=== PATIENT | female | born 1945 | race Caucasian/White ===

== ENCOUNTER → 2017-01-17 | Outpatient (CLI) | payer OTHER, MEDICARE ==
[~2017-01-17] MED LIST: ADVIN25050 INH; ALBU1AER9 INH; ASPI-435 PO; ATOR-54 PO; BUPR300T43 PO; FLUT0.15 NAE; GLIM2TAB2 PO; GLUCTAB7 PO; HYDR25TA5 PO; LEVO88TA PO; METFTAB PO; MONT1TAB3 PO; OMEG5CAP PO; RAMI5CAP PO
[2017-01-17 12:30] LABS: ALT/SGPT 21 U/L (12-78); BLOOD UREA NITROGEN 18 mg/dl (7-18); BUN/CREATININE RATIO 19.1 (10-20); CARBON DIOXIDE 31 mmol/L (21-32); CHLORIDE 105 mmol/L (98-107); CHOLESTEROL 185 mg/dl (0-200); CREATININE 0.96 mg/dl (0.60-1.20); GLUCOSE 121 mg/dl (70-99); SODIUM 144 mmol/L (136-145)
[2017-01-17 12:33] LABS: ALB/GLOB RATIO 0.9 (0.9-2); ALKALINE PHOSPHATASE 94 U/L (45-117); AST/SGOT 14 U/L (15-37); CHOLESTEROL/HDL RATIO 3.2; HDL CHOLESTEROL 58 mg/dl; LDL CHOLESTEROL CALCULATED 94 mg/dl; TRIGLYCERIDES 165 mg/dl (0-150); VERY LOW DENSITY LIPOPROT CALC 33 mg/dl
[2017-01-17 12:47] LABS: CALCIUM 9.2 mg/dl (8.5-10.1)
[2017-01-17 13:11] LABS: ESTIMATED AVERAGE GLUCOSE 192 mg/dl; HA1C FLAG Normal (Normal)
== END | disposition home or self-care (01) ==
LOC: C.LABBFT 09:46
PROVIDERS: ATTEND Internal Medicine
DX: E11.65 Type 2 diabetes mellitus with hyperglycemia (principal); E78.5 Hyperlipidemia, unspecified

== ENCOUNTER → 2017-06-23 | Outpatient (CLI) | payer OTHER, MEDICARE | END | disposition home or self-care (01) | LOC: C.PAPS 16:17 | PROVIDERS: ATTEND Obstetrics & Gynecology | DX: Z12.4 Encounter for screening for malignant neoplasm of cervix (principal) ==

== ENCOUNTER → 2017-07-11 | Outpatient (CLI) | payer OTHER, MEDICARE ==
--- NOTE | 2017-07-11 08:31 | DIAGNOSTIC IMAGING REPORT ---
ULTRASOUND ABDOMINAL WALL CLINICAL HISTORY: Right upper quadrant abdominal pain. COMPARISON STUDY: Abdominal ultrasound dated 10/20/2015. FINDINGS real-time grayscale sonography of the right upper quadrant abdominal wall is performed at the indicated site of interest. There is no sonographic evidence of hernia at this site. No mass lesion or fluid collection is suggested. IMPRESSION: Unremarkable sonographic assessment of the right abdominal wall at the indicated site of interest. Electronically signed by: Roberto García M.D. 07/11/2017 8:30 AM Dictated Date/Time: 07/11/2017 8:28 AM
== END | disposition home or self-care (01) ==
LOC: C.ULTR 07:38
PROVIDERS: ATTEND Physician Assistant Medical
DX: R10.11 Right upper quadrant pain (principal)

== ENCOUNTER → 2017-11-01 | Outpatient (CLI) | payer OTHER, MEDICARE ==
[2017-11-01 13:04] LABS: HEMOGLOBIN A1C 8.8 % (4.5-5.6)
== END | disposition home or self-care (01) ==
LOC: C.LABBFT 08:46
PROVIDERS: ATTEND Physician Assistant Medical
DX: E11.65 Type 2 diabetes mellitus with hyperglycemia (principal)

== ENCOUNTER → 2018-03-06 | Outpatient (CLI) | payer OTHER, MEDICARE ==
[2018-03-06 17:53] LABS: ALBUMIN 3.3 gm/dl (3.4-5.0); ALKALINE PHOSPHATASE 105 U/L (45-117); ALT/SGPT 24 U/L (12-78); AST/SGOT 10 U/L (15-37); BLOOD UREA NITROGEN 32 mg/dl (7-18); CALCIUM 9.1 mg/dl (8.5-10.1); CARBON DIOXIDE 25 mmol/L (21-32); CHOLESTEROL 200 mg/dl (0-200); CREATININE 0.99 mg/dl (0.60-1.20); GLUCOSE 128 mg/dl (70-99); LDL CHOLESTEROL CALCULATED 95 mg/dl; POTASSIUM 4.1 mmol/L (3.5-5.1); SODIUM 139 mmol/L (136-145); TOTAL PROTEIN 7.2 gm/dl (6.4-8.2)
[2018-03-07 07:01] LABS: HEMOGLOBIN A1C 9.5 % (4.5-5.6)
== END | disposition home or self-care (01) ==
LOC: C.LABBFT 11:31
PROVIDERS: ATTEND Physician Assistant Medical
DX: E11.65 Type 2 diabetes mellitus with hyperglycemia (principal); E03.9 Hypothyroidism, unspecified

== ENCOUNTER 2023-12-07 20:43 | Inpatient (IN) ==
[2023-12-07] MEDS: SODIUM CHLORIDE 0.9% 1,000 ML IV SCH ×2 (21:04→21:47)
--- NOTE | 2023-12-07 21:04 | Emergency Department Note ---
Impression & Plan Small bowel obstruction, S/P laparoscopic cholecystectomy, Abdominal pain, Nausea & vomiting ED Provider Note NAME: PETE PERRIN AGE: 78 SEX: F : 1945 ARRIVES VIA: Walk-In INFORMANT: Patient, ED PROVIDER(S): Edison Carrizales MD CHIEF COMPLAINT: Abdominal pain, nausea vomiting MEDICAL DECISION MAKING: Patient presents due to concern for abdominal pain nausea vomiting was noted to be hypotensive and vomiting in triage I was asked to see the patient emergently. Patient was evaluated at the bedside all IV fluids initiated along with Zofran and morphine CT abdomen pelvis [id number] BMP blood work blood cultures lactate and empiric antibiotics given the patient's recent surgery and hypotension. Patient was noted to have a possible small bowel obstruction. Patient did have an NG that was placed. KUB showed slight curling of the NG tube which was pulled back by nursing who did have appropriate suction of gastric contents. I did inform on-call surgery Dr. Leo who was comfortable with plan of care. I did speak the on-call hospitalist Dr. Mahmood and the patient was admitted to medicine service. Discussion w/ other healthcare providers: Dr. Leo general surgery Dr. Mahmood inpatient medicine service Prior /Outside records reviewed: None Differential diagnosis: Appendicitis, ovarian cyst, ovarian torsion, ectopic , TOA, PID, diverticulitis, UTI, obstruction, inflammatory bowel disease, renal colic, PUD, pancreatitis, biliary pathology, hernia, volvulus, constipation, as well as other pathologies were considered. Diagnostics, as interpreted by me: ECG: Sinus bradycardia, rate of 56, normal intervals, normal axis no ST elevations. No significant change for comparison December 08, 2022 Cardiac monitoring: An order was placed for continuous cardiac monitoring. The monitor shows a rate of 68 with sinus rhythm. Patient was placed on pulse oximetry Medical decision rules: None Imaging studies: I informally interpreted the patient's CT abdomen pelvis which does show concern for bowel obstruction with formal report to follow. I informally interpreted the patient's KUB which does show NG tube overlying the stomach with formal report to follow. I informally interpreted the patient's chest x-ray which does not show obvious evidence of pneumonia or pneumothorax with formal report to follow. HPI: Patient presents due to concern for abdominal pain nausea and vomiting. The patient did have a recent cholecystectomy that was completed yesterday and was also discharged yesterday. Patient did have the procedure performed by Dr. Baugh. The patient states that today she developed abdominal pain associated nausea vomiting several hours after eating around 430. Patient states that she had had macaroni and cheese at that time. Patient states that she vomited 3 times reportedly bilious when she vomited here in the emergency department. The patient denies any chest pains or shortness of breath. The patient does feel better after the vomiting. The patient has had several small bowel movements since her procedure yesterday. No reported blood. Patient states that her pain is diffuse and worse with palpation. PAST MEDICAL HISTORY: See Below PAST SURGICAL HISTORY: See Below SOCIAL HISTORY: See Below HOME MEDICATIONS: See Below ALLERGIES: See Below VITALS: See Below PHYSICAL EXAMINATION: GENERAL: Uncomfortable in appearance. EYE EXAM: Normal conjunctiva. PERRL, no anisocoria and EOM's grossly intact w/o pain. OROPHARYNX: Moist mucus membranes, grossly normal dentition. NECK: Trachea midline, no stridor. LUNGS: Clear to auscultation. Normal chest wall mechanics. HEART: NSR, no MRG. ABDOMEN: Abdomen soft, diffuse abdominal pain most prominent the right upper quadrant and left lower abdomen, incisional sites well-appearing with no fluctuance or drainage no masses, no rebound or guarding. BACK: No CVA TTP. SKIN: No rashes and no bruising. UPPER EXTREMITIES: Upper extremities are grossly normal. LOWER EXTREMITIES: Grossly normal, no edema. NEURO EXAM: A&O x3, cranial nerves II-XII grossly intact, normal speech, moves all 4 extremities. Past Med/Surg History Medical History Diabetes mellitus, controlled NIDDM Peripheral vascular disease of extremity with claudication right lower extremity Depression Anxiety Dyspnea on effort chronic per pt History of COVID-19 06/2021- mild symptoms and had antibody infusion GERD (gastroesophageal reflux disease) no current meds Generalized osteoarthritis Stress incontinence in female Tubular adenoma of colon hx Hyperlipidemia Mixed conductive and sensorineural hearing loss of left ear with restricted hearing of right ear Hypothyroidism HTN (hypertension) Asthma daily inh and prn inh-rare use Surgical History H/O exploratory laparotomy (12/08/23) Exploratory Laparotomy, Release of Small Bowel Obstruction(Not Applicable) - Cruz Baugh MD, FACS Hx laparoscopic cholecystectomy (12/06/23) Laparoscopic Cholecystectomy With Cholangiogram(Not Applicable) - Cruz Baugh MD, FACS History of tonsillectomy History of left knee surgery Status post cataract extraction Right eye 12/29/2021-Dr. York Left eye 12/15/2021-Dr. York Hx of colonoscopy History of lumpectomy of left breast benign H/O vaginal hysterectomy Family History Father Myocardial infarction Mother Myocardial infarction Hypertension Uncle Stroke Other Heart disease No family history of adverse response to anesthesia No family history of bleeding disorder Denies family history of Ovarian cancer Prostate cancer Coronary heart disease Breast cancer Colorectal cancer Social History Smoking Status: Never smoker Tobacco Type: Cigarettes Second Hand Exposure: Yes (hx growing up); Do You Dip or Chew Tobacco: No; Hx Alcohol Use: No Hx Substance Use: No Preferred Language: [place]araguan Communication Ability: Effective Visual Impairment: No Limitations Hearing Ability: Use of Hearing Aid Top Collar Maker Required: No Beliefs That Will Affect Care: None marital status: Current Living Situation: Spouse current occupational status: retired How many Children do You have: 2 Feels Safe at Home: Yes Safety Concerns: Feels Safe At This Time Childhood Exposure to Second-Hand Smoke: No Diet: regular caffeine: Yes during the past year weight has: decreased > 10 lbs Dental Care, Regularly: Yes Physical Activity Frequency: 1-2 Times per Week Seatbelt Use: always Sunscreen Use: No Assistive Devices: None Allergies Allergies Allergy/AdvReac Type Severity Reaction Status Date / Time Sulfa (Sulfonamide AdvReac Intermediate NAUSEA/VOMI Verified 12/07/23 22:58 Antibiotics) TING Home Meds Home Medications Medication Instructions Recorded Confirmed diclofenac sodium 1 % topical gel 4 g topical QID PRN Pain 07/01/21 12/07/23 dulaglutide 3 mg/0.5 mL 3 mg subcut Q7D 11/24/23 12/07/23 subcutaneous pen injector aspirin 81 mg tablet,delayed 81 mg PO QAM 04/26/24 05/02/24 release (Adult Low Dose Aspirin) fluoxetine 10 mg capsule 10 mg PO QPM 12/01/23 12/07/23 Previous Rx's Medication Instructions Recorded ramipril 10 mg capsule 10 mg PO QAM #90 caps 01/24/23 blood sugar diagnostic (Accu-Chek #100 ea 03/15/23 SmartView Test Strips) lancets (Accu-Chek Softclix #100 ea 03/17/23 Lancets) albuterol sulfate 90 mcg/actuation 2 puff inhalation Q4H PRN 07/27/23 aerosol inhaler (ProAir HFA) shortness of breath or wheezing #25.5 grams atorvastatin 40 mg tablet 40 mg PO HS #90 tabs 07/27/23 bupropion HCl 300 mg 24 hr tablet, 300 mg PO QAM #90 tabs 07/27/23 extended release fluticasone furoate 100 1 inh inhalation QAM #3 Inhalers 07/27/23 mcg-vilanterol 25 mcg/dose inhalation powder (Breo Ellipta) fluticasone propionate 50 2 spray intranasal QAM #16 grams 07/27/23 mcg/actuation nasal spray,suspension hydrochlorothiazide 12.5 mg tablet 12.5 mg PO QAM #90 tabs 07/27/23 levothyroxine 88 mcg tablet 88 mcg PO QAM #90 tabs 07/27/23 metformin 500 mg tablet,extended 500 mg PO BID #90 tabs 07/27/23 release 24 hr montelukast 10 mg tablet 10 mg PO HS #90 tabs 07/27/23 (Singulair) ondansetron 4 mg disintegrating 4 mg PO Q4H PRN nausea and 11/24/23 tablet vomiting 0 days #10 tabs oxycodone 5 mg tablet 5 - 10 mg (1 - 2 x 5 mg) PO 12/06/23 [id number] PRN pain #15 tabs Results & Data (ED) Vital Signs Vital Signs - 24 hr 12/07/23 20:45 12/07/23 21:01 12/07/23 21:01 Temperature 36.7 C Temperature Source Temporal Artery Scan Pulse Rate 50 L Respiratory Rate 18 Respiratory Effort / Characteristics Non-Labored Respiratory Depth Normal Blood Pressure 71/49 L Blood Pressure Mean 56 Pulse Oximetry 96 Oxygen Delivery Method Room Air Room Air Room Air Sepsis Recent Fever Within 48 Hours No Sepsis New/Unexplained Change in Mental Status No Sepsis Action Taken by Nursing No Action Required 12/07/23 21:01 Temperature Temperature Source Pulse Rate Respiratory Rate Respiratory Effort / Characteristics Non-Labored Respiratory Depth Normal Blood Pressure Blood Pressure Mean Pulse Oximetry Oxygen Delivery Method Sepsis Recent Fever Within 48 Hours Sepsis New/Unexplained Change in Mental Status Sepsis Action Taken by [facility] Medications Current Medication List: was personally reviewed by me Laboratory Data Attestation: I reviewed the patient's lab results. 12/12/23 07:23 12/13/23 05:36 Lab Results 12/07/23 12/07/23 12/07/23 Range/Units 21:05 21:08 21:14 WBC 11.56 H (4.8-10.8) K/ul RBC 4.82 (4.20-5.40) M/uL Hgb 14.8 (12.0-16.0) g/dl POC Hgb 15.3 (12.0-16.0) g/dl Hct 43.8 (37.0-47.0) % POC Hct 45 (37-47) % MCV 90.9 (80.0-100.0) fL MCH 30.7 (25.0-34.0) pg MCHC 33.8 (32.0-36.0) g/dL RDW Std Deviation 40.2 (36.4-46.3) fL RDW Coeff of Diana 12.0 (11.5-14.5) % Plt Count 326 (130-400) K/uL MPV 11.6 (9.4-12.4) fL Immature Gran % (Auto) 0.4 % Neut % (Auto) 85.5 % Lymph % (Auto) 9.4 % Webster % (Auto) 4.2 % Eos % (Auto) 0.2 % Baso % (Auto) 0.3 % Neut # (Auto) 9.88 H (1.40-6.50) K/uL Lymph # (Auto) 1.09 L (1.20-3.40) K/uL Webster # (Auto) 0.49 (0.11-0.59) K/uL Eos # (Auto) 0.02 (0.00-0.50) K/uL Baso # (Auto) 0.03 (0.00-0.20) K/uL Immature Gran # (Auto) 0.05 (0.01-0.20) K/uL PT 10.5 (9.0-12.0) Seconds INR 1.0 (0.9-1.1) POC Sodium 139 (135-144) mmol/L Sodium 139 (136-145) mmol/L POC Potassium 4.8 (3.3-5.0) mmol/L Potassium 4.5 (3.5-5.1) mmol/L POC Chloride 102 (101-112) mmol/L Chloride 102 (98-107) mmol/L Carbon Dioxide 27 (21-32) mmol/L POC Total CO2 26 (24-31) mmol/L Anion Gap 10 (3-11) POC Anion Gap 17.0 (16-25) mmol/L POC BUN 25 H (7-18) mg/dl BUN 21 (6-23) mg/dl Creatinine 1.10 (0.6-1.2) mg/dl POC Creatinine 1.0 (0.6-1.3) mg/dl Est Cr Clr Drug Dosing 37.0 ml/min Est GFR ( Amer) 56.1 ml/min Est GFR (Non-Af Amer) 48.4 ml/min BUN/Creatinine Ratio 19.1 (10-20) Glucose 348 H* (70-99(Fasting)) mg/dl POC Glucose (other) 328 H (70-99) mg/dl Estimat Average Glucose 157 mg/dl Hemoglobin A1c 7.1 H (4.5-5.6) % Lactate 3.3 H* (0.4-2.0) mmol/L Calcium 9.5 (8.6-10.3) mg/dl POC Ioniz Calcium Amanda 1.14 (1.12-1.32) mmol/l Magnesium 1.9 (1.7-2.4) mg/dl Total Bilirubin 0.6 (0.2-1.0) mg/dl AST 26 (13-39) U/L ALT 37 (7-52) U/L Alkaline Phosphatase 110 H (34-104) U/L Troponin I High Sens 74.6 H* (0-14) pg/ml Total Protein 6.8 (6.0-8.3) gm/dl Albumin 3.9 (3.4-5.0) gm/dl Globulin 2.9 (2.5-4.0) gm/dl Albumin/Globulin Ratio 1.3 (0.9-2) Lipase 22 (11-82) U/L Procalcitonin 0.09 (0-0.5) ng/ml TSH 0.514 (0.300-4.500) uIu/ml SARS-CoV-2, RNA, NAAT NEGATIVE (NEGATIVE) Blood Type A Positive Blood Type Recheck Antibody Screen NEGATIVE 12/07/23 12/07/23 Range/Units 21:19 23:29 WBC (4.8-10.8) K/ul RBC (4.20-5.40) M/uL Hgb (12.0-16.0) g/dl POC Hgb (12.0-16.0) g/dl Hct (37.0-47.0) % POC Hct (37-47) % MCV (80.0-100.0) fL MCH (25.0-34.0) pg MCHC (32.0-36.0) g/dL RDW Std Deviation (36.4-46.3) fL RDW Coeff of Diana (11.5-14.5) % Plt Count (130-400) K/uL MPV (9.4-12.4) fL Immature Gran % (Auto) % Neut % (Auto) % Lymph % (Auto) % Webster % (Auto) % Eos % (Auto) % Baso % (Auto) % Neut # (Auto) (1.40-6.50) K/uL Lymph # (Auto) (1.20-3.40) K/uL Webster # (Auto) (0.11-0.59) K/uL Eos # (Auto) (0.00-0.50) K/uL Baso # (Auto) (0.00-0.20) K/uL Immature Gran # (Auto) (0.01-0.20) K/uL PT (9.0-12.0) Seconds INR (0.9-1.1) POC Sodium (135-144) mmol/L Sodium (136-145) mmol/L POC Potassium (3.3-5.0) mmol/L Potassium (3.5-5.1) mmol/L POC Chloride (101-112) mmol/L Chloride (98-107) mmol/L Carbon Dioxide (21-32) mmol/L POC Total CO2 (24-31) mmol/L Anion Gap (3-11) POC Anion Gap (16-25) mmol/L POC BUN (7-18) mg/dl BUN (6-23) mg/dl Creatinine (0.6-1.2) mg/dl POC Creatinine (0.6-1.3) mg/dl Est Cr Clr Drug Dosing ml/min Est GFR ( Amer) ml/min Est GFR (Non-Af Amer) ml/min BUN/Creatinine Ratio (10-20) Glucose (70-99(Fasting)) mg/dl POC Glucose (other) (70-99) mg/dl Estimat Average Glucose mg/dl Hemoglobin A1c (4.5-5.6) % Lactate 1.5 (0.4-2.0) mmol/L Calcium (8.6-10.3) mg/dl POC Ioniz Calcium Amanda (1.12-1.32) mmol/l Magnesium (1.7-2.4) mg/dl Total Bilirubin (0.2-1.0) mg/dl AST (13-39) U/L ALT (7-52) U/L Alkaline Phosphatase (34-104) U/L Troponin I High Sens 67.8 H* (0-14) pg/ml Total Protein (6.0-8.3) gm/dl Albumin (3.4-5.0) gm/dl Globulin (2.5-4.0) gm/dl Albumin/Globulin Ratio (0.9-2) Lipase (11-82) U/L Procalcitonin (0-0.5) ng/ml TSH (0.300-4.500) uIu/ml SARS-CoV-2, RNA, NAAT (NEGATIVE) Blood Type Blood Type Recheck A Positive Antibody Screen Administered Medications Albuterol (Albut/Ipratrop 3mg/0.5mg Neb 3 Ml Vial) 3 ml NEB Q6R PRN; Protocol PRN Reason: Wheezing Stop: 01/09/24 19:50 Last Admin: 12/11/23 19:52 Dose: 3 ml Documented By: Admin: 12/11/23 10:56 Dose: 3 ml Documented By: Admin: 12/10/23 20:19 Dose: 3 ml Documented By: WM Amlodipine Besylate (Amlodipine Besylate 5 Mg Tab) 5 mg PO HS [facility] Stop: 01/11/24 20:59 Last Admin: 12/12/23 20:50 Dose: 5 mg Documented By: KRISHAN Bupropion HCl (Bupropion Xl 300 Mg Tabcr) 300 mg PO QAM [facility] Stop: 01/11/24 08:59 Last Admin: 12/13/23 08:50 Dose: 300 mg Documented By: Admin: 12/12/23 10:03 Dose: 300 mg Documented By: CATY Dextrose (Dextrose 50% 50 Ml Syringe) 25 - 50 ml IV UD PRN; Protocol PRN Reason: Hypoglycemia Protocol Stop: 01/07/24 01:04 Last Admin: 12/10/23 18:42 Dose: 25 ml Documented By: Admin: 12/09/23 23:41 Dose: 25 ml Documented By: KATIE Enalapril Maleate (Enalapril Maleate 10 Mg Tab) [facility] Protocol Stop: 01/11/24 08:59 Last Admin: 12/13/23 08:51 Dose: 40 mg Documented By: Admin: 12/12/23 10:04 Dose: 40 mg Documented By: CATY Fluoxetine HCl (Fluoxetine Hcl 10 Mg Cap) 10 mg PO QPM [facility] Stop: 01/11/24 20:59 Last Admin: 12/12/23 20:51 Dose: 10 mg Documented By: KRISHAN Fluticasone/Vilanterol (Fluticasone/Vilanterol 100/25mcg 14 Puffs/Inhaler) 1 puffs INH QAM [facility] Stop: 01/11/24 08:59 Last Admin: 12/13/23 08:51 Dose: 1 puffs Documented By: Admin: 12/12/23 10:03 Dose: Not Given Documented By: CATY Heparin Sodium (Porcine) (Heparin Sod 5,000 Unit/0.5 Ml Vial) 5,000 units SQ Q12 [facility] Stop: 01/10/24 20:59 Last Admin: 12/13/23 08:53 Dose: 5,000 units Documented By: Admin: 12/12/23 20:52 Dose: 5,000 units Documented By: Admin: 12/12/23 08:14 Dose: 5,000 units Documented By: Admin: 12/11/23 20:21 Dose: 5,000 units Documented By: KATIE Hydrochlorothiazide (Hydrochlorothiazide 25 Mg Tab) 12.5 mg PO QAM [facility] Stop: 01/11/24 08:59 Last Admin: 12/13/23 08:52 Dose: 12.5 mg Documented By: Admin: 12/12/23 10:03 Dose: 12.5 mg Documented By: CATY Pantoprazole Sodium 40 mg/ (Syringe) 10 mls @ 5 mls/min IV DAILY@1100 [facility] Stop: 01/10/24 10:59 Last Admin: 12/13/23 11:55 Dose: 5 mls/min Documented By: Admin: 12/12/23 10:04 Dose: 5 mls/min Documented By: Admin: 12/11/23 11:14 Dose: 5 mls/min Documented By: CHITRA Insulin Aspart (Insulin Aspart Per Unit Charge) 0 units SC ACHS [facility] Stop: 01/07/24 05:59 Last Admin: 12/13/23 12:59 Dose: Not Given Documented By: Admin: 12/13/23 08:49 Dose: Not Given Documented By: Admin: 12/12/23 20:52 Dose: Not Given Documented By: Admin: 12/12/23 17:17 Dose: Not Given Documented By: Admin: 12/12/23 12:41 Dose: Not Given Documented By: Admin: 12/12/23 08:08 Dose: Not Given Documented By: CATY Levothyroxine Sodium (Levothyroxine Sodium 88 Mcg Tablet) 88 mcg PO DAILYBB [facility] Stop: 01/11/24 10:59 Last Admin: 12/13/23 05:30 Dose: 88 mcg Documented By: Admin: 12/12/23 10:03 Dose: 88 mcg Documented By: CATY Metoclopramide HCl (Metoclopramide Hcl Inj 5 Mg/Ml 2 Ml Vial) 5 mg IV Q6H PRN PRN Reason: nausea vomiting Stop: 01/10/24 16:44 Last Admin: 12/12/23 08:14 Dose: 5 mg Documented By: Admin: 12/12/23 00:59 Dose: 5 mg Documented By: Admin: 12/11/23 16:51 Dose: 5 mg Documented By: CHITRA Montelukast Sodium (Montelukast Sodium 10 Mg Tablet) 10 mg PO HS [facility] Stop: 01/11/24 20:59 Last Admin: 12/12/23 20:50 Dose: 10 mg Documented By: KRISHAN Nitroglycerin (Nitroglycerin 2% Ointment 30gm Tube) 0.5 inch EXT Q6H PRN PRN Reason: SBP>170 or DBP>85 Stop: 01/09/24 16:29 Last Admin: 12/12/23 05:26 Dose: 0.5 inch Documented By: Admin: 12/11/23 22:40 Dose: 0.5 inch Documented By: Admin: 12/11/23 08:11 Dose: 0.5 inch Documented By: CHITRA Ondansetron HCl (Ondansetron Inj 2 Mg/Ml 2 Ml Vial) 4 mg IV Q6H PRN PRN Reason: Nausea And Vomiting Stop: 01/06/24 23:26 Last Admin: 12/12/23 20:48 Dose: 4 mg Documented By: Admin: 12/11/23 21:33 Dose: 4 mg Documented By: Admin: 12/11/23 13:26 Dose: 4 mg Documented By: Admin: 12/11/23 08:04 Dose: 4 mg Documented By: Admin: 12/10/23 23:27 Dose: 4 mg Documented By: Admin: 12/10/23 08:22 Dose: 4 mg Documented By: Admin: 12/09/23 19:32 Dose: 4 mg Documented By: Admin: 12/09/23 07:55 Dose: 4 mg Documented By: Admin: 12/08/23 19:44 Dose: 4 mg Documented By: Admin: 12/08/23 08:30 Dose: 4 mg Documented By: Admin: 12/08/23 02:34 Dose: 4 mg Documented By: MARYURIR Oxycodone/Acetaminophen (Oxycodone/Acetaminophen 5mg/325mg Tab) 1 tab PO Q4H PRN PRN Reason: Pain Stop: 12/27/23 08:11 Last Admin: 12/13/23 11:08 Dose: 1 tab Documented By: NAT Discontinued Medications Albuterol (Albut/Ipratrop 3mg/0.5mg Neb 3 Ml Vial) 3 ml NEB NOW STA; Protocol Stop: 12/08/23 20:07 Last Admin: 12/08/23 20:53 Dose: 3 ml Documented By: KRISTINE Bisacodyl (Bisacodyl 10 Mg Supp) 10 mg [place] NOW STA Stop: 12/13/23 08:04 Last Admin: 12/13/23 11:55 Dose: Not Given Documented By: NAT Bupivacaine HCl (Bupivacaine 0.5 % 5 Mg/1 Ml Mpf 30ml Vial) Confirm Administered Dose 30 ml .ROUTE .STK-MED ONE Stop: 12/08/23 12:28 Last Admin: 12/08/23 13:21 Dose: Not Given Documented By: MARICARMEN Fentanyl Citrate (Fentanyl Citrate Pf 100 Mcg/2 Ml Vial) 50 mcg IV NOW STA Stop: 12/07/23 22:22 Last Admin: 12/07/23 22:25 Dose: 50 mcg Documented By: SABINE Fentanyl Citrate (Fentanyl Citrate Pf 100 Mcg/2 Ml Vial) 50 mcg IV Q5M PRN PRN Reason: PACU Use Only-Pain Stop: 12/08/23 20:27 Last Admin: 12/08/23 13:50 Dose: 50 mcg Documented By: Admin: 12/08/23 13:40 Dose: 50 mcg Documented By: HEIDI Furosemide (Furosemide 40 Mg/4 Ml Vial) 40 mg IV ONE ONE Stop: 12/11/23 09:19 Last Admin: 12/11/23 09:28 Dose: 40 mg Documented By: CHITRA Furosemide (Furosemide Inj 20 Mg/2 Ml Vial) 20 mg IV ONE ONE Stop: 12/11/23 09:32 Last Admin: 12/11/23 09:40 Dose: Not Given Documented By: CHITRA Furosemide (Furosemide Inj 20 Mg/2 Ml Vial) 10 mg IV ONE ONE Stop: 12/12/23 05:35 Last Admin: 12/12/23 05:51 Dose: 10 mg Documented By: GIULIANO Heparin Sodium (Porcine) (Heparin Sod 5,000 Unit/0.5 Ml Vial) 5,000 units SQ Q8 [facility] Stop: 01/07/24 20:59 Last Admin: 12/11/23 13:30 Dose: 5,000 units Documented By: Admin: 12/10/23 06:16 Dose: 5,000 units Documented By: Admin: 12/09/23 21:58 Dose: 5,000 units Documented By: Admin: 12/09/23 14:22 Dose: 5,000 units Documented By: Admin: 12/09/23 05:53 Dose: 5,000 units Documented By: [id number] Admin: 12/08/23 22:01 Dose: Not Given Documented By: [id number] Admin: 12/08/23 21:42 Dose: 5,000 units Documented By: KATIE Hydralazine HCl (Hydralazine Hcl 20 Mg/Ml Vial) 10 mg IV NOW STA Stop: 12/11/23 09:19 Last Admin: 12/11/23 09:28 Dose: 10 mg Documented By: CHITRA Sodium Chloride (Nss) 1,000 mls @ 999 mls/hr IV .Q1H1M [facility] Stop: 12/07/23 22:15 Last Infusion: 12/07/23 22:00 Dose: Infused Documented By: Admin: 12/07/23 21:04 Dose: 999 mls/hr Documented By: GRZEGORZ Sodium Chloride (Nss) 1,000 mls @ 999 mls/hr IV .Q1H1M [facility] Stop: 12/07/23 23:15 Last Infusion: 12/07/23 22:39 Dose: Infused Documented By: Admin: 12/07/23 22:26 Dose: 999 mls/hr Documented By: Infusion: 12/07/23 22:26 Dose: Infused Documented By: Admin: 12/07/23 21:47 Dose: 999 mls/hr Documented By: GRZEGORZ Piperacillin Sod/Tazobactam Sod (Zosyn) 4.5 gm in 100 mls @ 200 mls/hr IV NOW ONE Stop: 12/07/23 21:31 Last Infusion: 12/07/23 22:17 Dose: Infused Documented By: Admin: 12/07/23 21:47 Dose: 200 mls/hr Documented By: GRZEGORZ Potassium Chloride/Sodium Chloride (Normal Saline W/20 Meq Kcl) 20 meq in 1,000 mls @ 100 mls/hr IV .Q10H [facility]; Protocol Stop: 12/08/23 19:29 Last Infusion: 12/08/23 21:48 Dose: Infused Documented By: Admin: 12/08/23 11:01 Dose: 100 mls/hr Documented By: Infusion: 12/08/23 09:05 Dose: Infused Documented By: Admin: 12/07/23 23:54 Dose: 100 mls/hr Documented By: GRZEGORZ Pantoprazole Sodium 40 mg/ (Syringe) 10 mls @ 5 mls/min IV NOW ONE Stop: 12/07/23 23:46 Last Admin: 12/08/23 00:18 Dose: 5 mls/min Documented By: GRZEGORZ Acetaminophen ([facility]) 1,000 mg in 100 mls @ 400 mls/hr IV Q8H PRN PRN Reason: Pain or Fever Stop: 12/10/23 23:26 Last Infusion: 12/10/23 08:50 Dose: Infused Documented By: Admin: 12/10/23 08:23 Dose: 400 mls/hr Documented By: Infusion: 12/10/23 00:27 Dose: Infused Documented By: Admin: 12/09/23 23:51 Dose: 400 mls/hr Documented By: Infusion: 12/09/23 14:58 Dose: Infused Documented By: Admin: 12/09/23 14:21 Dose: 400 mls/hr Documented By: Infusion: 12/09/23 05:32 Dose: Infused Documented By: Abel Admin: 12/09/23 04:39 Dose: 400 mls/hr Documented By: Abel Infusion: 12/08/23 04:27 Dose: Infused Documented By: Admin: 12/08/23 03:47 Dose: 400 mls/hr Documented By: GEOFFREY Piperacillin Sod/Tazobactam (Sod 4.5 gm/ Dextrose) 100 mls @ 25 mls/hr IV Q8H [facility]; Protocol Stop: 12/18/23 03:59 Last Admin: 12/09/23 13:29 Dose: Not Given Documented By: Infusion: 12/09/23 09:11 Dose: Infused Documented By: Admin: 12/09/23 04:42 Dose: 25 mls/hr Documented By: Abel Infusion: 12/09/23 00:02 Dose: Infused Documented By: Abel Admin: 12/08/23 19:50 Dose: 25 mls/hr Documented By: Admin: 12/08/23 15:21 Dose: Not Given Documented By: Infusion: 12/08/23 09:05 Dose: Infused Documented By: Admin: 12/08/23 04:27 Dose: 25 mls/hr Documented By: NRR Pantoprazole Sodium 40 mg/ (Syringe) 10 mls @ 5 mls/min IV DAILY@1100 [facility] Stop: 01/07/24 10:59 Last Admin: 12/09/23 10:50 Dose: 5 mls/min Documented By: Admin: 12/08/23 11:09 Dose: 5 mls/min Documented By: CHRISTIANO Sodium Chloride (Nss) 1,000 mls @ 100 mls/hr IV .Q10H [facility] Stop: 01/07/24 20:14 Last Infusion: 12/09/23 14:30 Dose: Infused Documented By: Admin: 12/09/23 07:03 Dose: 100 mls/hr Documented By: [id number] Infusion: 12/09/23 07:03 Dose: Infused Documented By: [id number] Admin: 12/08/23 21:48 Dose: 100 mls/hr Documented By: KATIE Potassium Chloride/Sodium Chloride (1/2 Nss + 20meq Kcl 1000ml) 20 meq in 1,000 mls @ 100 mls/hr IV .Q10H [facility] Stop: 01/08/24 13:14 Last Infusion: 12/11/23 09:48 Dose: Infused Documented By: Admin: 12/11/23 05:26 Dose: 100 mls/hr Documented By: Infusion: 12/11/23 05:26 Dose: Infused Documented By: Admin: 12/10/23 20:32 Dose: 100 mls/hr Documented By: Infusion: 12/10/23 20:32 Dose: Infused Documented By: Admin: 12/10/23 11:37 Dose: 100 mls/hr Documented By: Infusion: 12/10/23 11:36 Dose: Infused Documented By: Admin: 12/10/23 01:36 Dose: 100 mls/hr Documented By: Infusion: 12/10/23 00:28 Dose: Infused Documented By: Admin: 12/09/23 14:21 Dose: 100 mls/hr Documented By: CHRISTIANO Sodium Chloride (Nss) 500 mls @ 999 mls/hr IV .Q31M ONE Stop: 12/10/23 00:52 Last Infusion: 12/10/23 01:34 Dose: Infused Documented By: Admin: 12/10/23 00:36 Dose: 999 mls/hr Documented By: KATIE Ceftriaxone Sodium (Rocephin) 1,000 mg in 50 mls @ 100 mls/hr IV Q24H [facility] Stop: 12/15/23 05:59 Last Infusion: 12/11/23 05:44 Dose: Infused Documented By: Admin: 12/11/23 05:13 Dose: 100 mls/hr Documented By: Infusion: 12/10/23 06:44 Dose: Infused Documented By: Admin: 12/10/23 06:12 Dose: 100 mls/hr Documented By: KATIE Pantoprazole Sodium 40 mg/ (Dextrose) 100 mls @ 20 mls/hr IV Q5H BARBARA Stop: 01/09/24 06:59 Last Infusion: 12/11/23 07:43 Dose: Infused Documented By: Admin: 12/11/23 05:23 Dose: 8 mg/hr, 20 mls/hr Documented By: Infusion: 12/11/23 05:23 Dose: Infused Documented By: Admin: 12/11/23 01:32 Dose: 8 mg/hr, 20 mls/hr Documented By: Infusion: 12/11/23 01:32 Dose: Infused Documented By: Admin: 12/10/23 21:15 Dose: 8 mg/hr, 20 mls/hr Documented By: Infusion: 12/10/23 21:15 Dose: Infused Documented By: Admin: 12/10/23 16:18 Dose: 8 mg/hr, 20 mls/hr Documented By: Infusion: 12/10/23 16:18 Dose: Infused Documented By: Admin: 12/10/23 11:38 Dose: 8 mg/hr, 20 mls/hr Documented By: Infusion: 12/10/23 11:38 Dose: Infused Documented By: Admin: 12/10/23 07:10 Dose: 8 mg/hr, 20 mls/hr Documented By: HATTIE Pantoprazole Sodium 80 mg/ (Dextrose) 120 mls @ 480 mls/hr IV NOW ONE Stop: 12/10/23 06:51 Last Infusion: 12/10/23 07:09 Dose: Infused Documented By: Admin: 12/10/23 06:51 Dose: 480 mls/hr Documented By: HATTIE Magnesium Sulfate/Dextrose (Magnesium Sulfate / D5w) 1 gm in 100 mls @ 50 mls/hr IV ONE ONE Stop: 12/10/23 10:44 Last Infusion: 12/10/23 13:49 Dose: Infused Documented By: Admin: 12/10/23 11:37 Dose: 50 mls/hr Documented By: CHRISTIANO Magnesium Sulfate/Dextrose (Magnesium Sulfate / D5w) 1 gm in 100 mls @ 50 mls/hr IV ONE ONE Stop: 12/11/23 09:29 Last Infusion: 12/11/23 09:48 Dose: Infused Documented By: Admin: 12/11/23 08:01 Dose: 50 mls/hr Documented By: CHITRA Magnesium Sulfate/Dextrose (Magnesium Sulfate / D5w) 1 gm in 100 mls @ 50 mls/hr IV ONE ONE Stop: 12/11/23 09:35 Last Infusion: 12/11/23 12:06 Dose: Infused Documented By: Admin: 12/11/23 09:45 Dose: 50 mls/hr Documented By: CHITRA Lactated Ringer's (Lr) 1,000 mls @ 50 mls/hr IV .Q20H BARBARA Stop: 01/10/24 09:29 Last Infusion: 12/13/23 10:50 Dose: Infused Documented By: Admin: 12/13/23 05:26 Dose: 50 mls/hr Documented By: Infusion: 12/13/23 05:26 Dose: Infused Documented By: Admin: 12/12/23 15:21 Dose: 50 mls/hr Documented By: Infusion: 12/12/23 15:21 Dose: Infused Documented By: Admin: 12/12/23 11:52 Dose: 75 mls/hr Documented By: Infusion: 12/12/23 11:52 Dose: Infused Documented By: Admin: 12/11/23 23:55 Dose: 75 mls/hr Documented By: Infusion: 12/11/23 23:05 Dose: Infused Documented By: Admin: 12/11/23 09:45 Dose: 75 mls/hr Documented By: CHITRA Insulin Aspart (Insulin Aspart Per Unit Charge) 0 units SC Q6 BARBARA Stop: 01/07/24 05:59 Last Admin: 12/12/23 06:01 Dose: Not Given Documented By: GIULIANO Co-signed By: MIRIAM Admin: 12/11/23 23:59 Dose: Not Given Documented By: GIULIANO Co-signed By: MIRIAM Admin: 12/11/23 17:46 Dose: Not Given Documented By: CHITRA Co-signed By: JANETTE Admin: 12/11/23 12:19 Dose: Not Given Documented By: CHITRA Co-signed By: JANETTE Admin: 12/11/23 05:13 Dose: Not Given Documented By: KATIE Co-signed By: LD Admin: 12/11/23 00:20 Dose: Not Given Documented By: KATIE Co-signed By: SHYAM Admin: 12/10/23 18:44 Dose: Not Given Documented By: Admin: 12/10/23 11:37 Dose: Not Given Documented By: Admin: 12/10/23 06:14 Dose: Not Given Documented By: KATIE Co-signed By: HATTIE Admin: 12/10/23 00:12 Dose: Not Given Documented By: KATIE Co-signed By: HATTIE Admin: 12/09/23 18:32 Dose: Not Given Documented By: CHRISTIANO Co-signed By: LUIS ALBERTO Admin: 12/09/23 12:52 Dose: Not Given Documented By: CHRISTIANO Co-signed By: LUIS ALBERTO Admin: 12/09/23 06:04 Dose: 1 units Documented By: [id number] Co-signed By: KATIE Admin: 12/09/23 00:28 Dose: 3 units Documented By: Abel Co-signed By: JELLY Admin: 12/08/23 17:40 Dose: 3 units Documented By: CHRISTIANO Co-signed By: LUIS ALBERTO Admin: 12/08/23 15:21 Dose: Not Given Documented By: MM Co-signed By: LUIS ALBERTO Admin: 12/08/23 06:32 Dose: 6 units Documented By: NRR Co-signed By: JOSEPH Ioversol (Optiray 320 100ml) 90 ml IV ONCE ONE Stop: 12/07/23 21:23 Last Admin: 12/07/23 21:22 Dose: 90 ml Documented By: GEP Ketorolac Tromethamine (Ketorolac Tromethamine 15 Mg/Ml Vial) 10 mg IV Q6H PRN PRN Reason: Moderate Pain (Scale 4, 5, 6) Stop: 12/12/23 23:26 Last Admin: 12/09/23 05:58 Dose: 10 mg Documented By: [id number] Admin: 12/08/23 23:20 Dose: 10 mg Documented By: [id number] Admin: 12/08/23 02:34 Dose: 10 mg Documented By: GEOFFREY Lidocaine HCl (Lidocaine Viscous 2% 15 Ml Udc) 3 ml TOP NOW ONE Stop: 12/07/23 23:09 Last Admin: 12/07/23 23:27 Dose: 3 ml Documented By: GRZEGORZ Morphine Sulfate (Morphine Sulfate 4 Mg/Ml 1 Ml Carp\Vial) 4 mg IV NOW STA Stop: 12/07/23 21:02 Last Admin: 12/07/23 21:07 Dose: 4 mg Documented By: GRZEGORZ Morphine Sulfate (Morphine Sulfate 2 Mg/Ml Carp) 2 mg IV Q3H PRN PRN Reason: Severe Pain (Scale 7, 8, 9,10) Stop: 12/21/23 23:33 Last Admin: 12/13/23 05:28 Dose: 2 mg Documented By: Admin: 12/12/23 20:49 Dose: 2 mg Documented By: Admin: 12/12/23 16:42 Dose: 2 mg Documented By: Admin: 12/12/23 08:19 Dose: 2 mg Documented By: Admin: 12/12/23 00:59 Dose: 2 mg Documented By: Admin: 12/11/23 21:32 Dose: 2 mg Documented By: Admin: 12/11/23 16:51 Dose: 2 mg Documented By: Admin: 12/11/23 13:26 Dose: 2 mg Documented By: Admin: 12/11/23 08:04 Dose: 2 mg Documented By: Admin: 12/10/23 23:25 Dose: 2 mg Documented By: Admin: 12/10/23 18:43 Dose: 2 mg Documented By: Admin: 12/10/23 13:07 Dose: 2 mg Documented By: Admin: 12/10/23 08:23 Dose: 2 mg Documented By: Admin: 12/09/23 23:39 Dose: 2 mg Documented By: Admin: 12/09/23 19:31 Dose: 2 mg Documented By: Admin: 12/09/23 14:21 Dose: 2 mg Documented By: Admin: 12/09/23 10:49 Dose: 2 mg Documented By: Admin: 12/09/23 07:55 Dose: 2 mg Documented By: Admin: 12/09/23 04:30 Dose: 2 mg Documented By: [id number] Admin: 12/08/23 19:43 Dose: 2 mg Documented By: Admin: 12/08/23 08:30 Dose: 2 mg Documented By: Admin: 12/07/23 23:57 Dose: 2 mg Documented By: GRZEGORZ Ondansetron HCl (Ondansetron Inj 2 Mg/Ml 2 Ml Vial) 4 mg IV NOW STA Stop: 12/07/23 21:02 Last Admin: 12/07/23 21:07 Dose: 4 mg Documented By: GRZEGORZ Imaging Data Radiologist's Impression: Abdomen/Pelvis CT 12/07/23 21:01 Exam(s): CT ABDOMEN + PELVIS With Contrast IV Amt: 90 cc opt i320 EXAM: CT Abdomen and Pelvis With Intravenous Contrast CLINICAL HISTORY: Reason for exam: abdominal pain. TECHNIQUE: Axial computed tomography images of the abdomen and pelvis with intravenous contrast. CTDI is 26.4 mGy and DLP is 2502.22 mGy-cm. Automated exposure control was utilized for the study. A dose lowering technique was utilized adhering to the principles of ALARA. CONTRAST: Patient received 90 cc opt i320 of IV contrast COMPARISON: CT abdomen pelvis 11/24/2023 FINDINGS: ABDOMEN: Liver: Unremarkable. Gallbladder and bile ducts: Status post cholecystectomy. No abscess or radiopaque stones. No biliary dilatation. Pancreas: Unremarkable. Spleen: Unremarkable. Adrenals: Unremarkable. Kidneys and ureters: Unremarkable. No obstructing stones. No hydronephrosis. Stomach and bowel: Fluid-filled dilated jejunal loops within the left midabdomen. Potentially representing obstruction. The stomach is mildly distended. Colonic diverticulosis without diverticulitis. PELVIS: Appendix: No findings to suggest acute appendicitis. Bladder: Unremarkable. Reproductive: Unremarkable as visualized. ABDOMEN and PELVIS: Intraperitoneal space: Small volume ascites and a few scattered foci of free air within which appear postsurgical. Bones/joints: Degenerative changes within the lower thoracic and lumbar spine. Soft tissues: Unremarkable. Vasculature: Unremarkable. Lymph nodes: Unremarkable. IMPRESSION: 1. Status post cholecystectomy. No abscess or radiopaque stones. No biliary dilatation. 2. Small volume ascites and a few scattered foci of free air within which appear postsurgical. 3. Fluid-filled dilated jejunal loops within the left midabdomen. Potentially representing obstruction. The stomach is mildly distended. 4. Colonic diverticulosis without diverticulitis. Electronically signed by: Blas Bang MD 12/07/23 22:42 PM Chest X-Ray 12/07/23 21:01 XR chest 1V portable HISTORY: weakness COMPARISON: Chest 12/08/2022. FINDINGS: The lungs are clear. Cardiac silhouette is normal in size. No pleural effusions. No pneumothorax. IMPRESSION: No acute process. ACT 112: Negative or not required by law. Electronically signed by: Rao Bower M.D. 12/08/2023 7:40 AM KUB X-Ray 12/07/23 23:26 KUB HISTORY: Status post placement of an enteric tube NG tube confirmation COMPARISON: CT of same day FINDINGS: Enteric tube is coiled within the stomach with distal tip projected inferomedially in the expected location of the gastric body/fundus. Contrast in the renal collecting systems. Lower abdomen is excluded from the [id number]. Borderline dilated air-filled loops of small bowel. No urolith identified by radiography. Cholecystectomy. No pneumoperitoneum or pneumatosis. No fracture. IMPRESSION: 1. Distal tip of enteric tube projects over the stomach. 2. Small bowel dilation is better evaluated on the CT abdomen and pelvis study of same day. ACT 112: Negative or not required by law. The above report was generated using voice recognition software. It may contain grammatical, syntax or spelling errors. Electronically signed by: London Vaughan M.D. 12/08/2023 7:00 AM Discharge Plan Visit Data Chief Complaint: Vomiting Stated Complaint: VOMITING ED Provider: Edison Carrizales Discharge Problem: Small bowel obstruction, S/P laparoscopic cholecystectomy, Abdominal pain, Nausea & vomiting Patient Disposition: Admitted As Inpatient Discharge Instructions Interventions: ED Discharge Assessment Last Done: 12/08/23 01:26 Discharge Problem: Abdominal pain Qualifiers: Abdominal location: generalized Qualified Code(s): R10.84 - Generalized abdominal pain Nausea & vomiting Qualifiers: Vomiting type: bilious vomiting Qualified Code(s): R11.14 - Bilious vomiting
[2023-12-07] MEDS: MoRPHine SULFATE 4 MG/ML 1 ML CARP\\VIAL IV STA (21:07)
[2023-12-07] MEDS: ONDANSETRON INJ 2 MG/ML 2 ML VIAL IV STA (21:07)
[2023-12-07 21:18] LABS: iSTAT Hemoglobin 15.3 g/dl (12.0-16.0); iSTAT Ionized Calcium 1.14 mmol/l (1.12-1.32); iSTAT Potassium 4.8 mmol/L (3.3-5.0)
[2023-12-07] MEDS: OPTIRAY 320 100ml IV ONE (21:22)
[2023-12-07 21:30] LABS: Prothrombin Time 10.5 Seconds (9.0-12.0)
[2023-12-07 21:38] LABS: Basophils # (auto) 0.03 K/uL (0.00-0.20); Basophils % (auto) 0.3 %; Eosinophils # (auto) 0.02 K/uL (0.00-0.50); Eosinophils % (auto) 0.2 %; Hematocrit (blood only) 43.8 % (37.0-47.0); Hemoglobin 14.8 g/dl (12.0-16.0); Immature Granulocytes # (auto) 0.05 K/uL (0.01-0.20); Immature Granulocytes % (auto) 0.4 %; Lymphocytes # (auto) 1.09 K/uL (1.20-3.40); Lymphocytes % (auto) 9.4 %; Mean Corpuscular Hemoglobin 30.7 pg (25.0-34.0); Mean Corpuscular Hgb Conc 33.8 g/dL (32.0-36.0); Mean Corpuscular Volume 90.9 fL (80.0-100.0); Mean Platelet Volume 11.6 fL (9.4-12.4); Monocytes # (auto) 0.49 K/uL (0.11-0.59); Monocytes % (auto) 4.2 %; Neutrophils # (auto) 9.88 K/uL (1.40-6.50); Neutrophils % (auto) 85.5 %; Platelet Count 326 K/uL (130-400); RDW Standard Deviation 40.2 fL (36.4-46.3); Red Blood Count 4.82 M/uL (4.20-5.40); White Blood Count 11.56 K/ul (4.8-10.8)
[2023-12-07] MEDS: PIPERACILLIN/TAZOBACTAM 4.5 GM/100 ML BAG IV ONE (21:47)
[2023-12-07 22:03] LABS: Albumin Globulin Ratio 1.3 (0.9-2); Albumin Level 3.9 gm/dl (3.4-5.0); BUN Creatinine Ratio 19.1 (10-20); Bilirubin,Total 0.6 mg/dl (0.2-1.0); Calcium 9.5 mg/dl (8.6-10.3); Est GFR (African American) 56.1 ml/min; Est GFR (Non-African American) 48.4 ml/min; Globulin 2.9 gm/dl (2.5-4.0); Magnesium 1.9 mg/dl (1.7-2.4); Potassium 4.5 mmol/L (3.5-5.1); Total Protein 6.8 gm/dl (6.0-8.3); Troponin I High Sensitivity 74.6 pg/ml (0-14)
[2023-12-07 22:07] LABS: Thyroid Stimulating Hormone 0.514 uIu/ml (0.300-4.500)
[2023-12-07] MEDS: fentaNYL citrate PF 100 MCG/2 ML VIAL IV STA (22:25)
--- NOTE | 2023-12-07 22:43 | CT Scan Report ---
Exam(s): CT ABDOMEN + PELVIS With Contrast IV Amt: 90 cc opt i320 EXAM: CT Abdomen and Pelvis With Intravenous Contrast CLINICAL HISTORY: Reason for exam: abdominal pain. TECHNIQUE: Axial computed tomography images of the abdomen and pelvis with intravenous contrast. CTDI is 26.4 mGy and DLP is 2502.22 mGy-cm. Automated exposure control was utilized for the study. A dose lowering technique was utilized adhering to the principles of ALARA. CONTRAST: Patient received 90 cc opt i320 of IV contrast COMPARISON: CT abdomen pelvis 11/24/2023 FINDINGS: ABDOMEN: Liver: Unremarkable. Gallbladder and bile ducts: Status post cholecystectomy. No abscess or radiopaque stones. No biliary dilatation. Pancreas: Unremarkable. Spleen: Unremarkable. Adrenals: Unremarkable. Kidneys and ureters: Unremarkable. No obstructing stones. No hydronephrosis. Stomach and bowel: Fluid-filled dilated jejunal loops within the left midabdomen. Potentially representing obstruction. The stomach is mildly distended. Colonic diverticulosis without diverticulitis. PELVIS: Appendix: No findings to suggest acute appendicitis. Bladder: Unremarkable. Reproductive: Unremarkable as visualized. ABDOMEN and PELVIS: Intraperitoneal space: Small volume ascites and a few scattered foci of free air within which appear postsurgical. Bones/joints: Degenerative changes within the lower thoracic and lumbar spine. Soft tissues: Unremarkable. Vasculature: Unremarkable. Lymph nodes: Unremarkable. IMPRESSION: 1. Status post cholecystectomy. No abscess or radiopaque stones. No biliary dilatation. 2. Small volume ascites and a few scattered foci of free air within which appear postsurgical. 3. Fluid-filled dilated jejunal loops within the left midabdomen. Potentially representing obstruction. The stomach is mildly distended. 4. Colonic diverticulosis without diverticulitis. Electronically signed by: Blas Bang MD 12/07/23 22:42 PM
[2023-12-07] MEDS: LIDOCAINE VISCOUS 2% 15 ML UDC TOP ONE (23:27)
--- NOTE | 2023-12-07 23:33 | History & Physical Report ---
Date of Service December 07, 2023 Assessment & Plan (1) Small bowel obstruction: (2) S/P laparoscopic cholecystectomy: (3) Diabetes mellitus, controlled: (4) HTN (hypertension): (5) Hypotension due to hypovolemia: (6) Asthma: Plan Small bowel obstruction with hypotension- Status post laparoscopic cholecystectomy on 12/05 N.p.o. Status post 3 L normal saline fluid resuscitation in the ED Continue IV fluids with NSS + KCl 20 mill equivalents at 100 mL/h x 2 additional liters Zosyn 4.5 g IV every 8 hours Zofran 4 mg IV every 6 hours NG tube to low intermittent suction Pantoprazole 40 mg IV daily Acetaminophen 1 g IV every 8 hours as needed for mild pain or fever Toradol 10 mg IV every 6 hours as needed for moderate pain Morphine sulfate 2 mg IV every 3 hours as needed for severe pain Consult general surgery Elevated troponin/hypertension- Troponin 74.6 on admission, with follow-up pending Admit to [facility] with telemetry, likely supply/demand mismatch Holding ramipril, HCTZ and aspirin due to hypotension and n.p.o. status Serial CBC with differential, chemistry profile, magnesium and troponin levels Diabetes mellitus- Glucose 348 on admission Hold dulaglutide and metformin Patient is n.p.o. Place on Accu-Cheks with NovoLog SSI History of Present Illness Chief Complaint: The patient presents to the emergency department with complaint of intractable nausea, vomiting and abdominal pain that began earlier in the day today Primary Care Provider: Derek Samaniego MD The patient is a 78-year-old female with a past medical history including diabetes mellitus, peripheral vascular disease, hyperlipidemia, hearing loss bilaterally, hypothyroidism, hypertension, depression and asthma. She underwent a laparoscopic cholecystectomy on 12/05, and tolerated the procedure well, and was discharged to home. Today the patient developed symptoms of abdominal pain, nausea and vomiting, and upon presentation to the emergency department was found to be hypotensive. Hypotension responded to aggressive IV fluid rehydration, having received a total 3 L of normal saline in the ED CT scan abdomen and pelvis revealed small bowel obstruction, and patient was referred to hospital medicine for admission Allergies Allergy/AdvReac Type Severity Reaction Status Date / Time Sulfa (Sulfonamide AdvReac Intermediate NAUSEA/VOMI Verified 12/07/23 22:58 Antibiotics) TING Home Medications Medication Instructions Recorded Confirmed Type diclofenac sodium 1 % topical gel 4 g topical QID PRN Pain 07/01/21 12/07/23 History ramipril 10 mg capsule 10 mg PO QAM #90 caps 01/24/23 12/07/23 Rx blood sugar diagnostic (Accu-Chek #100 ea 03/15/23 11/29/23 Rx SmartView Test Strips) lancets (Accu-Chek Softclix #100 ea 03/17/23 11/29/23 Rx Lancets) albuterol sulfate 90 mcg/actuation 2 puff inhalation Q4H PRN 07/27/23 12/07/23 Rx aerosol inhaler (ProAir HFA) shortness of breath or wheezing #25.5 grams atorvastatin 40 mg tablet 40 mg PO HS #90 tabs 07/27/23 12/07/23 Rx bupropion HCl 300 mg 24 hr tablet, 300 mg PO QAM #90 tabs 07/27/23 12/07/23 Rx extended release fluticasone furoate 100 1 inh inhalation QAM #3 Inhalers 07/27/23 12/07/23 Rx mcg-vilanterol 25 mcg/dose inhalation powder (Breo Ellipta) fluticasone propionate 50 2 spray intranasal QAM #16 grams 07/27/23 12/07/23 Rx mcg/actuation nasal spray,suspension hydrochlorothiazide 12.5 mg tablet 12.5 mg PO QAM #90 tabs 07/27/23 12/07/23 Rx levothyroxine 88 mcg tablet 88 mcg PO QAM #90 tabs 07/27/23 12/07/23 Rx metformin 500 mg tablet,extended 500 mg PO BID #90 tabs 07/27/23 12/07/23 Rx release 24 hr montelukast 10 mg tablet 10 mg PO HS #90 tabs 07/27/23 12/07/23 Rx (Singulair) dulaglutide 3 mg/0.5 mL 3 mg subcut Q7D 11/24/23 12/07/23 History subcutaneous pen injector ondansetron 4 mg disintegrating 4 mg PO Q4H PRN nausea and 11/24/23 12/07/23 Rx tablet vomiting 0 days #10 tabs aspirin 81 mg tablet,delayed 81 mg PO QAM 12/01/23 12/07/23 History release (Adult Low Dose Aspirin) fluoxetine 10 mg capsule 10 mg PO QPM 12/01/23 12/07/23 History oxycodone 5 mg tablet 5 - 10 mg (1 - 2 x 5 mg) PO 12/06/23 12/07/23 Rx .[id number] PRN pain #15 tabs Past Med/Surg History Medical History Diabetes mellitus, controlled NIDDM Peripheral vascular disease of extremity with claudication right lower extremity Depression Anxiety Dyspnea on effort chronic per pt History of COVID-19 06/2021- mild symptoms and had antibody infusion GERD (gastroesophageal reflux disease) no current meds Generalized osteoarthritis Stress incontinence in female Tubular adenoma of colon hx Hyperlipidemia Mixed conductive and sensorineural hearing loss of left ear with restricted hearing of right ear Hypothyroidism HTN (hypertension) Asthma daily inh and prn inh-rare use Surgical History Hx laparoscopic cholecystectomy (12/06/23) Laparoscopic Cholecystectomy With Cholangiogram(Not Applicable) - Cruz Baugh MD, FACS History of tonsillectomy History of left knee surgery Status post cataract extraction Right eye 12/29/2021-Dr. York Left eye 12/15/2021-Dr. York Hx of colonoscopy History of lumpectomy of left breast benign H/O vaginal hysterectomy Family History Father Myocardial infarction Mother Myocardial infarction Hypertension Uncle Stroke Other Heart disease No family history of adverse response to anesthesia No family history of bleeding disorder Denies family history of Ovarian cancer Prostate cancer Coronary heart disease Breast cancer Colorectal cancer Social History Smoking Status: Never smoker Tobacco Type: Cigarettes Second Hand Exposure: Yes (hx growing up); Do You Dip or Chew Tobacco: No; Hx Alcohol Use: Yes Alcohol type: wine Hx Substance Use: No Preferred Language: Ghanaian Communication Ability: Effective Visual Impairment: No Limitations Hearing Ability: Use of Hearing Aid Roll Finisher Required: No Beliefs That Will Affect Care: None marital status: Current Living Situation: Spouse current occupational status: retired How many Children do You have: 2 Feels Safe at Home: Yes Childhood Exposure to Second-Hand Smoke: No Diet: regular caffeine: Yes during the past year weight has: decreased > 10 lbs Dental Care, Regularly: Yes Physical Activity Frequency: 1-2 Times per Week Seatbelt Use: always Sunscreen Use: No Assistive Devices: Glasses Review of Systems Review of Systems: The patient denies chest pain, palpitations, shortness of breath, dyspnea on exertion, cough, lower extremity swelling, sore throat, fevers, chills, sweats, blood in urine or stool, dysuria, urinary frequency or urgency, lightheadedness, dizziness, headache, memory loss, loss of consciousness, rash, abnormal bruising or bleeding, imbalance, focal weakness, numbness or tingling in arms or legs, generalized arthralgias or myalgias, back or neck pain, or night sweats. The review of systems is otherwise negative other than for that already noted above, and at least 10 systems have been reviewed. Physical Exam Physical Exam: The patient is awake, alert and oriented 3, well developed and well nourished, normocephalic and atraumatic, lying in bed and in no acute distress. HEENT--PERRL, EOMI, mucous membranes and oropharynx dry. Neck--supple. No JVD. No bruits. Thyroid normal, trachea midline, no adenopathy. Heart--normal S1 and S2. No murmurs, rubs or gallops. Lungs--clear bilaterally, no respiratory distress, no accessory muscle use. Abdomen--decreased bowel sounds and soft. Nontender. Nondistended Extremities--no cyanosis or clubbing. No edema. Dermatologic--normal skin turgor, normal color, no abnormal lymph nodes, no rash. Neurologic--cranial nerves II through XII grossly intact. Rheumatologic--normal range of motion. Psychiatric--normal affect. Results & Data Results & Data Vital Signs (Past 12 Hours) Vital Signs Temp Pulse Resp BP Pulse Ox O2 Del Method 12/07/23 22:09 71 12/07/23 21:01 Room Air 12/07/23 21:01 Room Air 12/07/23 20:45 36.7 C 50 L 18 71/49 L 96 Room Air Laboratory Results Laboratory Results WBC 11.56 K/ul (4.8-10.8) H 12/07/23 21:08 RBC 4.82 M/uL (4.20-5.40) 12/07/23 21:08 Hgb 14.8 g/dl (12.0-16.0) 12/07/23 21:08 POC Hgb 15.3 g/dl (12.0-16.0) 12/07/23 21:05 Hct 43.8 % (37.0-47.0) 12/07/23 21:08 POC Hct 45 % (37-47) 12/07/23 21:05 MCV 90.9 fL (80.0-100.0) 12/07/23 21:08 MCH 30.7 pg (25.0-34.0) 12/07/23 21:08 MCHC 33.8 g/dL (32.0-36.0) 12/07/23 21:08 RDW Std Deviation 40.2 fL (36.4-46.3) 12/07/23 21:08 RDW Coeff of Diana 12.0 % (11.5-14.5) 12/07/23 21:08 Plt Count 326 K/uL (130-400) 12/07/23 21:08 MPV 11.6 fL (9.4-12.4) 12/07/23 21:08 Immature Gran % (Auto) 0.4 % 12/07/23 21:08 Neut % (Auto) 85.5 % 12/07/23 21:08 Lymph % (Auto) 9.4 % 12/07/23 21:08 Willacy % (Auto) 4.2 % 12/07/23 21:08 Eos % (Auto) 0.2 % 12/07/23 21:08 Baso % (Auto) 0.3 % 12/07/23 21:08 Neut # (Auto) 9.88 K/uL (1.40-6.50) H 12/07/23 21:08 Lymph # (Auto) 1.09 K/uL (1.20-3.40) L 12/07/23 21:08 Willacy # (Auto) 0.49 K/uL (0.11-0.59) 12/07/23 21:08 Eos # (Auto) 0.02 K/uL (0.00-0.50) 12/07/23 21:08 Baso # (Auto) 0.03 K/uL (0.00-0.20) 12/07/23 21:08 Immature Gran # (Auto) 0.05 K/uL (0.01-0.20) 12/07/23 21:08 PT 10.5 Seconds (9.0-12.0) 12/07/23 21:08 INR 1.0 (0.9-1.1) 12/07/23 21:08 POC Sodium 139 mmol/L (135-144) 12/07/23 21:05 Sodium 139 mmol/L (136-145) 12/07/23 21:08 POC Potassium 4.8 mmol/L (3.3-5.0) 12/07/23 21:05 Potassium 4.5 mmol/L (3.5-5.1) 12/07/23 21:08 POC Chloride 102 mmol/L (101-112) 12/07/23 21:05 Chloride 102 mmol/L (98-107) 12/07/23 21:08 Carbon Dioxide 27 mmol/L (21-32) 12/07/23 21:08 POC Total CO2 26 mmol/L (24-31) 12/07/23 21:05 Anion Gap 10 (3-11) 12/07/23 21:08 POC Anion Gap 17.0 mmol/L (16-25) 12/07/23 21:05 POC BUN 25 mg/dl (7-18) H 12/07/23 21:05 BUN 21 mg/dl (6-23) 12/07/23 21:08 Creatinine 1.10 mg/dl (0.6-1.2) 12/07/23 21:08 POC Creatinine 1.0 mg/dl (0.6-1.3) 12/07/23 21:05 Est Cr Clr Drug Dosing 37.0 ml/min 12/07/23 21:08 Est GFR ( Amer) 56.1 ml/min 12/07/23 21:08 Est GFR (Non-Af Amer) 48.4 ml/min 12/07/23 21:08 BUN/Creatinine Ratio 19.1 (10-20) 12/07/23 21:08 Glucose 348 mg/dl (70-99(Fasting)) H* 12/07/23 21:08 POC Glucose (other) 328 mg/dl (70-99) H 12/07/23 21:05 Lactate 1.5 mmol/L (0.4-2.0) 12/07/23 23:29 Calcium 9.5 mg/dl (8.6-10.3) 12/07/23 21:08 POC Ioniz Calcium Amanda 1.14 mmol/l (1.12-1.32) 12/07/23 21:05 Magnesium 1.9 mg/dl (1.7-2.4) 12/07/23 21:08 Total Bilirubin 0.6 mg/dl (0.2-1.0) 12/07/23 21:08 AST 26 U/L (13-39) 12/07/23 21:08 ALT 37 U/L (7-52) 12/07/23 21:08 Alkaline Phosphatase 110 U/L (34-104) H 12/07/23 21:08 Troponin I High Sens 74.6 pg/ml (0-14) H* 12/07/23 21:08 Total Protein 6.8 gm/dl (6.0-8.3) 12/07/23 21:08 Albumin 3.9 gm/dl (3.4-5.0) 12/07/23 21:08 Globulin 2.9 gm/dl (2.5-4.0) 12/07/23 21:08 Albumin/Globulin Ratio 1.3 (0.9-2) 12/07/23 21:08 Lipase 22 U/L (11-82) 12/07/23 21:08 Procalcitonin 0.09 ng/ml (0-0.5) 12/07/23 21:08 TSH 0.514 uIu/ml (0.300-4.500) 12/07/23 21:08 SARS-CoV-2, RNA, NAAT NEGATIVE (NEGATIVE) 12/07/23 21:14 Blood Type A Positive 12/07/23 21:08 Blood Type Recheck A Positive 12/07/23 21:19 Antibody Screen NEGATIVE 12/07/23 21:08 Impressions Abdomen/Pelvis CT 12/07/23 21:01 Exam(s): CT ABDOMEN + PELVIS With Contrast IV Amt: 90 cc opt i320 EXAM: CT Abdomen and Pelvis With Intravenous Contrast CLINICAL HISTORY: Reason for exam: abdominal pain. TECHNIQUE: Axial computed tomography images of the abdomen and pelvis with intravenous contrast. CTDI is 26.4 mGy and DLP is 2502.22 mGy-cm. Automated exposure control was utilized for the study. A dose lowering technique was utilized adhering to the principles of ALARA. CONTRAST: Patient received 90 cc opt i320 of IV contrast COMPARISON: CT abdomen pelvis 11/24/2023 FINDINGS: ABDOMEN: Liver: Unremarkable. Gallbladder and bile ducts: Status post cholecystectomy. No abscess or radiopaque stones. No biliary dilatation. Pancreas: Unremarkable. Spleen: Unremarkable. Adrenals: Unremarkable. Kidneys and ureters: Unremarkable. No obstructing stones. No hydronephrosis. Stomach and bowel: Fluid-filled dilated jejunal loops within the left midabdomen. Potentially representing obstruction. The stomach is mildly distended. Colonic diverticulosis without diverticulitis. PELVIS: Appendix: No findings to suggest acute appendicitis. Bladder: Unremarkable. Reproductive: Unremarkable as visualized. ABDOMEN and PELVIS: Intraperitoneal space: Small volume ascites and a few scattered foci of free air within which appear postsurgical. Bones/joints: Degenerative changes within the lower thoracic and lumbar spine. Soft tissues: Unremarkable. Vasculature: Unremarkable. Lymph nodes: Unremarkable. IMPRESSION: 1. Status post cholecystectomy. No abscess or radiopaque stones. No biliary dilatation. 2. Small volume ascites and a few scattered foci of free air within which appear postsurgical. 3. Fluid-filled dilated jejunal loops within the left midabdomen. Potentially representing obstruction. The stomach is mildly distended. 4. Colonic diverticulosis without diverticulitis. Electronically signed by: Blas Bang MD 12/07/23 22:42 PM Code Status & VTE Plan Code Status Full code VTE Prophylaxis Plan VTE Prophylaxis will be ordered: Yes PG Care Time/CCT Total # of Minutes Spent Total Time Spent with Patient: Total time spent is greater than 50% in coordination of care (as documented) at patient's floor/unit and/or counseling patient: Coding Level of Care Code 37486 INT INP/OBS CARE 3/75MIN Diagnoses Small bowel obstruction K56.609 S/P laparoscopic cholecystectomy Z90.49 Diabetes mellitus, controlled E11.9 HTN (hypertension) I10 Hypertension type: unspecified Hypotension due to hypovolemia E86.1 Asthma J45.909 (4) HTN (hypertension) Hypertension type: unspecified Qualified Code(s): I10 - Essential (primary) hypertension
[2023-12-07] MEDS ORDERED: METHYLNALTREXONE BROMIDE 12 MG/0.6 ML VIAL SQ SCH (23:45)
[2023-12-07] MEDS: NSS + 20MEQ KCL 20 MEQ/1,000 ML BAG IV SCH (23:54)
[2023-12-07] MEDS: MoRPHine SULFATE 2 MG/ML CARP IV PRN (23:57)
[2023-12-08] MEDS: PANTOprazole 40 MG in SYRINGE 0 ML IV ONE (00:18)
[2023-12-08] MEDS ORDERED: GLUCOSE 40% GEL 15 GM TUBE PO PRN (01:05)
[2023-12-08] MEDS ORDERED: GLUCAGON FOR INJ 1 MG VIAL SQ PRN (01:05)
[2023-12-08] MEDS ORDERED: CARBOHYDRATES FOR HYPOGLYCEMIA PO PRN (01:05)
[2023-12-08] MEDS ORDERED: GLUCOSE 10 TAB/TUBE PO PRN (01:05)
[2023-12-08] MEDS: ONDANSETRON INJ 2 MG/ML 2 ML VIAL IV PRN (02:34)
[2023-12-08] MEDS: KETOROLAC TROMETHAMINE 15 MG/ML VIAL IV PRN (02:34)
[2023-12-08] MEDS: ACETAMINOPHEN 1,000 MG/100 ML VIAL IV PRN (03:47)
[2023-12-08] MEDS: PIPERACILLIN/TAZOBACTAM 4.5 GM in DEXTROSE 5% MINI-B 100 ML IV SCH (04:27)
[2023-12-08] MEDS: INSULIN ASPART PER UNIT CHARGE SC SCH (06:32)
--- NOTE | 2023-12-08 07:00 | Hospitalist Progress Note ---
Date of Service December 08, 2023 Assessment & Plan (1) Small bowel obstruction: Plan: 78 y/o with diabetes underwent lap luis enrique 12/[address] Baugh. Presented to ED 12/06 with nausea/vomiting hypotension that resolved promptly with IVF. Found to have SBO based on CT abdomen -continue NG tube -reviewed KUB and CXR films from last night - CXR is clear, NG tube is in the stomach - await radiologist reports -ordered repeat KUB this am - persistent SBO, trace pneumoperitoneum may be postsurgical -ordered CBC CMP - WBC, Cr increased, mild metabolic acidosis -continue IV fluids with potassium -continue IV APAP, morphine, IV antiemetics for sx control -consulted general surgery -later notified plan for ex-lap this afternoon (2) S/P laparoscopic cholecystectomy: Plan: 12/05 (3) Diabetes mellitus, controlled: Plan: Continue PRN aspart while NPO -hyperglycemic in 300s then 200s this am - adjust short acting insulin CF/CR (4) HTN (hypertension): Plan: ramipril, HCTZ held (5) Hypotension due to hypovolemia: Plan: treated in ED, resolved (6) Asthma: Plan: not in exacerbation Plan Elevated HS troponin peak 75-->68. Related to demand ischemia. EKG tracing reviewed - sinus jean claude, old inferior Qs. No evidence of acute coronary syndrome Admission and Anticipated Discharge Date Admission Date: December 07, 2023 Subjective Has significant abdominal pain, worst in R abdomen / RUQ Flatus yesterday but none today No dyspnea, CP Physical Exam 2 Physical Exam: PHYSICAL EXAMINATION Last 24h vital signs reviewed, see documentation in flowsheet General: mildly painful appearing HEENT: Normocephalic, atraumatic, pupils round and equal, sclerae anicteric, no conjunctival injection, moist mucus membranes Lungs: Normal respiratory effort. Clear to auscultation bilaterally. No RRW Heart: Regular rate and rhythm, no murmurs. No JVD Abdomen: Soft, distended, tender to palpation right side of abdomen and right upper quadrant, 2 laparoscopic incision sites healing well no erythema no drainage. Bowel tones diminished. Extremities: Warm, dry, well-perfused. No extremity edema. Neuro: Alert and oriented x 4, face symmetric, moves 4 extremities well Psych: Normal affect and behavior Results & Data Results & Data Vital Signs (Past 12 Hours) Vital Signs Temp Pulse Pulse Resp BP BP Pulse Ox 12/08/23 05:15 36.4 C L 57 L 20 114/71 95 12/08/23 02:20 36.9 C 55 L 16 128/79 95 12/08/23 01:26 12/08/23 01:13 12/08/23 01:05 12/07/23 23:30 56 L 12 95 12/07/23 23:20 60 18 100 12/07/23 23:10 59 L 13 98 12/07/23 23:00 176/94 H 12/07/23 23:00 59 L 13 97 12/07/23 22:50 62 10 L 98 12/07/23 22:40 59 L 7 L 99 12/07/23 22:30 63 10 L 88 L 12/07/23 22:20 62 16 99 12/07/23 22:10 71 15 100 12/07/23 22:09 71 12/07/23 22:00 220/97 H 12/07/23 22:00 69 19 97 12/07/23 21:50 64 16 94 12/07/23 21:40 74 18 98 12/07/23 21:32 16 98 12/07/23 21:10 52 L 20 98 12/07/23 21:01 59 L 15 97 12/07/23 21:01 12/07/23 21:01 12/07/23 20:57 56 L 15 97 12/07/23 20:45 36.7 C 50 L 18 71/49 L 96 O2 Del Method O2 Flow Rate 12/08/23 05:15 Room Air 12/08/23 02:20 Room Air 12/08/23 01:26 Nasal Cannula 12/08/23 01:13 Room Air 12/08/23 01:05 Nasal Cannula 4 12/07/23 23:30 12/07/23 23:20 12/07/23 23:10 Nasal Cannula 4 12/07/23 23:00 12/07/23 23:00 12/07/23 22:50 12/07/23 22:40 12/07/23 22:30 12/07/23 22:20 12/07/23 22:10 12/07/23 22:09 12/07/23 22:00 12/07/23 22:00 12/07/23 21:50 12/07/23 21:40 12/07/23 21:32 12/07/23 21:10 12/07/23 21:01 12/07/23 21:01 Room Air 12/07/23 21:01 Room Air 12/07/23 20:57 Nasal Cannula 4 12/07/23 20:45 Room Air Laboratory Results 12/08/23 10:00 12/08/23 10:00 PG Care Time/CCT Total # of Minutes Spent Total Time Spent with Patient: Total time spent is greater than 50% in coordination of care (as documented) at patient's floor/unit and/or counseling patient: Coding Level of Care Code 12940 SUB INP/OBS CARE 3/50MIN Diagnoses Small bowel obstruction K56.609 S/P laparoscopic cholecystectomy Z90.49 Diabetes mellitus, controlled E11.9 HTN (hypertension) I10 Hypertension type: unspecified Hypotension due to hypovolemia E86.1 Asthma J45.909 (4) HTN (hypertension) Hypertension type: unspecified Qualified Code(s): I10 - Essential (primary) hypertension
--- NOTE | 2023-12-08 07:03 | XRay Report ---
KUB HISTORY: Status post placement of an enteric tube NG tube confirmation COMPARISON: CT of same day FINDINGS: Enteric tube is coiled within the stomach with distal tip projected inferomedially in the e xpected location of the gastric body/fundus. Contrast in the renal collecting systems. Lower abdomen is excluded from the [id number]. Borderline dilated air-filled loops of small bowel. No urolith i dentified by radiography. Cholecystectomy. No pneumoperitoneum or pneumatosis. No fracture. IMPRESSION: 1. Distal tip of enteric tube projects over the stomach. 2. Small bowel dilation is better evaluated on the CT abdomen and pelvis study of same day. ACT 112: Negative or not required by law. The above report was generated using voice recognition software. It may contain grammatical, syntax o r spelling errors. Electronically signed by: London Vaughan M.D. 12/08/2023 7:00 AM
--- NOTE | 2023-12-08 07:15 | Surgery Consultation ---
Date of Consultation December 08, 2023 Assessment & Plan (1) Small bowel obstruction: This is a 78yF with a PMH of hypothyroid, DM2, HTN, depression, SNHL, who presents to the [facility] ED on 12/07/23 with complaints of abdominal pain, nausea/vomiting. Of significance the patient is s/p outpatient laparoscopic cholecystectomy with Dr. Baugh on 12/05. She states since surgery she was feeling well up until yesterday afternoon when she developed pain in her abdomen. The pain was located in the mid belly and associated with nausea and vomiting upwards of 3 times. She said the pain was severe and she came into the ER for evaluation. In the ER a a CT a/p was performed in the ER that revealed fluid-filled dilated jejunal loops within the left midabdomen, potentially representing obstruction. Decision was made to place NGT thereafter. Labs reveal WBC 11. LFTs okay. Vitals show sinus bradycardia, borderline hypotension and afebrile. On exam abdomen is soft and nondistended. Wounds are c/d/i with steri strips in place. She has generalized discomfort to palpation, worse across mid abdomen and left side. NGT putting out dark drainage. After examination and discussion with Dr. Baugh and our radiology dept there is concern for closed loop SBO. Therefore we will proceed with taking the patient to the OR for diagnostic laparoscopy, possible open procedure, to release SBO. Supervising Physician Co-Signing Physician Notes 78-year-old female 48 hours postop laparoscopic cholecystectomy intraoperative cholangiogram 24 hours after surgery started experiencing nausea came into the emergency room last night with significant abdominal pain hypotension was evaluated for possible small bowel obstruction Seen the patient this morning she is quite uncomfortable even though she had received 2 mg of morphine just 1/2-hour ago her abdomen is tense generalized more significant in the left upper quadrant with rebound tenderness NG output bilious dark I reviewed the CAT scan appears she may have a closed-loop obstruction left upper quadrant She has never had previous surgery At this point we will proceed with laparoscopic possible open possible bowel resection Risk and complication explained to the patient and patient is agreeable to proceed to surgery All question answered explained to her the procedure including possibility bleeding infection failure to heal Permit is signed posterior surgery approximately 950 discussing with the OR finishing room supervisor is to go as soon as possible History of Present Illness Attending Physician: Jonathan Dee MD History of Present Illness This is a 78yF with a PMH of hypothyroid, DM2, HTN, depression, SNHL, who presents to the [facility] ED on 12/07/23 with complaints of abdominal pain, nausea/vomiting. Of significance the patient is s/p outpatient laparoscopic cholecystectomy with Dr. Baugh on 12/05. She states since surgery she was feeling well up until yesterday afternoon when she developed pain in her abdomen. The pain was located in the mid belly and associated with nausea and vomiting upwards of 3 times. She said the pain was severe and she came into the ER for evaluation. In the ER a a CT a/p was performed in the ER that revealed fluid-filled dilated jejunal loops within the left midabdomen, potentially representing obstruction. Decision was made to place NGT thereafter. She reports + chills and dizziness on admission. Denies CP/SOB or fevers. Said she passed some flatus and a small BM yesterday. She states she never had an SBO before. PSH includes a vaginal hysterectomy. She still reports + abdominal pain and nausea with movement, that are possibly slightly improved since NGT placement. Allergies Allergy/AdvReac Type Severity Reaction Status Date / Time Sulfa (Sulfonamide AdvReac Intermediate NAUSEA/VOMI Verified 12/07/23 22:58 Antibiotics) TING Home Medications Medication Instructions Recorded Confirmed Type diclofenac sodium 1 % topical gel 4 g topical QID PRN Pain 07/01/21 12/07/23 History ramipril 10 mg capsule 10 mg PO QAM #90 caps 01/24/23 12/07/23 Rx blood sugar diagnostic (Accu-Chek #100 ea 03/15/23 11/29/23 Rx SmartView Test Strips) lancets (Accu-Chek Softclix #100 ea 03/17/23 11/29/23 Rx Lancets) albuterol sulfate 90 mcg/actuation 2 puff inhalation Q4H PRN 07/27/23 12/07/23 Rx aerosol inhaler (ProAir HFA) shortness of breath or wheezing #25.5 grams atorvastatin 40 mg tablet 40 mg PO HS #90 tabs 07/27/23 12/07/23 Rx bupropion HCl 300 mg 24 hr tablet, 300 mg PO QAM #90 tabs 07/27/23 12/07/23 Rx extended release fluticasone furoate 100 1 inh inhalation QAM #3 Inhalers 07/27/23 12/07/23 Rx mcg-vilanterol 25 mcg/dose inhalation powder (Breo Ellipta) fluticasone propionate 50 2 spray intranasal QAM #16 grams 07/27/23 12/07/23 Rx mcg/actuation nasal spray,suspension hydrochlorothiazide 12.5 mg tablet 12.5 mg PO QAM #90 tabs 07/27/23 12/07/23 Rx levothyroxine 88 mcg tablet 88 mcg PO QAM #90 tabs 07/27/23 12/07/23 Rx metformin 500 mg tablet,extended 500 mg PO BID #90 tabs 07/27/23 12/07/23 Rx release 24 hr montelukast 10 mg tablet 10 mg PO HS #90 tabs 07/27/23 12/07/23 Rx (Singulair) dulaglutide 3 mg/0.5 mL 3 mg subcut Q7D 11/24/23 12/07/23 History subcutaneous pen injector ondansetron 4 mg disintegrating 4 mg PO Q4H PRN nausea and 11/24/23 12/07/23 Rx tablet vomiting 0 days #10 tabs aspirin 81 mg tablet,delayed 81 mg PO QAM 12/01/23 12/07/23 History release (Adult Low Dose Aspirin) fluoxetine 10 mg capsule 10 mg PO QPM 12/01/23 12/07/23 History oxycodone 5 mg tablet 5 - 10 mg (1 - 2 x 5 mg) PO 12/06/23 12/07/23 Rx .[id number] PRN pain #15 tabs Patient History Medical History Diabetes mellitus, controlled NIDDM Peripheral vascular disease of extremity with claudication right lower extremity Depression Anxiety Dyspnea on effort chronic per pt History of COVID-19 06/2021- mild symptoms and had antibody infusion GERD (gastroesophageal reflux disease) no current meds Generalized osteoarthritis Stress incontinence in female Tubular adenoma of colon hx Hyperlipidemia Mixed conductive and sensorineural hearing loss of left ear with restricted hearing of right ear Hypothyroidism HTN (hypertension) Asthma daily inh and prn inh-rare use Surgical History Hx laparoscopic cholecystectomy (12/06/23) Laparoscopic Cholecystectomy With Cholangiogram(Not Applicable) - Cruz Baugh MD, FACS History of tonsillectomy History of left knee surgery Status post cataract extraction Right eye 12/29/2021-Dr. York Left eye 12/15/2021-Dr. York Hx of colonoscopy History of lumpectomy of left breast benign H/O vaginal hysterectomy Family History Father Myocardial infarction Mother Myocardial infarction Hypertension Uncle Stroke Other Heart disease No family history of adverse response to anesthesia No family history of bleeding disorder Denies family history of Ovarian cancer Prostate cancer Coronary heart disease Breast cancer Colorectal cancer Social History Smoking Status: Never smoker Tobacco Type: Cigarettes Second Hand Exposure: Yes (hx growing up); Do You Dip or Chew Tobacco: No; Hx Alcohol Use: No Hx Substance Use: No Preferred Language: Upper Sorbian Communication Ability: Effective Visual Impairment: No Limitations Hearing Ability: Use of Hearing Aid 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 Required: No Beliefs That Will Affect Care: None marital status: Current Living Situation: Spouse current occupational status: retired How many Children do You have: 2 Feels Safe at Home: Yes Safety Concerns: Feels Safe At This Time Childhood Exposure to Second-Hand Smoke: No Diet: regular caffeine: Yes during the past year weight has: decreased > 10 lbs Dental Care, Regularly: Yes Physical Activity Frequency: 1-2 Times per Week Seatbelt Use: always Sunscreen Use: No Assistive Devices: None Review of Systems Constitutional: + chills; no fever Respiratory: no dyspnea Cardiovascular: no chest pain Gastrointestinal: + abdominal pain, + bloating, + nausea a nd + vomiting Physical Exam Physical Exam: awake, appears to be in some discomfort related to abdominal pain Respiratory: normal respiratory effort; no respiratory distress Gastrointestinal (Abdomen): Inspection/Auscultation: + abdominal surgical incision (c/d/i); abdomen not distended Percussion/Palpation: + abdomen t jennifer (generalized ttp; mostly across the mid abdomen) and abdomen soft Results & Data Vital Signs (Past 12 Hours) Vital Signs Temp Pulse Pulse Resp BP BP Pulse Ox 12/08/23 05:15 97.5 F L 57 L 20 114/71 95 12/08/23 02:20 98.4 F 55 L 16 128/79 95 12/08/23 01:26 12/08/23 01:13 12/08/23 01:05 12/07/23 23:30 56 L 12 95 12/07/23 23:20 60 18 100 12/07/23 23:10 59 L 13 98 12/07/23 23:00 176/94 H 12/07/23 23:00 59 L 13 97 12/07/23 22:50 62 10 L 98 12/07/23 22:40 59 L 7 L 99 12/07/23 22:30 63 10 L 88 L 12/07/23 22:20 62 16 99 12/07/23 22:10 71 15 100 12/07/23 22:09 71 12/07/23 22:00 220/97 H 12/07/23 22:00 69 19 97 12/07/23 21:50 64 16 94 12/07/23 21:40 74 18 98 12/07/23 21:32 16 98 12/07/23 21:10 52 L 20 98 12/07/23 21:01 59 L 15 97 12/07/23 21:01 12/07/23 21:01 12/07/23 20:57 56 L 15 97 12/07/23 20:45 98.1 F 50 L 18 71/49 L 96 O2 Del Method O2 Flow Rate 12/08/23 05:15 Room Air 12/08/23 02:20 Room Air 12/08/23 01:26 Nasal Cannula 12/08/23 01:13 Room Air 12/08/23 01:05 Nasal Cannula 4 12/07/23 23:30 12/07/23 23:20 12/07/23 23:10 Nasal Cannula 4 12/07/23 23:00 12/07/23 23:00 12/07/23 22:50 12/07/23 22:40 12/07/23 22:30 12/07/23 22:20 12/07/23 22:10 12/07/23 22:09 12/07/23 22:00 12/07/23 22:00 12/07/23 21:50 12/07/23 21:40 12/07/23 21:32 12/07/23 21:10 12/07/23 21:01 12/07/23 21:01 Room Air 12/07/23 21:01 Room Air 12/07/23 20:57 Nasal Cannula 4 12/07/23 20:45 Room Air Diagnostic Findings Exam(s): CT ABDOMEN + PELVIS With Contrast IV Amt: 90 cc opt i320 EXAM: CT Abdomen and Pelvis With Intravenous Contrast CLINICAL HISTORY: Reason for exam: abdominal pain. TECHNIQUE: Axial computed tomography images of the abdomen and pelvis with intravenous contrast. CTDI is 26.4 mGy and DLP is 2502.22 mGy-cm. Automated exposure control was utilized for the study. A dose lowering technique was utilized adhering to the principles of ALARA. CONTRAST: Patient received 90 cc opt i320 of IV contrast COMPARISON: CT abdomen pelvis 11/24/2023 FINDINGS: ABDOMEN: Liver: Unremarkable. Gallbladder and bile ducts: Status post cholecystectomy. No abscess or radiopaque stones. No biliary dilatation. Pancreas: Unremarkable. Spleen: Unremarkable. Adrenals: Unremarkable. Kidneys and ureters: Unremarkable. No obstructing stones. No hydronephrosis. Stomach and bowel: Fluid-filled dilated jejunal loops within the left midabdomen. Potentially representing obstruction. The stomach is mildly distended. Colonic diverticulosis without diverticulitis. PELVIS: Appendix: No findings to suggest acute appendicitis. Bladder: Unremarkable. Reproductive: Unremarkable as visualized. ABDOMEN and PELVIS: Intraperitoneal space: Small volume ascites and a few scattered foci of free air within which appear postsurgical. Bones/joints: Degenerative changes within the lower thoracic and lumbar spine. Soft tissues: Unremarkable. Vasculature: Unremarkable. Lymph nodes: Unremarkable. IMPRESSION: 1. Status post cholecystectomy. No abscess or radiopaque stones. No biliary dilatation. 2. Small volume ascites and a few scattered foci of free air within which appear postsurgical. 3. Fluid-filled dilated jejunal loops within the left midabdomen. Potentially representing obstruction. The stomach is mildly distended. 4. Colonic diverticulosis without diverticulitis. Electronically signed by: Blas Bang MD 12/07/23 22:42 PM PG Care Time/CCT Total # of Minutes Spent Total Time Spent with Patient: Total time spent is greater than 50% in coordination of care (as documented) at patient's floor/unit and/or counseling patient: Coding Level of Care Code 47127 INT INP/OBS CARE MIN Diagnoses Small bowel obstruction K56.609
[2023-12-08 07:21] LABS: Estimated Average Glucose 157 mg/dl; Hemoglobin A1C 7.1 % (4.5-5.6)
--- NOTE | 2023-12-08 07:41 | XRay Report ---
XR chest 1V portable HISTORY: weakness COMPARISON: Chest 12/08/2022. FINDINGS: The lungs are clear. Cardiac silhouette is normal in size. No pleural effusions. No pneumot horax. IMPRESSION: No acute process. ACT 112: Negative or not required by law. Electronically signed by: Rao Bower M.D. 12/08/2023 7:40 AM
--- NOTE | 2023-12-08 08:15 | XRay Report ---
KUB HISTORY: Small bowel obstruction. Follow-up. COMPARISON: KUB 12/07/2023. FINDINGS: Mildly dilated gas-filled loops of small bowel again noted within the abdomen consistent th e patient's small bowel obstruction. This is similar to the prior study. There is residual contrast w ithin the proximal colon. There is also contrast within the urinary system. Nasogastric tube terminat es in the stomach. Prior cholecystectomy. Trace pneumoperitoneum is suggested within the left upper q uadrant. This remains unchanged. No renal calculi. No ureteral calculi. IMPRESSION: 1. Persistent small bowel obstruction pattern. 2. Nasogastric tube terminates in the stomach, unchanged. 3. Trace pneumoperitoneum again noted. This may be postsurgical. ACT 112: Negative or not required by law. Electronically signed by: Rao Bower M.D. 12/08/2023 8:14 AM
[2023-12-08 10:33] LABS: Hematocrit (blood only) 44.7 % (37.0-47.0); Hemoglobin 14.5 g/dl (12.0-16.0); Mean Corpuscular Hgb Conc 32.4 g/dL (32.0-36.0); Mean Corpuscular Volume 92.5 fL (80.0-100.0); Mean Platelet Volume 11.1 fL (9.4-12.4); Platelet Count 360 K/uL (130-400); RDW Coefficient of Variation 12.4 % (11.5-14.5); RDW Standard Deviation 42.4 fL (36.4-46.3); Red Blood Count 4.83 M/uL (4.20-5.40); White Blood Count 13.23 K/ul (4.8-10.8)
[2023-12-08 10:41] LABS: Albumin Globulin Ratio 1.3 (0.9-2); Albumin Level 3.2 gm/dl (3.4-5.0); BUN Creatinine Ratio 17.8 (10-20); Bilirubin,Total 0.5 mg/dl (0.2-1.0); Calcium 8.2 mg/dl (8.6-10.3); Creatinine Clr Calc Pharmacy 30.1 ml/min; Est GFR (African American) 43.8 ml/min; Est GFR (Non-African American) 37.8 ml/min; Globulin 2.4 gm/dl (2.5-4.0); Potassium 4.3 mmol/L (3.5-5.1); Total Protein 5.6 gm/dl (6.0-8.3)
[2023-12-08] MEDS: PANTOprazole 40 MG in SYRINGE 0 ML IV SCH (11:09)
[2023-12-08] MEDS ORDERED: MIDAZOLAM HCL 1 MG/ML 2ML VIAL ONE (11:49)
[2023-12-08] MEDS ORDERED: fentaNYL citrate PF 100 MCG/2 ML VIAL ONE (11:49)
[2023-12-08] MEDS ORDERED: ROCURONIUM BROMIDE 10 MG/ML 5 ML VIAL IV ONE (11:49)
[2023-12-08] MEDS ORDERED: LIDOCAINE 2% 2 ML VIAL/AMP(20MG/ML) INFIL ONE (11:49)
[2023-12-08] MEDS ORDERED: SUCCINYLCHOLINE CHLORIDE 20 MG/ML 10 ML VIAL IV ONE (11:49)
[2023-12-08] MEDS ORDERED: PROPOFOL IV EMULSION 10 MG/ML 20 ML VIAL IV ONE (11:49)
[2023-12-08] MEDS ORDERED: ONDANSETRON INJ 2 MG/ML 2 ML VIAL IV PRN (12:27)
[2023-12-08] MEDS ORDERED: ePHEDrine sulfate 50 MG/ML AMP IV PRN (12:27)
[2023-12-08] MEDS ORDERED: ATROPINE SULFATE 0.1 MG/ML 10ML SYR IV PRN (12:27)
[2023-12-08] MEDS ORDERED: HYDROmorphone INJ 2 MG/ML SYR/VIAL IV PRN (12:27)
[2023-12-08] MEDS ORDERED: PROMETHAZINE HCL 6.25 MG in SODIUM CHLORIDE 0.9% 50 ML IV PRN (12:27)
--- NOTE | 2023-12-08 12:27 | Anesthesiology Consultation ---
Date of Service December 08, 2023 Assessment & Plan Chart Review Chart Review: Acceptable Risk for Surgery and Patient NOT seen in Pre Admission Testing Consults Requested none ASA [id number] Proposed Anesthesia Anesthesia Type: General Risk / Benefits Reviewed With: PT / POA / Parent / Guardian, Accepts Plan and Informed Consent Obtained History Surgery Operation Date: 12/08/23 14:45 Proposed Procedures p Diagnostic Laparoscopy, Possible Open - Cruz Baugh MD, FACS Height/Weight Height: 5 ft 4 in Weight: 63.9 kg Allergies Allergy/AdvReac Type Severity Reaction Status Date / Time Sulfa (Sulfonamide AdvReac Intermediate NAUSEA/VOMI Verified 12/07/23 22:58 Antibiotics) TING Medications Home Medications Medication Instructions Recorded Confirmed Last Taken diclofenac sodium 1 % topical gel 4 g topical QID PRN Pain 07/01/21 12/07/23 12/28/21 ramipril 10 mg capsule 10 mg PO QAM #90 caps 01/24/23 12/07/23 12/06/23 blood sugar diagnostic (Accu-Chek #100 ea 03/15/23 11/29/23 Unknown SmartView Test Strips) lancets (Accu-Chek Softclix #100 ea 03/17/23 11/29/23 Unknown Lancets) albuterol sulfate 90 mcg/actuation 2 puff inhalation Q4H PRN 07/27/23 12/07/23 Unknown aerosol inhaler (ProAir HFA) shortness of breath or wheezing #25.5 grams atorvastatin 40 mg tablet 40 mg PO HS #90 tabs 07/27/23 12/07/23 12/06/23 bupropion HCl 300 mg 24 hr tablet, 300 mg PO QAM #90 tabs 07/27/23 12/07/23 12/06/23 extended release fluticasone furoate 100 1 inh inhalation QAM #3 Inhalers 07/27/23 12/07/23 12/06/23 04:00 mcg-vilanterol 25 mcg/dose inhalation powder (Breo Ellipta) fluticasone propionate 50 2 spray intranasal QAM #16 grams 07/27/23 12/07/23 12/06/23 mcg/actuation nasal spray,suspension hydrochlorothiazide 12.5 mg tablet 12.5 mg PO QAM #90 tabs 07/27/23 12/07/23 12/06/23 levothyroxine 88 mcg tablet 88 mcg PO QAM #90 tabs 07/27/23 12/07/23 12/06/23 metformin 500 mg tablet,extended 500 mg PO BID #90 tabs 07/27/23 12/07/23 12/06/23 release 24 hr montelukast 10 mg tablet 10 mg PO HS #90 tabs 07/27/23 12/07/23 12/06/23 (Singulair) dulaglutide 3 mg/0.5 mL 3 mg subcut Q7D 11/24/23 12/07/23 11/20/23 subcutaneous pen injector ondansetron 4 mg disintegrating 4 mg PO Q4H PRN nausea and 11/24/23 12/07/23 12/04/23 tablet vomiting 0 days #10 tabs aspirin 81 mg tablet,delayed 81 mg PO QAM 12/01/23 12/07/23 12/06/23 release (Adult Low Dose Aspirin) fluoxetine 10 mg capsule 10 mg PO QPM 12/01/23 12/07/23 12/06/23 oxycodone 5 mg tablet 5 - 10 mg (1 - 2 x 5 mg) PO 12/06/23 12/07/23 12/07/23 .[id number] PRN pain #15 tabs Active Medications Generic Name Dose Route Start Last Admin Trade Name Freq PRN Reason Stop Dose Admin Potassium Chloride/Sodium Chloride 20 meq in 1,000 mls @ 100 mls/hr 12/07/23 23:30 12/08/23 11:01 Normal Saline W/20 Meq Kcl IV 12/08/23 19:29 100 mls/hr .Q10H BARBARA Administration Protocol Acetaminophen 1,000 mg in 100 mls @ 400 mls/hr 12/07/23 23:27 12/08/23 04:27 Ofirmev IV 12/10/23 23:26 Infused Q8H PRN Infusion Pain or Fever Piperacillin Sod/Tazobactam 100 mls @ 25 mls/hr 12/08/23 04:00 12/08/23 09:05 Sod 4.5 gm/ Dextrose IV 12/18/23 03:59 Infused Q8H BARBARA Infusion Protocol Pantoprazole Sodium 40 mg/ 10 mls @ 5 mls/min 12/08/23 11:00 12/08/23 11:09 Syringe IV 01/07/24 10:59 5 mls/min DAILY@1100 BARBARA Administration Insulin Aspart 0 units 12/08/23 06:00 12/08/23 06:32 Insulin Aspart Per Unit Charge SC 01/07/24 05:59 6 units Q6 BARBARA Administration Ketorolac Tromethamine 10 mg 12/07/23 23:27 12/08/23 02:34 Ketorolac Tromethamine 15 Mg/Ml Vial IV 12/12/23 23:26 10 mg Q6H PRN Administration Moderate Pain (Scale 4, 5, 6) Morphine Sulfate 2 mg 12/07/23 23:34 12/08/23 08:30 Morphine Sulfate 2 Mg/Ml Carp IV 12/21/23 23:33 2 mg Q3H PRN Administration Severe Pain (Scale 7, 8, 9,10) Ondansetron HCl 4 mg 12/07/23 23:27 12/08/23 08:30 Ondansetron Inj 2 Mg/Ml 2 Ml Vial IV 01/06/24 23:26 4 mg Q6H PRN Administration Nausea And Vomiting NPO Date Last Intake of Fluids: 12/07/23 Time Last Intake of Fluids: 23:59 Last Intake of Fluids Comment: patient unsure of time, per nurse prior to midnight Date Last Intake of Solids: 12/07/23 Time Last Intake of Solids: 23:59 Last Intake of Solids Comment: patient unsure of time, per nurse prior to midnight Past Medical History Medical History Diabetes mellitus, controlled NIDDM Peripheral vascular disease of extremity with claudication right lower extremity Depression Anxiety Dyspnea on effort chronic per pt History of COVID-19 06/2021- mild symptoms and had antibody infusion GERD (gastroesophageal reflux disease) no current meds Generalized osteoarthritis Stress incontinence in female Tubular adenoma of colon hx Hyperlipidemia Mixed conductive and sensorineural hearing loss of left ear with restricted hearing of right ear Hypothyroidism HTN (hypertension) Asthma daily inh and prn inh-rare use Exercise / Class Metabolic Activity II 4-5 Yardwork/Stairs/Walk up hill Past Family History Family History Father Myocardial infarction Mother Myocardial infarction Hypertension Uncle Stroke Other Heart disease No family history of adverse response to anesthesia No family history of bleeding disorder Denies family history of Ovarian cancer Prostate cancer Coronary heart disease Breast cancer Colorectal cancer Past Surgical History Surgical History Hx laparoscopic cholecystectomy (12/06/23) Laparoscopic Cholecystectomy With Cholangiogram(Not Applicable) - Cruz Baugh MD, FACS History of tonsillectomy History of left knee surgery Status post cataract extraction Right eye 12/29/2021-Dr. York Left eye 12/15/2021-Dr. York Hx of colonoscopy History of lumpectomy of left breast benign H/O vaginal hysterectomy Past Anesthesia History No Hx of Anesthesia Complications and No Family Hx of Anesthesia Complications History of PONV No Hx of PONV and No Hx of Motion Sickness Social History Smoking Status: Never smoker Do You Dip or Chew Tobacco: No Hx Alcohol Use: No Alcohol type: wine alcohol intake frequency: holidays/special occasions only Hx Substance Use: No substance use type: does not use Physical Exam Vital Signs Last Vital Signs Temp 36.7 C 12/08/23 12:09 Pulse 79 12/08/23 12:09 Resp 20 12/08/23 12:09 BP 155/85 H 12/08/23 12:09 Pulse Ox 98 12/08/23 12:09 O2 Del Method Room Air 12/08/23 12:09 O2 Flow Rate 4 12/08/23 01:05 Constitutional no acute distress painful ENMT Mouth: no dentition abnormality Thyromental Distance: > or= 3.5 Finger Breadths Mallampati Class: II NGT in place Neck normal visual inspection Respiratory normal respiratory effort Auscultation: lungs clear to auscultation bilaterally Cardiovascular Rate/Rhythm: regular rate and regular rhythm Psychiatric Orientation: alert Testing Laboratory Results 12/08/23 10:00 12/08/23 10:00 PT 10.5 Seconds (9.0-12.0) 12/07/23 21:08 INR 1.0 (0.9-1.1) 12/07/23 21:08 Hemoglobin A1c 7.1 % (4.5-5.6) H 12/07/23 21:08 Blood Type A Positive 12/07/23 21:08 Antibody Screen NEGATIVE 12/07/23 21:08 12/08/23 12/08/23 12:17 06:23 POC Glucose 246 H 316 H*
[2023-12-08] MEDS ORDERED: ONDANSETRON INJ 2 MG/ML 2 ML VIAL ONE (12:57)
[2023-12-08] MEDS ORDERED: DEXAMETHASONE SOD INJ 4 MG/ML VIAL ONE (12:57)
[2023-12-08] MEDS ORDERED: SUGAMMADEX SODIUM 200 MG/2 ML VIAL IV ONE (12:58)
[2023-12-08] MEDS ORDERED: PHENYLEPHRINE 100MCG/ML 10ML SYR IV ONE (13:00)
[2023-12-08] MEDS: BUPIVACAINE 0.5 % 5 MG/1 ML MPF 30ML VIAL ONE (13:21)
--- NOTE | 2023-12-08 13:21 | Post Operative Brief Note ---
Immediate Post Op Note v1 Date of Surgery December 08, 2023 Pre & Post Diagnosis Operation Date: 12/08/23 14:45 Pre-Op Diagnosis: (1) Small bowel obstruction: Post-Op Diagnosis: (1) Small bowel obstruction: I identified the patient and participated in the time-out.: Yes Procedure Operation Date: 12/08/23 14:45 Actual Procedures p Exploratory Laparotomy, Release of Small Bowel Obstruction(Not Applicable) - Cruz Baugh MD, FACS Surgeon Cruz Baugh MD, FACS Solution Sales Senior Executive Ish OLIVEIRA Estimated Blood Loss 5 Findings Consistent with Post-Op Diagnosis
[2023-12-08] MEDS: fentaNYL citrate PF 100 MCG/2 ML VIAL IV PRN (13:40)
--- NOTE | 2023-12-08 13:41 | Operative Report ---
PG Post Operative Report Pre & Post Diagnosis Operation Date: 12/08/23 14:45 Pre-Op Diagnosis: (1) Small bowel obstruction: Post-Op Diagnosis: (1) Small bowel obstruction: I identified the patient and participated in the time-out.: Yes Procedure Operation Date: 12/08/23 14:45 Actual Procedures p Exploratory Laparotomy, Release of Small Bowel Obstruction(Not Applicable) - Cruz Baugh MD, FACS The patient was brought into the operating theater supine position general trach anesthesia Hopkins catheter inserted systemic antibiotics on board a timeout was had patient identified Indication for surgery bowel obstruction possible internal hernia Summary this 78-year-old female underwent a laparoscopic cholecystectomy intraoperative cholangiogram approximately 48 hours ago she came into the emergency room last evening with vomiting abdominal pain question raised about a small bowel obstruction she was admitted and rehydrated I saw the patient in approximately 915 this morning who obviously had an acute abdomen in reviewing the CAT scan that she had had last night there was a question of possible internal hernia or patient was taken the surgery for exploratory lap was done and found approximately 3 feet of compromised small bowel in the area of cyanosis but no alli gangrene the peritoneal fluid slightly blood-tinged and identified that the patient had an adhesive band causing this obstruction the bowel pinked up and no resection was done except lysis of adhesive band which was omental in nature we identify specifically the area the transition from ischemic area to normal bowel band marking but on completion we were able to milk through it without any obvious obstruction and there was no filling defect sleep by palpation A midline incision was made above the umbilicus approximately 15 cm deepened through subcutaneous tissue where the patient had approximately 7 cm of subcutaneous fatty tissue we entered the midline once entered the midline initial inspection there were no significant significant amount of bloody fluid some serosanguineous appreciated manner attention was turned in her left upper quadrant where we could see some compromise small bowel distally that was decompressed and maneuver in the area we were able then to deliver the small bowel out of the wound and identified that there was adhesive band cutting through portion of the bowel omental in nature we divided this between hemostats and ligated there was another finer bands that we similarly ligated although it did not not seem to be compromised significantly at this point we eviscerated the bowel from the ligament of Treitz all the way down to the area compromised was approximately 3 feet of jejunum and once once we had freed the band and elevated the bowel out of the abdomen it pinked up considerably we then further milked the bowel all the way to the ligament of Treitz which was all normal and no other bands were identified we did palpate the omentum which was going down towards the pelvis even though the patient not had any previous abdominal surgery except a vaginal hysterectomy I freed this omentum from the abdominal wall ligated with 2-0 silk and divided After waiting approximately 15 minutes doing her other exploration we went back and looked at all the compromised bowel and it was completely pink had good peristalsis therefore everything was returned into the abdomen we freed the abdomen but this peritoneal fluid we palpated the stomach and placed the NG tube at 55 from the naris the wound then closed with an 0 PDS starting 1 cephalad and 1 caudad tied in the middle subcutaneous tissue was not closed the quarter-inch Dillon was placed in the subcu secured in place distal portion of the incision and proximal portion with a suture Steri-Strips applied procedure was tolerated well by the patient estimated blood loss 5 cc Gina Alford physician hair assistant was present throughout the case and helped the retraction exposure wound closure Spoke with her friend Kasandra at [phone] Surgeon Cruz Baugh MD, FACS Drawbench Operator Helper Ish OLIVEIRA Estimated Blood Loss 5 Findings Consistent with Post-Op Diagnosis Small bowel obstruction from adhesive band from the omentum Specimens None Drains Quarter-inch Juan Francisco in subcu Complications From the time the surgery proposed that 950 surgery started at 1250 Indications Acute abdomen Description of Procedure merda I attest to the content of the Intraoperative Record and any orders documented therein. Any exceptions are noted below.
--- NOTE | 2023-12-08 15:04 | Anesthesiology Progress Note ---
Date of Service December 08, 2023 Anesthesia Post Procedure Vital Signs Vital Signs: Temp Pulse Pulse Pulse Resp BP BP 12/08/23 15:00 85 14 134/76 12/08/23 14:45 88 14 125/79 12/08/23 14:30 36.5 C 90 13 129/66 12/08/23 14:20 89 14 129/64 12/08/23 14:10 96 H 13 111/78 12/08/23 14:00 83 16 127/93 12/08/23 13:50 89 20 147/94 H 12/08/23 13:40 86 15 148/96 H 12/08/23 13:30 36.5 C 86 13 198/90 H 12/08/23 12:09 36.7 C 79 20 155/85 H 12/08/23 11:22 37.0 C 65 16 138/79 12/08/23 08:00 60 12/08/23 07:42 36.6 C 55 L 16 99/66 L 12/08/23 05:15 36.4 C L 57 L 20 114/71 12/08/23 02:20 36.9 C 55 L 16 128/79 12/08/23 01:26 12/08/23 01:13 12/08/23 01:05 12/07/23 23:30 56 L 12 12/07/23 23:20 60 18 12/07/23 23:10 59 L 13 12/07/23 23:00 176/94 H 12/07/23 23:00 59 L 13 12/07/23 22:50 62 10 L 12/07/23 22:40 59 L 7 L 12/07/23 22:30 63 10 L 12/07/23 22:20 62 16 12/07/23 22:10 71 15 12/07/23 22:09 71 12/07/23 22:00 220/97 H 12/07/23 22:00 69 19 12/07/23 21:50 64 16 12/07/23 21:40 74 18 12/07/23 21:32 16 12/07/23 21:10 52 L 20 12/07/23 21:01 59 L 15 12/07/23 21:01 12/07/23 21:01 12/07/23 20:57 56 L 15 12/07/23 20:45 36.7 C 50 L 18 71/49 L Pulse Ox O2 Del Method O2 Flow Rate 12/08/23 15:00 96 Nasal Cannula 2 12/08/23 14:45 95 Nasal Cannula 2 12/08/23 14:30 95 Nasal Cannula 2 12/08/23 14:20 95 Nasal Cannula 2 12/08/23 14:10 94 Nasal Cannula 2 12/08/23 14:00 97 Nasal Cannula 2 12/08/23 13:50 94 Oxymask 3 12/08/23 13:40 99 Oxymask 6 12/08/23 13:30 97 Oxymask 6 12/08/23 12:09 98 Room Air 12/08/23 11:22 92 Room Air 12/08/23 08:00 12/08/23 07:42 96 Room Air 12/08/23 05:15 95 Room Air 12/08/23 02:20 95 Room Air 12/08/23 01:26 Nasal Cannula 12/08/23 01:13 Room Air 12/08/23 01:05 Nasal Cannula 4 12/07/23 23:30 95 12/07/23 23:20 100 12/07/23 23:10 98 Nasal Cannula 4 12/07/23 23:00 12/07/23 23:00 97 12/07/23 22:50 98 12/07/23 22:40 99 12/07/23 22:30 88 L 12/07/23 22:20 99 12/07/23 22:10 100 12/07/23 22:09 12/07/23 22:00 12/07/23 22:00 97 12/07/23 21:50 94 12/07/23 21:40 98 12/07/23 21:32 98 12/07/23 21:10 98 12/07/23 21:01 97 12/07/23 21:01 Room Air 12/07/23 21:01 Room Air 12/07/23 20:57 97 Nasal Cannula 4 12/07/23 20:45 96 Room Air Pain Intensity Medial Abdomen: Pain Intensity: 4 Transfer of Care Handoff Completed per policy Notes Mental Status: alert / awake / arousable and participated in evaluation Patient Amnestic to Procedure: Yes Nausea / Vomiting: adequately controlled Pain: adequately controlled Airway Patency, RR, SpO2: stable & adequate BP & HR: stable & adequate Hydration State: stable & adequate Anesthetic Complications: no major complications apparent and Pt Satisfied with anesthetic care
[2023-12-08] MEDS ORDERED: MoRPHine SULFATE 4 MG/ML 1 ML CARP\\VIAL IV PRN (15:17)
--- NOTE | 2023-12-08 15:29 | Anesthesiology Progress Note ---
Date of Service December 08, 2023 Anesthesia Post Procedure Vital Signs Vital Signs: Temp Pulse Pulse Pulse Resp BP BP 12/08/23 15:20 36.5 C 89 15 116/72 12/08/23 15:00 85 14 134/76 12/08/23 14:45 88 14 125/79 12/08/23 14:30 36.5 C 90 13 129/66 12/08/23 14:20 89 14 129/64 12/08/23 14:10 96 H 13 111/78 12/08/23 14:00 83 16 127/93 12/08/23 13:50 89 20 147/94 H 12/08/23 13:40 86 15 148/96 H 12/08/23 13:30 36.5 C 86 13 198/90 H 12/08/23 12:09 36.7 C 79 20 155/85 H 12/08/23 11:22 37.0 C 65 16 138/79 12/08/23 08:00 60 12/08/23 07:42 36.6 C 55 L 16 99/66 L 12/08/23 05:15 36.4 C L 57 L 20 114/71 12/08/23 02:20 36.9 C 55 L 16 128/79 12/08/23 01:26 12/08/23 01:13 12/08/23 01:05 12/07/23 23:30 56 L 12 12/07/23 23:20 60 18 12/07/23 23:10 59 L 13 12/07/23 23:00 176/94 H 12/07/23 23:00 59 L 13 12/07/23 22:50 62 10 L 12/07/23 22:40 59 L 7 L 12/07/23 22:30 63 10 L 12/07/23 22:20 62 16 12/07/23 22:10 71 15 12/07/23 22:09 71 12/07/23 22:00 220/97 H 12/07/23 22:00 69 19 12/07/23 21:50 64 16 12/07/23 21:40 74 18 12/07/23 21:32 16 12/07/23 21:10 52 L 20 12/07/23 21:01 59 L 15 12/07/23 21:01 12/07/23 21:01 12/07/23 20:57 56 L 15 12/07/23 20:45 36.7 C 50 L 18 71/49 L Pulse Ox O2 Del Method O2 Flow Rate 12/08/23 15:20 93 Nasal Cannula 2 12/08/23 15:00 96 Nasal Cannula 2 12/08/23 14:45 95 Nasal Cannula 2 12/08/23 14:30 95 Nasal Cannula 2 12/08/23 14:20 95 Nasal Cannula 2 12/08/23 14:10 94 Nasal Cannula 2 12/08/23 14:00 97 Nasal Cannula 2 12/08/23 13:50 94 Oxymask 3 12/08/23 13:40 99 Oxymask 6 12/08/23 13:30 97 Oxymask 6 12/08/23 12:09 98 Room Air 12/08/23 11:22 92 Room Air 12/08/23 08:00 12/08/23 07:42 96 Room Air 12/08/23 05:15 95 Room Air 12/08/23 02:20 95 Room Air 12/08/23 01:26 Nasal Cannula 12/08/23 01:13 Room Air 12/08/23 01:05 Nasal Cannula 4 12/07/23 23:30 95 12/07/23 23:20 100 12/07/23 23:10 98 Nasal Cannula 4 12/07/23 23:00 12/07/23 23:00 97 12/07/23 22:50 98 12/07/23 22:40 99 12/07/23 22:30 88 L 12/07/23 22:20 99 12/07/23 22:10 100 12/07/23 22:09 12/07/23 22:00 12/07/23 22:00 97 12/07/23 21:50 94 12/07/23 21:40 98 12/07/23 21:32 98 12/07/23 21:10 98 12/07/23 21:01 97 12/07/23 21:01 Room Air 12/07/23 21:01 Room Air 12/07/23 20:57 97 Nasal Cannula 4 12/07/23 20:45 96 Room Air Pain Intensity Medial Abdomen: Pain Intensity: 4 Transfer of Care Handoff Completed per policy Notes Mental Status: alert / awake / arousable Patient Amnestic to Procedure: Yes Nausea / Vomiting: adequately controlled Pain: adequately controlled Airway Patency, RR, SpO2: stable & adequate BP & HR: stable & adequate Hydration State: stable & adequate Anesthetic Complications: no major complications apparent and Pt Satisfied with anesthetic care
[2023-12-08] MEDS: ALBUT/IPRATROP 3MG/0.5MG NEB 3 ML VIAL NEB STA (20:53)
[2023-12-08] MEDS: HEPARIN SOD 5,000 UNIT/0.5 ML VIAL SQ SCH (21:42)
[2023-12-08] MEDS: SODIUM CHLORIDE 0.9% 1,000 ML IV SCH (21:48)
[2023-12-08 23:33] LABS: Appearance Urine Clear (Clear); Bacteria Urine Automated None Seen (None Seen); Bilirubin Urine Negative (Negative); Blood Urine 3+ (Negative); Color Urine Yellow; Glucose Urine UA 1+ (Negative); Ketones Urine Negative (Negative); Leukocyte Esterase Urine Negative (Negative); Nitrite Urine Negative (Negative); Protein Urine 1+ (Negative); RBC Urine Automated >20 /hpf (0-2); Specific Gravity Urine > 1.045 (1.000-1.030); Urobilinogen Urine Negative (Negative); pH Urine 5.5 (4.5-7.5)
[2023-12-08 23:46] LABS: Cast Urine Automated 0-2 /lpf (0-2)
--- NOTE | 2023-12-09 06:20 | Surgery Progress Note ---
Date of Service December 09, 2023 Assessment & Plan (1) Small bowel obstruction: Plan: Status post exploratory laparotomy with release of small bowel obstruction on 12/08/2023 (postop day #1) Continue analgesics as needed Continue n.p.o. status Maintain NG tube and monitor output. Consideration be given to removing this once patient begins to pass flatus/has return of bowel function Maintain patient on intravenous fluids until oral intake can be advanced I encouraged the patient to utilize her incentive spirometer Mobilize as able Check a.m. labs when available Consideration to adding subcutaneous heparin or Lovenox for DVT prevention if stability noted on this morning's labs as above. doing as expected. pain control reasonable. keep NGT. will slowly increase activity. Admission and Anticipated Discharge Date Admission Date: December 07, 2023 Subjective Patient is currently resting in bed. She notes pain at her surgical incision. She denies any fevers, shakes, or chills. No nausea or vomiting reported with NG tube in place. She has not passed any flatus or had bowel movement since her surgery. She has not been out of bed since surgery. Discussed with maintenance mechanic 2nd shift nurse attending the patient in no acute issues identified at this time Physical Exam Respiratory: Patient is not using accessory muscles to aid in respiration. Breath sounds are decreased at bases. Gastrointestinal (Abdomen): Abdomen is soft with minimal distention. Surgical incision is intact with qian with a Juan Francisco drain noted in the subcutaneous tissue. There is a small amount of serosanguineous drainage. Patient has appropriate tenderness near her surgical incision. NG tube is in place draining bilious material. Results & Data Vital Signs (Past 12 Hours) Vital Signs Temp Pulse Pulse Pulse Resp BP Pulse Ox 12/09/23 04:00 36.7 C 64 18 126/74 94 12/08/23 23:21 37.1 C 82 20 122/73 99 12/08/23 22:27 84 12/08/23 20:53 86 18 98 12/08/23 19:37 36.7 C 86 20 138/89 97 O2 Del Method O2 Flow Rate 12/09/23 04:00 Room Air 12/08/23 23:21 Nasal Cannula 2 12/08/23 22:27 12/08/23 20:53 Nasal Cannula 2 12/08/23 19:37 Nasal Cannula 2 PG Care Time/CCT Total # of Minutes Spent Total Time Spent with Patient: Total time spent is greater than 50% in coordination of care (as documented) at patient's floor/unit and/or counseling patient: Coding Level of Care Code 15368 Post Operative Follow-Up Diagnoses Small bowel obstruction K56.609
[2023-12-09 07:50] LABS: Basophils # (auto) 0.03 K/uL (0.00-0.20); Basophils % (auto) 0.3 %; Eosinophils # (auto) 0.05 K/uL (0.00-0.50); Eosinophils % (auto) 0.5 %; Hematocrit (blood only) 34.2 % (37.0-47.0); Hemoglobin 11.3 g/dl (12.0-16.0); Immature Granulocytes # (auto) 0.03 K/uL (0.01-0.20); Immature Granulocytes % (auto) 0.3 %; Lymphocytes % (auto) 15.4 %; Mean Corpuscular Hemoglobin 30.7 pg (25.0-34.0); Mean Corpuscular Volume 92.9 fL (80.0-100.0); Mean Platelet Volume 10.8 fL (9.4-12.4); Monocytes # (auto) 0.91 K/uL (0.11-0.59); Monocytes % (auto) 8.3 %; Neutrophils # (auto) 8.29 K/uL (1.40-6.50); Neutrophils % (auto) 75.2 %; Platelet Count 253 K/uL (130-400); RDW Coefficient of Variation 12.7 % (11.5-14.5); RDW Standard Deviation 43.5 fL (36.4-46.3); Red Blood Count 3.68 M/uL (4.20-5.40); White Blood Count 11.01 K/ul (4.8-10.8)
[2023-12-09 08:01] LABS: BUN Creatinine Ratio 23.8 (10-20); Calcium 7.7 mg/dl (8.6-10.3); Creatinine Clr Calc Pharmacy 32.3 ml/min; Est GFR (African American) 47.6 ml/min; Est GFR (Non-African American) 41.1 ml/min; Magnesium 1.7 mg/dl (1.7-2.4)
[2023-12-09] MEDS: SODIUM CHLOR 0.45% + 20MEQ KCL 20 MEQ/1,000 ML BAG IV SCH (14:21)
--- NOTE | 2023-12-09 15:26 | Hospitalist Progress Note ---
Date of Service December 09, 2023 Assessment & Plan (1) Small bowel obstruction: Plan: 78 y/o with diabetes underwent lap luis enrique 12/[address] Baugh. Presented to ED 12/06 with nausea/vomiting hypotension that resolved promptly with IVF. Found to have SBO based on CT abdomen - taken to the OR by Dr. Adarsh Costello 12/07 for exploratory laparotomy found to have internal hernia with ischemic loops of jejunum reduced, no necrosis -continue NG tube -continue IV fluids with potassium -continue IV APAP, morphine, IV antiemetics for sx control low urine output throughout the morning today. bladder scan with bladder unable to be identified. Hopkins catheter placed 100 mL urine output has been on IV fluids throughout and accumulating some edema. She has some acute blood loss anemia postoperatively based on this morning's labs. she also has had OWEN though creatinine improved slightly overnight. Will repeat CBC and BMP Now this afternoon. avoid nephrotoxins (2) S/P laparoscopic cholecystectomy: Plan: 12/05 (3) Diabetes mellitus, controlled: Plan: Continue PRN aspart while NPO - aspart ratios adjusted yesterday and mainly at goal blood sugars today (4) HTN (hypertension): Plan: ramipril, HCTZ held (5) Hypotension due to hypovolemia: Plan: treated in ED, resolved (6) Asthma: Plan: not in exacerbation Plan Elevated HS troponin peak 75-->68. Related to demand ischemia. EKG tracing reviewed - sinus jean claude, old inferior Qs. No evidence of acute coronary syndrome I stopped pip-tazo this had been ordered on admission for unclear indication, no evidence of infection at this time DVT prophylaxisheparin SQ every 8 hours started by surgical team Admission and Anticipated Discharge Date Admission Date: December 07, 2023 Subjective Not feeling too well today, nausea and abdominal pain Was short of breath yesterday/overnight but not now. No cough/cP Physical Exam 2 Physical Exam: PHYSICAL EXAMINATION Last 24h vital signs reviewed, see documentation in flowsheet General: reclining in bed appears more comfortable than yesterday morning HEENT: NG tube with bilious drainage, sclerae anicteric, no conjunctival injection, moist mucus membranes Lungs: Normal respiratory effort. Clear to auscultation bilaterally. No RRW Heart: Regular rate and rhythm, no murmurs. No JVD Abdomen: Soft, mildly distended, diffusely tender to palpation but less so than yesterday, 1 quiet bowel sound/ diminished Extremities: Warm, dry, well-perfused. trace/mild extremity edema. Neuro: Alert and oriented x 4, face symmetric, moves 4 extremities well Psych: Normal affect and behavior Results & Data Results & Data Vital Signs (Past 12 Hours) Vital Signs Temp Pulse Pulse Resp BP Pulse Ox O2 Del Method 12/09/23 11:59 36.5 C 56 L 18 128/70 96 Room Air 12/09/23 08:16 59 L 12/09/23 08:11 36.2 C L 58 L 18 119/73 96 Room Air 12/09/23 04:00 36.7 C 64 18 126/74 94 Room Air Laboratory Results 12/09/23 07:21 12/09/23 07:21 PG Care Time/CCT Total # of Minutes Spent Total Time Spent with Patient: Total time spent is greater than 50% in coordination of care (as documented) at patient's floor/unit and/or counseling patient: Coding Level of Care Code 84550 SUB INP/OBS CARE 2/35MIN Diagnoses Small bowel obstruction K56.609 S/P laparoscopic cholecystectomy Z90.49 Diabetes mellitus, controlled E11.9 HTN (hypertension) I10 Hypertension type: unspecified Hypotension due to hypovolemia E86.1 Asthma J45.909 (4) HTN (hypertension) Hypertension type: unspecified Qualified Code(s): I10 - Essential (primary) hypertension
[2023-12-09 16:14] LABS: Hematocrit (blood only) 33.5 % (37.0-47.0); Hemoglobin 10.8 g/dl (12.0-16.0); Mean Corpuscular Hemoglobin 30.3 pg (25.0-34.0); Mean Corpuscular Hgb Conc 32.2 g/dL (32.0-36.0); Mean Corpuscular Volume 94.1 fL (80.0-100.0); Platelet Count 228 K/uL (130-400); RDW Coefficient of Variation 12.8 % (11.5-14.5); Red Blood Count 3.56 M/uL (4.20-5.40); White Blood Count 9.53 K/ul (4.8-10.8)
[2023-12-09 16:29] LABS: BUN Creatinine Ratio 24.8 (10-20); Calcium 7.9 mg/dl (8.6-10.3); Creatinine Clr Calc Pharmacy 33.6 ml/min; Est GFR (Non-African American) 43.1 ml/min; Potassium 3.9 mmol/L (3.5-5.1)
--- NOTE | 2023-12-09 18:23 | Communication Note ---
Date of Service: December 09, 2023 Low UOP today. Pryor placed for accurate i/o and to r/o urinary retention as bladder not visible on bladder scan 100 mL immediate output with pryor I/O very positive and is on IV fluids obtained afternoon CBC BMP - Cr has improved, reassuringly. Hct stable today 34.2-->33.5 continue current treatment
[2023-12-09] MEDS: DEXTROSE 50% 50 ML SYRINGE IV PRN (23:41)
--- NOTE | 2023-12-09 23:52 | Communication Note ---
Date of Service: December 09, 2023 called bedside, ab pain and low UO. Given morphine which helped some. hypoactive bowel sounds. RUQ tenderness. KUB ordered, nurse reach out to surgery who saw the patient. stated that KUB was is not concerning. low UO- IVFB of NSS. Pain better controlled.
[2023-12-10 00:33] LABS: Appearance Urine Cloudy (Clear); Bacteria Urine Automated None Seen (None Seen); Bilirubin Urine Negative (Negative); Blood Urine 3+ (Negative); Cast Urine Automated 0-2 /lpf (0-2); Color Urine Dark Yellow; Epithelial Cell Urine Auto 0-2 /hpf (0-2); Glucose Urine UA Negative (Negative); Ketones Urine Negative (Negative); Leukocyte Esterase Urine Trace (Negative); Nitrite Urine Negative (Negative); Protein Urine 1+ (Negative); RBC Urine Automated >20 /hpf (0-2); Specific Gravity Urine 1.039 (1.000-1.030); Urobilinogen Urine Negative (Negative)
--- NOTE | 2023-12-10 00:35 | Surgery Progress Note ---
Date of Service December 10, 2023 Assessment & Plan (1) Small bowel obstruction: Plan: Status post exploratory laparotomy with release of small bowel obstruction on 12/08/2023 (postop day #2) Continue to provide analgesics as needed Maintain n.p.o. status Maintain NG tube and monitor outputthere is no recorded NG tube output since surgery. I have contacted the nursing staff and asked them to address this and make sure accurate NG tube output is recorded in chart.. NG tube will need to stay in place until patient has return of bowel function. As patient did complain of worsening abdominal pain earlier this evening, the medical service ordered a KUB. I reviewed the study and showed gaseous distention of the colon. I feel that this likely represents postoperative ileus. Maintain patient on intravenous fluids until oral intake can be advanced. I have ordered 500 cc bolus of normal saline solution as patient's urine output has been low. We will continue to monitor urine output with Pryor in place. We await the results of patient's urinalysis/culture and treat for urinary tract infection if indicated. Will also monitor patient's electrolytes and renal function on her daily labs. Patient has been encouraged to use her incentive spirometer I discussed with patient the importance of mobilization efforts which should be increased during dayshift on 12/10/2023 AM labs are ordered for the morning of 12/10/2023 and we will check these when they become available. Addendum (4:45 AM) I discussed additional care with nursing staff attending to the patient. They notes that since my previous visit at approximately 12:00 AM the patient has not complained of any worsening abdominal pain and has not required any additional analgesics. They administered fluid bolus as ordered and her urine output over the past 4-1/2 hours has been approximately 50 to 75 cc. They note that the patient has remained afebrile and has been hemodynamically stable. Urinalysis that was ordered has been reviewed. This did show the patient has no nitrites but has trace leukocyte Estrace and 11-20 white blood cells per high- power field and no bacteria. A urine culture has been sent and is pending Patient revisited at the bedside at this time. She was sleeping but easily aroused. She does not note any worsening abdominal pain. On physical exam there is been no change on her physical exam as her abdomen remains soft and nonrigid with appropriate tenderness near her surgical incision. Due to the patient's abnormal urinalysis we will initiate antibiotics in the form of Rocephin. Antibiotics may be tailored based on pending culture results. Remainder of plan as noted above. Addendum 6:30 AM I was called by nursing staff noting that patient started to have some bright bloody drainage from her NG tube. I reported the bedside evaluated the patient. She is normotensive without tachycardia or fever she does not report any worsening pain. Upon inspection of the NG tube there is a small amount of bright blood in the tubing. I suspect the patient's bloody NG tube drainage is likely gastric irritation from the NG tube. We will proceed as follows: Patient is receiving subcutaneous heparin for DVT prophylaxis; I have placed this medication on hold The patient is receiving 40 mg of intravenous Protonix daily; I have increased this so the patient is to receive a Protonix bolus followed by Protonix drip AM labs have been ordered for this morning which are pendingwe will assess the patient's hemoglobin and hematocrit to see if there is any drop in these values on this morning labs along with her platelet count. I have also ordered coagulation studies Additional recommendations will be forthcoming based on the amount of drainage from patient's NG tube and the nature of the drainage along with the values of her labs this morning as above. pt feeling better this AM. pain improving. h/h slight drop...will hold heparin for now. keep ngt. need to get OOB to chair some today. keep pryor for now as well. continue to monitor urine OP Admission and Anticipated Discharge Date Admission Date: December 07, 2023 Subjective I was called by RN over concern that patient had decreased urine output at approximately 12:00 AM on 12/10/2023. I reported the bedside to evaluate the patient. On 12/09/2023 patient had a Pryor catheter removed to the nurse driven protocol the patient was having difficulty urinating requiring Pryor catheter to be replaced. The nurse reports that approximately over 8 hours the patient had approximately 125 cc of urine output. She also noted that the patient was complaining of some worsening abdominal pain. She notes that the patient received 2 mg of morphine approximately 45 minutes ago. RN notes that patient has remained afebrile. She has remained normotensive. She has not been tachycardic. A urinalysis has been ordered and is pending. I visited with the patient at the bedside and she notes that since morphine was administered approximately 45 minutes ago her abdominal pain is markedly improved. She again has an NG tube in place and does note some minor discomfort from this and has not had any nausea or vomiting. Since her surgery she has not passed any flatus or had a bowel movement yet. She denies any fevers, shakes, or chills. The patient also notes that since her surgery she has not been out of bed. Most recent labs were reviewed and were from 12/09/2023 at approximately 3:30 PM. CBC reveals white blood cell count was normal. Her hemoglobin and hematocrit were 10.8 and 33.5 and platelet count was normal. Chemistry profile showed sodium and potassium were both normal. The patient's BUN and creatinine were 30 and 1.2. Physical Exam Constitutional: WD/WN, vitals as above Respiratory: Breath sounds are present bilaterally. Breath sounds are slightly decreased at the bases but patient is not using accessory muscles to aid in respiration. No wheezing noted Cardiovascular: Rate/Rhythm: regular rate and regular rhythm Gastrointestinal (Abdomen): Patient's abdomen is overall soft with minimal distention. Her surgical incision is intact with qian. There is a Hadley drain in the subcutaneous tissue. Bowel sounds are absent. Her abdomen is nonrigid. There is expected pain with palpation near patient's surgical incision. Genitourinary: Pryor catheter is in place draining yellow urine. The catheter does appear patent and draining appropriately Results & Data Vital Signs (Past 12 Hours) Vital Signs Temp Pulse Pulse Resp BP BP Pulse Ox 12/09/23 22:40 36.7 C 60 16 149/73 H 95 12/09/23 19:00 36.6 C 61 18 167/78 H 97 12/09/23 17:41 58 L 12/09/23 16:07 36.3 C L 54 L 18 130/72 99 O2 Del Method 12/09/23 22:40 Room Air 12/09/23 19:00 Room Air 12/09/23 17:41 12/09/23 16:07 Room Air PG Care Time/CCT Total # of Minutes Spent Total Time Spent with Patient: Total time spent is greater than 50% in coordination of care (as documented) at patient's floor/unit and/or counseling patient: Coding Level of Care Code 74136 Post Operative Follow-Up Diagnoses Small bowel obstruction K56.609
[2023-12-10] MEDS: SODIUM CHLORIDE 0.9% 500 ML IV ONE (00:36)
[2023-12-10] MEDS: cefTRIAXone SODIUM 1,000 MG/50 ML BAG IV SCH (06:12)
[2023-12-10] MEDS ORDERED: PANTOPRAZOLE BOLUS/DRIP IV STA (06:37)
[2023-12-10] MEDS: PANTOprazole 80 MG in DEXTROSE 5% 100 ML IV ONE (06:51)
[2023-12-10] MEDS: PANTOprazole 40 MG in DEXTROSE 5% MINI-B 100 ML IV SCH (07:10)
[2023-12-10 07:11] LABS: Hematocrit (blood only) 30.5 % (37.0-47.0); Mean Corpuscular Hemoglobin 30.5 pg (25.0-34.0); Mean Corpuscular Hgb Conc 32.8 g/dL (32.0-36.0); Platelet Count 219 K/uL (130-400); RDW Coefficient of Variation 12.3 % (11.5-14.5); RDW Standard Deviation 42.2 fL (36.4-46.3); Red Blood Count 3.28 M/uL (4.20-5.40); White Blood Count 7.52 K/ul (4.8-10.8)
[2023-12-10 07:15] LABS: Partial Thromboplastin Ratio 1.4; Partial Thromboplastin Time 37 Seconds (21-31); Prothrombin Time 10.9 Seconds (9.0-12.0)
[2023-12-10 07:31] LABS: BUN Creatinine Ratio 26.9 (10-20); Calcium 7.7 mg/dl (8.6-10.3); Creatinine Clr Calc Pharmacy 54.1 ml/min; Est GFR (African American) 68.7 ml/min; Est GFR (Non-African American) 59.3 ml/min; Magnesium 1.7 mg/dl (1.7-2.4)
--- NOTE | 2023-12-10 07:52 | XRay Report ---
KUB HISTORY: Severe abdominal pain. COMPARISON: KUB 12/08/2023. FINDINGS: Midline skin qian are noted. Nasogastric tube terminates in the distal stomach. Prior ch olecystectomy. No dilated loops of bowel to suggest an obstruction. The lung bases are clear. No yanet al calculi. No ureteral calculi. No pneumoperitoneum or pneumatosis. IMPRESSION: 1. Nonobstructive bowel gas pattern. 2. Nasogastric tube terminates in the distal stomach. ACT 112: Negative or not required by law. Electronically signed by: Rao Bower M.D. 12/10/2023 7:50 AM
[2023-12-10] MEDS: MAGNESIUM SULFATE / D5W 1 GM/100 ML BAG IV ONE (11:37)
--- NOTE | 2023-12-10 12:43 | Hospitalist Progress Note ---
Date of Service December 10, 2023 Assessment & Plan (1) Small bowel obstruction: Plan: 78 y/o with diabetes underwent lap luis enrique 12/[address] Baugh. Presented to ED 12/06 with nausea/vomiting hypotension that resolved promptly with IVF. Found to have SBO based on CT abdomen -taken to the OR by Dr. Baugh 12/07 for exploratory laparotomy found to have internal hernia with ischemic loops of jejunum reduced, no necrosis -continue NG tube until return of bowel function -continue IV fluids with potassium -continue IV APAP, morphine, IV antiemetics for sx control -replaced borderline hypomagnesemia IV small amount of bright red from NG tube overnight 12/08-12/09. Likely some NG trauma. Reviewed KUB last night, nonobstructive pattern -AM labs - mild decrease in Hg to 10.0 -continue PPI drip for now OWEN on CKD-3 - prerenal, resolved. LEONILA held. Cr at baseline 0.9 today (2) S/P laparoscopic cholecystectomy: Plan: 12/05 (3) Diabetes mellitus, controlled: Plan: Continue PRN aspart while NPO -hypoglycemic once and overcontrolled - loosen aspart CF:CR (4) HTN (hypertension): Plan: ramipril, HCTZ held (5) Hypotension due to hypovolemia: Plan: treated in ED, resolved (6) Asthma: Plan: not in exacerbation Plan Elevated HS troponin peak 75-->68. Related to demand ischemia. No evidence of acute coronary syndrome -ok to not be on tele at this point Ceftriaxone ordered overnight by surgery team for abnormal UA. Was on pip-tazo through AM of 12/08 so culture will probably be negative. Can do three days of ceftriaxone. Not clear that this is UTI. DVT prophylaxisheparin SQ held for blood from NG. cont SCDs Admission and Anticipated Discharge Date Admission Date: December 07, 2023 Subjective low UOP last night, 500 mL fluid bolus small amount of blood in NG tube overnight, IV ppi started and SQ heparin held feels a little bit better. no dyspnea or CP. abdominal pain controlled with morphine. passed gas this am. No BMs. No emesis, nausea controlled with IV antiemetics Physical Exam 2 Physical Exam: PHYSICAL EXAMINATION Last 24h vital signs reviewed, see documentation in flowsheet General: lying in bed appears comfortable HEENT: NG tube with bilious drainage, no blood currently, sclerae anicteric, no conjunctival injection, moist mucus membranes Lungs: Normal respiratory effort. Clear to auscultation bilaterally. No RRW Heart: Regular rate and rhythm, no murmurs. No JVD Abdomen: Soft, mildly distended, diffusely tender to palpation, one possible bowel sound vs NG suction Hopkins - clear yellow urine Extremities: Warm, dry, well-perfused. trace/mild extremity edema. Neuro: Alert and oriented x 4, face symmetric, moves 4 extremities well Psych: Normal affect and behavior Results & Data Results & Data Vital Signs (Past 12 Hours) Vital Signs Temp Pulse Pulse Resp BP BP Pulse Ox 12/10/23 11:31 36.3 C L 54 L 18 158/72 H 94 12/10/23 09:00 52 L 12/10/23 08:34 36.5 C 53 L 17 175/74 H 97 12/10/23 06:33 36.6 C 53 L 18 167/71 H 97 12/10/23 04:00 36.9 C 58 L 18 147/70 H 96 O2 Del Method 12/10/23 11:31 Room Air 12/10/23 09:00 12/10/23 08:34 Room Air 12/10/23 06:33 Room Air 12/10/23 04:00 Room Air Laboratory Results 12/10/23 06:49 12/10/23 06:49 PG Care Time/CCT Total # of Minutes Spent Total Time Spent with Patient: Total time spent is greater than 50% in coordination of care (as documented) at patient's floor/unit and/or counseling patient: Coding Level of Care Code 60129 SUB INP/OBS CARE 2/35MIN Diagnoses Small bowel obstruction K56.609 S/P laparoscopic cholecystectomy Z90.49 Diabetes mellitus, controlled E11.9 HTN (hypertension) I10 Hypertension type: unspecified Hypotension due to hypovolemia E86.1 Asthma J45.909 (4) HTN (hypertension) Hypertension type: unspecified Qualified Code(s): I10 - Essential (primary) hypertension
[2023-12-10] MEDS: ALBUT/IPRATROP 3MG/0.5MG NEB 3 ML VIAL NEB PRN (20:19)
--- NOTE | 2023-12-10 21:34 | Electrocardiogram Report ---
Test Reason : Blood Pressure : / mmHG Vent. Rate : 056 BPM Atrial Rate : 056 BPM P-R Int : 164 ms QRS Dur : 086 ms QT Int : 442 ms P-R-T Axes : 062 008 034 degrees QTc Int : 426 ms Sinus bradycardia Inferior infarct , age undetermined Abnormal ECG When compared with ECG of 08-DEC-2022 13:55, No significant change was found Confirmed by Cisco De La Rosa ([id number]) on 12/10/2023 9:34:22 PM Referred By: REFERRED SELF Confirmed By:Cisco De La Rosa
[2023-12-11 06:51] LABS: Hematocrit (blood only) 30.5 % (37.0-47.0); Hemoglobin 10.1 g/dl (12.0-16.0); Mean Corpuscular Hemoglobin 30.3 pg (25.0-34.0); Mean Corpuscular Hgb Conc 33.1 g/dL (32.0-36.0); Mean Corpuscular Volume 91.6 fL (80.0-100.0); Mean Platelet Volume 10.8 fL (9.4-12.4); Platelet Count 222 K/uL (130-400); RDW Standard Deviation 40.5 fL (36.4-46.3); Red Blood Count 3.33 M/uL (4.20-5.40); White Blood Count 5.73 K/ul (4.8-10.8)
[2023-12-11 07:16] LABS: BUN Creatinine Ratio 17.6 (10-20); Calcium 7.7 mg/dl (8.6-10.3); Est GFR (African American) 76.6 ml/min; Est GFR (Non-African American) 66.1 ml/min; Magnesium 1.8 mg/dl (1.7-2.4)
[2023-12-11] MEDS: MAGNESIUM SULFATE / D5W 1 GM/100 ML BAG IV ONE ×2 (08:01→09:45)
[2023-12-11] MEDS: NITROGLYCERIN 2% OINTMENT 30GM TUBE EXT PRN (08:11)
[2023-12-11] MEDS: hydrALAZINE HCL 20 MG/ML VIAL IV STA (09:28)
[2023-12-11] MEDS: FUROSEMIDE 40 MG/4 ML VIAL IV ONE (09:28)
[2023-12-11] MEDS: FUROSEMIDE INJ 20 MG/2 ML VIAL IV ONE (09:40)
[2023-12-11] MEDS: LACTATED RINGER'S 1,000 ML IV SCH (09:45)
--- NOTE | 2023-12-11 10:02 | Surgery Progress Note ---
Date of Service December 11, 2023 Assessment & Plan (1) Small bowel obstruction: Plan: Patient is 3 days postop exploratory lap small bowel obstruction released 3 feet of ischemic none gangrenous small bowel that pinked up once the adhesive band was released The patient has been receiving normal saline fluid her blood pressure today is 218/71 The laboratory hemoglobin 10.1 BUN and creatinine normalizing Plan Patient is third day postop today he will be mobilizing fluids therefore we will proceed with Change her IV fluids to lactated Ringer's and minimizing sodium intake Give 20 mg of Lasix Cutter IV use the lactated Ringer's at 75 cc an hour Leave the NG tube in for today leave Hopkins in today (apparently has been removed and replaced a few times since surgery) Resume heparin 5000 units subcu every 12 hours Increase activity I suspect by tomorrow the NG tube will be removed and a diet could be started Admission and Anticipated Discharge Date Admission Date: December 07, 2023 Subjective Laying comfortably with minimal abdominal discomfort stating passing flatus no bowel movement yet no nausea Physical Exam Physical Exam: Alert coherent in no distress NG drainage dark green (cannot accurately state how much drainage canister is approximately 450 cc but I cannot state the last time it was emptied I and O poorly recorded) Oropharyngeal area moist The abdomen is soft incisional tenderness incision is free of any drainage no erythema qian intact Juan Francisco in place +1 pedal edema Results & Data Vital Signs (Past 12 Hours) Vital Signs Temp Pulse Pulse Resp BP Pulse Ox O2 Del Method 12/11/23 09:15 218/71 H 12/11/23 07:47 36.7 C 56 L 18 192/72 H 96 Room Air 12/11/23 07:15 Room Air 12/11/23 07:00 55 L 12/11/23 04:00 36.6 C 58 L 18 169/73 H 94 Room Air 12/10/23 23:00 36.6 C 55 L 18 163/75 H 93 Room Air Laboratory Results Noted
[2023-12-11] MEDS: PANTOprazole 40 MG in SYRINGE 0 ML IV SCH (11:14)
--- NOTE | 2023-12-11 16:40 | Hospitalist Progress Note ---
Date of Service December 11, 2023 Assessment & Plan (1) Small bowel obstruction: Plan: 78 y/o with diabetes underwent lap luis enrique 12/[address] Baugh. Presented to ED 12/06 with nausea/vomiting hypotension that resolved promptly with IVF. Found to have SBO based on CT abdomen -taken to the OR by Dr. Baugh 12/07 for exploratory laparotomy found to have internal hernia with ischemic loops of jejunum reduced, no necrosis -continue NG tube - likely removal tomorrow per surgery recs -continue IV fluids -changed to LR, rate reduced, lasix 20 mg IV this am for hypertension/volume overload with improvement -continue IV APAP, morphine, IV antiemetics for sx control -replaced borderline hypomagnesemia IV again small amount of bright red from NG tube overnight 12/08-12/09. Likely some NG trauma. Resolved -PPI drip changed to 40 IV daily -resumed SQ heparin for dvt ppx OWEN on CKD-3 - prerenal, resolved. LEONILA held. Cr at baseline 0.85 today (2) S/P laparoscopic cholecystectomy: Plan: 12/05 (3) Diabetes mellitus, controlled: Plan: Continue PRN aspart while NPO -hypoglycemic once and overcontrolled - loosened aspart CF:CR 12/09 - at goal today (4) HTN (hypertension): Plan: ramipril, HCTZ held BP improved after IV lasix today, continue nitro paste PRN (5) Hypotension due to hypovolemia: Plan: treated in ED, resolved (6) Asthma: Plan: not in exacerbation Plan Elevated HS troponin peak 75-->68. Related to demand ischemia. No evidence of acute coronary syndrome -ok to not be on tele at this point Ceftriaxone ordered overnight by surgery team for abnormal UA. Was on pip-tazo through AM of 12/08 so culture will probably be negative. -culture negative and had 3 days IV abx, stopped ceftriaxone DVT prophylaxisheparin SQ Still has pryor, remove soon. Replaced postop because she had persistently low UOP and could not visualize bladder on scan. Admission and Anticipated Discharge Date Admission Date: December 07, 2023 Subjective passing more gas, no Bms yet, had increaed nausea this afternoon postop abdominal pain present, requested dose of morphine this am Physical Exam 2 Physical Exam: PHYSICAL EXAMINATION Last 24h vital signs reviewed, see documentation in flowsheet General: lying in bed appears comfortable HEENT: NG tube with bilious drainage, no blood currently, sclerae anicteric, no conjunctival injection, moist mucus membranes Lungs: Normal respiratory effort. Clear to auscultation bilaterally. No RRW Heart: Regular rate and rhythm, no murmurs. No JVD Abdomen: Soft, non distended, diffusely tender to palpation, active BT present Pryor - clear yellow urine Extremities: Warm, dry, well-perfused. trace/mild extremity edema. Neuro: Alert and oriented x 4, face symmetric, moves 4 extremities well Psych: Normal affect and behavior Results & Data Results & Data Vital Signs (Past 12 Hours) Vital Signs Temp Pulse Pulse Pulse Resp BP BP 12/11/23 16:03 36.5 C 81 18 137/77 12/11/23 13:59 67 12/11/23 11:42 36.8 C 68 18 185/72 H 12/11/23 10:56 61 15 12/11/23 09:15 218/71 H 12/11/23 07:47 36.7 C 56 L 18 192/72 H 12/11/23 07:15 12/11/23 07:00 55 L Pulse Ox O2 Del Method 12/11/23 16:03 95 Room Air 12/11/23 13:59 12/11/23 11:42 96 Room Air 12/11/23 10:56 97 Room Air 12/11/23 09:15 12/11/23 07:47 96 Room Air 12/11/23 07:15 Room Air 12/11/23 07:00 Laboratory Results 12/11/23 06:07 12/11/23 06:07 PG Care Time/CCT Total # of Minutes Spent Total Time Spent with Patient: Total time spent is greater than 50% in coordination of care (as documented) at patient's floor/unit and/or counseling patient: Coding Level of Care Code 65252 SUB INP/OBS CARE 2/35MIN Diagnoses Small bowel obstruction K56.609 S/P laparoscopic cholecystectomy Z90.49 Diabetes mellitus, controlled E11.9 HTN (hypertension) I10 Hypertension type: unspecified Hypotension due to hypovolemia E86.1 Asthma J45.909 (4) HTN (hypertension) Hypertension type: unspecified Qualified Code(s): I10 - Essential (primary) hypertension
[2023-12-11] MEDS: METOCLOPRAMIDE HCL INJ 5 MG/ML 2 ML VIAL IV PRN (16:51)
[2023-12-11] MEDS: HEPARIN SOD 5,000 UNIT/0.5 ML VIAL SQ SCH (20:21)
[2023-12-12] MEDS: FUROSEMIDE INJ 20 MG/2 ML VIAL IV ONE (05:51)
--- NOTE | 2023-12-12 06:59 | Surgery Progress Note ---
Date of Service December 12, 2023 Assessment & Plan (1) Small bowel obstruction: Plan: POD #4 status post exploratory lap release of small bowel band causing ischemia At this point we will get the NG tube out started on clear liquids leave Hopkins in for today Medicine to address the hypertension Admission and Anticipated Discharge Date Admission Date: December 07, 2023 Subjective Denies any nausea positive flatus no bowel movement No abdominal discomfort Physical Exam Physical Exam: Alert coherent no distress sleep when I first walked in the room easily arousable Oropharyngeal area moist NG drainage 0 in canister light green in the tubing Abdomen soft some abdominal guarding Incision free of any drainage no cellulitis the [place] drain still intact Hopkins catheter in draining clear urine Results & Data Vital Signs (Past 12 Hours) Vital Signs Temp Pulse Pulse Resp BP BP Pulse Ox 12/12/23 06:21 61 201/79 H 200/83 H 12/12/23 05:29 64 224/80 H 218/84 H 12/12/23 05:02 66 204/76 H 207/73 H 12/11/23 23:58 65 187/80 H 12/11/23 22:26 36.7 C 64 18 192/77 H 97 12/11/23 20:05 36.9 C 63 20 166/83 H 96 12/11/23 19:53 60 18 94 12/11/23 19:50 O2 Del Method 12/12/23 06:21 12/12/23 05:29 12/12/23 05:02 12/11/23 23:58 12/11/23 22:26 Room Air 12/11/23 20:05 Room Air 12/11/23 19:53 Room Air 12/11/23 19:50 Room Air Laboratory Results Pending
[2023-12-12] MEDS ORDERED: Nursing to Pharmacy Communication SCH (07:00)
[2023-12-12] MEDS: INSULIN ASPART PER UNIT CHARGE SC SCH (08:08)
[2023-12-12 08:23] LABS: Basophils # (auto) 0.03 K/uL (0.00-0.20); Basophils % (auto) 0.4 %; Eosinophils # (auto) 0.29 K/uL (0.00-0.50); Eosinophils % (auto) 3.9 %; Hematocrit (blood only) 33.5 % (37.0-47.0); Hemoglobin 11.2 g/dl (12.0-16.0); Immature Granulocytes # (auto) 0.09 K/uL (0.01-0.20); Immature Granulocytes % (auto) 1.2 %; Lymphocytes # (auto) 1.25 K/uL (1.20-3.40); Mean Corpuscular Hemoglobin 29.9 pg (25.0-34.0); Mean Corpuscular Hgb Conc 33.4 g/dL (32.0-36.0); Mean Corpuscular Volume 89.3 fL (80.0-100.0); Mean Platelet Volume 10.8 fL (9.4-12.4); Monocytes # (auto) 0.63 K/uL (0.11-0.59); Monocytes % (auto) 8.5 %; Neutrophils # (auto) 5.08 K/uL (1.40-6.50); Platelet Count 260 K/uL (130-400); RDW Coefficient of Variation 12.3 % (11.5-14.5); RDW Standard Deviation 39.9 fL (36.4-46.3); Red Blood Count 3.75 M/uL (4.20-5.40); White Blood Count 7.37 K/ul (4.8-10.8)
[2023-12-12 08:34] LABS: BUN Creatinine Ratio 14.1 (10-20); Calcium 8.3 mg/dl (8.6-10.3); Creatinine Clr Calc Pharmacy 54.5 ml/min; Est GFR (African American) 69.6 ml/min; Est GFR (Non-African American) 60.1 ml/min; Magnesium 1.9 mg/dl (1.7-2.4); Potassium 4.1 mmol/L (3.5-5.1)
[2023-12-12] MEDS: LEVOTHYROXINE SODIUM 88 MCG TABLET PO SCH (10:03)
[2023-12-12] MEDS: hydroCHLOROthiazide 25 MG TAB PO SCH (10:03)
[2023-12-12] MEDS: FLUTICASONE/VILANTEROL 100/25MCG 14 PUFFS/INHALER INH SCH (10:03)
[2023-12-12] MEDS: buPROPion XL 300 MG TABCR PO SCH (10:03)
[2023-12-12] MEDS: ENALAPRIL MALEATE 10 MG TAB PO SCH (10:04)
--- NOTE | 2023-12-12 14:45 | Hospitalist Progress Note ---
Date of Service December 12, 2023 Assessment & Plan (1) Small bowel obstruction: Plan: 78 y/o with diabetes underwent lap luis enrique 12/[address] Baugh. Presented to ED 12/06 with nausea/vomiting & transient hypotension that resolved promptly with IVF. Found to have SBO based on CT abdomen/pelvis. POD # 4 s/p exploratory laparotomy found to have internal hernia with ischemic loops of jejunum reduced, no necrosis - surgery by Dr Baugh had NG tube post-op - now removed clear liquid diet started still on IV fluids - is quite positive since admission - will reduce the rate to 50cc/hr overall making good progress appreciate Gen Surg assistance defer diet advancement to them (2) S/P laparoscopic cholecystectomy: Plan: 12/06/23 - Dr Baugh see #1 above (3) Diabetes mellitus, controlled: Plan: controlled cont novolog SSI a1c 7.1% -- 12/06/23 (4) HTN (hypertension): Plan: severely uncontrolled pain, poor sleep, etc all likely to blame resumed ramipril, HCTZ this am despite resumption remained high all day today add amlodipine 5mg HS re-eval tomorrow looks compensated from volume standpoint on exam today (5) Hypotension due to hypovolemia: Plan: present on admission treated in ED, resolved (6) Asthma: Plan: not in exacerbation at this time cont pulm toilet/incentive radha (7) OWEN (acute kidney injury): Plan: Peak Cr 1.3 now <1 2nd to low BP, SBO, etc (8) Hypothyroidism: Plan: TSH wnl cont synthroid Plan Elevated HS troponin peak 75-->68. Related to myocardial demand ischemia in setting of SBO. No evidence of acute coronary syndrome DVT prophylaxisheparin SQ q12h Still has pryor, remove tomorrow. PT, OT evals. progressing. briefly updated pt's today when I saw him in passing. Admission and Anticipated Discharge Date Admission Date: December 07, 2023 Subjective having abdominal pain & soreness is passing flatus no stool yet denies nausea but she is using reglan IV somewhat frequently yesterday/today no vomiting no dyspnea we talked about getting PT/OT involved; she is nervous to start due to worry about having abd pain Review of Systems Review of Systems: gen - no fevers cv - no cp pulm - no significant cough Physical Exam Physical Exam: gen - NAD, pleasant neck - no JVD mouth - MMM heart - RRR, s1 s2 lungs - mildly decreased BS bases but no rales or wheezes abd - mildly distended, BS+, tender (generalized), dressings intact ext - pulses 2+ b/l, no edema psych - a/o x 3 Results & Data Results & Data Vital Signs (Past 12 Hours) Vital Signs Temp Pulse Resp BP BP Pulse Ox O2 Del Method 12/12/23 11:30 36.6 C 73 16 163/68 H 93 Room Air 12/12/23 08:00 Room Air 12/12/23 07:42 36.4 C L 65 16 208/73 H 95 Room Air 12/12/23 06:21 61 201/79 H 200/83 H 12/12/23 05:29 64 224/80 H 218/84 H 12/12/23 05:02 66 204/76 H 207/73 H Laboratory Results Laboratory Results - last 48 hr 12/11/23 12/11/23 12/11/23 12:19 17:32 23:52 WBC RBC Hgb Hct MCV MCH MCHC RDW Std Deviation RDW Coeff of Diana Plt Count MPV Immature Gran % (Auto) Neut % (Auto) Lymph % (Auto) Cocke % (Auto) Eos % (Auto) Baso % (Auto) Neut # (Auto) Lymph # (Auto) Cocke # (Auto) Eos # (Auto) Baso # (Auto) Immature Gran # (Auto) Sodium Potassium Chloride Carbon Dioxide Anion Gap BUN Creatinine Est Cr Clr Drug Dosing Est GFR ( Amer) Est GFR (Non-Af Amer) BUN/Creatinine Ratio Glucose POC Glucose 123 H 113 H 108 H Calcium Magnesium 12/12/23 12/12/23 12/12/23 05:55 07:23 07:52 WBC 7.37 RBC 3.75 L Hgb 11.2 L Hct 33.5 L MCV 89.3 MCH 29.9 MCHC 33.4 RDW Std Deviation 39.9 RDW Coeff of Diana 12.3 Plt Count 260 MPV 10.8 Immature Gran % (Auto) 1.2 Neut % (Auto) 69.0 Lymph % (Auto) 17.0 Cocke % (Auto) 8.5 Eos % (Auto) 3.9 Baso % (Auto) 0.4 Neut # (Auto) 5.08 Lymph # (Auto) 1.25 Cocke # (Auto) 0.63 H Eos # (Auto) 0.29 Baso # (Auto) 0.03 Immature Gran # (Auto) 0.09 Sodium 141 Potassium 4.1 Chloride 104 Carbon Dioxide 30 Anion Gap 7 BUN 13 Creatinine 0.92 Est Cr Clr Drug Dosing 54.5 Est GFR ( Amer) 69.6 Est GFR (Non-Af Amer) 60.1 BUN/Creatinine Ratio 14.1 Glucose 101 H POC Glucose 109 H 96 Calcium 8.3 L Magnesium 1.9 12/12/23 12/12/23 12/12/23 11:59 17:01 20:25 WBC RBC Hgb Hct MCV MCH MCHC RDW Std Deviation RDW Coeff of Diana Plt Count MPV Immature Gran % (Auto) Neut % (Auto) Lymph % (Auto) Cocke % (Auto) Eos % (Auto) Baso % (Auto) Neut # (Auto) Lymph # (Auto) Cocke # (Auto) Eos # (Auto) Baso # (Auto) Immature Gran # (Auto) Sodium Potassium Chloride Carbon Dioxide Anion Gap BUN Creatinine Est Cr Clr Drug Dosing Est GFR ( Amer) Est GFR (Non-Af Amer) BUN/Creatinine Ratio Glucose POC Glucose 93 136 H 173 H Calcium Magnesium PG Care Time/CCT Total # of Minutes Spent Total Time Spent with Patient: Total time spent is greater than 50% in coordination of care (as documented) at patient's floor/unit and/or counseling patient: Coding Level of Care Code 69102 SUB INP/OBS CARE 2/35MIN Diagnoses Small bowel obstruction K56.609 S/P laparoscopic cholecystectomy Z90.49 Diabetes mellitus, controlled E11.9 HTN (hypertension) I10 Hypertension type: unspecified Hypotension due to hypovolemia E86.1 Asthma J45.909 OWEN (acute kidney injury) N17.9 Other specified hypothyroidism E03.8 Hypothyroidism type: other (4) HTN (hypertension) Hypertension type: unspecified Qualified Code(s): I10 - Essential (primary) hypertension (8) Hypothyroidism Hypothyroidism type: other Qualified Code(s): E03.8 - Other specified hypothyroidism
[2023-12-12] MEDS: MONTELUKAST SODIUM 10 MG TABLET PO SCH (20:50)
[2023-12-12] MEDS: amLODIPine BESYLATE 5 MG TAB PO SCH (20:50)
[2023-12-12] MEDS: FLUoxetine HCL 10 MG CAP PO SCH (20:51)
[2023-12-13 06:30] LABS: BUN Creatinine Ratio 11.5 (10-20); Calcium 8.2 mg/dl (8.6-10.3); Creatinine Clr Calc Pharmacy 57.6 ml/min; Est GFR (African American) 74.5 ml/min; Est GFR (Non-African American) 64.3 ml/min; Magnesium 1.7 mg/dl (1.7-2.4); Potassium 3.9 mmol/L (3.5-5.1)
--- NOTE | 2023-12-13 08:11 | Surgery Progress Note ---
Date of Service December 13, 2023 Assessment & Plan (1) Small bowel obstruction: Plan: December 13, 2023 POD#5 patient remains slightly hypertensive medical service is addressing the issue The Juan Francisco drain from subcu was removed Will increase diet to full liquid diet today Will add a Dulcolax suppository apparently patient had problem at home prior to admission with some bowel function and started to take some laxatives Will stop IV fluids DC IV analgesics start something p.o. Definitely increase activity Admission and Anticipated Discharge Date Admission Date: December 07, 2023 Subjective Overall she is doing well she denies any nausea tolerated liquids yesterday positive flatus but no bowel movement states has not been out of bed at all Physical Exam Physical Exam: Alert coherent in no distress and resting comfortably Oral mucosa moist The abdomen is soft no tenderness incision is healing well no drainage or cellulitis the subcu Juan Francisco and still intact with minimal blood bloody drainage at the end Results & Data Vital Signs (Past 12 Hours) Vital Signs Temp Pulse Resp BP Pulse Ox O2 Del Method 12/13/23 07:26 36.6 C 60 16 177/76 H 93 Room Air Laboratory Results Noted
[2023-12-13] MEDS: oxyCODONE/ACETAMINOPHEN 5mg/325mg TAB PO PRN (11:08)
[2023-12-13] MEDS: bisacodyL 10 MG SUPP PR STA (11:55)
--- NOTE | 2023-12-13 17:32 | Hospitalist Progress Note ---
Date of Service December 13, 2023 Assessment & Plan (1) Small bowel obstruction: Plan: 78 y/o with diabetes underwent lap luis enrique 12/[address] Baugh. Presented to ED 12/06 with nausea/vomiting & transient hypotension that resolved promptly with IVF. Found to have SBO based on CT abdomen/pelvis. POD # 5 s/p exploratory laparotomy found to have internal hernia with ischemic loops of jejunum reduced, no necrosis - surgery by Dr Baugh had NG tube post-op - now removed diet advanced to full liquids by gen surg IV fluids stopped had PT/OT today - both advised rehab she is markedly positive from volume standpoint since admission - will start gentle diuresis with 20mg po lasix daily labs in am overall making good progress appreciate Gen Surg assistance (2) S/P laparoscopic cholecystectomy: Plan: 12/06/23 - Dr Baugh see #1 above (3) Diabetes mellitus, controlled: Plan: controlled cont novolog SSI a1c 7.1% -- 12/06/23 (4) HTN (hypertension): Plan: severely uncontrolled last few days but slowly improving pain, poor sleep, etc all likely to blame cont LEONILA cont amlodipine cont HCTZ getting some fluid off will help with BPs as well (5) Hypotension due to hypovolemia: Plan: present on admission treated in ED, resolved (6) Asthma: Plan: not in exacerbation at this time cont pulm toilet/incentive radha (7) OWEN (acute kidney injury): Plan: resolved Peak Cr 1.3 now <1 2nd to low BP, SBO, etc (8) Hypothyroidism: Plan: TSH wnl cont synthroid Plan Elevated HS troponin peak 75-->68. Related to myocardial demand ischemia in setting of SBO. No evidence of acute coronary syndrome DVT prophylaxisheparin SQ q12h Still has pryor, remove tomorrow. PT, OT evals appreciated. they have advised short-term rehab. will need to d/w family (I saw the PT/OT notes after I saw patient/family today). , sister updated at bedside Admission and Anticipated Discharge Date Admission Date: December 07, 2023 Subjective feeling much better today no vomiting mild nausea and stomach upset but keeping liquids down no reflux symptoms but does report burping abd pain unchanged did work with PT and sat in chair briefly , sister at bedside today Review of Systems Review of Systems: gen - no fevers cv - no cp, no orthopnea pulm - no dyspnea or ROBLED[place] or cough - pryor still in place Physical Exam Physical Exam: gen - NAD, pleasant, best she has looked all week neck - no JVD mouth - MMM heart - RRR, s1 s2, no murmur lungs - improved airation b/l bases; no rales or wheezes abd - distension improved, BS+, minimal incisional tenderness, dressings intact ext - pulses 2+ b/l, no edema psych - a/o x 3 Results & Data Results & Data Vital Signs (Past 12 Hours) Vital Signs Temp Pulse Pulse Resp BP BP Pulse Ox 12/13/23 15:14 36.5 C 68 16 160/73 H 93 12/13/23 07:26 36.6 C 60 16 177/76 H 93 O2 Del Method 12/13/23 15:14 Room Air 12/13/23 07:26 Room Air Laboratory Results Laboratory Results - last 48 hr 12/12/23 12/12/23 12/12/23 11:59 17:01 20:25 Sodium Potassium Chloride Carbon Dioxide Anion Gap BUN Creatinine Est Cr Clr Drug Dosing Est GFR ( Amer) Est GFR (Non-Af Amer) BUN/Creatinine Ratio Glucose POC Glucose 93 136 H 173 H Calcium Magnesium 12/13/23 12/13/23 12/13/23 05:36 07:27 11:43 Sodium 140 Potassium 3.9 Chloride 103 Carbon Dioxide 32 Anion Gap 5 BUN 10 Creatinine 0.87 Est Cr Clr Drug Dosing 57.6 Est GFR ( Amer) 74.5 Est GFR (Non-Af Amer) 64.3 BUN/Creatinine Ratio 11.5 Glucose 126 H POC Glucose 124 H 167 H Calcium 8.2 L Magnesium 1.7 12/13/23 16:20 Sodium Potassium Chloride Carbon Dioxide Anion Gap BUN Creatinine Est Cr Clr Drug Dosing Est GFR ( Amer) Est GFR (Non-Af Amer) BUN/Creatinine Ratio Glucose POC Glucose 199 H Calcium Magnesium PG Care Time/CCT Total # of Minutes Spent Total Time Spent with Patient: Total time spent is greater than 50% in coordination of care (as documented) at patient's floor/unit and/or counseling patient: Coding Level of Care Code 05547 SUB INP/OBS CARE 2/35MIN Diagnoses Small bowel obstruction K56.609 S/P laparoscopic cholecystectomy Z90.49 Diabetes mellitus, controlled E11.9 HTN (hypertension) I10 Hypertension type: unspecified Hypotension due to hypovolemia E86.1 Asthma J45.909 OWEN (acute kidney injury) N17.9 Other specified hypothyroidism E03.8 Hypothyroidism type: other (4) HTN (hypertension) Hypertension type: unspecified Qualified Code(s): I10 - Essential (primary) hypertension (8) Hypothyroidism Hypothyroidism type: other Qualified Code(s): E03.8 - Other specified hypothyroidism
[2023-12-13] MEDS: FUROSEMIDE 20 MG TAB PO ONE (17:57)
[2023-12-13] MEDS: MAGNESIUM OXIDE 400 MG TAB PO ONE (17:57)
[2023-12-13] MEDS: POTASSIUM CHLORIDE 10 MEQ TABCR PO STA (17:57)
[2023-12-13] MEDS: SUCRALFATE 1 GM/10 ML UDC PO SCH (20:40)
--- NOTE | 2023-12-14 06:26 | Surgery Progress Note ---
Date of Service December 14, 2023 Assessment & Plan (1) Small bowel obstruction: Plan: 12/14/2023 POD #6 status post exploratory lap release small bowel obstruction POD #7 status post laparoscopic cholecystectomy cholangiogram Her blood pressure is better controlled this morning 136/75 pulse 62 Patient is tolerating a diet no bowel movement yet but significant flatus Will increase her diet low fiber heart healthy Increase ambulation with physical therapy Suspect will be able to go home in 24 to 48 hours if okay with the medical service Plan Increase diet low fiber heart healthy DC Hopkins catheter Increase activity Admission and Anticipated Discharge Date Admission Date: December 07, 2023 Subjective Had a good day yesterday and then up in a chair with physical therapy tolerated liquid diet well flatus but no bowel movement yet We had ordered a suppository yesterday but the patient stated that she and her nurse had talked about her but never went on and got 1 Physical Exam Physical Exam: Alert coherent resting comfortably bed without any concerns or pain Oral pharyngeal area moist No audible wheezing or rales Abdomen completely benign dressing and incision intact No pedal edema Hopkins draining clear urine Results & Data Vital Signs (Past 12 Hours) Vital Signs Temp Pulse Pulse Resp BP BP Pulse Ox 12/14/23 00:03 62 136/75 12/13/23 21:35 60 184/75 H 12/13/23 20:36 36.5 C 67 18 184/78 H 96 O2 Del Method 12/14/23 00:03 12/13/23 21:35 12/13/23 20:36 Room Air
[2023-12-14] MEDS: bisacodyL 10 MG SUPP PR STA (06:37)
[2023-12-14 08:15] LABS: BUN Creatinine Ratio 9.2 (10-20); Calcium 8.6 mg/dl (8.6-10.3); Creatinine Clr Calc Pharmacy 57.6 ml/min; Est GFR (African American) 74.5 ml/min; Est GFR (Non-African American) 64.3 ml/min; Magnesium 1.8 mg/dl (1.7-2.4); Potassium 3.3 mmol/L (3.5-5.1)
[2023-12-14] MEDS: LANTUS PER UNIT CHARGE SQ SCH (09:53)
[2023-12-14] MEDS: PANTOprazole 40 MG TAB PO SCH (10:01)
[2023-12-14] MEDS: POTASSIUM CHLORIDE CRTAB 20 MEQ TABCR PO SCH (13:08)
[2023-12-14] MEDS: FUROSEMIDE 20 MG TAB PO SCH (13:08)
--- NOTE | 2023-12-14 20:40 | Hospitalist Progress Note ---
Date of Service December 14, 2023 Assessment & Plan (1) Small bowel obstruction: Plan: 78 y/o with diabetes underwent lap luis enrique 12/[address] Baugh. Presented to ED 12/06 with nausea/vomiting & transient hypotension that resolved promptly with IVF. Found to have SBO based on CT abdomen/pelvis. POD #6 s/p exploratory laparotomy found to have internal hernia with ischemic loops of jejunum reduced, no necrosis - surgery by Dr Baugh had NG tube post-op - removed 12/12/23 diet advanced to low fiber by gen surg and tolerating such IV fluids stopped pryor has been removed making strides with ambulation/walking she is markedly positive from volume standpoint since admission - will give 20mg po lasix daily labs in am appreciate Gen Surg assistance home next 1-2 days?? (2) S/P laparoscopic cholecystectomy: Plan: 12/06/23 - Dr Baugh see #1 above (3) Diabetes mellitus, controlled: Plan: largely controlled cont novolog SSI a1c 7.1% -- 12/06/23 can likely resume metformin tomorrow if creatinine is stable (4) HTN (hypertension): Plan: severely uncontrolled last few days but improving pain, poor sleep, etc all likely to blame cont LEONILA cont amlodipine cont HCTZ diuresis will help BPs as well monitor (5) Hypotension due to hypovolemia: Plan: present on admission treated in ED, resolved (6) Asthma: Plan: not in exacerbation at this time cont pulm toilet/incentive radha (7) OWEN (acute kidney injury): Plan: resolved Peak Cr 1.3 Cr now <1 2nd to low BP, SBO, etc (8) Hypothyroidism: Plan: TSH wnl cont synthroid Plan Elevated HS troponin peak 75-->68. Related to myocardial demand ischemia in setting of SBO. No evidence of acute coronary syndrome Hypokalemia - replace, repeat BMP DVT prophylaxisheparin SQ q12h did better with PT today -- should be able to return home at d/c updated pt's at bedside today Admission and Anticipated Discharge Date Admission Date: December 07, 2023 Subjective eating robustly today +multiple BMs mild abd incisional pain only worked with PT - did much better with ambulation today - PT note indicates they think she can likely d/c home with home PT she is pleased with her progress had mild dyspnea on exertion today but no dyspnea at rest Review of Systems Review of Systems: cv - no orthopnea; no edema pulm - no cough GI - no nausea/emesis Physical Exam Physical Exam: gen - NAD, pleasant, looks well neck - no JVD mouth - MMM heart - RRR, s1 s2, no murmur lungs - decreased BS bases; no rales or wheezes abd - distension resolved, BS+, minimal incisional tenderness today, dressings intact ext - pulses 2+ b/l, no edema psych - a/o x 3 Results & Data Results & Data Vital Signs (Past 12 Hours) Vital Signs Temp Pulse Pulse Resp BP Pulse Ox O2 Del Method 12/14/23 20:28 37.0 C 71 15 163/74 H 92 Room Air 12/14/23 15:35 36.4 C L 68 16 170/69 H 93 Room Air Laboratory Results Laboratory Results - last 24 hr 12/14/23 12/14/23 12/14/23 07:25 07:27 11:31 Sodium 141 Potassium 3.3 L Chloride 100 Carbon Dioxide 34 H Anion Gap 7 BUN 8 Creatinine 0.87 Est Cr Clr Drug Dosing 57.6 Est GFR ( Amer) 74.5 Est GFR (Non-Af Amer) 64.3 BUN/Creatinine Ratio 9.2 L Glucose 135 H POC Glucose 124 H 225 H Calcium 8.6 Magnesium 1.8 12/14/23 16:15 Sodium Potassium Chloride Carbon Dioxide Anion Gap BUN Creatinine Est Cr Clr Drug Dosing Est GFR ( Amer) Est GFR (Non-Af Amer) BUN/Creatinine Ratio Glucose POC Glucose 138 H Calcium Magnesium PG Care Time/CCT Total # of Minutes Spent Total Time Spent with Patient: Total time spent is greater than 50% in coordination of care (as documented) at patient's floor/unit and/or counseling patient: Coding Level of Care Code 38192 SUB INP/OBS CARE 2/35MIN Diagnoses Small bowel obstruction K56.609 S/P laparoscopic cholecystectomy Z90.49 Diabetes mellitus, controlled E11.9 HTN (hypertension) I10 Hypertension type: unspecified Hypotension due to hypovolemia E86.1 Asthma J45.909 OWEN (acute kidney injury) N17.9 Other specified hypothyroidism E03.8 Hypothyroidism type: other (4) HTN (hypertension) Hypertension type: unspecified Qualified Code(s): I10 - Essential (primary) hypertension (8) Hypothyroidism Hypothyroidism type: other Qualified Code(s): E03.8 - Other specified hypothyroidism
[2023-12-15 06:54] LABS: Calcium 8.7 mg/dl (8.6-10.3); Creatinine Clr Calc Pharmacy 45.6 ml/min; Est GFR (African American) 56.1 ml/min; Est GFR (Non-African American) 48.4 ml/min; Potassium 3.7 mmol/L (3.5-5.1)
--- NOTE | 2023-12-15 08:10 | Surgery Progress Note ---
Date of Service December 15, 2023 Assessment & Plan (1) Small bowel obstruction: Plan: POD 7 Doing well tolerating low fiber diet +bms incisions qian no s/s infection , sm amt drainage posterior aspect from brigido , may keep dry gauze over until healed VSS stable for D/c from gen surg perspective F/u office next week Dr. Baugh call with concerns. Admission and Anticipated Discharge Date Admission Date: December 07, 2023 Supervising Physician Co-Signing Physician Notes I personally saw and evaluated the patient with Yashira FLORES and agree with the assessment and plan. 78 yo female s/p ex lap for SBO She is tolerating a diet and has return of bowel function She is doing well from a pain control standpoint and vitals are stable She can be discharged home from a surgical standpoint Surgery will sign off at this time, please call with any questions or concerns Subjective patient reports feeling well pain controlled having BMs working with PT/ OT , and ambulation well Review of Systems Constitutional: no fever and no chills Respiratory: no dyspnea Cardiovascular: no chest pain Gastrointestinal: + abdominal pain and + nausea (after med s ); no vomiting Psychiatric: no confusion Physical Exam Physical Exam: alert oreinted Constitutional: cooperative and comfortable; no acute distress Respiratory: normal respiratory effort and able to speak in complete sentences; no respiratory distress Gastrointestinal (Abdomen): Inspection/Auscultation: + abdominal surgical incision (CDI qian midline, small amount bloody drainage posterior aspect from pen); abdomen not distended Percussion/Palpation: abdomen soft Psychiatric: A+Ox3, euthymic affect Results & Data Vital Signs (Past 12 Hours) Vital Signs Temp Pulse Resp BP Pulse Ox O2 Del Method 12/15/23 07:43 98.2 F 62 17 156/66 H 94 Room Air 12/14/23 20:28 98.6 F 71 15 163/74 H 92 Room Air PG Care Time/CCT Total # of Minutes Spent Total Time Spent with Patient: Total time spent is greater than 50% in coordination of care (as documented) at patient's floor/unit and/or counseling patient: Coding Level of Care Code 39045 Post Operative Follow-Up Diagnoses Small bowel obstruction K56.609
[2023-12-15] MEDS: FAMOTIDINE 20MG IV PUSH 20 MG/5 ML SYR IV STA (15:00)
[2023-12-15 15:01] LABS: Albumin Level 3.1 gm/dl (3.4-5.0); Bilirubin Direct 0.1 mg/dl (0-0.2); Bilirubin,Total 0.4 mg/dl (0.2-1.0)
[2023-12-15 15:07] LABS: Total Protein 5.9 gm/dl (6.0-8.3)
[2023-12-15 15:13] LABS: Appearance Urine Clear (Clear); Bilirubin Urine Negative (Negative); Blood Urine Negative (Negative); Color Urine Yellow; Glucose Urine UA Negative (Negative); Ketones Urine Negative (Negative); Leukocyte Esterase Urine Negative (Negative); Nitrite Urine Negative (Negative); Protein Urine Negative (Negative); Specific Gravity Urine 1.006 (1.000-1.030); Urobilinogen Urine Negative (Negative)
--- NOTE | 2023-12-15 20:25 | Hospitalist Progress Note ---
Date of Service December 15, 2023 Assessment & Plan (1) Small bowel obstruction: Plan: 78 y/o with diabetes underwent lap luis enrique 12/[address] Baugh. Presented to ED 12/06 with nausea/vomiting & transient hypotension that resolved promptly with IVF. Found to have SBO based on CT abdomen/pelvis. POD #7 s/p exploratory laparotomy found to have internal hernia with ischemic loops of jejunum reduced, no necrosis - surgery by Dr Baugh had NG tube post-op - removed 12/12/23 diet advanced to low fiber by gen surg and tolerating such IV fluids stopped pryor removed and voiding w/o difficulty did well with PT again - cleared for home with home PT/OT she is markedly positive from volume standpoint since admission - will give 20mg po lasix daily although cleared by Gen Surg to return home today she required IV anti-emetics twice since this am when I got word of needing the anti-emetics I rechecked LFTs - normal (Alk phos just mildly elevated, otherwise no signs of obstruction etc) checked u/a - normal not receiving narcotics thus nausea not from such cause of nausea?? uncertain advised her to stay overnight check an EKG to ensure nausea and "heartburn" is not cardiac (2) S/P laparoscopic cholecystectomy: Plan: 12/06/23 - Dr Baugh see #1 above (3) Diabetes mellitus, controlled: Plan: largely controlled cont novolog SSI a1c 7.1% -- 12/06/23 can resume metformin at d/c (4) HTN (hypertension): Plan: severely uncontrolled last few days but much improved pain, poor sleep, etc were all likely to blame cont LEONILA cont amlodipine cont HCTZ (5) Hypotension due to hypovolemia: Plan: present on admission treated in ED, resolved (6) Asthma: Plan: not in exacerbation at this time cont pulm toilet/incentive radha (7) OWEN (acute kidney injury): Plan: resolved Peak Cr 1.3 Cr now <1 2nd to low BP, SBO, etc (8) Hypothyroidism: Plan: TSH wnl cont synthroid Plan Elevated HS troponin peak 75-->68. Related to myocardial demand ischemia in setting of SBO. No evidence of acute coronary syndrome Hypokalemia - replaced, resolved DVT prophylaxisheparin SQ q12h updated pt's at bedside today observe overnight again Admission and Anticipated Discharge Date Admission Date: December 07, 2023 Subjective was given green light for d/c home by gen surg however, had nausea this am (blames such on taking K supplement) then had nausea again this afternoon both times medicated with IV anti-emetics had nausea when working with PT I saw her twice today -- AM, then again late afternoon after she worked with PT she said she did have heartburn - true "burning" sensation in lower chest - earlier today; now resolved s/p pepcid IV and the anti-emetics "I never get heartburn" denies vomiting passing flatus; last stool yesterday no dyspnea with working with PT no chest pain with working with PT feels good otherwise Review of Systems Review of Systems: - no LUTS or dysuria GI - no blood per rectum CV - see HPI pulm - see HPI; no cough Physical Exam Physical Exam: gen - NAD, pleasant, looks well on both bedside visits neck - no JVD mouth - MMM heart - RRR, s1 s2, no murmur lungs - decreased BS bases; no rales or wheezes; CTA b/l abd - distension resolved, BS+, no incisional tenderness today, dressings intact ext - pulses 2+ b/l, no edema psych - a/o x 3 Results & Data Results & Data Vital Signs (Past 12 Hours) Vital Signs Temp Pulse Resp BP Pulse Ox O2 Del Method 12/15/23 19:58 36.7 C 64 16 154/71 H 96 Room Air 12/15/23 14:56 36.8 C 64 17 156/78 H 95 Room Air Laboratory Results Laboratory Results - last 24 hr 12/14/23 12/15/23 12/15/23 21:06 06:15 07:45 Sodium 142 Potassium 3.7 Chloride 103 Carbon Dioxide 33 H Anion Gap 6 BUN 11 Creatinine 1.10 Est Cr Clr Drug Dosing 45.6 Est GFR ( Amer) 56.1 Est GFR (Non-Af Amer) 48.4 BUN/Creatinine Ratio 10.0 Glucose 125 H POC Glucose 207 H 115 H Calcium 8.7 Total Bilirubin Direct Bilirubin AST ALT Alkaline Phosphatase Total Protein Albumin Urine Color Urine Appearance Urine pH Ur Specific [place] Urine Protein Urine Glucose (UA) Urine Ketones Urine Blood Urine Nitrite Urine Bilirubin Urine Urobilinogen Ur Leukocyte Esterase 12/15/23 12/15/23 12/15/23 11:20 14:27 15:00 Sodium Potassium Chloride Carbon Dioxide Anion Gap BUN Creatinine Est Cr Clr Drug Dosing Est GFR ( Amer) Est GFR (Non-Af Amer) BUN/Creatinine Ratio Glucose POC Glucose 164 H Calcium Total Bilirubin 0.4 Direct Bilirubin 0.1 AST 23 ALT 23 Alkaline Phosphatase 133 H Total Protein 5.9 L Albumin 3.1 L Urine Color Yellow Urine Appearance Clear Urine pH 8.0 H Ur Specific [place] 1.006 Urine Protein Negative Urine Glucose (UA) Negative Urine Ketones Negative Urine Blood Negative Urine Nitrite Negative Urine Bilirubin Negative Urine Urobilinogen Negative Ur Leukocyte Esterase Negative PG Care Time/CCT Total # of Minutes Spent Total Time Spent with Patient: Total time spent is greater than 50% in coordination of care (as documented) at patient's floor/unit and/or counseling patient: Coding Level of Care Code 07708 SUB INP/OBS CARE 3/50MIN Diagnoses Small bowel obstruction K56.609 S/P laparoscopic cholecystectomy Z90.49 Diabetes mellitus, controlled E11.9 HTN (hypertension) I10 Hypertension type: unspecified Hypotension due to hypovolemia E86.1 Asthma J45.909 OWEN (acute kidney injury) N17.9 Other specified hypothyroidism E03.8 Hypothyroidism type: other (4) HTN (hypertension) Hypertension type: unspecified Qualified Code(s): I10 - Essential (primary) hypertension (8) Hypothyroidism Hypothyroidism type: other Qualified Code(s): E03.8 - Other specified hypothyroidism
--- NOTE | 2023-12-16 15:10 | Discharge Summary ---
Date of Service December 16, 2023 Admission HPI Per Admitting Provider The patient is a 78-year-old female with a past medical history including diabetes mellitus, peripheral vascular disease, hyperlipidemia, hearing loss bilaterally, hypothyroidism, hypertension, depression and asthma. She underwent a laparoscopic cholecystectomy on 12/05, and tolerated the procedure well, and was discharged to home. Today the patient developed symptoms of abdominal pain, nausea and vomiting, and upon presentation to the emergency department was found to be hypotensive. Hypotension responded to aggressive IV fluid rehydration, having received a total 3 L of normal saline in the ED CT scan abdomen and pelvis revealed small bowel obstruction, and patient was referred to hospital medicine for admission Discharge Exam gen - NAD, pleasant, looks well on both bedside visits neck - no JVD mouth - MMM heart - RRR, s1 s2, no murmur lungs - decreased BS bases; no rales or wheezes; CTA b/l abd - distension resolved, BS+, no incisional tenderness today, dressings intact ext - pulses 2+ b/l, no edema psych - a/o x 3 Discharge Data Allergies Allergy/AdvReac Type Severity Reaction Status Date / Time Sulfa (Sulfonamide AdvReac Intermediate NAUSEA/VOMI Verified 12/07/23 22:58 Antibiotics) TING Consultations 12/07/23 23:01 ED Decision to Admit Stat 12/08/23 06:50 Consult General Surgery Routine Procedures Performed Operation Date: 12/08/23 14:45 Actual Procedures p Exploratory Laparotomy, Release of Small Bowel Obstruction(Not Applicable) - Cruz Baugh MD, FACS Ordered Studies 12/07/23 21:01 CT abd pelvis IV con only Stat Hospital Course (1) Small bowel obstruction: 78 y/o with diabetes underwent lap luis enrique 12/[address] Baugh. Presented to ED 12/06 with nausea/vomiting & transient hypotension that resolved promptly with IVF. Found to have SBO based on CT abdomen/pelvis. POD #7 s/p exploratory laparotomy found to have internal hernia with ischemic loops of jejunum reduced, no necrosis - surgery by Dr Baugh had NG tube post-op - removed 12/12/23 diet advanced to low fiber by gen surg and tolerating such IV fluids stopped pryor removed and voiding w/o difficulty did well with PT again - cleared for home with home PT/OT she is markedly positive from volume standpoint since admission - will give 20mg po lasix daily although cleared by Gen Surg to return home today she required IV anti-emetics twice since this am when I got word of needing the anti-emetics I rechecked LFTs - normal (Alk phos just mildly elevated, otherwise no signs of obstruction etc) checked u/a - normal not receiving narcotics thus nausea not from such cause of nausea?? uncertain advised her to stay overnight check an EKG to ensure nausea and "heartburn" is not cardiac (2) S/P laparoscopic cholecystectomy: 12/06/23 - Dr Baugh see #1 above (3) Diabetes mellitus, controlled: largely controlled cont novolog SSI a1c 7.1% -- 12/06/23 can resume metformin at d/c (4) HTN (hypertension): severely uncontrolled last few days but much improved pain, poor sleep, etc were all likely to blame cont LEONILA cont amlodipine cont HCTZ (5) Hypotension due to hypovolemia: present on admission treated in ED, resolved (6) Asthma: not in exacerbation at this time cont pulm toilet/incentive radha (7) OWEN (acute kidney injury): resolved Peak Cr 1.3 Cr now <1 2nd to low BP, SBO, etc (8) Hypothyroidism: TSH wnl cont synthroid Plan Elevated HS troponin peak 75-->68. Related to myocardial demand ischemia in setting of SBO. No evidence of acute coronary syndrome Hypokalemia - replaced, resolved DVT prophylaxisheparin SQ q12h updated pt's at bedside today observe overnight again Home Health Attestation I certify that this patient is under my care and that I, or a physicians electrician assistant working with me, had a face to-face encounter that meets the home health [id number] encounter requirements with this patient. The encounter with the patient was in whole, or in part, for the following medical condition, which is the primary reason for home health care (list medical condition): I certify that, based on my findings, the following services are medically necessary home health services: My clinical findings support the need for the above services because: Further, I certify that my clinical findings support that this patient is homebound (i.e. absences from home require considerable and taxing effort and are for medical reasons or mormonism services or infrequently or of short duration when for other reasons) because: Certification for Home Health Services: Based on the above findings, I certify that this patient is confined to the home and needs intermittent halfway care, physical therapy and/or speech therapy or continues to need occupational therapy. The patient is under my care, and I have initiated the establishment of the plan of care. This patient will be followed by a physician who will periodically review the plan of care. Discharge Plan Discharge Items Reason For Visit: SBO Discharge Diagnosis: 1. Small bowel obstruction with need for exploratory laparotomy and release of the small bowel obstruction - Dr Esa Baugh 2. Recent laparoscopic cholecystectomy 3. Uncontrolled high blood pressure - improved 4. Fluid overload - resolved with diuretics 5. Diabetes 6. Hypothyroidism 7. Gastroesophageal reflux 8. Nausea - improved/resolved Activity: Per Instructions section Lifting: No more than 10 pounds Bathing Comment: may shower; no soaking in tubs/pools x 2 weeks Sexual Activity: Wait until after follow-up appointment Exercise/Sports: Wait until after follow-up appointment Driving/Machine Use: no driving while taking narcotics for pain Non-emergency contact: Primary Care Provider and Surgeon Call non-emergency contact if: you have any medication questions, your pain is not controlled, you have a fever, your temperature is above 101.5, your wound has increased redness, your wound has increased drainage and your wound pain has increased Follow-up/Referrals: Derek Samaniego MD [Primary Care Provider] - (please see Dr Samaniego or Veena Leblanc within 1 week of discharge ) Cruz Baugh MD, FACS [Surgeon] - (Please call to schedule follow up in the office next week ) Diet: Carb Consistent or DM2 and Low Fiber Addtl Attending Provider Instructions: Ms Mckinney, You were hospitalized due to small bowel obstruction. This required treatment with an NG tube, IV fluids, pain medicine, and u ltimately surgery to correct the blockage. You underwent small bowel surgery with exploratory laparotomy on 12/08/[address] Esa Baugh. You overall did well post-operatively and gradually improved. Your NG tube has been removed, you have been advanced to a low fiber diet, and you are passing gas & moving your bowels. The surgical incision is stable with just a small amount of drainage at the bottom of the incision. During your stay your blood pressures were quite elevated. This required starting new medicine for your high blood pressure. In addition, you had intermittent nausea for much of the stay. We performed an echocardiogram while you were here. This is an ultrasound of your heart. The echocardiogram showed normal heart function. Recommendations - 1. for reflux/heartburn take - * pantoprazole 40mg once daily each morning for 2 weeks, first dose tomorrow morning * sucralfate (carafate) 1000mg twice daily x 5 days, first dose tonight at bedtime 2. for nausea or vomiting - * ondansetron 4mg every 6 hours as needed * note -- if you have severe vomiting that does not stop please seek medical attention 3. for pain - * [id number] tylenol 1000mg every 6 hours as needed, maximum of 3000mg in 24 hours * oxycodone 5mg every 6 hours as needed * the oxycodone will cause constipation * the oxycodone may make you sleepy; it can even impair your senses; thus, no drinking alcohol while taking this medicine; further, we do not recommend driving a car if you are taking this medicine 4. hold your Trulicity - please speak to Dr Baugh and your family doctor about whether to resume it in the future 5. for high blood pressure take - * amlodipine 5mg once daily at bedtime * side effects - occasionally constipation, occasionally swelling of the legs 6. please check your blood pressure daily. Write these numbers down in a notebook and show your family doctor these values. Your home readings will determine if you need the amlodipine moving forward or if it is something that can ultimately be stopped. 7. follow a low fiber diet until Dr Baugh states it is ok to resume normal diet. Follow-up - see separate section Return to [facility] if - * you have fevers over 100 degrees * you have worsening abdominal pains * you have any concerns about your incision * you have persistent nausea and/or vomiting * you have worsening shortness of breath * you have chest pains * any other concerns It was our pleasure to care for you! -Dr Bishop Addtl Nuclear Powerplant Mechanic Provider Instructions: Additional Surgical Instructions: You have surgical qian in place. These will be removed at your follow up appointment. You may keep a dry dressing over your incision to help collect any drainage and for comfort. Change dry dressing daily and as needed with 4x4 gauze and medipore tape. Pending Studies at Discharge: No Stand-Alone Forms: My [facility] [address], Smoking Cessation Medications and DC Order Prescriptions: New amlodipine [Norvasc] 5 mg Tablet 5 mg PO HS Qty: 30 1RF pantoprazole 40 mg Tablet,Delayed Release (Dr/Ec) 40 mg PO QAM 14 Days Qty: 14 0RF sucralfate [Carafate] 1 gram tablet 1 g PO BID Qty: 10 0RF ondansetron 4 mg tablet,disintegrating 4 mg PO Q6H PRN (Reason: nausea and vomiting) Qty: 10 0RF Continued ramipril 10 mg capsule 10 mg PO QAM Qty: 90 3RF (DME) Accu-Chek SmartView Test Strip Strip See Rx Instructions .Route Qty: 100 5RF Rx Instructions: Once daily (DME) lancets [Accu-Chek Softclix Lancets] Misc See Rx Instructions .Route Qty: 100 5RF Rx Instructions: test BID atorvastatin 40 mg tablet 40 mg PO HS Qty: 90 3RF bupropion HCl 300 mg tablet extended release 24 hr 300 mg PO QAM Qty: 90 3RF hydrochlorothiazide 12.5 mg tablet 12.5 mg PO QAM Qty: 90 3RF levothyroxine 88 mcg tablet 88 mcg PO QAM Qty: 90 3RF metformin 500 mg tablet extended release 24 hr 500 mg PO BID Qty: 90 3RF montelukast [Singulair] 10 mg tablet 10 mg PO HS Qty: 90 3RF fluticasone furoate-vilanterol [Breo Ellipta] 100-25 mcg/dose blister with device 1 inh INH QAM Qty: 3 3RF Rx Instructions: 1 inh inhalation daily. After inhalation rinse mouth with water and spit. Use same time each day, no more than 1 time in 24 hours; fluticasone propionate 50 mcg/actuation spray,suspension 2 spray INTNAS QAM Qty: 16 3RF Rx Instructions: administer into each nostril albuterol sulfate [ProAir HFA] 90 mcg/actuation HFA aerosol inhaler 2 puff INH Q4H PRN (Reason: shortness of breath or wheezing) Qty: 25.5 3RF diclofenac sodium 1 % Gel 4 g TOPICAL QID PRN (Reason: Pain) aspirin [Adult Low Dose Aspirin] 81 mg tablet,delayed release (DR/EC) 81 mg PO QAM fluoxetine 10 mg capsule 10 mg PO QPM Changed oxycodone 5 mg tablet 5 mg PO Q6H MDD no more than 6 tabs in 24hours PRN (Reason: pain) Qty: 15 0RF Held dulaglutide 3 mg/0.5 mL pen injector 3 mg subcut Q7D Hold Instructions: please hold unless Dr Baugh feels it is safe to resume in light of recent bowel obstruction Patient Comments: mondays Rx Instructions: 3 mg subcutaneously once weekly; Discontinued ondansetron 4 mg tablet,disintegrating 4 mg PO Q4H PRN (Reason: nausea and vomiting) Qty: 10 0RF Krames/Other Patient Handouts: Small Bowel Obstruction, High Blood Sugar (Hyperglycemia), Managing Type 2 Diabetes Admission Data Admit Date/Time: 12/07/23 23:32 Attending Provider: Giovanni Bishop Admit Provider: Jonathan Dee Primary Care Provider: Derek Samaniego Other Providers: Jonathan Dee; Yashira Persaud; Tj Bass; Cruz Baugh; Lincoln Lentz; Tiburcio Dubon; Gina Mathew; Livan Camar[place]; Donovan Vega; Milo Eason; Lee Camara Coding Diagnoses Small bowel obstruction K56.609 S/P laparoscopic cholecystectomy Z90.49 Diabetes mellitus, controlled E11.9 HTN (hypertension) I10 Hypertension type: unspecified Hypotension due to hypovolemia E86.1 Asthma J45.909 OWEN (acute kidney injury) N17.9 Other specified hypothyroidism E03.8 Hypothyroidism type: other
--- NOTE | 2023-12-16 15:13 | XCELERA ---
[id number]
--- NOTE | 2023-12-16 16:58 | Electrocardiogram Report ---
Test Reason : Blood Pressure : / mmHG Vent. Rate : 063 BPM Atrial Rate : 063 BPM P-R Int : 168 ms QRS Dur : 088 ms QT Int : 428 ms P-R-T Axes : 067 -06 024 degrees QTc Int : 437 ms Normal sinus rhythm Normal ECG When compared with ECG of 07-DEC-2023 20:54, Criteria for Inferior infarct are no longer Present Confirmed by Derek Waite ([id number]) on 12/16/2023 4:58:03 PM Referred By: REFERRED SELF Confirmed By:Rico Waite
== END 2023-12-16 16:11 | disposition home health service (06) | DRG 336 ==
LOC: ED 20:43 → SUATTDRO 23:32 → EDINP 23:32 → 2N 12-08 02:12 → 3N 12-11 22:18

== ENCOUNTER 2025-02-05 14:56 | Inpatient (IN) ==
[2025-02-05] MEDS: SODIUM CHLORIDE 0.9% 1,000 ML IV STA (15:20)
[2025-02-05] MEDS: ONDANSETRON INJ 2 MG/ML 2 ML VIAL IV STA ×2 (15:20→16:32)
[2025-02-05 15:31] LABS: Hematocrit (blood only) 39.3 % (37.0-47.0); Hemoglobin 13.3 g/dl (12.0-16.0); Immature Granulocytes # (auto) 0.04 K/uL (0.01-0.20); Immature Granulocytes % (auto) 0.4 %; Mean Corpuscular Hemoglobin 30.6 pg (25.0-34.0); Mean Corpuscular Volume 90.3 fL (80.0-100.0); Platelet Count 283 K/uL (130-400); RDW Standard Deviation 40.8 fL (36.4-46.3); Red Blood Count 4.35 M/uL (4.20-5.40); White Blood Count 9.64 K/ul (4.8-10.8)
[2025-02-05] MEDS: OPTIRAY 320 100ml IV ONE (15:32)
--- NOTE | 2025-02-05 15:34 | Emergency Department Note ---
Impression & Plan SBO (small bowel obstruction), Hypertension, Aspiration into airway, Acute hypoxemic respiratory failure, Acidosis, lactic ED Provider Note NAME: PETE PERRIN AGE: 79 SEX: F : 1945 ARRIVES VIA: EMS INFORMANT: Patient ED PROVIDER(S): Erick Romano DO CHIEF COMPLAINT: abdominal pain HPI: This is a 79-year-old female with the PMHx of hypertension, hyperlipidemia, DM2, asthma, peripheral vascular disease, and CKD presenting to [facility] for further evaluation of abdominal pain, nausea and vomiting. Patient states she woke up this morning feeling in her normal state of health. She states around 930 this a.m., she developed severe right-sided abdominal pain. Patient reports this originally started in her right lower quadrant radiated to the upper quadrants. States this was companied by nausea and vomiting. She reports bilious emesis multiple times prior to arrival. Patient reports severe pain along with her symptoms and unable to tolerate p.o. intake. Patient states that abdominal surgical history includes a laparoscopic cholecystectomy approximately 1 year ago. She states that at that time, she developed a postoperative small bowel obstruction. Patient states that this feels very similar, unfortunately. Patient was not able to take her home medications. No medications prior to arrival. They deny fever or chills. No cough or congestion. Denies chest pain or palpitations. No shortness of breath. No urinary complaints. She does report that her last bowel movement was a few days ago. She states this is not atypical for her. Patient denies recent changes in medications or OTC supplements. Patient offers no other complaints, today. ADDITIONAL HISTORY OBTAINED: Per HPI Chronic Medical/Social Conditions Affecting Care: Per HPI PAST MEDICAL HISTORY: See Below PAST SURGICAL HISTORY: See Below FAMILY HISTORY: See Below SOCIAL HISTORY: See Below HOME MEDICATIONS: See Below ALLERGIES: See Below VITALS: See Below PHYSICAL EXAMINATION: GENERAL: Sitting up in bed, alert, well appearing, well nourished, no distress, non-toxic EYE EXAM: normal conjunctiva. PERRL and EOM's grossly intact. OROPHARYNX: no exudate, no erythema, lips, buccal mucosa, and tongue normal and mucous membranes are dry NECK: supple, no nuchal rigidity, no adenopathy, non-tender LUNGS: Clear to auscultation. Normal chest wall mechanics HEART: no murmurs, bradycardic rate, regular rhythm ABDOMEN: abdomen soft, significant tenderness to palpation mostly in the epigastrium and right sided quadrants, no rebound or rigidity. BACK: Back is symmetrical on inspection and there is no deformity, no midline tenderness, no CVA tenderness. SKIN: no rashes and no bruising UPPER EXTREMITIES: upper extremities are grossly normal. LOWER EXTREMITIES: Trace lower extremity edema. some lower extremity soft tissue changes suggest peripheral vascular disease. NEURO EXAM: Normal sensorium, GCS 15, normal speech, no gross weakness of arms, no gross weakness of legs. MEDICAL DECISION MAKING: Differential diagnosis includes but not limited to small bowel obstruction, bowel perforation, gastroenteritis, hepatobiliary dysfunction, pancreatitis, ACS, dysrhythmia, pneumonia, dehydration, electrolyte derangements In summary, this is a 79-year-old female presenting for abdominal pain, nausea and vomiting. Triage and nursing notes reviewed. Patient is hypertensive and bradycardic but otherwise afebrile and hemodynamically stable. I do suspect hypertension is related to failure of PO intake including home medications as well as a pain response. Diagnostics interpreted by me include EKG and cardiac monitoring as listed below: -Cardiac Monitoring: An order was placed for continuous cardiac monitoring. The monitor shows a rate of 50s to 60s with normal rhythm. -ECG: EKG independently interpreted by me reveals normal sinus rhythm at a ventricular rate of [address] segment changes/STEMI. Intervals within normal limits. History provided by the patient includes sudden onset abdominal pain associated with nausea and vomiting. Symptoms are similar to prior small bowel obstruction. Abdominal surgical history is only significant for a laparoscopic cholecystectomy. Physical examination reveals significant abdominal tenderness to palpation but no evidence of peritonitis. Patient does appear dry on exam. And given significant nausea and vomiting, we will provide IV fluid resuscitation. Given history and presentation, we will obtain labs and imaging. Patient had a recent cholecystectomy 1 year ago with postoperative bowel obstruction. She feels similar to previous. Concern is for SBO at this time. She was provided with IV Zofran as well as IV opiates for pain control. Patient was reevaluated multiple times in the emergency department, and required repeat dosing of IV opiates as well as antiemetics Labs and imaging reviewed. Pertinent findings include minimal elevation in lactate. No significant leukocytosis. I-STAT chemistries are within normal limits. Patient does have a mild increase in her BUN/creatinine ratio. Some hyperglycemia noted without evidence of DKA/HHS. Suspect laboratory derangements are secondary to dehydration and vomiting. IV fluid resuscitation is ongoing. Patient did have an aspiration event with acute hypoxia secondary to emesis. Low-flow nasal cannula was applied with improvement. Given the patient is requiring repeat doses of antiemetics, additional EKG obtained to monitor QTc. Patient's repeat EKG independently interpreted by me reveals sinus bradycardia at a rate of [address] segment changes to suggest STEMI. QTc is within normal limits. Patient CT abdomen/pelvis was independently interpreted by me as evidence of a small bowel obstruction. Radiology did read this as concerning for possible closed-loop bowel obstruction. Patient was discussed with on-call general surgery team, Dr. Dubon, who recommended admission to the hospital service with consultation in the morning. Patient had an NG tube placed with approximately 200 mL of gastric contents and output after placement. I independently interpreted the patient's plain film after NG tube placement. The tip of the gastric tube does appear to be within the stomach. Lungs appear clear without evidence of focal consolidation suggest pneumonia. Patient was given further antiemetics with IV droperidol. Ultimately, the patient will require admission for gastric decompression as well as symptomatic control with antiemetics and pain control in the setting of a small bowel obstruction. Patient was discussed with the hospitalist team for admission, which they were agreeable. Patient and friend at the bedside were updated on results and treatment plan. They verbalized understanding and agreement to the treatment plan. Consults/Care Managements Discussions: Per [facility] treatment provided: See above Procedures:none Critical Care: None Past Med/Surg History Problem List (Updated 02/05/25 @ 20:08 by Erick Romano DO) Acidosis, lactic (Acute) Acute hypoxemic respiratory failure (Acute) Aspiration into airway (Acute) Hypertension (Acute) SBO (small bowel obstruction) (Acute) Vitamin B12 deficiency Chronic kidney disease (CKD) stage G3a/A2, moderately decreased glomerular filtration rate (GFR) between 45-59 mL/min/1.73 square meter and albuminuria creatinine ratio between 30-299 mg/g CKD stage 3 due to type 2 diabetes mellitus Demand ischemia of myocardium OWEN (acute kidney injury) Hypotension due to hypovolemia S/P laparoscopic cholecystectomy (Acute) History of colon polyps Depression (Acute) Sensorineural hearing loss of both ears Seasonal allergies Diabetes mellitus, controlled NIDDM Peripheral vascular disease of extremity with claudication right lower extremity Hyperlipidemia Mixed conductive and sensorineural hearing loss of left ear with restricted hearing of right ear Non-insulin dependent type 2 diabetes mellitus (Chronic) Hypothyroidism (Chronic) HTN (hypertension) (Chronic) Asthma (Chronic) daily inh and prn inh-rare use Medical History Small bowel obstruction Depression Anxiety Dyspnea on effort chronic per pt History of COVID-19 06/2021- mild symptoms and had antibody infusion GERD (gastroesophageal reflux disease) no current meds Generalized osteoarthritis Stress incontinence in female Tubular adenoma of colon hx Surgical History H/O exploratory laparotomy (12/08/23) Exploratory Laparotomy, Release of Small Bowel Obstruction(Not Applicable) - Cruz Baugh MD, FACS Hx laparoscopic cholecystectomy (12/06/23) Laparoscopic Cholecystectomy With Cholangiogram(Not Applicable) - Cruz Baugh MD, FACS History of tonsillectomy History of left knee surgery Status post cataract extraction Right eye 12/29/2021-Dr. York Left eye 12/15/2021-Dr. York Hx of colonoscopy History of lumpectomy of left breast benign H/O vaginal hysterectomy Family History Father Myocardial infarction Mother Myocardial infarction Hypertension Uncle Stroke Other Heart disease No family history of adverse response to anesthesia No family history of bleeding disorder Denies family history of Ovarian cancer Prostate cancer Coronary heart disease Breast cancer Colorectal cancer Social History Smoking Status: Former smoker Tobacco Type: Cigarettes Age Started Using Tobacco: 16; Age Quit Using Tobacco: 37; packs per day: 3; Cigarettes Per Day: 60; Second Hand Exposure: Yes (hx growing up); Do You Dip or Chew Tobacco: No; Hx Alcohol Use: No Hx Substance Use: No Preferred Language: Malagasy Communication Ability: Effective Visual Impairment: No Limitations Hearing Ability: Use of Hearing Aid 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 Current Living Situation: Spouse Current Living Situation Comment: Ambulates without cane, walker, or wheelchair. 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 How many Children do You have: 2 Feels Safe at Home: Yes Childhood Exposure to Second-Hand Smoke: No Diet: regular caffeine: Yes during the past year weight has: decreased > 10 lbs Dental Care, Regularly: Yes Physical Activity Frequency: 1-2 Times per Week Seatbelt Use: always Sunscreen Use: No Assistive Devices: Cane, Glasses and Hearing Aid - Bilateral Allergies Allergies Allergy/AdvReac Type Severity Reaction Status Date / Time Sulfa (Sulfonamide AdvReac Intermediate NAUSEA/VOMI Verified 07/02/24 15:34 Antibiotics) TING Home Meds Home Medications Medication Instructions Recorded Confirmed dulaglutide 3 mg/0.5 mL 3 mg subcut Q7D 11/24/23 02/05/25 subcutaneous pen injector aspirin 81 mg tablet,delayed 81 mg PO QAM 12/01/23 02/05/25 release (Adult Low Dose Aspirin) mecobalamin (vitamin B12) 1,000 1,000 mcg PO DAILY 03/25/24 02/05/25 mcg chewable tablet sucralfate 1 gram tablet (Carafate) 1 g PO UD 02/05/25 02/05/25 Previous Rx's Medication Instructions Recorded blood sugar diagnostic (Accu-Chek #100 ea 03/15/23 SmartView Test Strips) lancets (Accu-Chek Softclix #100 ea 03/17/23 Lancets) ondansetron 4 mg disintegrating 4 mg PO Q6H PRN nausea and 01/18/24 tablet vomiting #20 tabs ramipril 10 mg capsule 10 mg PO QAM #90 caps 02/06/24 atorvastatin 40 mg tablet 40 mg PO HS #100 tabs 07/01/24 bupropion HCl 300 mg 24 hr tablet, 300 mg PO QAM #100 tabs 07/01/24 extended release fluoxetine 10 mg capsule 10 mg PO QPM #100 caps 07/01/24 hydrochlorothiazide 12.5 mg tablet 12.5 mg PO QAM #100 tabs 07/01/24 levothyroxine 88 mcg tablet 88 mcg PO QAM #100 tabs 07/01/24 montelukast 10 mg tablet 10 mg PO HS #100 tabs 07/01/24 (Singulair) albuterol sulfate 90 mcg/actuation 2 puff inhalation Q4H PRN 10/14/24 aerosol inhaler shortness of breath or wheezing #25.5 grams fluticasone propionate 50 2 spray intranasal QAM #16 grams 10/14/24 mcg/actuation nasal spray,suspension Breo Ellipta 100 mcg-25 mcg/dose 1 inh inhalation QAM #180 ea 10/18/24 powder for inhalation (fluticasone furoate-vilanterol) metformin 500 mg tablet,extended 500 mg PO BID #180 tabs 12/16/24 release 24 hr Results & Data (ED) Vital Signs Vital Signs - 24 hr 02/05/25 15:05 02/05/25 15:19 02/05/25 15:19 Temperature 35.9 C L 35.9 C L Temperature Source Oral Oral Pulse Rate 59 L 58 L Pulse Rate [Right Finger] 51 L Pulse Rhythm Regular Respiratory Rate 20 20 Respiratory Effort / Characteristics Non-Labored Spontaneous Respiratory Depth Normal Blood Pressure 230/93 H Blood Pressure [Right Arm] 230/93 H Blood Pressure Mean 138 Blood Pressure Mean [Right Arm] 138 Pulse Oximetry 100 100 100 Oxygen Delivery Method Room Air Room Air Room Air Oxygen Flow Rate Sepsis Recent Fever Within 48 Hours No Sepsis New/Unexplained Change in Mental Status N/A Sepsis Action Taken by Nursing No Action Required 02/05/25 15:59 02/05/25 16:32 02/05/25 17:15 Temperature Temperature Source Pulse Rate 56 L Pulse Rate [Right Finger] 52 L 51 L Pulse Rhythm Respiratory Rate 19 19 Respiratory Effort / Characteristics Non-Labored Spontaneous Non-Labored Spontaneous Respiratory Depth Normal Normal Blood Pressure Blood Pressure [Right Arm] 216/126 H 222/94 H Blood Pressure Mean Blood Pressure Mean [Right Arm] 156 136 Pulse Oximetry 99 97 Oxygen Delivery Method Nasal Cannula Room Air Oxygen Flow Rate 2 Sepsis Recent Fever Within 48 Hours Sepsis New/Unexplained Change in Mental Status Sepsis Action Taken by Nursing 02/05/25 18:14 02/05/25 18:35 02/05/25 18:35 Temperature Temperature Source Pulse Rate Pulse Rate [Right Finger] 61 47 L Pulse Rhythm Respiratory Rate 15 19 Respiratory Effort / Characteristics Respiratory Depth Blood Pressure Blood Pressure [Right Arm] 267/95 H Blood Pressure Mean Blood Pressure Mean [Right Arm] 152 Pulse Oximetry 99 88 L 95 Oxygen Delivery Method Room Air Room Air Nasal Cannula Oxygen Flow Rate 4 Sepsis Recent Fever Within 48 Hours Sepsis New/Unexplained Change in Mental Status Sepsis Action Taken by Nursing 02/05/25 18:39 02/05/25 19:00 02/05/25 19:14 Temperature Temperature Source Pulse Rate 64 58 L Pulse Rate [Right Finger] 48 L Pulse Rhythm Respiratory Rate 19 18 Respiratory Effort / Characteristics Respiratory Depth Blood Pressure 215/101 H Blood Pressure [Right Arm] 234/92 H Blood Pressure Mean 161 Blood Pressure Mean [Right Arm] 139 Pulse Oximetry 98 100 Oxygen Delivery Method Nasal Cannula Oxygen Flow Rate 4 Sepsis Recent Fever Within 48 Hours Sepsis New/Unexplained Change in Mental Status Sepsis Action Taken by Nursing 02/05/25 19:30 Temperature Temperature Source Pulse Rate 60 Pulse Rate [Right Finger] Pulse Rhythm Respiratory Rate 18 Respiratory Effort / Characteristics Respiratory Depth Blood Pressure 199/94 H Blood Pressure [Right Arm] Blood Pressure Mean 166 Blood Pressure Mean [Right Arm] Pulse Oximetry 99 Oxygen Delivery Method Nasal Cannula Oxygen Flow Rate 2 Sepsis Recent Fever Within 48 Hours Sepsis New/Unexplained Change in Mental Status Sepsis Action Taken by Nursing Laboratory Data 02/05/25 15:14 02/05/25 15:14 Lab Results 02/05/25 02/05/25 02/05/25 Range/Units 15:12 15:14 19:30 WBC 9.64 (4.8-10.8) K/ul RBC 4.35 (4.20-5.40) M/uL Hgb 13.3 (12.0-16.0) g/dl POC Hgb 13.6 (12.0-16.0) g/dl Hct 39.3 (37.0-47.0) % POC Hct 40 (37-47) % MCV 90.3 (80.0-100.0) fL MCH 30.6 (25.0-34.0) pg MCHC 33.8 (32.0-36.0) g/dL RDW Std Deviation 40.8 (36.4-46.3) fL RDW Coeff of Diana 12.3 (11.5-14.5) % Plt Count 283 (130-400) K/uL MPV 11.1 (9.4-12.4) fL Immature Gran % (Auto) 0.4 % Neut % (Auto) 77.2 % Lymph % (Auto) 15.5 % Collin % (Auto) 5.6 % Eos % (Auto) 1.0 % Baso % (Auto) 0.3 % Neut # (Auto) 7.44 H (1.40-6.50) K/uL Lymph # (Auto) 1.49 (1.20-3.40) K/uL Collin # (Auto) 0.54 (0.11-0.59) K/uL Eos # (Auto) 0.10 (0.00-0.50) K/uL Baso # (Auto) 0.03 (0.00-0.20) K/uL Immature Gran # (Auto) 0.04 (0.01-0.20) K/uL POC Sodium 138 (135-144) mmol/L Sodium 138 (136-145) mmol/L POC Potassium 4.1 (3.3-5.0) mmol/L Potassium 4.0 (3.5-5.1) mmol/L POC Chloride 104 (101-112) mmol/L Chloride 101 (98-107) mmol/L Carbon Dioxide 24 (21-32) mmol/L POC Total CO2 22 L (24-31) mmol/L Anion Gap 13 H (3-11) POC Anion Gap 16.0 (16-25) mmol/L POC BUN 33 H (7-18) mg/dl BUN 32 H (6-23) mg/dl Creatinine 1.31 H (0.6-1.2) mg/dl POC Creatinine 1.2 (0.6-1.3) mg/dl Est Cr Clr Drug Dosing 32.6 ml/min eGFR 41.70 BUN/Creatinine Ratio 24.4 H (10-20) Glucose 226 H (70-99(Fasting)) mg/dl POC Glucose (other) 221 H (70-99) mg/dl Lactate 2.1 H* (0.4-2.0) mmol/L Calcium 9.8 (8.6-10.3) mg/dl POC Ioniz Calcium Amanda 1.12 (1.12-1.32) mmol/l Total Bilirubin 0.7 (0.2-1.0) mg/dl AST 14 (13-39) U/L ALT 9 (7-52) U/L Alkaline Phosphatase 95 (34-104) U/L Total Protein 7.2 (6.0-8.3) gm/dl Albumin 4.0 (3.4-5.0) gm/dl Globulin 3.2 (2.5-4.0) gm/dl Albumin/Globulin Ratio 1.3 (0.9-2) Lipase 102 H (11-82) U/L TSH 1.855 (0.300-4.500) uIu/ml Urine Comment Administered Medications Sodium Chloride (Nss) 1,000 mls @ 74 mls/hr IV .[id number] ONE Stop: 02/06/25 07:31 Last Admin: 02/05/25 18:46 Dose: 74 mls/hr Documented By: ASW Discontinued Medications Droperidol (Droperidol 5 Mg/2 Ml Vial) 1.25 mg IV ONE STA Stop: 02/05/25 18:08 Last Admin: 02/05/25 18:13 Dose: 1.25 mg Documented By: ASW Fentanyl Citrate (Fentanyl Citrate Pf 100 Mcg/2 Ml Vial) 50 mcg IV NOW ONE Stop: 02/05/25 15:11 Last Admin: 02/05/25 15:20 Dose: 50 mcg Documented By: CC Fentanyl Citrate (Fentanyl Citrate Pf 100 Mcg/2 Ml Vial) 50 mcg IV NOW ONE Stop: 02/05/25 16:28 Last Admin: 02/05/25 16:31 Dose: 50 mcg Documented By: ASW Hydralazine HCl (Hydralazine Hcl 20 Mg/Ml Vial) 10 mg IV NOW STA Stop: 02/05/25 19:04 Last Admin: 02/05/25 19:25 Dose: 10 mg Documented By: KML Hydromorphone HCl (Hydromorphone Inj 1 Mg/Ml Syringe) 1 mg IV NOW STA Stop: 02/05/25 18:40 Last Admin: 02/05/25 18:49 Dose: 1 mg Documented By: ASW Sodium Chloride (Nss) 1,000 mls @ 999 mls/hr IV .Q1H1M STA Stop: 02/05/25 16:10 Last Infusion: 02/05/25 16:13 Dose: Infused Documented By: Admin: 02/05/25 15:20 Dose: 999 mls/hr Documented By: CC Ioversol (Optiray 320 100ml) 93 ml IV ONCE ONE Stop: 02/05/25 15:33 Last Admin: 02/05/25 15:32 Dose: 93 ml Documented By: TRICIA Ondansetron HCl (Ondansetron Inj 2 Mg/Ml 2 Ml Vial) 4 mg IV NOW STA Stop: 02/05/25 15:11 Last Admin: 02/05/25 15:20 Dose: 4 mg Documented By: CC Ondansetron HCl (Ondansetron Inj 2 Mg/Ml 2 Ml Vial) 4 mg IV NOW STA Stop: 02/05/25 16:28 Last Admin: 02/05/25 16:32 Dose: 4 mg Documented By: ASW Imaging Data Radiologist's Impression: Abdomen/Pelvis CT 02/05/25 15:11 CT SCAN OF THE ABDOMEN AND PELVIS WITH IV CONTRAST CLINICAL HISTORY: Generalized abdominal pain. Clinical concern for bowel obstruction. COMPARISON STUDY: Abdominal CT dated 06/18/2024 TECHNIQUE: Following the IV administration of 93 cc of Optiray 320, CT scan of the abdomen and pelvis is performed from the lung bases to the proximal femora. Images are reviewed in the axial, sagittal, and coronal planes. IV contrast was administered without complication. A dose lowering technique was utilized adhering to the principles of ALARA. CT DOSE: 1219.5 mGy.cm FINDINGS: Lung bases: The heart is mildly enlarged and without pericardial effusion. The coronary arteries and mitral annulus are densely calcified. There is a small hiatal hernia. The lung bases are clear. Liver: The contrast-enhanced liver is normal in size, contour, and attenuation. There is mild intrahepatic biliary ductal dilatation. The hepatic veins and portal veins are patent. Gallbladder: Surgically absent and clips in the gallbladder fossa. Spleen: Normal in size and attenuation. Pancreas: An 8 mm ovoid cystic lesion in the pancreatic neck seen on image #80 is unchanged and typical for a sidebranch IPMN. The pancreas is otherwise grossly unremarkable. Adrenal glands: Unremarkable. Kidneys: The contrast enhanced kidneys are normal in size and without hydronephrosis. The kidneys enhance symmetrically. Tiny nonobstructing renal calculi measuring up to 3 mm. No ureteral stone is seen. Abdominal vasculature: The abdominal aorta is normal in course and caliber noting moderate atherosclerotic calcification. Bowel: There are distended and fluid-filled loops of distal jejunum/proximal ileum in the central pelvis which measure up to 2.7 cm in diameter. There is mild wall thickening and strandy inflammation with interloop fluid. A transition point is seen in the central pelvis on image #232. There is dilatation of the adjacent mesenteric vessels. There is also likely a second transition point located more superiorly, and the appearance is consistent with a small bowel obstruction. A closed loop obstruction is not excluded. There is also dilatation of the upstream small bowel with air-fluid levels. This measures up to 2.4 cm in diameter. The distal small bowel is decompressed. No pneumatosis intestinalis or portal venous gas is seen. A duodenal diverticulum is incidentally noted. There is mild to moderate colonic diverticulosis without CT evidence of acute diverticulitis. The appendix is well-visualized and normal. Peritoneum: No intraperitoneal free air is identified. There is a small volume of pelvic ascites. A midline surgical scar is noted. There is a tiny fat- containing umbilical hernia. Lymphadenopathy: None. Pelvic viscera: The bladder is normal as visualized. The uterus is surgically absent. No adnexal lesion is seen. Skeletal structures: The skeletal structures are osteopenic. There is moderate lumbosacral spondylosis. No lytic or blastic lesions are seen. IMPRESSION: 1. There is a complex small bowel obstruction identified involving the distal jejunum/proximal ileum in the pelvis. There is at least 1 and possibly 2 transition points, with mild wall thickening, surrounding infiltration, and intraluminal fluid. The adjacent mesenteric vessels appear engorged and a closed loop type obstruction is not excluded. Surgical evaluation is advised. 2. There is no intraperitoneal free air. No pneumatosis intestinalis or portal venous gas is seen. 3. Small volume of pelvic ascites. 4. Bilateral nephrolithiasis. 5. Coronary artery atherosclerosis. 6. Colonic diverticulosis without CT evidence of acute diverticulitis. 7. Additional findings as above. ACT 112: Negative or not required by law. Electronically signed by: Roberto García M.D. 02/05/2025 4:07 PM Chest X-Ray 02/05/25 16:08 Clinical History: NG placement Technique: 2 frontal views of the chest were obtained Findings: There are no confluent pulmonary infiltrates. The heart size is within normal limits. No pleural effusion or pneumothorax is seen. There is no definite pulmonary nodule. No fracture is noted. There is a nasogastric tube with its tip within the stomach Impression: Nasogastric tube with its tip within the stomach Electronically signed by Erick Chan 02-05-2025 6:32 PM Discharge Plan Visit Data Chief Complaint: Abdominal Pain ED Provider: Erick Romano Discharge Problem: SBO (small bowel obstruction), Hypertension, Aspiration into airway, Acute hypoxemic respiratory failure, Acidosis, lactic Patient Disposition: Admitted As Inpatient Condition: Serious Forms Stand Alone Forms: My [facility] [employer] Prescriptions Prescriptions: No Action (DME) Accu-Chek SmartView Test Strip Strip See Rx Instructions .Route Qty: 100 5RF Rx Instructions: Once daily (DME) lancets [Accu-Chek Softclix Lancets] Misc See Rx Instructions .Route Qty: 100 5RF Rx Instructions: test BID ramipril 10 mg capsule 10 mg PO QAM Qty: 90 3RF mecobalamin (vitamin B12) 1,000 mcg tablet,chewable 1,000 mcg PO DAILY Rx Instructions: 02/05- otc unable to verify levothyroxine 88 mcg tablet 88 mcg PO QAM Qty: 100 3RF montelukast [Singulair] 10 mg tablet 10 mg PO HS Qty: 100 3RF bupropion HCl 300 mg tablet extended release 24 hr 300 mg PO QAM Qty: 100 3RF atorvastatin 40 mg tablet 40 mg PO HS Qty: 100 3RF hydrochlorothiazide 12.5 mg tablet 12.5 mg PO QAM Qty: 100 3RF fluoxetine 10 mg capsule 10 mg PO QPM Qty: 100 3RF albuterol sulfate 90 mcg/actuation HFA aerosol inhaler 2 puff INH Q4H PRN (Reason: shortness of breath or wheezing) Qty: 25.5 3RF fluticasone propionate 50 mcg/actuation spray,suspension 2 spray INTNAS QAM Qty: 16 3RF Rx Instructions: administer into each nostril 02/05-last filled 10/14/24 90 day supply fluticasone furoate-vilanterol [Breo Ellipta] 100-25 mcg/dose blister with device 1 inh INH QAM Qty: 180 3RF Rx Instructions: 1 inh inhalation daily. After inhalation rinse mouth with water and spit. Use same time each day, no more than 1 time in 24 hours; metformin 500 mg tablet extended release 24 hr 500 mg PO BID Qty: 180 3RF ondansetron 4 mg tablet,disintegrating 4 mg PO Q6H PRN (Reason: nausea and vomiting) Qty: 20 0RF Rx Instructions: 02/05- no fill history unable to verify dulaglutide 3 mg/0.5 mL pen injector 3 mg subcut Q7D Hold Instructions: please hold unless Dr Baugh feels it is safe to resume in light of recent bowel obstruction Patient Comments: mondays Rx Instructions: 3 mg subcutaneously once weekly; last filled 10/28/24 84 day supply sucralfate [Carafate] 1 gram tablet 1 g PO UD Rx Instructions: original:1 g po bid 02/05- no fill history unable to verify aspirin [Adult Low Dose Aspirin] 81 mg tablet,delayed release (DR/EC) 81 mg PO QAM Rx Instructions: 02/05- otc unable to verify Referrals Referrals: Derek Samaniego MD [Primary Care Provider] -
--- NOTE | 2025-02-05 15:43 | Electrocardiogram Report ---
Test Reason : Blood Pressure : */* mmHG Vent. Rate : 60 BPM Atrial Rate : 60 BPM P-R Int : 160 ms QRS Dur : 94 ms QT Int : 450 ms P-R-T Axes : * 44 67 degrees QTcB Int : 450 ms Normal sinus rhythm Normal ECG When compared with ECG of 18-Jun-2024 18:44, No significant change was found Confirmed by Alban Mo ([id number]) on 02/05/2025 3:42:35 PM Referred By: Confirmed By: Alban Mo
[2025-02-05 15:46] LABS: Alanine Aminotransferase 9.0 U/L (7-52); Albumin Globulin Ratio 1.3 (0.9-2); Alkaline Phosphatase 95.0 U/L (34-104); Anion Gap 13.0 (3-11); Bilirubin,Total 0.7 mg/dl (0.2-1.0); Blood Urea Nitrogen 32.0 mg/dl (6-23); Calcium 9.8 mg/dl (8.6-10.3); Carbon Dioxide 24.0 mmol/L (21-32); Chloride 101.0 mmol/L (98-107); Creatinine Clr Calc Pharmacy 32.6 ml/min; Globulin 3.2 gm/dl (2.5-4.0); Glucose 226.0 mg/dl (70-99(Fasting)); Lipase 102.0 U/L (11-82); Potassium 4.0 mmol/L (3.5-5.1); Sodium 138.0 mmol/L (136-145); Total Protein 7.2 gm/dl (6.0-8.3)
--- NOTE | 2025-02-05 16:09 | CT Scan Report ---
CT SCAN OF THE ABDOMEN AND PELVIS WITH IV CONTRAST CLINICAL HISTORY: Generalized abdominal pain. Clinical concern for bowel obstruction. COMPARISON STUDY: Abdominal CT dated 06/18/2024 TECHNIQUE: Following the IV administration of 93 cc of Optiray 320, CT scan of the abdomen and pelvi s is performed from the lung bases to the proximal femora. Images are reviewed in the axial, sagittal , and coronal planes. IV contrast was administered without complication. A dose lowering technique wa s utilized adhering to the principles of ALARA. CT DOSE: 1219.5 mGy.cm FINDINGS: Lung bases: The heart is mildly enlarged and without pericardial effusion. The coronary arteries and mitral annulus are densely calcified. There is a small hiatal hernia. The lung bases are clear. Liver: The contrast-enhanced liver is normal in size, contour, and attenuation. There is mild intrahe patic biliary ductal dilatation. The hepatic veins and portal veins are patent. Gallbladder: Surgically absent and clips in the gallbladder fossa. Spleen: Normal in size and attenuation. Pancreas: An 8 mm ovoid cystic lesion in the pancreatic neck seen on image #80 is unchanged and typic al for a sidebranch IPMN. The pancreas is otherwise grossly unremarkable. Adrenal glands: Unremarkable. Kidneys: The contrast enhanced kidneys are normal in size and without hydronephrosis. The kidneys enh ance symmetrically. Tiny nonobstructing renal calculi measuring up to 3 mm. No ureteral stone is seen . Abdominal vasculature: The abdominal aorta is normal in course and caliber noting moderate atheroscle rotic calcification. Bowel: There are distended and fluid-filled loops of distal jejunum/proximal ileum in the central pel vis which measure up to 2.7 cm in diameter. There is mild wall thickening and strandy inflammation wi th interloop fluid. A transition point is seen in the central pelvis on image #232. There is dilatati on of the adjacent mesenteric vessels. There is also likely a second transition point located more amrrufo periorly, and the appearance is consistent with a small bowel obstruction. A closed loop obstruction is not excluded. There is also dilatation of the upstream small bowel with air-fluid levels. This belkis sures up to 2.4 cm in diameter. The distal small bowel is decompressed. No pneumatosis intestinalis o r portal venous gas is seen. A duodenal diverticulum is incidentally noted. There is mild to moderate colonic diverticulosis without CT evidence of acute diverticulitis. The appendix is well-visualized and normal. Peritoneum: No intraperitoneal free air is identified. There is a small volume of pelvic ascites. A m idline surgical scar is noted. There is a tiny fat-containing umbilical hernia. Lymphadenopathy: None. Pelvic viscera: The bladder is normal as visualized. The uterus is surgically absent. No adnexal lesi on is seen. Skeletal structures: The skeletal structures are osteopenic. There is moderate lumbosacral spondylosi s. No lytic or blastic lesions are seen. IMPRESSION: 1. There is a complex small bowel obstruction identified involving the distal jejunum/proximal ileum in the pelvis. There is at least 1 and possibly 2 transition points, with mild wall thickening, surro unding infiltration, and intraluminal fluid. The adjacent mesenteric vessels appear engorged and a cl osed loop type obstruction is not excluded. Surgical evaluation is advised. 2. There is no intraperitoneal free air. No pneumatosis intestinalis or portal venous gas is seen. 3. Small volume of pelvic ascites. 4. Bilateral nephrolithiasis. 5. Coronary artery atherosclerosis. 6. Colonic diverticulosis without CT evidence of acute diverticulitis. 7. Additional findings as above. ACT 112: Negative or not required by law. Electronically signed by: Roberto García M.D. 02/05/2025 4:07 PM
[2025-02-05] MEDS ORDERED: ACETAMINOPHEN 325 MG TAB PO PRN (17:57)
[2025-02-05] MEDS: DROPERIDOL 5 MG/2 ML VIAL IV STA (18:13)
--- NOTE | 2025-02-05 18:36 | XRay Report ---
Clinical History: NG placement Technique: 2 frontal views of the chest were obtained Findings: There are no confluent pulmonary infiltrates. The heart size is within normal limits. No pleural effusion or pneumothorax is seen. There is no definite pulmonary nodule. No fracture is noted. There is a nasogastric tube with its tip within the stomach Impression: Nasogastric tube with its tip within the stomach Electronically signed by Erick Chan 02-05-2025 6:32 PM
[2025-02-05 18:41] LABS: Thyroid Stimulating Hormone 1.855 uIu/ml (0.300-4.500)
[2025-02-05] MEDS: SODIUM CHLORIDE 0.9% 1,000 ML IV ONE (18:46)
--- NOTE | 2025-02-05 18:47 | History & Physical Report ---
Date of Service February 05, 2025 History of Present Illness Chief Complaint: "My belly hurts all over; it started in the right lower part of my belly and then it moved up; now it's all over. The pain is constant; it's a 10 (out of 10 point intensity scale). The pain started last night (02/04/2025, 9:30pm) at home at rest. First, I felt nauseated, then I started vomiting up green stuff, no blood. No bowel movement in 2 days, but then again, I don't have a bowel movement every day. I am not farting for the past 2 days; normally, I don't fart everyday either. Just so you know, I had this exact same problem last year after my gallbladder was taken out here in [facility] with General Surgeon Dr. Cruz Baugh, and had to take me to the OR to get the problem fixed (cf., exploratory laparotomy with release of acute SBO on 12/08/2023, 1:28pm). Primary Care Provider: Derek Samaniego MD 79 years Old female with PMH of FULL CODE @ home, obesity with BMI 30.9 (height 154.9 cm; weight 74.1 kg), hyperlipidemia on atorvastatin 40mg PO qhs, HTN on ramipril 10mg PO qam, HCTZ 12.5mg PO qam, hypothyroidism with TSH 0.453 uIU/mL (06/17/2024, 12:11pm) on synthroid 88ug PO qam, non-insulin dependent DM2 with HbA1c 6.9% (06/17/2024, 12:11pm) on metformin 500mg PO bid and dulaglutide 3mg SQ q7 days, major depression on bupropion 300mg PO qam and fluoxetine 10mg PO qpm, former tobacco abuse with no subsequent diagnosis of COPD, not on home O2 or home steroids, but subsequent development of severe presbycusis mitigated by binaural hearing aids in situ, mild intermittent asthma on singulair 10mg PO qhs, allergic rhinitis on fluticasone 50ug/spray, 2 sprays to each nostril qam, and cholelithiasis s/p laparoscopic cholecystectomy ( 12/06/2023, 8:49am, [facility] General Surgeon Dr. Cruz Baugh), complicated by acute SBO requiring exploratory laparotomy with release of acute SBO (12/08/2023, 1:28pm, [facility] General Surgeon Dr. Cruz Baugh), who presents with: "My belly hurts all over; it started in the right lower part of my belly and then it moved up; now it's all over. The pain is constant; it's a 10 (out of 10 point intensity scale). The pain started last night (02/04/2025, 9:30pm) at home at rest. First, I felt nauseated, then I started vomiting up green stuff, no blood. No bowel movement in 2 days, but then again, I don't have a bowel movement every day. I am not farting for the past 2 days; normally, I don't fart everyday either. Just so you know, I had this exact same problem last year after my gallbladder was taken out here in [facility] with General Surgeon Dr. Cruz Baugh, and had to take me to the OR to get the problem fixed (cf., exploratory laparotomy with release of acute SBO on 12/08/2023, 1:28pm). Patient denies antecedent/coincident fevers, chills, diaphoresis, cough, wheeze, sore throat, hemoptysis, chest pains, palpitations, pleurisy, diarrhea, pelvic pain, hematemesis, hematochezia, melena, hematuria, dysuria, frequency, urgency, headaches, dizziness, lightheadedness, visual changes, hearing changes, weakness, falls, syncope, trauma, travel history, sick contacts, or food/drug ingestions novel or new. All other review of systems are reported as negative by the patient on admission date 02/05/2025. In [facility] ER bed #A12B, patient was afebrile @ 35.9 degrees Celsius, HR 51, RR 20, O2 sat 100% on room air, and BP 230/93 (02/05/2025, 3:05pm). Exam was noted for a soft, distended, and MILDLY tender (in all 4 quadrants) abdomen without rebound, guarding, Alberto's sign, or organomegaly. Bowel sounds were auscultated in all 4 quadrants. NGT had already been placed prior to my exam of patient to decompress the stomach with expression of 200 mL of light army green effluent collected. Labs in [facility] ER bed #A12B included: INR (02/05/2025, 3:14pm)(richard-operative evaluation). Lactic acid #1 2.1 mmol/L (02/05/2025, 3:14pm). Lactic acid #2 (02/05/2025, 7:14pm). WBC 9.64, N77 L16 M6 E1, Hb 13.3, MCV 90.3, MCHC 33.8, platelet (02/05/2025, 3:14pm). Na 138, K 4.1, BUN 32, creatinine 1.31, GFR 41.7, glucose 226, anion gap 13, CO2 24, Ca 9.8, AST 14, ALT 9, ALK PHOS 95, TBili 0.7 (02/05/2025, 3:14pm). Additional testing in [facility] ER bed #A12B included: CT abd/pelvis with IV contrast (02/05/2025, 3:11pm): 1. Complex small bowel obstruction identified involving the distal jejunum/proximal ileum in the pelvis. There is at least 1 and possibly 2 transition points, with mild wall thickening, surrounding infiltration, and intraluminal fluid. The adjacent mesenteric vessels appear engorged and a closed loop type obstruction is not excluded. Surgical evaluation is advised. 2. No intraperitoneal free air. No pneumatosis intestinalis or portal venous gas is seen. 3. Small volume of pelvic ascites. 4. Bilateral nephrolithiasis. 5. Coronary artery atherosclerosis. 6. Colonic diverticulosis without CT evidence of acute diverticulitis. Portable CXR (02/05/2025, 4:08pm): 1. No infiltrate, effusion, cardiomegaly, pulmonary vascular congestion, or pneumothorax. 2. NGT with tip in stomach (by my review). EKG (02/05/2025, 6:41pm): (richard-operative evaluation). Patient was subsequently admitted to the inpatient hospitalist service @ [facility] on 02/05/2025 with the following diagnoses: 1. Acute complex SBO with 1-2 transition points. 2. Acute lactic acid elevation with lactic acid #1 2.1 mmol/L (02/05/2025, 3:14pm). 3. Acute malignant HTN with admission BP 230/93 (02/05/2025, 3:05pm) with concomitant acute kidney injury with admission creatinine 1.31 mg/dL, GFR 41.7 mL/min (02/05/2025, 3:14pm). 4. Acute hyperglycemia with admission glucose 226, anion gap 13, CO2 24 (02/05/2025, 3:14pm), R/O incipient DKA. To address #1, patient was made NPO except for meds and ice chips, while continuing NGT to decompress the stomach. Patient awaits richard-operative INR (02/05/2025, 3:14pm) and richard-operative EKG (02/05/2025, 6:41pm), repeat KUB (1 view)(to evaluate for any interval change(s) in acute complex SBO with 1-2 transition points, and formal General Surgery Service evaluation with Dr. Tiburcio Dubon in the 02/06/2025 am. In the interim, patient was started on tylenol 650mg PO q6 prn pain 1-3, headache, temp > 100.4 degrees Fahrenheit, dilaudid 1mg IV q6 prn pain 4-10. Of note, etiology of acute complex SBO remains unclear, but is probably due to surgical adhesions that developed after patient underwent (a) laparoscopic cholecystectomy (12/06/2023, 8:49am, [facility] General [place] rgeon Dr. Cruz Baugh) to treat cholelithiasis, complicated by acute SBO requiring (b) exploratory laparotomy with release of acute SBO (12/08/2023, 1:28pm, [facility] General Surgeon Dr. Cruz Baugh), To address #2, patient received 1 liter of 0.9% NS @ 999 mL/hr (02/05/2025, 3:20pm), followed by 1 liter of 0.9% NS @ 74 mL/hr (02/05/2025, 6:46pm), based on a delivery rate of 1 mL of 0.9% NS per kg of body weight per hour, and a body weight of 74.1 kg. I will check repeat lactic acid #2 (02/05/2025, 7:14pm), lactic acid #3 (02/05/2025, 11:14pm), and lactic acid #4 (02/06/2025, 6:00am). Etiology of acute lactic acid elevation remains unclear, but is most probably due to acute dehydration, as reflected by BUN:creatinine ratio > 20:1 (cf., admission BUN 32, creatinine 1.31)(02/05/2025, 3:14pm). To address #3, patient was started on tylenol 650mg PO q6 prn pain 1-3 (02/05/2025, 6:57pm), dilaudid 1mg IV x 1 dose (02/05/2025, 6:49pm), followed by dilaudid 1mg IV q6 prn pain 4-10 (02/05/2025, 7:31pm), as I surmise that patient's acute malignant HTN is largely driven by her 05/16 generalized abdominal pains, which in turn, are due to acute complete SBO with 1-2 transition points. In addition, as patient remains NPO and may not be capable of taking her home-scheduled ramipril 10mg PO qam or HCTZ 12.5mg PO qam, due to ongoing N/V, I have opted to start patient on anti-HTN agent hydralazine 10mg IV x 1 dose (02/05/2025, 7:25pm), followed by hydralazine 10mg IV q6 prn systolic BP > 185 mm Hg or diastolic BP > 95 mm Hg. Given the combination of analgesia with hydralazine, I hope to decrease patient's admitting BP 230/93 (02/05/2025, 3:05pm) by ~25% in the next 24 hours. I will check repeat BP qshift and I will also check repeat creatinine level in the 02/06/2025 am. cf., baseline creatinine range, 0.87 - 1.05 (12/13/2023 - 06/18/2024). To address #4, patient was started on lispro insulin sliding scale q6 and POC glucose q6 as patient remains NPO. In the interim, I have opted to hold off patient's home-scheduled metformin 500mg PO bid, given the potential for this medication to exacerbate patient's admitting complaints of N/V. I have also opted to hold off patient's home-scheduled dulaglutide 3mg SQ q7 days, given the potential for this medication to delay gastric emptying, which can increase the risk of aspiration during general anesthesia. In this patient with a past medical history of acute SBO requiring exploratory laparotomy with release of acute SBO (12/08/2023, 1:28pm, [facility] General Surgeon Dr. Cruz Baugh), I surmise that patient is at fairly high risk for having to undergo surgical correction of her acute complex SBO during this hospitalization. Hence, patient should NOT receive her home-scheduled dulaglutide 3mg SQ q7 days while in [facility]. Of final note, serum glucose goal is 180 mg/dL or less, as set forth by the seminal work of the [employer] Study Investigators (cf., "Intensive versus Conventional Glucose Control in Critically Ill Patients." [place] Journal of Medicine. October 30, 2008; 360:9340-2196). Allergies Allergy/AdvReac Type Severity Reaction Status Date / Time Sulfa (Sulfonamide AdvReac Intermediate NAUSEA/VOMI Verified 07/02/24 15:34 Antibiotics) TING Home Medications Medication Instructions Recorded Confirmed Type blood sugar diagnostic (Accu-Chek #100 ea 03/15/23 07/02/24 Rx SmartView Test Strips) lancets (Accu-Chek Softclix #100 ea 03/17/23 07/02/24 Rx Lancets) dulaglutide 3 mg/0.5 mL 3 mg subcut Q7D 11/24/23 02/05/25 History subcutaneous pen injector aspirin 81 mg tablet,delayed 81 mg PO QAM 12/01/23 02/05/25 History release (Adult Low Dose Aspirin) ondansetron 4 mg disintegrating 4 mg PO Q6H PRN nausea and 01/18/24 02/05/25 Rx tablet vomiting #20 tabs ramipril 10 mg capsule 10 mg PO QAM #90 caps 02/06/24 02/05/25 Rx mecobalamin (vitamin B12) 1,000 1,000 mcg PO DAILY 03/25/24 02/05/25 History mcg chewable tablet atorvastatin 40 mg tablet 40 mg PO HS #100 tabs 07/01/24 02/05/25 Rx bupropion HCl 300 mg 24 hr tablet, 300 mg PO QAM #100 tabs 07/01/24 02/05/25 Rx extended release fluoxetine 10 mg capsule 10 mg PO QPM #100 caps 07/01/24 02/05/25 Rx hydrochlorothiazide 12.5 mg tablet 12.5 mg PO QAM #100 tabs 07/01/24 02/05/25 Rx levothyroxine 88 mcg tablet 88 mcg PO QAM #100 tabs 07/01/24 02/05/25 Rx montelukast 10 mg tablet 10 mg PO HS #100 tabs 07/01/24 02/05/25 Rx (Singulair) albuterol sulfate 90 mcg/actuation 2 puff inhalation Q4H PRN 10/14/24 02/05/25 Rx aerosol inhaler shortness of breath or wheezing #25.5 grams fluticasone propionate 50 2 spray intranasal QAM #16 grams 10/14/24 02/05/25 Rx mcg/actuation nasal spray,suspension Breo Ellipta 100 mcg-25 mcg/dose 1 inh inhalation QAM #180 ea 10/18/24 02/05/25 Rx powder for inhalation (fluticasone furoate-vilanterol) metformin 500 mg tablet,extended 500 mg PO BID #180 tabs 12/16/24 02/05/25 Rx release 24 hr sucralfate 1 gram tablet (Carafate) 1 g PO UD 02/05/25 02/05/25 History Past Med/Surg History Problem List (Updated 02/05/25 @ 20:08 by Erick Romano DO) Acidosis, lactic (Acute) Acute hypoxemic respiratory failure (Acute) Aspiration into airway (Acute) Hypertension (Acute) SBO (small bowel obstruction) (Acute) Vitamin B12 deficiency Chronic kidney disease (CKD) stage G3a/A2, moderately decreased glomerular filtration rate (GFR) between 45-59 mL/min/1.73 square meter and albuminuria creatinine ratio between 30-299 mg/g CKD stage 3 due to type 2 diabetes mellitus Demand ischemia of myocardium OWEN (acute kidney injury) Hypotension due to hypovolemia S/P laparoscopic cholecystectomy (Acute) History of colon polyps Depression (Acute) Sensorineural hearing loss of both ears Seasonal allergies Diabetes mellitus, controlled NIDDM Peripheral vascular disease of extremity with claudication right lower extremity Hyperlipidemia Mixed conductive and sensorineural hearing loss of left ear with restricted hearing of right ear Non-insulin dependent type 2 diabetes mellitus (Chronic) Hypothyroidism (Chronic) HTN (hypertension) (Chronic) Asthma (Chronic) daily inh and prn inh-rare use Medical History Small bowel obstruction Depression Anxiety Dyspnea on effort chronic per pt History of COVID-19 06/2021- mild symptoms and had antibody infusion GERD (gastroesophageal reflux disease) no current meds Generalized osteoarthritis Stress incontinence in female Tubular adenoma of colon hx Surgical History H/O exploratory laparotomy (12/08/23) Exploratory Laparotomy, Release of Small Bowel Obstruction(Not Applicable) - Cruz Baugh MD, FACS Hx laparoscopic cholecystectomy (12/06/23) Laparoscopic Cholecystectomy With Cholangiogram(Not Applicable) - Cruz Baugh MD, FACS History of tonsillectomy History of left knee surgery Status post cataract extraction Right eye 12/29/2021-Dr. York Left eye 12/15/2021-Dr. York Hx of colonoscopy History of lumpectomy of left breast benign H/O vaginal hysterectomy Family History Father Myocardial infarction Mother Myocardial infarction Hypertension Uncle Stroke Other Heart disease No family history of adverse response to anesthesia No family history of bleeding disorder Denies family history of Ovarian cancer Prostate cancer Coronary heart disease Breast cancer Colorectal cancer Social History (Updated 02/05/25 @ 19:59 by Sd Herring MD, PhD) Smoking Status: Former smoker Tobacco Type: Cigarettes Age Started Using Tobacco: 16; Age Quit Using Tobacco: 37; packs per day: 3; Cigarettes Per Day: 60; Second Hand Exposure: Yes (hx growing up); Do You Dip or Chew Tobacco: No; Hx Alcohol Use: No Hx Substance Use: No Preferred Language: Estonian Communication Ability: Effective Visual Impairment: No Limitations Hearing Ability: Use of Hearing Aid Mobility Engineer Required: No Beliefs That Will Affect Care: None marital status: marital status details: 1 son (60y), 1 daughter (56y), both alive and well. Current Living Situation: Spouse Current Living Situation Comment: Ambulates without cane, walker, or wheelchair. 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 How many Children do You have: 2 Feels Safe at Home: Yes Childhood Exposure to Second-Hand Smoke: No Diet: regular caffeine: Yes during the past year weight has: decreased > 10 lbs Dental Care, Regularly: Yes Physical Activity Frequency: 1-2 Times per Week Seatbelt Use: always Sunscreen Use: No Assistive Devices: Cane, Glasses and Hearing Aid - Bilateral Review of Systems Constitutional: As above in the History of Present Illness. Physical Exam Constitutional: General: Uncomfortable with patient barfing into barf bag, yet cooperative, coherent. Wide awake and alert. Not confused, lethargic, or obtunded. Patient speaks in complete, fluent, and articulate sentences without pause, interruption, cough, or wheeze. HEENT: Normocephalic, atraumatic. Pupils equally round and reactive to light. No nystagmus, gaze paresis, anisocoria, miosis, mydriasis, hyphema, scleral injection, conjunctivitis, or pterygium. No otorrhea. No pharyngeal erythema, edema, or discharge. NGT in situ (inserted on 02/05/[address] [facility] ER bed #A12B). Neck: Supple, no stridor, bruit, goiter, or hepato-jugular reflux. Jugular venous pressure is estimated to be 3 cm above the sternal angle of Percy, which in turn, is 5 cm above the level of the right atrium; with jugular venous pressure estimated to be 8 cm, then, there is no jugular venous distention on 02/05/2025. Lymphatics: No cervical (anterior/posterior), supraclavicular, infraclavicular, axillary, epitrochlear, or inguinal adenopathy. Chest: Symmetric rise and fall with respirations. Non-tender to palpation. Lungs: Clear to auscultation and percussion. No audible expiratory wheeze, egophony, pectoriloquy, increase in tactile fremitus, or flatness/dullness to percussion at the bases. Heart: RRR. S1 and S2 noted. No S3 or S4 summation gallop. No tripartite friction rub. Grade II/ early systolic murmur @ LLSB without radiation to the carotids, axilla, or back, and which remains invariant in regards to the respiratory cycle. Abdomen: Soft, distended with generalized, MILD tenderness. No rebound, guarding, Alberto's sign, or organomegaly. Bowel sounds auscultated in all 4 quadrants. Extremities: No clubbing, cyanosis, or edema in upper extremities or lower extremities bilaterally. 2+ pedal pulses bilaterally. Skin: No decubitus ulcer or enanthem. Genito-urinary: No urethral discharge. No pryor catheter. Neurology: Alert and oriented in regards to person, place, time, and situation. DTR+. 5/5 motor strength in all 4 extremities, both proximally and distally. No myoclonus, tremors, or tics. Psychiatry: No homicidal ideation. No suicidal ideation. No flat affect; smiles appropriately. Results & Data Results & Data Vital Signs (Past 12 Hours) Vital Signs Temp Pulse Pulse Resp BP BP Pulse Ox 02/05/25 18:39 48 L 19 234/92 H 98 02/05/25 18:35 95 02/05/25 18:35 47 L 19 88 L 02/05/25 18:14 61 15 267/95 H 99 02/05/25 17:15 51 L 19 222/94 H 97 02/05/25 16:32 52 L 19 216/126 H 99 02/05/25 15:59 56 L 02/05/25 15:19 58 L 100 02/05/25 15:19 35.9 C L 59 L 20 230/93 H 100 02/05/25 15:05 35.9 C L 51 L 20 230/93 H 100 O2 Del Method O2 Flow Rate 02/05/25 18:39 Nasal Cannula 4 02/05/25 18:35 Nasal Cannula 4 02/05/25 18:35 Room Air 02/05/25 18:14 Room Air 02/05/25 17:15 Room Air 02/05/25 16:32 Nasal Cannula 2 02/05/25 15:59 02/05/25 15:19 Room Air 02/05/25 15:19 Room Air 02/05/25 15:05 Room Air Code Status & VTE Plan VTE Prophylaxis Plan VTE Prophylaxis will be ordered: Yes PG Care Time/CCT Total # of Minutes Spent Total Time Spent with Patient: Total time spent is greater than 50% in coordination of care (as documented) at patient's floor/unit and/or counseling patient: Coding Level of Care Code 27177 INT INP/OBS CARE MIN
[2025-02-05] MEDS: HYDROmorphone INJ 1 MG/ML SYRINGE IV STA (18:49)
--- NOTE | 2025-02-05 19:33 | Surgery Consultation ---
Date of Consultation February 05, 2025 Supervising Physician Co-Signing Physician Notes pnt d/w PHAN, labs and imaging reviewed, agree with above. h/o lap luis enrique and exlap with [facility] 1 year ago, now with sbo. afvss, abd soft, mild distention, moderately ttp, no guarding. wbc and lactate normal. CT personally reviewed and interpreted and agree with sbo, possible second transition point but unclear. will proceed with nonoperative management for now, NG in place, kub in am. History of Present Illness Reason for Consultation: Small bowel obstruction History of Present Illness This is a 79-year-old female who presented to the emergency department secondary to some generalized abdominal pain as well as nausea and vomiting. Patient notes that she had 1 episode of nausea and vomiting approximately 3 days ago that self resolved. She appeared to be in her usual state of health however this morning after eating breakfast patient developed some right-sided abdominal pain that shifted somewhat to her upper abdomen. She has associated nausea and vomiting on multiple occasions with her most recent episode of emesis approximately 6 hours ago. As her abdominal pain persisted she presented to the emergency department. She denies any fevers, shakes, or chills. She notes her most recent bowel movement was 2 days ago and was normal she does report that usually her bowels move only every other day. Since her symptomatology began she has not passed any flatus. She reports that she did have previous abdominal surgeriesshe had a vaginal hysterectomy many years ago. In addition, the patient underwent laparoscopic cholecystectomy in December 2023. 2 days following the surgery the patient developed a small bowel obstruction requiring exploratory laparotomy with lysis of adhesions. Patient notes that since this most recent exploratory laparotomy she has not had any abdominal issues or small bowel obstructions prior to today. Since arrival to the hospital this patient has had labs and imaging which) reviewed. CBC revealed white blood cell count, hemoglobin, hematocrit, and platelet count are all normal. Chemistry profile showed sodium and potassium are both normal. Her BUN and creatinine were both slightly elevated at 32.23. Lactic acid level had a slight elevation of 2.1. There is no elevation of LFTs. She has slight elevation of her lipase at 102. A CT scan of the abdomen pelvis was performed. Interpreting radiologist felt there is complex small bowel obstruction primarily involving the distal jejunum and proximal ileum in the pelvis. 1 was possibly 2 transition points were identified with surrounding infiltration, wall thickening and intraluminal fluid. Adjacent mesenteric vessels appeared engorgedwith these findings interpreted radiologist could not exclude a closed-loop obstruction. There was no free intraperitoneal air. There is also no portal venous gas or pneumatosis intestinalis.. An EKG was performed that showed normal sinus rhythm without changes indicative of acute ischemia. Since arrival to the emergency department the patient has had an NG tube placed. A chest x-ray was followed up which showed that the nasogastric tube was within the tip of the stomach. There is no evidence of pneumonia. At the time of my interview the patient was resting comfortably in bed and she was no distress. Of note, the patient notes that her abdominal symptomatology did improve slightly since the NG tube was placed. Allergies Allergy/AdvReac Type Severity Reaction Status Date / Time Sulfa (Sulfonamide AdvReac Intermediate NAUSEA/VOMI Verified 07/02/24 15:34 Antibiotics) TING Home Medications Medication Instructions Recorded Confirmed Type blood sugar diagnostic (Accu-Chek #100 ea 03/15/23 07/02/24 Rx SmartView Test Strips) lancets (Accu-Chek Softclix #100 ea 03/17/23 07/02/24 Rx Lancets) dulaglutide 3 mg/0.5 mL 3 mg subcut Q7D 11/24/23 02/05/25 History subcutaneous pen injector aspirin 81 mg tablet,delayed 81 mg PO QAM 12/01/23 02/05/25 History release (Adult Low Dose Aspirin) ondansetron 4 mg disintegrating 4 mg PO Q6H PRN nausea and 01/18/24 02/05/25 Rx tablet vomiting #20 tabs ramipril 10 mg capsule 10 mg PO QAM #90 caps 02/06/24 02/05/25 Rx mecobalamin (vitamin B12) 1,000 1,000 mcg PO DAILY 03/25/24 02/05/25 History mcg chewable tablet atorvastatin 40 mg tablet 40 mg PO HS #100 tabs 07/01/24 02/05/25 Rx bupropion HCl 300 mg 24 hr tablet, 300 mg PO QAM #100 tabs 07/01/24 02/05/25 Rx extended release fluoxetine 10 mg capsule 10 mg PO QPM #100 caps 07/01/24 02/05/25 Rx hydrochlorothiazide 12.5 mg tablet 12.5 mg PO QAM #100 tabs 07/01/24 02/05/25 Rx levothyroxine 88 mcg tablet 88 mcg PO QAM #100 tabs 07/01/24 02/05/25 Rx montelukast 10 mg tablet 10 mg PO HS #100 tabs 07/01/24 02/05/25 Rx (Singulair) albuterol sulfate 90 mcg/actuation 2 puff inhalation Q4H PRN 10/14/24 02/05/25 Rx aerosol inhaler shortness of breath or wheezing #25.5 grams fluticasone propionate 50 2 spray intranasal QAM #16 grams 10/14/24 02/05/25 Rx mcg/actuation nasal spray,suspension Breo Ellipta 100 mcg-25 mcg/dose 1 inh inhalation QAM #180 ea 10/18/24 02/05/25 Rx powder for inhalation (fluticasone furoate-vilanterol) metformin 500 mg tablet,extended 500 mg PO BID #180 tabs 12/16/24 02/05/25 Rx release 24 hr sucralfate 1 gram tablet (Carafate) 1 g PO UD 02/05/25 02/05/25 History Patient History Medical History Small bowel obstruction Depression Anxiety Dyspnea on effort chronic per pt History of COVID-19 06/2021- mild symptoms and had antibody infusion GERD (gastroesophageal reflux disease) no current meds Generalized osteoarthritis Stress incontinence in female Tubular adenoma of colon hx Surgical History H/O exploratory laparotomy (12/08/23) Exploratory Laparotomy, Release of Small Bowel Obstruction(Not Applicable) - Cruz Baugh MD, FACS Hx laparoscopic cholecystectomy (12/06/23) Laparoscopic Cholecystectomy With Cholangiogram(Not Applicable) - Cruz Baugh MD, FACS History of tonsillectomy History of left knee surgery Status post cataract extraction Right eye 12/29/2021-Dr. York Left eye 12/15/2021-Dr. York Hx of colonoscopy History of lumpectomy of left breast benign H/O vaginal hysterectomy Family History Father Myocardial infarction Mother Myocardial infarction Hypertension Uncle Stroke Other Heart disease No family history of adverse response to anesthesia No family history of bleeding disorder Denies family history of Ovarian cancer Prostate cancer Coronary heart disease Breast cancer Colorectal cancer Social History (Updated 02/05/25 @ 19:59 by Sd Herring MD, PhD) Smoking Status: Former smoker Tobacco Type: Cigarettes Age Started Using Tobacco: 16; Age Quit Using Tobacco: 37; packs per day: 3; Cigarettes Per Day: 60; Second Hand Exposure: Yes (hx growing up); Do You Dip or Chew Tobacco: No; Hx Alcohol Use: No Hx Substance Use: No Preferred Language: Welsh Communication Ability: Effective Visual Impairment: No Limitations Hearing Ability: Use of Hearing Aid Revenue Collector Required: No Beliefs That Will Affect Care: None marital status: marital status details: 1 son (60y), 1 daughter (56y), both alive and well. Current Living Situation: Spouse Current Living Situation Comment: Ambulates without cane, walker, or wheelchair. 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 How many Children do You have: 2 Feels Safe at Home: Yes Childhood Exposure to Second-Hand Smoke: No Diet: regular caffeine: Yes during the past year weight has: decreased > 10 lbs Dental Care, Regularly: Yes Physical Activity Frequency: 1-2 Times per Week Seatbelt Use: always Sunscreen Use: No Assistive Devices: Cane, Glasses and Hearing Aid - Bilateral Review of Systems Review of Systems: All systems reviewed & are unremarkable except as noted in HPI & below Physical Exam Constitutional: WD/WN, vitals as above Eyes: no conjunctival abnormality ENMT: Ears: no hearing impairment and no external ear abnormality Voice is noted to be hoarse Neck: trachea midline Respiratory: normal respiratory effort; no respiratory distress and no labored breathing Cardiovascular: Rate/Rhythm: regular rate and regular rhythm Gastrointestinal (Abdomen): At the time of my exam the patient's abdomen was soft with minimal distention. Patient did have some generalized pain with palpation greatest at the right of the umbilicus. There is no signs of peritonitis such as rebound tenderness, guarding, or rigidity. She had a well-healed midline incision from previous exploratory laparotomy. She also had well-healed laparoscopic incisions from her previous cholecystectomy Musculoskeletal: No calf tenderness, feet are warm and well-perfused Skin: no rashes Neurologic: moves all extremities Psychiatric: A+Ox3, euthymic affect Results & Data Vital Signs (Past 12 Hours) Vital Signs Temp Pulse Pulse Resp BP BP Pulse Ox 02/05/25 19:14 58 L 02/05/25 19:00 64 18 215/101 H 100 02/05/25 18:39 48 L 19 234/92 H 98 02/05/25 18:35 95 02/05/25 18:35 47 L 19 88 L 02/05/25 18:14 61 15 267/95 H 99 02/05/25 17:15 51 L 19 222/94 H 97 02/05/25 16:32 52 L 19 216/126 H 99 02/05/25 15:59 56 L 02/05/25 15:19 58 L 100 02/05/25 15:19 35.9 C L 59 L 20 230/93 H 100 02/05/25 15:05 35.9 C L 51 L 20 230/93 H 100 O2 Del Method O2 Flow Rate 02/05/25 19:14 02/05/25 19:00 02/05/25 18:39 Nasal Cannula 4 02/05/25 18:35 Nasal Cannula 4 02/05/25 18:35 Room Air 02/05/25 18:14 Room Air 02/05/25 17:15 Room Air 02/05/25 16:32 Nasal Cannula 2 02/05/25 15:59 02/05/25 15:19 Room Air 02/05/25 15:19 Room Air 02/05/25 15:05 Room Air PG Care Time/CCT Total # of Minutes Spent Total Time Spent with Patient: Total time spent is greater than 50% in coordination of care (as documented) at patient's floor/unit and/or counseling patient: Coding Level of Care Code 55184 INT INP/OBS CARE 3/75MIN
[2025-02-05 19:49] LABS: INR 0.9 (0.9-1.1); Prothrombin Time 10.3 Seconds (9.0-12.0)
[2025-02-05 19:56] LABS: Appearance Urine Clear (Clear); Bacteria Urine Automated None Seen (None Seen); Cast Urine Automated 0-2 /lpf (0-2); Epithelial Cell Urine Auto 0-2 /hpf (0-2); Glucose Urine UA 3+ (Negative); RBC Urine Automated 0-2 /hpf (0-2); WBC Urine Automated 0-5 /hpf (0-5)
[2025-02-05 20:25] LABS: HCO3 ABG 23 mmol/L (19-24); Oxygen Saturation ABG 99.7 % (90-95); PCO2 ABG 40 mmHg (35-46); PO2 ABG 175 mmHg (80-95)
[2025-02-05 20:26] LABS: Allen Test Pos (Pos)
[2025-02-05] MEDS ORDERED: GLUCOSE 40% GEL 15 GM TUBE PO PRN ×2 (20:43→20:45)
[2025-02-05] MEDS ORDERED: GLUCOSE 10 TAB/TUBE PO PRN ×2 (20:43→20:45)
[2025-02-05] MEDS ORDERED: GLUCAGON FOR INJ 1 MG VIAL SQ PRN ×2 (20:43→20:45)
[2025-02-05] MEDS ORDERED: CARBOHYDRATES FOR HYPOGLYCEMIA PO PRN ×2 (20:43→20:45)
[2025-02-05] MEDS ORDERED: DEXTROSE 50% 50 ML SYRINGE IV PRN (20:43)
[2025-02-05] MEDS: LANTUS PER UNIT CHARGE SQ ONE (22:11)
[2025-02-05] MEDS: MONTELUKAST SODIUM 10 MG TABLET PO SCH (22:23)
[2025-02-05] MEDS ORDERED: Nursing to Pharmacy Communication SCH (22:30)
[2025-02-05] MEDS: HEPARIN SOD 5,000 UNIT/0.5 ML VIAL SQ SCH (22:45)
[2025-02-05] MEDS: HYDROmorphone INJ 1 MG/ML SYRINGE IV PRN (22:46)
[2025-02-05] MEDS: INSULIN ASPART PER UNIT CHARGE SC SCH (23:28)
[2025-02-06] MEDS: INSULIN ASPART PER UNIT CHARGE SC SCH (00:50)
[2025-02-06] MEDS: LABETALOL HCL IV 5 MG/ML 20ML IV STA (01:33)
[2025-02-06] MEDS ORDERED: NYSTATIN POWDER 15GM BTL EXT PRN (06:05)
[2025-02-06] MEDS: LEVOTHYROXINE SODIUM 88 MCG TABLET PO SCH (06:12)
[2025-02-06] MEDS: FLUTICASONE/VILANTEROL 100/25MCG 14 PUFFS/INHALER INH SCH (07:33)
[2025-02-06 08:12] LABS: Hematocrit (blood only) 38.6 % (37.0-47.0); Hemoglobin 13.0 g/dl (12.0-16.0); Immature Granulocytes # (auto) 0.12 K/uL (0.01-0.20); Immature Granulocytes % (auto) 0.7 %; Mean Corpuscular Hemoglobin 31.0 pg (25.0-34.0); Mean Corpuscular Volume 92.1 fL (80.0-100.0); Platelet Count 298 K/uL (130-400); RDW Standard Deviation 42.0 fL (36.4-46.3); Red Blood Count 4.19 M/uL (4.20-5.40); White Blood Count 16.47 K/ul (4.8-10.8)
[2025-02-06 08:31] LABS: Alanine Aminotransferase 8.0 U/L (7-52); Albumin Globulin Ratio 1.6 (0.9-2); Alkaline Phosphatase 77.0 U/L (34-104); Anion Gap 7.0 (3-11); Bilirubin,Total 0.6 mg/dl (0.2-1.0); Blood Urea Nitrogen 30.0 mg/dl (6-23); Calcium 8.8 mg/dl (8.6-10.3); Carbon Dioxide 26.0 mmol/L (21-32); Chloride 106.0 mmol/L (98-107); Creatinine Clr Calc Pharmacy 48.0 ml/min; Globulin 2.5 gm/dl (2.5-4.0); Glucose 188.0 mg/dl (70-99(Fasting)); Potassium 3.8 mmol/L (3.5-5.1); Sodium 139.0 mmol/L (136-145); Total Protein 6.5 gm/dl (6.0-8.3)
--- NOTE | 2025-02-06 08:45 | XRay Report ---
KUB HISTORY: Evaluate for interval change in acute, complex SBO COMPARISON STUDY: 02/05/2025 FINDINGS: Stable right upper quadrant surgical clips. There are a few dilated small bowel loops at th e central abdomen measuring up to 4 cm diameter, grossly stable. No colonic distention seen. No gross free air. There is moderate retained stool. There is residual contrast in the urinary bladder. IMPRESSION: Grossly stable small bowel distention. ACT 112: Negative or not required by law. The above report was generated using voice recognition software. It may contain grammatical, syntax o r spelling errors. Electronically signed by: Tiburcio Lee M.D. 02/06/2025 8:44 AM
[2025-02-06 08:48] LABS: Hemoglobin A1C 7.2 % (4.5-5.6)
--- NOTE | 2025-02-06 10:54 | Surgery Progress Note ---
Date of Service February 06, 2025 Assessment & Plan (1) SBO (small bowel obstruction): Plan: 79F with SBO came in overnight last night (02/05/25). I reviewed her admission CT imaging noting significant stool burden in her rectum and distal sigmoid colon. HD stable and afebrile. Developed leukocytosis this am labs. Maintain NGT and strict NPO at this time Recommend suppositories for excess rectal stool burden Pain control OOB to chair Ambulate with assist when able Follow up am labs Admission and Anticipated Discharge Date Admission Date: February 05, 2025 Subjective I have seen and examined this patient this am. She has abdominal pain this am. She denies nausea, no vomiting, NGT in place. Physical Exam Constitutional: + ill appearing; not in distress and not diaphoretic Respiratory: normal respiratory effort; no respiratory distress, no labored breathing and does not use accessory muscles Gastrointestinal (Abdomen): Inspection/Auscultation: abdomen not distended Percussion/Palpation: + abdomen tender (TTP primarily RLQ, minimal TTP generalized.) and abdomen soft Results & Data Vital Signs (Past 12 Hours) Vital Signs Temp Pulse Pulse Resp BP BP Pulse Ox 02/06/25 10:42 36.9 C 80 18 163/70 H 96 02/06/25 09:26 64 02/06/25 09:26 02/06/25 08:03 168/66 H 02/06/25 07:02 37.1 C 65 18 200/87 H 98 02/06/25 02:51 37.1 C 59 L 18 161/78 H 96 02/06/25 01:52 60 188/99 H 02/06/25 01:33 61 195/89 H O2 Del Method O2 Flow Rate 02/06/25 10:42 Nasal Cannula 1 02/06/25 09:26 02/06/25 09:26 Nasal Cannula 2 02/06/25 08:03 02/06/25 07:02 Nasal Cannula 1 02/06/25 02:51 Room Air 02/06/25 01:52 02/06/25 01:33 PG Care Time/CCT Total # of Minutes Spent Total Time Spent with Patient: Total time spent is greater than 50% in coordination of care (as documented) at patient's floor/unit and/or counseling patient: Coding Level of Care Code 56182 SUB INP/OBS CARE 08/31MIN Diagnoses SBO (small bowel obstruction) K56.607
--- NOTE | 2025-02-06 22:50 | Hospitalist Progress Note ---
Date of Service February 06, 2025 Assessment & Plan (1) SBO (small bowel obstruction): Plan: To address #1, patient was made NPO except for meds and ice chips, while continuing NGT to decompress the stomach. Patient awaits richard-operative INR (02/05/2025, 3:14pm) and richard-operative EKG (02/05/2025, 6:41pm), repeat KUB (1 view)(to evaluate for any interval change(s) in acute complex SBO with 1-2 transition points, and formal General Surgery Service evaluation with Dr. Tiburcio Dubon in the 02/06/2025 am. In the interim, patient was started on tylenol 650mg PO q6 prn pain 1-3, headache, temp > 100.4 degrees Fahrenheit, dilaudid 1mg IV q6 prn pain 4-10. Of note, etiology of acute complex SBO remains unclear, but is probably due to surgical adhesions that developed after patient underwent (a) laparoscopic cholecystectomy (12/06/2023, 8:49am, [facility] General Surgeon Dr. Cruz Baugh) to treat cholelithiasis, complicated by acute SBO requiring (b) exploratory laparotomy with release of acute SBO (12/08/2023, 1:28pm, [facility] General Surgeon Dr. Cruz Baugh), (2) Acidosis, lactic: Plan: To address #2, patient received 1 liter of 0.9% NS @ 999 mL/hr (02/05/2025, 3:20pm), followed by 1 liter of 0.9% NS @ 74 mL/hr (02/05/2025, 6:46pm), based on a delivery rate of 1 mL of 0.9% NS per kg of body weight per hour, and a body weight of 74.1 kg. I will check repeat lactic acid #2 (02/05/2025, 7:14pm), lactic acid #3 (02/05/2025, 11:14pm), and lactic acid #4 (02/06/2025, 6:00am). Etiology of acute lactic acid elevation remains unclear, but is most probably due to acute dehydration, as reflected by BUN:creatinine ratio > 20:1 (cf., admission BUN 32, creatinine 1.31)(02/05/2025, 3:14pm). (3) Hypertension: Plan: To address #3, patient was started on tylenol 650mg PO q6 prn pain 1-3 (02/05/2025, 6:57pm), dilaudid 1mg IV x 1 dose (02/05/2025, 6:49pm), followed by dilaudid 1mg IV q6 prn pain 4-10 (02/05/2025, 7:31pm), as I surmise that patient's acute malignant HTN is largely driven by her 05/16 generalized abdominal pains, which in turn, are due to acute complete SBO with 1-2 transition points. In addition, as patient remains NPO and may not be capable of taking her home-scheduled ramipril 10mg PO qam or HCTZ 12.5mg PO qam, due to ongoing N/V, I have opted to start patient on anti-HTN agent hydralazine 10mg IV x 1 dose (02/05/2025, 7:25pm), followed by hydralazine 10mg IV q6 prn systolic BP > 185 mm Hg or diastolic BP > 95 mm Hg. Given the combination of analgesia with hydralazine, I hope to decrease patient's admitting BP 230/93 (02/05/2025, 3:05pm) by ~25% in the next 24 hours. I will check repeat BP qshift and I will also check repeat creatinine level in the 02/06/2025 am. cf., baseline creatinine range, 0.87 - 1.05 (12/13/2023 - 06/18/2024). (4) Hyperglycemia: Plan: To address #4, patient was started on lispro insulin sliding scale q6 and POC glucose q6 as patient remains NPO. In the interim, I have opted to hold off patient's home-scheduled metformin 500mg PO bid, given the potential for this medication to exacerbate patient's admitting complaints of N/V. I have also opted to hold off patient's home-scheduled dulaglutide 3mg SQ q7 days, given the potential for this medication to delay gastric emptying, which can increase the risk of aspiration during general anesthesia. In this patient with a past medical history of acute SBO requiring exploratory laparotomy with release of acute SBO (12/08/2023, 1:28pm, [facility] General Surgeon Dr. Cruz Baugh), I surmise that patient is at fairly high risk for having to undergo surgical correction of her acute complex SBO during this hospitalization. Hence, patient should NOT receive her home-scheduled dulaglutide 3mg SQ q7 days while in [facility]. Of final note, serum glucose goal is 180 mg/dL or less, as set forth by the seminal work of the [employer] Study Investigators (cf., "Intensive versus Conventional Glucose Control in Critically Ill Patients." [place] Journal of Medicine. October 30, 2008; [id number]). Admission and Anticipated Discharge Date Admission Date: February 05, 2025 Subjective "My belly still hurts all over. It's a 10 (out of 10). I feel nauseated, but no vomit and no diarrhea. No bowel movement and no farting." Review of Systems Constitutional: Patient denies antecedent/coincident fevers, chills, diaphoresis, cough, wheeze, sore throat, hemoptysis, chest pains, palpitations, pleurisy, diarrhea, pelvic pain, hematemesis, hematochezia, melena, hematuria, dysuria, frequency, urgency, headaches, dizziness, lightheadedness, visual changes, hearing changes, weakness, falls, syncope, trauma, travel history, sick contacts, or food/drug ingestions novel or new. All other review of systems are reported as negative by the patient on 02/06/2025. Physical Exam Constitutional: General: Uncomfortable with patient barfing into barf bag, yet cooperative, coherent. Wide awake and alert. Not confused, lethargic, or obtunded. Patient speaks in complete, fluent, and articulate sentences without pause, interruption, cough, or wheeze. HEENT: Normocephalic, atraumatic. Pupils equally round and reactive to light. No nystagmus, gaze paresis, anisocoria, miosis, mydriasis, hyphema, scleral injection, conjunctivitis, or pterygium. No otorrhea. No pharyngeal erythema, edema, or discharge. NGT in situ (inserted on 02/05/2025 in [facility] ER bed #[id number]). Neck: Supple, no stridor, bruit, goiter, or hepato-jugular reflux. Jugular venous pressure is estimated to be 3 cm above the sternal angle of Percy, which in turn, is 5 cm above the level of the right atrium; with jugular venous pressure estimated to be 8 cm, then, there is no jugular venous distention on 02/06/2025. Lymphatics: No cervical (anterior/posterior), supraclavicular, infraclavicular, axillary, epitrochlear, or inguinal adenopathy. Chest: Symmetric rise and fall with respirations. Non-tender to palpation. Lungs: Clear to auscultation and percussion. No audible expiratory wheeze, egophony, pectoriloquy, increase in tactile fremitus, or flatness/dullness to percussion at the bases. Heart: RRR. S1 and S2 noted. No S3 or S4 summation gallop. No tripartite friction rub. Grade II/ early systolic murmur @ LLSB without radiation to the carotids, axilla, or back, and which remains invariant in regards to the respiratory cycle. Abdomen: Soft, distended with generalized, MILD tenderness. No rebound, guarding, Alberto's sign, or organomegaly. Bowel sounds auscultated in all 4 quadrants. Extremities: No clubbing, cyanosis, or edema in upper extremities or lower extremities bilaterally. 2+ pedal pulses bilaterally. Skin: No decubitus ulcer or enanthem. Genito-urinary: No urethral discharge. No pryor catheter. Neurology: Alert and oriented in regards to person, place, time, and situation. DTR+. 5/5 motor strength in all 4 extremities, both proximally and distally. No myoclonus, tremors, or tics. Psychiatry: No homicidal ideation. No suicidal ideation. No flat affect; smiles appropriately. Results & Data Results & Data Vital Signs (Past 12 Hours) Vital Signs Temp Pulse Pulse Resp BP BP Pulse Ox 02/06/25 22:21 91 H 02/06/25 19:56 02/06/25 19:19 36.6 C 83 18 192/75 H 96 02/06/25 15:20 36.7 C 76 16 141/76 H 96 02/06/25 10:42 36.9 C 80 18 163/70 H 96 O2 Del Method O2 Flow Rate 02/06/25 22:21 02/06/25 19:56 Nasal Cannula 1 02/06/25 19:19 Room Air 02/06/25 15:20 Nasal Cannula 1 02/06/25 10:42 Nasal Cannula 1 Laboratory Results INR 1.0 (02/05/2025, 3:14pm)(richard-operative evaluation). Lactic acid #1 2.1 mmol/L (02/05/2025, 3:14pm). Lactic acid #2 1.0 mmol/L (02/05/2025, 8:13pm). Lactic acid #3 1.1 mmol/L (02/05/2025, 11:10pm). Lactic acid #4 1.3 mmol/L (02/06/2025, 9:36am). Procalcitonin #1 0.05 ng/mL (02/05/2025, ? time). Procalcitonin #2 0.61 ng/mL (02/06/2025, 9:36am). WBC 9.64, N77 L16 M6 E1, Hb 13.3, MCV 90.3, MCHC 33.8, platelet 283 (02/05/2025, 3:14pm). WBC 16.47, N88 L 4 M7, Hb 13.0, MCV 92.1, MCHC 33.7, platelet 298 (2024, 7:38am). Na 138, K 4.1, BUN 32, creatinine 1.31, GFR 41.7, glucose 226, anion gap 13, CO2 24, Ca 9.8, AST 14, ALT 9, ALK PHOS 95, TBili 0.7 (02/05/2025, 3:14pm). Na 139, K 3.8, BUN 30, creatinine 0.94, GFR 62.1, glucose 188, anion gap 7, CO2 26, Ca 8.8, AST 15, ALT 8, ALK PHOS 77, TBili 0.6 (02/06/2025, 7:38am). Diagnostic Findings CT abd/pelvis with IV contrast (02/05/2025, 3:11pm): 1. Complex small bowel obstruction identified involving the distal jejunum/proximal ileum in the pelvis. There is at least 1 and possibly 2 transition points, with mild wall thickening, surrounding infiltration, and intraluminal fluid. The adjacent mesenteric vessels appear engorged and a closed loop type obstruction is not excluded. Surgical evaluation is advised. 2. No intraperitoneal free air. No pneumatosis intestinalis or portal venous gas is seen. 3. Small volume of pelvic ascites. 4. Bilateral nephrolithiasis. 5. Coronary artery atherosclerosis. 6. Colonic diverticulosis without CT evidence of acute diverticulitis. Portable CXR (02/05/2025, 4:08pm): 1. No infiltrate, effusion, cardiomegaly, pulmonary vascular congestion, or pneumothorax. 2. NGT with tip in stomach (by my review). EKG (02/05/2025, 6:02pm): sinus bradycardia @ 51, QTC 425, no acute ST depressions/elevations, TWI, or q waves (by my review). PG Care Time/CCT Total # of Minutes Spent Total Time Spent with Patient: Total time spent is greater than 50% in coordination of care (as documented) at patient's floor/unit and/or counseling patient: Coding Level of Care Code 50545 SUB INP/OBS CARE 2/35MIN Diagnoses SBO (small bowel obstruction) K56.609 Acidosis, lactic E87.20 Hypertension I10 Hyperglycemia R73.9
[2025-02-07 05:39] LABS: Hematocrit (blood only) 37.0 % (37.0-47.0); Hemoglobin 12.2 g/dl (12.0-16.0); Immature Granulocytes # (auto) 0.13 K/uL (0.01-0.20); Immature Granulocytes % (auto) 0.6 %; Mean Corpuscular Hemoglobin 31.0 pg (25.0-34.0); Mean Corpuscular Volume 93.9 fL (80.0-100.0); Platelet Count 285 K/uL (130-400); RDW Standard Deviation 44.4 fL (36.4-46.3); Red Blood Count 3.94 M/uL (4.20-5.40); White Blood Count 21.47 K/ul (4.8-10.8)
[2025-02-07 05:55] LABS: Anion Gap 7.0 (3-11); Blood Urea Nitrogen 43.0 mg/dl (6-23); Calcium 8.8 mg/dl (8.6-10.3); Carbon Dioxide 26.0 mmol/L (21-32); Chloride 106.0 mmol/L (98-107); Creatinine Clr Calc Pharmacy 32.2 ml/min; Glucose 181.0 mg/dl (70-99(Fasting)); Potassium 4.1 mmol/L (3.5-5.1); Sodium 139.0 mmol/L (136-145)
[2025-02-07] MEDS: LACTATED RINGER'S 1,000 ML IV SCH (06:38)
[2025-02-07] MEDS: 4.5GM X1 IV ONE (08:37)
--- NOTE | 2025-02-07 08:39 | XRay Report ---
HISTORY: Small bowel obstruction. TECHNIQUE: Supine AP abdominal radiograph. COMPARISON: Abdominal radiograph dated 12/09/2023. FINDINGS: Nonspecific bowel gas pattern with paucity of small bowel gas. Loop of small bowel in the left lower quadrant measuring 2.6 cm in diameter. small volume of formed stool in the colon. No obvious free air or pneumatosis. Right upper quadrant surgical clips. Calcified pelvic phleboliths. Atherosclerotic vascular disease is mild. Degenerative changes are advanced within the lumbar spine. IMPRESSION: * Nonspecific bowel gas pattern with paucity of small bowel gas. If there is concern for small bowel obstruction, CT of the abdomen pelvis should be considered for further evaluation. * Additional findings as above. Electronically signed by Juvencio Segal 02-07-2025 08:37 AM
[2025-02-07] MEDS: HYDROmorphone INJ 1 MG/ML SYRINGE IV PRN (09:05)
--- NOTE | 2025-02-07 09:19 | Surgery Progress Note ---
Date of Service February 07, 2025 Assessment & Plan (1) SBO (small bowel obstruction): Plan: 79F with SBO came in overnight the night of 02/05/25. I reviewed her admission CT imaging noting significant stool burden in her rectum and distal sigmoid colon in addition to SBO. She has remained afebrile but did have some mild tachycardia overnight. Leukocytosis worsened on this am labs. Clinically patient is not improving and her status appears to be slightly worse with altered mental status. With rising WBC and intermittent low level tachycardia o/n, it is safest to proceed to the operating room where she will undergo laparoscopy, possible laparotomy for bowel exploration with all other indicated procedures. Her daughter Abida is reportedly on her way here from [place]. I have tried to call her once so far with no answer. Every attempt will be made to contact her prior to the OR being ready but we may need to proceed with this surgery as this is an emergent clinical situation. She has responded to suppositories and evacuated large amounts of stool from the rectum. NPO Admission and Anticipated Discharge Date Admission Date: February 05, 2025 Subjective Patient seen this am. Obtunded, unable to answer questions adequately. Is able to eventually confirm that she is having abdominal pain. Physical Exam Constitutional: + ill appearing, + obese and + altered m ental status; not in distress and not diaphoretic Respiratory: normal respiratory effort; no respiratory distress, no labored breathing and does not use accessory muscles Gastrointestinal (Abdomen): Abdomen is soft at the very lower abdomen. Her abdomen does feel tighter across the mid abdomen with a firm swelling noted at the RLQ Significant TTP NGT remains in place Neurologic: Pt is obtunded this am requiring tactile stimulation to awake and is unable to complete sentences to respond to questions. Unable to answer questions of orientation. Results & Data Vital Signs (Past 12 Hours) Vital Signs Temp Pulse Pulse Resp BP BP Pulse Ox 02/07/25 08:29 37.3 C 85 17 179/71 H 97 02/07/25 02:47 36.4 C L 91 H 18 170/79 H 96 02/07/25 00:00 149/77 H 02/06/25 22:46 36.7 C 88 18 144/73 H 96 02/06/25 22:21 91 H O2 Del Method O2 Flow Rate 02/07/25 08:29 Nasal Cannula 1 02/07/25 02:47 Room Air 02/07/25 00:00 02/06/25 22:46 Room Air 02/06/25 22:21 PG Care Time/CCT Total # of Minutes Spent Total Time Spent with Patient: Total time spent is greater than 50% in coordination of care (as documented) at patient's floor/unit and/or counseling patient: Coding Level of Care Code 72954 SUB INP/OBS CARE 2/35MIN Diagnoses SBO (small bowel obstruction) K56.609
[2025-02-07] MEDS ORDERED: ONDANSETRON INJ 2 MG/ML 2 ML VIAL ONE (09:31)
[2025-02-07] MEDS ORDERED: ROCURONIUM BROMIDE 10 MG/ML 5 ML VIAL IV ONE (09:31)
[2025-02-07] MEDS ORDERED: SUCCINYLCHOLINE 100MG/5ML SYR IV ONE (09:31)
[2025-02-07] MEDS ORDERED: DEXAMETHASONE SOD INJ 4 MG/ML VIAL ONE (09:31)
[2025-02-07] MEDS ORDERED: PROPOFOL IV EMULSION 10 MG/ML 20 ML VIAL IV ONE (09:31)
[2025-02-07] MEDS ORDERED: KETAMINE HCL 10MG/ML SYR ONE (09:32)
[2025-02-07] MEDS ORDERED: HYDROmorphone INJ 1 MG/ML SYRINGE ONE (09:32)
[2025-02-07] MEDS ORDERED: ERTAPENEM 1000MG 1,000 MG/10 ML SYR IV STA (10:02)
[2025-02-07] MEDS ORDERED: HYDROmorphone INJ 1 MG/ML SYRINGE IV PRN (10:14)
[2025-02-07] MEDS ORDERED: ONDANSETRON INJ 2 MG/ML 2 ML VIAL IV PRN (10:14)
[2025-02-07] MEDS ORDERED: ATROPINE SULFATE 0.1 MG/ML 10ML SYR IV PRN (10:14)
--- NOTE | 2025-02-07 10:14 | Anesthesiology Consultation ---
Date of Service February 07, 2025 Assessment & Plan ASA [id number] Proposed Anesthesia Anesthesia Type: General Risk / Benefits Reviewed With: PT / POA / Parent / Guardian, Accepts Plan and Informed Consent Obtained History Surgery Operation Date: 02/07/25 09:40 Proposed Procedures p Laparoscopic Bowel Resection - Milo Eason, Height/Weight Height: 5 ft 4 in Weight: 72 kg Allergies Allergy/AdvReac Type Severity Reaction Status Date / Time Sulfa (Sulfonamide AdvReac Intermediate NAUSEA/VOMI Verified 07/02/24 15:34 Antibiotics) TING Medications Home Medications Medication Instructions Recorded Confirmed Last Taken blood sugar diagnostic (Accu-Chek #100 ea 03/15/23 07/02/24 Unknown SmartView Test Strips) lancets (Accu-Chek Softclix #100 ea 03/17/23 07/02/24 Unknown Lancets) dulaglutide 3 mg/0.5 mL 3 mg subcut Q7D 11/24/23 02/05/25 11/20/23 subcutaneous pen injector aspirin 81 mg tablet,delayed 81 mg PO QAM 12/01/23 02/05/25 12/06/23 release (Adult Low Dose Aspirin) ondansetron 4 mg disintegrating 4 mg PO Q6H PRN nausea and 01/18/24 02/05/25 Unknown tablet vomiting #20 tabs ramipril 10 mg capsule 10 mg PO QAM #90 caps 02/06/24 02/05/25 Unknown mecobalamin (vitamin B12) 1,000 1,000 mcg PO DAILY 03/25/24 02/05/25 Unknown mcg chewable tablet atorvastatin 40 mg tablet 40 mg PO HS #100 tabs 07/01/24 02/05/25 Unknown bupropion HCl 300 mg 24 hr tablet, 300 mg PO QAM #100 tabs 07/01/24 02/05/25 Unknown extended release fluoxetine 10 mg capsule 10 mg PO QPM #100 caps 07/01/24 02/05/25 Unknown hydrochlorothiazide 12.5 mg tablet 12.5 mg PO QAM #100 tabs 07/01/24 02/05/25 Unknown levothyroxine 88 mcg tablet 88 mcg PO QAM #100 tabs 07/01/24 02/05/25 Unknown montelukast 10 mg tablet 10 mg PO HS #100 tabs 07/01/24 02/05/25 Unknown (Singulair) albuterol sulfate 90 mcg/actuation 2 puff inhalation Q4H PRN 10/14/24 02/05/25 Unknown aerosol inhaler shortness of breath or wheezing #25.5 grams fluticasone propionate 50 2 spray intranasal QAM #16 grams 10/14/24 02/05/25 Unknown mcg/actuation nasal spray,suspension Breo Ellipta 100 mcg-25 mcg/dose 1 inh inhalation QAM #180 ea 10/18/24 02/05/25 Unknown powder for inhalation (fluticasone furoate-vilanterol) metformin 500 mg tablet,extended 500 mg PO BID #180 tabs 12/16/24 02/05/25 Unknown release 24 hr sucralfate 1 gram tablet (Carafate) 1 g PO UD 02/05/25 02/05/25 Unknown Active Medications Generic Name Dose Route Start Last Admin Trade Name Freq PRN Reason Stop Dose Admin Bupropion HCl 300 mg 02/06/25 09:00 02/06/25 07:33 Bupropion Xl 300 Mg Tabcr PO 03/08/25 08:59 300 mg QAM BARBARA Administration Fluoxetine HCl 10 mg 02/05/25 21:00 02/06/25 19:54 Fluoxetine Hcl 10 Mg Cap PO 03/07/25 20:59 10 mg QPM BARBARA Administration Fluticasone/Vilanterol 1 puffs 02/06/25 09:00 02/07/25 08:38 Fluticasone/Vilanterol 100/25mcg 14 Puffs/Inhaler INH 03/08/25 08:59 1 puffs QAM BARBARA Administration Heparin Sodium (Porcine) 5,000 units 02/05/25 21:00 02/06/25 19:43 Heparin Sod 5,000 Unit/0.5 Ml Vial SQ 03/07/25 20:59 5,000 units Q12 BARBARA Administration Hydralazine HCl 10 mg 02/05/25 19:03 02/06/25 22:01 Hydralazine Hcl 20 Mg/Ml Vial IV 03/07/25 19:02 10 mg Q6 PRN Administration sbp>185 or dbp>95 Hydromorphone HCl 1 mg 02/07/25 08:46 02/07/25 09:05 Hydromorphone Inj 1 Mg/Ml Syringe IV 02/19/25 19:30 1 mg Q4H PRN Administration Pain rated 4 to 10 Lactated Ringer's 1,000 mls @ 125 mls/hr 02/07/25 06:45 02/07/25 06:38 Lr IV 02/07/25 14:44 125 mls/hr .Q8H BARBARA Administration Insulin Aspart 0 units 02/06/25 00:00 02/07/25 05:58 Insulin Aspart Per Unit Charge SC 03/08/25 00:00 3 units Q6 BARBARA Administration Levothyroxine Sodium 88 mcg 02/06/25 06:30 02/07/25 05:59 Levothyroxine Sodium 88 Mcg Tablet PO 03/08/25 06:29 88 mcg DAILYBB BARBARA Administration Montelukast Sodium 10 mg 02/05/25 21:00 02/06/25 19:54 Montelukast Sodium 10 Mg Tablet PO 03/07/25 20:59 10 mg HS BARBARA Administration NPO Date Last Intake of Fluids: 02/07/25 Time Last Intake of Fluids: 00:00 Date Last Intake of Solids: 02/07/25 Time Last Intake of Solids: 00:00 Past Medical History Medical History Small bowel obstruction Depression Anxiety Dyspnea on effort chronic per pt History of COVID-19 06/2021- mild symptoms and had antibody infusion GERD (gastroesophageal reflux disease) no current meds Generalized osteoarthritis Stress incontinence in female Tubular adenoma of colon hx Exercise / Class Metabolic Activity II 4-5 Yardwork/Stairs/Walk up hill Past Family History Family History Father Myocardial infarction Mother Myocardial infarction Hypertension Uncle Stroke Other Heart disease No family history of adverse response to anesthesia No family history of bleeding disorder Denies family history of Ovarian cancer Prostate cancer Coronary heart disease Breast cancer Colorectal cancer Past Surgical History Surgical History H/O exploratory laparotomy (12/08/23) Exploratory Laparotomy, Release of Small Bowel Obstruction(Not Applicable) - Cruz Baugh MD, FACS Hx laparoscopic cholecystectomy (12/06/23) Laparoscopic Cholecystectomy With Cholangiogram(Not Applicable) - Cruz Baugh MD, FACS History of tonsillectomy History of left knee surgery Status post cataract extraction Right eye 12/29/2021-Dr. York Left eye 12/15/2021-Dr. York Hx of colonoscopy History of lumpectomy of left breast benign H/O vaginal hysterectomy Past Anesthesia History No Hx of Anesthesia Complications and No Family Hx of Anesthesia Complications History of PONV No Hx of PONV and No Hx of Motion Sickness Social History Smoking Status: Never smoker Smoking cigarettes per day: 60 Do You Dip or Chew Tobacco: No Hx Alcohol Use: No Alcohol type: wine alcohol intake frequency: holidays/special occasions only Hx Substance Use: No substance use type: does not use Review of Systems denies fever/cough/ colds/ chest pain/ SOB/ DARIAN denies DARIAN Physical Exam Vital Signs Last Vital Signs Temp 37.3 C 02/07/25 08:29 Pulse 90 02/07/25 09:00 Resp 17 02/07/25 08:29 BP 179/71 H 02/07/25 08:29 Pulse Ox 97 02/07/25 08:29 O2 Del Method Nasal Cannula 02/07/25 09:00 O2 Flow Rate 1 02/07/25 09:00 ng tube ENMT Mouth: no TMJ abnormality and no dentition abnormality Thyromental Distance: > or= 3.5 Finger Breadths Mallampati Class: II Neck neck extension not limited Respiratory normal respiratory effort; no respiratory distress Auscultation: lungs clear to auscultation bilaterally Cardiovascular Rate/Rhythm: regular rate and regular rhythm Neurologic moves all extremities Psychiatric Orientation: alert and oriented x 3 Testing Laboratory Results 02/07/25 05:23 02/07/25 05:23 PT 10.3 Seconds (9.0-12.0) 02/05/25 15:14 INR 0.9 (0.9-1.1) 02/05/25 15:14 Hemoglobin A1c 7.2 % (4.5-5.6) H 02/05/25 15:14 Urine Color Yellow 02/05/25 19:30 Urine Appearance Clear (Clear) 02/05/25 19:30 Urine pH 8.0 (4.5-7.5) H 02/05/25 19:30 Ur Specific [place] 1.036 (1.000-1.030) H 02/05/25 19:30 Urine Protein 1+ (Negative) H 02/05/25 19:30 Urine Glucose (UA) 3+ (Negative) H 02/05/25 19:30 Urine Ketones 2+ (Negative) H 02/05/25 19:30 Urine Nitrite Negative (Negative) 02/05/25 19:30 Ur Leukocyte Esterase Negative (Negative) 02/05/25 19:30 Urine WBC (Auto) 0-5 /hpf (0-5) 02/05/25 19:30 Urine RBC (Auto) 0-2 /hpf (0-2) 02/05/25 19:30 U Hyaline Cast (Auto) 0-2 /lpf (0-2) 02/05/25 19:30 U Epithel Cells (Auto) 0-2 /hpf (0-2) 02/05/25 19:30 Urine Bacteria (Auto) None Seen (None Seen) 02/05/25 19:30 02/07/25 02/06/25 05:45 23:55 POC Glucose 191 H 183 H
[2025-02-07] MEDS ORDERED: PHENYLEPHRINE HCL 10 MG/ML VIAL ONE (10:42)
[2025-02-07] MEDS ORDERED: ePHEDrine sulfate 50 MG/5 ML SYR ONE (10:42)
[2025-02-07] MEDS ORDERED: PHENYLEPHRINE 100MCG/ML 5ML SYR ONE (10:42)
[2025-02-07] MEDS: ERTAPENEM 1000MG 1,000 MG/10 ML SYR IV ONE (10:43)
[2025-02-07] MEDS ORDERED: SUGAMMADEX SODIUM 200 MG/2 ML VIAL IV ONE (12:12)
[2025-02-07] MEDS: BUPIVACAINE/EPINEPHRINE 0.5% MPF 1:200,000 30 ML VIAL ONE (12:45)
--- NOTE | 2025-02-07 13:09 | Operative Report ---
PG Post Operative Report Pre & Post Diagnosis Operation Date: 02/07/25 09:40 Pre-Op Diagnosis: Acute small bowel obstruction Post-Op Diagnosis: Acute small bowel obstruction I identified the patient and participated in the time-out.: Yes Procedure Operation Date: 02/07/25 09:40 Actual Procedures p Laparoscopic Bowel Resection(Not Applicable) - Milo Eason DO Surgeon Milo Eason DO Publicity Agent Yashira Persaud NP Estimated Blood Loss 10 Findings See Below Nonviable and gangrenous small bowel Specimens Small bowel Drains 19 [place] CHITRA drain Complications No immediate complications noted Indications SBO with worsening leukocytosis and altered mental status Description of Procedure The patient was brought back to the operating room and placed on the operating room table in supine position. She was connected to cardiac oxygen monitoring, supplemental O2 was provided and SCDs were applied to bilateral lower extremities. The patient was administered general anesthesia and a secure airway was established. The abdomen was prepped and draped in typical sterile fashion a timeout was conducted. Intra-abdominal access was gained at the lateral umbilical fold using a Veress needle and this was confirmed with saline drop test. CO2 insufflation was initiated and pneumoperitoneum was created to a goal pressure of 15 mmHg. Once this pressure was reached, a 5 mm trocar was inserted using a 5 mm laparoscope for direct visualization. Within the abdomen, omental adhesion was identified to the anterior abdominal wall in addition to a small amount of hemorrhagic fluid. Additional trocars were inserted at the left lower and right upper quadrants. The midline omental adhesions were lysed using a LigaSure device. The OR table was positioned in the Trendelenburg and left side down position. The cecum was identified and reflected superiorly exposing a dark black structure in the pelvis. Small bowel was retracted superiorly and a loop of sigmoid colon was tethered to the peritoneum within the pelvis as well as peritoneum. A tight peritoneal attachment was lysed with the LigaSure device. Upon freeing up this internal hernia by transecting the adhesive tissue band began to further expose the dark black structure and revealing that it was gangrenous small bowel looped on itself creating a closed-loop bowel obstruction . The bowel was mobilized out of the pelvis into the intra-abdominal space. A small incision was made inferior to the umbilicus for a hand-assisted approach to externalize this gangrenous loop for resection of the anastomosis. An Luis retractor was used in the wound. The small bowel was brought through the Luis retractor. The bowel was clearly demarcated between the gangrenous segment and the healthy portion of the bowel. Structure between these 2 areas was present as well from the tight adhesive band that had to be lysed in order to free this segment. The bowel was resected using a purple loaded 45 mm Endo HORTENSIA stapler. The remaining limbs to be anastomosed for anchored together using two 3-0 silk sutures. Anastomosis was created between the proximal and distal limbs. The mesentery was ligated and transected using the LigaSure device. The open mesentery was then closed using interrupted 3-0 silk sutures taking care not to involve the mesenteric blood supply. The staple line was oversewn imbricated using 3-0 Vicryl suture. The bowel remained healthy appearing throughout this process. The anastomosis was palpated confirming a nice open connection. The small bowel was then reduced back into the abdomen and an Luis was removed. The fascia at this hand-assisted site was closed using looped PDS suture. CO2 insufflation was reconnected and the initiated to reestablish pneumoperitoneum. The intra-abdominal space was inspected. The anastomosis was intact and the bowel appeared very healthy. The pelvis was irrigated and suctioned free of the previous gangrenous fluid. A 19 Green[place]ic CHITRA Livan drain was inserted into the pelvis. Instruments were removed the final time, CO2 insufflation was discontinued and excess pneumoperitoneum was evacuated. The subcutaneous tissue at the hand-assisted site was approximated using 4-0 Vicryl suture. The skin was approximated using qian at this hand- assisted site in addition to the lateral umbilical, left upper quadrant and right upper quadrant laparoscopic port sites. The patient did well with the procedure. She was awakened from anesthesia, the secure airway was removed and she was transferred recovery in stable condition. I attest to the content of the Intraoperative Record and any orders documented therein. Any exceptions are noted below.
--- NOTE | 2025-02-07 13:33 | Anesthesiology Progress Note ---
Date of Service February 07, 2025 Anesthesia Post Procedure Vital Signs Vital Signs: Temp Pulse Pulse Pulse Resp BP BP 02/07/25 13:30 88 11 L 116/58 L 02/07/25 13:20 92 H 20 124/55 L 02/07/25 13:10 87 17 103/55 L 02/07/25 13:03 36.6 C 87 22 137/65 02/07/25 09:00 90 02/07/25 09:00 02/07/25 08:29 37.3 C 85 17 179/71 H 02/07/25 02:47 36.4 C L 91 H 18 170/79 H 02/07/25 00:00 149/77 H 02/06/25 22:46 36.7 C 88 18 144/73 H 02/06/25 22:21 91 H 02/06/25 19:56 02/06/25 19:19 36.6 C 83 18 192/75 H 02/06/25 15:20 36.7 C 76 16 141/76 H Pulse Ox O2 Del Method O2 Flow Rate 02/07/25 13:30 95 Nasal Cannula 3 02/07/25 13:20 92 Nasal Cannula 3 02/07/25 13:10 94 Oxymask 7 02/07/25 13:03 92 Oxymask 7 02/07/25 09:00 02/07/25 09:00 Nasal Cannula 1 02/07/25 08:29 97 Nasal Cannula 1 02/07/25 02:47 96 Room Air 02/07/25 00:00 02/06/25 22:46 96 Room Air 02/06/25 22:21 02/06/25 19:56 Nasal Cannula 1 02/06/25 19:19 96 Room Air 02/06/25 15:20 96 Nasal Cannula 1 Pain Intensity Abdomen: Pain Intensity: 6 Transfer of Care Handoff Completed per policy Notes Mental Status: alert / awake / arousable and participated in evaluation Patient Amnestic to Procedure: Yes Nausea / Vomiting: adequately controlled Pain: adequately controlled Airway Patency, RR, SpO2: stable & adequate BP & HR: stable & adequate Hydration State: stable & adequate Anesthetic Complications: no major complications apparent and Pt Satisfied with anesthetic care
[2025-02-07] MEDS: PIPERACILLIN/TAZOBACTAM 4.5 GM/100 ML BAG IV SCH ×2 (14:56→23:33)
[2025-02-07] MEDS: SODIUM CHLORIDE 0.9% 1,000 ML IV SCH (15:23)
[2025-02-07] MEDS: SODIUM CHLORIDE 0.9% 1,000 ML IV ONE (16:25)
[2025-02-07] MEDS: ACETAMINOPHEN 1,000 MG/100 ML VIAL IV PRN (21:12)
--- NOTE | 2025-02-07 21:41 | Hospitalist Progress Note ---
Date of Service February 07, 2025 Assessment & Plan (1) SBO (small bowel obstruction): Plan: To address #1, patient was made NPO except for meds and ice chips, while continuing NGT to decompress the stomach. Patient awaits richard-operative INR (02/05/2025, 3:14pm) and richard-operative EKG (02/05/2025, 6:41pm), repeat KUB (1 view)(to evaluate for any interval change(s) in acute complex SBO with 1-2 transition points, and formal General Surgery Service evaluation with Dr. Tiburcio Dubon in the 02/06/2025 am. In the interim, patient was started on tylenol 650mg PO q6 prn pain 1-3, headache, temp > 100.4 degrees Fahrenheit, dilaudid 1mg IV q6 prn pain 4-10. Of note, etiology of acute complex SBO remains unclear, but is probably due to surgical adhesions that developed after patient underwent (a) laparoscopic cholecystectomy (12/06/2023, 8:49am, [facility] General Surgeon Dr. Cruz Baugh) to treat cholelithiasis, complicated by acute SBO requiring (b) exploratory laparotomy with release of acute SBO (12/08/2023, 1:28pm, [facility] General Surgeon Dr. Cruz Baugh). Patient subsequently underwent surgical resection of ~40cm of necrotic/gangrenous bowel (as per General Surgeon SANDRA Tovar) on 02/07/2025, 1:06pm with [facility] General Surgeon Dr. Milo Eason. (2) Acidosis, lactic: Plan: To address #2, patient received 1 liter of 0.9% NS @ 999 mL/hr (02/05/2025, 3:2 0pm), followed by 1 liter of 0.9% NS @ 74 mL/hr (02/05/2025, 6:46pm), based on a delivery rate of 1 mL of 0.9% NS per kg of body weight per hour, and a body weight of 74.1 kg. Etiology of acute lactic acid elevation remains unclear, but is most probably due to acute dehydration, as reflected by BUN:creatinine ratio > 20:1 (cf., admission BUN 32, creatinine 1.31)(02/05/2025, 3:14pm). Hence, I opted to rehydrate patient with 1 liter of 0.9% NS @ 999 mL/hr (02/07/2025, 3:23pm), followed by 1 liter of 0.9% NS @ 72 mL/hr (02/07/2025, 4:25pm), based on a delivery rate of 1 mL of 0.9% NS per kg of body weight per hour, and a body weight of 72.0 kg. I will check repeat lactic acid level in the 02/08/2025 am. (3) Hypertension: Plan: To address #3, patient was started on tylenol 650mg PO q6 prn pain 1-3 (02/05/2025, 6:57pm), dilaudid 1mg IV x 1 dose (02/05/2025, 6:49pm), followed by dilaudid 1mg IV q6 prn pain 4-10 (02/05/2025, 7:31pm), as I surmise that patient's acute malignant HTN is largely driven by her 1010 generalized abdominal pains, which in turn, are due to acute complete SBO with 1-2 transition points. In addition, as patient remains NPO and may not be capable of taking her home-scheduled ramipril 10mg PO qam or HCTZ 12.5mg PO qam, due to ongoing N/V, I have opted to start patient on anti-HTN agent hydralazine 10mg IV x 1 dose (02/05/2025, 7:25pm), followed by hydralazine 10mg IV q6 prn systolic BP > 185 mm Hg or diastolic BP > 95 mm Hg. Given the combination of analgesia with hydralazine, I hoped to decrease patient's admitting BP 230/93 (02/05/2025, 3:05pm) by ~25% in the first 24 hours of hospitalization. cf., current BP 137/74 (02/07/2025, 8:47pm). I will check repeat BP qshift and in the am. (4) Hyperglycemia: Plan: To address #4, patient was started on lispro insulin sliding scale q6 and POC glucose q6 as patient remains NPO. In the interim, I have opted to hold off patient's home-scheduled metformin 500mg PO bid, given the potential for this medication to exacerbate patient's admitting complaints of N/V. I have also opted to hold off patient's home-scheduled dulaglutide 3mg SQ q7 days, given the potential for this medication to delay gastric emptying, which can increase the risk of aspiration during general anesthesia. In this patient with a past medical history of acute SBO requiring exploratory laparotomy with release of acute SBO (12/08/2023, 1:28pm, [facility] General Surgeon Dr. Cruz Baugh), I surmise that patient is at fairly high risk for having to undergo surgical correction of her acute complex SBO during this hospitalization. Hence, patient should NOT receive her home-scheduled dulaglutide 3mg SQ q7 days while in [facility]. Of final note, serum glucose goal is 180 mg/dL or less, as set forth by the seminal work of the [employer] (cf., "Intensive versus C onventional Glucose Control in Critically Ill Patients." [employer] Journal [employer] Medicine. October 30, 2008; 360:0044-5107). Admission and Anticipated Discharge Date Admission Date: February 05, 2025 Subjective Unavailable as patient is moaning and groaning post-operatively on 02/07/2025, 9:25pm). Review of Systems Constitutional: Unavailable as patient is moaning and groaning post-operatively on 02/07/2025, 9:25pm). Physical Exam Constitutional: General: Uncomfortable with patient moaning and groaning. Awake, but non-verbal. Not lethargic or obtunded. HEENT: Normocephalic, atraumatic. Pupils equally round and reactive to light. No nystagmus, gaze paresis, anisocoria, miosis, mydriasis, hyphema, scleral injection, conjunctivitis, or pterygium. No otorrhea. No pharyngeal erythema, edema, or discharge. NGT in situ (inserted on 02/05/2025 in [facility] ER bed #[id number]) with 200 mL effluent in past 12 hours. Neck: Supple, no stridor, bruit, goiter, or hepato-jugular reflux. Jugular venous pressure is estimated to be 3 cm above the sternal angle of Percy, which in turn, is 5 cm above the level of the right atrium; with jugular venous pressure estimated to be 8 cm, then, there is no jugular venous distention on 02/07/2025. Lymphatics: No cervical (anterior/posterior), supraclavicular, infraclavicular, axillary, epitrochlear, or inguinal adenopathy. Chest: Symmetric rise and fall with respirations. Non-tender to palpation. Lungs: Clear to auscultation and percussion. No audible expiratory wheeze, egophony, pectoriloquy, increase in tactile fremitus, or flatness/dullness to percussion at the bases. Heart: RRR. S1 and S2 noted. No S3 or S4 summation gallop. No tripartite friction rub. Grade II/ early systolic murmur @ LLSB without radiation to the carotids, axilla, or back, and which remains invariant in regards to the respiratory cycle. Abdomen: Soft, distended with generalized, MILD tenderness. No rebound, guarding, Alberto's sign, or organomegaly. Bowel sounds auscultated in all 4 quadrants. 19 [place] CHITRA Livan drain with 40 cc effluent since insertion on 02/07/2025, 1:06pm. Extremities: No clubbing, cyanosis, or edema in upper extremities or lower extremities bilaterally. 2+ pedal pulses bilaterally. Skin: No decubitus ulcer or enanthem. Genito-urinary: No urethral discharge. + pryor catheter with 350 mL urine expressed in past 12 hours. Neurology: Alert and oriented in regards to person, place, time, and situation. DTR+. 5/5 motor strength in all 4 extremities, both proximally and distally. No myoclonus, tremors, or tics. Psychiatry: No homicidal ideation. No suicidal ideation. No flat affect; smiles appropriately. Results & Data Results & Data Vital Signs (Past 12 Hours) Vital Signs Temp Pulse Pulse Resp BP Pulse Ox O2 Del Method 02/07/25 20:47 37.2 C 94 H 16 137/74 97 Nasal Cannula 02/07/25 19:55 37.2 C 95 H 18 130/64 96 Nasal Cannula 02/07/25 17:58 36.4 C L 93 H 18 146/71 H 97 Nasal Cannula 02/07/25 16:57 36.4 C L 102 H 18 121/67 95 Nasal Cannula 02/07/25 16:30 97 H 02/07/25 15:23 36.8 C 95 H 16 111/67 92 Nasal Cannula 02/07/25 14:59 36.8 C 92 H 18 108/67 95 Nasal Cannula 02/07/25 14:35 36.9 C 92 H 17 119/67 94 Nasal Cannula 02/07/25 14:02 36.9 C 90 18 100/64 92 Nasal Cannula 02/07/25 13:50 37.2 C 88 12 136/62 97 Nasal Cannula 02/07/25 13:40 89 10 L 109/61 96 Nasal Cannula 02/07/25 13:30 88 11 L 116/58 L 95 Nasal Cannula 02/07/25 13:20 92 H 20 124/55 L 92 Nasal Cannula 02/07/25 13:10 87 17 103/55 L 94 Oxymask 02/07/25 13:03 36.6 C 87 22 137/65 92 Oxymask O2 Flow Rate 02/07/25 20:47 2 02/07/25 19:55 2 02/07/25 17:58 2 02/07/25 16:57 2 02/07/25 16:30 02/07/25 15:23 2 02/07/25 14:59 2 02/07/25 14:35 2 02/07/25 14:02 2 02/07/25 13:50 3 02/07/25 13:40 3 02/07/25 13:30 3 02/07/25 13:20 3 02/07/25 13:10 7 02/07/25 13:03 7 Laboratory Results INR 1.0 (02/05/2025, 3:14pm)(richard-operative evaluation). Lactic acid #1 2.1 mmol/L (02/05/2025, 3:14pm). Lactic acid #2 1.0 mmol/L (02/05/2025, 8:13pm). Lactic acid #3 1.1 mmol/L (02/05/2025, 11:10pm). Lactic acid #4 1.3 mmol/L (02/06/2025, 9:36am). Lactic acid #5 1.0 mmol/L (02/07/2025, 5:23am). Lactic acid #5 1.9 mmol/L (02/07/2025, 3:30pm). Procalcitonin #1 0.05 ng/mL (02/05/2025, ? time). Procalcitonin #2 0.61 ng/mL (02/06/2025, 9:36am). Procalcitonin #3 2.01 ng/mL (02/07/2025, 5:23am). WBC 9.64, N77 L16 M6 E1, Hb 13.3, MCV 90.3, MCHC 33.8, platelet 283 (02/05/2025, 3:14pm). WBC 16.47, N88 L 4 M7, Hb 13.0, MCV 92.1, MCHC 33.7, platelet 298 (02/06/2025, 7:38am). WBC 21.47, N87 L 4 M9, Hb 12.2, MCV 93.9, MCHC 33.0, platelet 285 (02/07/2025, 5:23am). Na 138, K 4.1, BUN 32, creatinine 1.31, GFR 41.7, glucose 226, anion gap 13, CO2 24, Ca 9.8, AST 14, ALT 9, ALK PHOS 95, TBili 0.7 (02/05/2025, 3:14pm). Na 139, K 3.8, BUN 30, creatinine 0.94, GFR 62.1, glucose 188, anion gap 7, CO2 26, Ca 8.8, AST 15, ALT 8, ALK PHOS 77, TBili 0.6 (02/06/2025, 7:38am). Na 139, K 4.1, BUN 43, creatinine 1.40, GFR 38.5, glucose 181, anion gap 7, CO2 26, Ca 8.8 (02/07/2025, 5:23am). Diagnostic Findings CT abd/pelvis with IV contrast (02/05/2025, 3:11pm): 1. Complex small bowel obstruction identified involving the distal jejunum/proximal ileum in the pelvis. There is at least 1 and possibly 2 transition points, with mild wall thickening, surrounding infiltration, and intraluminal fluid. The adjacent mesenteric vessels appear engorged and a closed loop type obstruction is not excluded. Surgical evaluation is advised. 2. No intraperitoneal free air. No pneumatosis intestinalis or portal venous gas is seen. 3. Small volume of pelvic ascites. 4. Bilateral nephrolithiasis. 5. Coronary artery atherosclerosis. 6. Colonic diverticulosis without CT evidence of acute diverticulitis. Portable CXR (02/05/2025, 4:08pm): 1. No infiltrate, effusion, cardiomegaly, pulmonary vascular congestion, or pneumothorax. 2. NGT with tip in stomach (by my review). EKG (02/05/2025, 6:02pm): sinus bradycardia @ 51, QTC 425, no acute ST depressions/elevations, TWI, or q waves (by my review). KUB (02/06/2025, 7:38am): Grossly stable small bowel distention. KUB (02/07/2025, 8:14am): Nonspecific bowel gas pattern with paucity of small bowel gas. Loop of small bowel in the left lower quadrant measuring 2.6 cm in diameter. small volume of formed stool in the colon. No obvious free air or pneumatosis. Right upper quadrant surgical clips. Calcified pelvic phleb oliths. Atherosclerotic vascular disease is mild. Degenerative changes are advanced within the lumbar spine. PG Care Time/CCT Total # of Minutes Spent Total Time Spent with Patient: Total time spent is greater than 50% in coordination of care (as documented) at patient's floor/unit and/or counseling patient: Coding Level of Care Code 44782 SUB INP/OBS CARE 2/35MIN Diagnoses SBO (small bowel obstruction) K56.609 Acidosis, lactic E87.20 Hypertension I10 Hyperglycemia R73.9
[2025-02-08 08:10] LABS: Anion Gap 5.0 (3-11); Blood Urea Nitrogen 46.0 mg/dl (6-23); Calcium 8.0 mg/dl (8.6-10.3); Carbon Dioxide 26.0 mmol/L (21-32); Chloride 110.0 mmol/L (98-107); Creatinine Clr Calc Pharmacy 32.2 ml/min; Glucose 145.0 mg/dl (70-99(Fasting)); Potassium 3.7 mmol/L (3.5-5.1); Sodium 141.0 mmol/L (136-145)
[2025-02-08 08:49] LABS: Hematocrit (blood only) 31.6 % (37.0-47.0); Hemoglobin 10.3 g/dl (12.0-16.0); Mean Corpuscular Hemoglobin 30.8 pg (25.0-34.0); Mean Corpuscular Volume 94.6 fL (80.0-100.0); Platelet Count 227 K/uL (130-400); RDW Standard Deviation 44.8 fL (36.4-46.3); Red Blood Count 3.34 M/uL (4.20-5.40); White Blood Count 11.08 K/ul (4.8-10.8)
[2025-02-08 08:51] LABS: Dohle Bodies 1+; Immature Granulocytes # (auto) 0.02 K/uL (0.01-0.20); Immature Granulocytes % (auto) 0.2 %; Polychromasia 1+
--- NOTE | 2025-02-08 09:58 | Surgery Progress Note ---
<Statement entered by Milo Eason, DO - 02/08/25 10:36> I have seen and examined this patient this a.m. postsurgical appendectomy. I agree with this plan. Date of Service February 08, 2025 Assessment & Plan (1) S/P small bowel resection: Plan: POD [address] Eason pt drowsy, but more alert than yesterday agreeable to sit at edge of bed/chair pain controlled continue NGT to LIWS , denies flatus CHITRA drain VSS , wbc decreasing awaiting return of bowel function prior to starting a diet pt seen and examined with Dr Eason Admission and Anticipated Discharge Date Admission Date: February 05, 2025 Subjective pt reports feeling better than yesterday drowsy Review of Systems Constitutional: no fever and no chills Gastrointestinal: + abdominal pain; no nausea and no vomit ing Physical Exam Constitutional: cooperative and comfortable Respiratory: able to speak in complete sentences; no respiratory distress Cardiovascular: Rate/Rhythm: regular rate Gastrointestinal (Abdomen): Inspection/Auscultation: + abdominal surgical incision (dressing CDI ) and + abdominal surgical drain present; abdomen not distended Percussion/Palpation: + abdomen tender Results & Data Vital Signs (Past 12 Hours) Vital Signs Temp Pulse Pulse Resp BP Pulse Ox O2 Del Method 02/08/25 08:42 Nasal Cannula 02/08/25 07:39 90 02/08/25 07:05 98.2 F 75 20 127/75 95 Nasal Cannula 02/08/25 04:48 97.7 F 90 147/75 H 97 Nasal Cannula 02/08/25 00:16 97.9 F 94 H 134/66 97 Room Air 02/07/25 21:55 95 H O2 Flow Rate 02/08/25 08:42 2 02/08/25 07:39 02/08/25 07:05 4 02/08/25 04:48 2 02/08/25 00:16 02/07/25 21:55 Results CBC w Diff Results: RBC 3.34 M/uL (4.20-5.40) L 02/08/25 WBC 11.08 K/ul (4.8-10.8) H 02/08/25 Hgb 10.3 g/dl (12.0-16.0) L 02/08/25 Hct 31.6 % (37.0-47.0) L 02/08/25 MCV 94.6 fL (80.0-100.0) 02/08/25 MCH 30.8 pg (25.0-34.0) 02/08/25 MCHC 32.6 g/dL (32.0-36.0) 02/08/25 RDW Standard Deviation 44.8 fL (36.4-46.3) 02/08/25 RDW Coefficient of Variation 12.9 % (11.5-14.5) 02/08/25 Plt Count 227 K/uL (130-400) 02/08/25 MPV 11.1 fL (9.4-12.4) 02/08/25 Neutrophils (%) (Auto) 84.4 % 02/08/25 Lymphocytes (%) (Auto) 7.1 % 02/08/25 Monocytes # (Auto) 0.89 K/uL (0.11-0.59) H 02/08/25 Eosinophils # (Auto) 0.01 K/uL (0.00-0.50) 02/08/25 Immature Granulocyte % (Auto) 0.2 % 02/08/25 Neutrophils # (Auto) 9.35 K/uL (1.40-6.50) H 02/08/25 Lymphocytes # (Auto) 0.79 K/uL (1.20-3.40) L 02/08/25 Monocytes # (Auto) 0.89 K/uL (0.11-0.59) H 02/08/25 Eosinophils # (Auto) 0.01 K/uL (0.00-0.50) 02/08/25 Basophils # (Auto) 0.02 K/uL (0.00-0.20) 02/08/25 Immature Granulocyte # (Auto) 0.02 K/uL (0.01-0.20) 5 Polychromasia 1+ 02/08/25 Dohle Bodies 1+ 02/08/25 PG Care Time/CCT Total # of Minutes Spent Total Time Spent with Patient: Total time spent is greater than 50% in coordination of care (as documented) at patient's floor/unit and/or counseling patient: Coding Level of Care Code 10659 Post Operative Follow-Up Diagnoses S/P small bowel resection Z90.49
[2025-02-08] MEDS: HYDROmorphone INJ 0.5 MG/0.5 ML SYR IV PRN (11:08)
--- NOTE | 2025-02-08 21:45 | Hospitalist Progress Note ---
Date of Service February 08, 2025 Assessment & Plan (1) SBO (small bowel obstruction): Plan: To address #1, patient was made NPO except for meds and ice chips, while continuing NGT to decompress the stomach. Patient awaits richard-operative INR (02/05/2025, 3:14pm) and richard-operative EKG (02/05/2025, 6:41pm), repeat KUB (1 view)(to evaluate for any interval change(s) in acute complex SBO with 1-2 transition points, and formal General Surgery Service evaluation with Dr. Tiburcio Dubon in the 02/06/2025 am. In the interim, patient was started on tylenol 650mg PO q6 prn pain 1-3, headache, temp > 100.4 degrees Fahrenheit, dilaudid 1mg IV q6 prn pain 4-10. Of note, etiology of acute complex SBO remains unclear, but is probably due to surgical adhesions that developed after patient underwent (a) laparoscopic cholecystectomy (12/06/2023, 8:49am, [facility] General Surgeon Dr. Cruz Baugh) to treat cholelithiasis, complicated by acute SBO requiring (b) exploratory laparotomy with release of acute SBO (12/08/2023, 1:28pm, [facility] General Surgeon Dr. Cruz Baugh). Patient subsequently underwent surgical resection of ~40cm of necrotic/gangrenous bowel (as per General Surgeon SANDRA Tovar) on 02/07/2025, 1:06pm with [facility] General Surgeon Dr. Milo Eason. (2) Acidosis, lactic: Plan: To address #2, patient received 1 liter of 0.9% NS @ 999 mL/hr (02/05/2025, 3:2 0pm), followed by 1 liter of 0.9% NS @ 74 mL/hr (02/05/2025, 6:46pm), based on a delivery rate of 1 mL of 0.9% NS per kg of body weight per hour, and a body weight of 74.1 kg. Etiology of acute lactic acid elevation remains unclear, but is most probably due to acute dehydration, as reflected by BUN:creatinine ratio > 20:1 (cf., admission BUN 32, creatinine 1.31)(02/05/2025, 3:14pm). Hence, I opted to rehydrate patient with 1 liter of 0.9% NS @ 999 mL/hr (02/07/2025, 3:23pm), followed by 1 liter of 0.9% NS @ 72 mL/hr (02/07/2025, 4:25pm), based on a delivery rate of 1 mL of 0.9% NS per kg of body weight per hour, and a body weight of 72.0 kg. I will check repeat lactic acid level in the 02/09/2025 am. (3) Hypertension: Plan: To address #3, patient was started on tylenol 650mg PO q6 prn pain 1-3 (02/05/2025, 6:57pm), dilaudid 1mg IV x 1 dose (02/05/2025, 6:49pm), followed by dilaudid 1mg IV q6 prn pain 4-10 (02/05/2025, 7:31pm), as I surmise that patient's acute malignant HTN is largely driven by her 1010 generalized abdominal pains, which in turn, are due to acute complete SBO with 1-2 transition points. In addition, as patient remains NPO and may not be capable of taking her home-scheduled ramipril 10mg PO qam or HCTZ 12.5mg PO qam, due to ongoing N/V, I have opted to start patient on anti-HTN agent hydralazine 10mg IV x 1 dose (02/05/2025, 7:25pm), followed by hydralazine 10mg IV q6 prn systolic BP > 185 mm Hg or diastolic BP > 95 mm Hg. Given the combination of analgesia with hydralazine, I hoped to decrease patient's admitting BP 230/93 (02/05/2025, 3:05pm) by ~25% in the first 24 hours of hospitalization. cf., current BP 158/74 (02/08/2025, 7:11pm). I will check repeat BP qshift and in the am. (4) Hyperglycemia: Plan: To address #4, patient was started on lispro insulin sliding scale q6 and POC glucose q6 as patient remains NPO. In the interim, I have opted to hold off patient's home-scheduled metformin 500mg PO bid, given the potential for this medication to exacerbate patient's admitting complaints of N/V. I have also opted to hold off patient's home-scheduled dulaglutide 3mg SQ q7 days, given the potential for this medication to delay gastric emptying, which can increase the risk of aspiration during general anesthesia. In this patient with a past medical history of acute SBO requiring exploratory laparotomy with release of acute SBO (12/08/2023, 1:28pm, [facility] General Surgeon Dr. Cruz Baugh), I surmise that patient is at fairly high risk for having to undergo surgical correction of her acute complex SBO during this hospitalization. Hence, patient should NOT receive her home-scheduled dulaglutide 3mg SQ q7 days while in [facility]. Of final note, serum glucose goal is 180 mg/dL or less, as set forth by the seminal work of the [employer] Study [employer] (cf., "Intensive versus C onventional Glucose Control in Critically Ill Patients." [place] Journal of Medicine. October 30, 2008; 360:[id number]). Admission and Anticipated Discharge Date Admission Date: February 05, 2025 Subjective "Looks like I made it through surgery." Review of Systems Constitutional: Patient reports generalized abdominal pain (rated 3 out of 10). Negative for antecedent/coincident fevers, chills, diaphoresis, cough, wheeze, sore throat, hemoptysis, chest pains, palpitations, pleurisy, nausea, vomiting, diarrhea, pelvic pain, hematemesis, hematochezia, melena, hematuria, dysuria, frequency, urgency, headaches, dizziness, lightheadedness, visual changes, hearing changes, weakness, falls, syncope, trauma, travel history, sick contacts, or food/drug ingestions novel or new. All other review of systems are reported as negative by the patient on 02/08/2025. Physical Exam Constitutional: General: Uncomfortable with patient moaning and groaning. Awake, alert. Not confused. Not lethargic or obtunded. HEENT: Normocephalic, atraumatic. Pupils equally round and reactive to light. No nystagmus, gaze paresis, anisocoria, miosis, mydriasis, hyphema, scleral injection, conjunctivitis, or pterygium. No otorrhea. No pharyngeal e rythema, edema, or discharge. NGT in situ (inserted on 02/05/2025 in [facility] ER bed #[id number]) with 600 mL effluent in past 12 hours. Neck: Supple, no stridor, bruit, goiter, or hepato-jugular reflux. Jugular venous pressure is estimated to be 3 cm above the sternal angle of Percy, which in turn, is 5 cm above the level of the right atrium; with jugular venous pressure estimated to be 8 cm, then, there is no jugular venous distention on 02/07/2025. Lymphatics: No cervical (anterior/posterior), supraclavicular, infraclavicular, axillary, epitrochlear, or inguinal adenopathy. Chest: Symmetric rise and fall with respirations. Non-tender to palpation. Lungs: Clear to auscultation and percussion. No audible expiratory wheeze, egophony, pectoriloquy, increase in tactile fremitus, or flatness/dullness to percussion at the bases. Heart: RRR. S1 and S2 noted. No S3 or S4 summation gallop. No tripartite friction rub. Grade II/ early systolic murmur @ LLSB without radiation to the carotids, axilla, or back, and which remains invariant in regards to the respiratory cycle. Abdomen: Soft, distended with generalized, MILD tenderness. No rebound, guarding, Alberto's sign, or organomegaly. Bowel sounds auscultated in all 4 quadrants. 19 Bengali CHITRA Livan drain with 40 cc effluent since insertion on 02/07/2025, 1:06pm. Extremities: No clubbing, cyanosis, or edema in upper extremities or lower extremities bilaterally. 2+ pedal pulses bilaterally. Skin: No decubitus ulcer or enanthem. Genito-urinary: No urethral discharge. + pryor catheter with 400 mL urine expressed in past 12 hours. Neurology: Alert and oriented in regards to person, place, time, and situation. DTR+. 5/5 motor strength in all 4 extremities, both proximally and distally. No myoclonus, tremors, or tics. Psychiatry: No homicidal ideation. No suicidal ideation. No flat affect; smiles appropriately. Results & Data Results & Data Vital Signs (Past 12 Hours) Vital Signs Temp Pulse Pulse Resp BP Pulse Ox O2 Del Method 02/08/25 19:11 36.6 C 72 18 158/74 H 99 Nasal Cannula 02/08/25 15:36 36.4 C L 74 18 148/73 H 99 Nasal Cannula 02/08/25 14:22 72 02/08/25 11:43 36.7 C 78 17 151/82 H 99 Nasal Cannula O2 Flow Rate 02/08/25 19:11 3 02/08/25 15:36 3 02/08/25 14:22 02/08/25 11:43 3 Laboratory Results INR 1.0 (02/05/2025, 3:14pm)(richard-operative evaluation). Lactic acid #1 2.1 mmol/L (02/05/2025, 3:14pm). Lactic acid #2 1.0 mmol/L (02/05/2025, 8:13pm). Lactic acid #3 1.1 mmol/L (02/05/2025, 11:10pm). Lactic acid #4 1.3 mmol/L (02/06/2025, 9:36am). Lactic acid #5 1.0 mmol/L (02/07/2025, 5:23am). Lactic acid #5 1.9 mmol/L (02/07/2025, 3:30pm). Procalcitonin #1 0.05 ng/mL (02/05/2025, ? time). Procalcitonin #2 0.61 ng/mL (02/06/2025, 9:36am). Procalcitonin #3 2.01 ng/mL (02/07/2025, 5:23am). WBC 9.64, N77 L16 M6 E1, Hb 13.3, MCV 90.3, MCHC 33.8, platelet 283 (02/05/2025, 3:14pm). WBC 16.47, N88 L 4 M7, Hb 13.0, MCV 92.1, MCHC 33.7, platelet 298 (02/06/2025, 7:38am). WBC 21.47, N87 L 4 M9, Hb 12.2, MCV 93.9, MCHC 33.0, platelet 285 (02/07/2025, 5:23am). WBC 11.08, N84 L 7 M8, Hb 10.3, MCV 94.6, MCHC 32.6, platelet 227 (02/08/2025, 7:27am). Na 138, K 4.1, BUN 32, creatinine 1.31, GFR 41.7, glucose 226, anion gap 13, CO2 24, Ca 9.8, AST 14, ALT 9, ALK PHOS 95, TBili 0.7 (02/05/2025, 3:14pm). Na 139, K 3.8, BUN 30, creatinine 0.94, GFR 62.1, glucose 188, anion gap 7, CO2 26, Ca 8.8, AST 15, ALT 8, ALK PHOS 77, TBili 0.6 (02/06/2025, 7:38am). Na 139, K 4.1, BUN 43, creatinine 1.40, GFR 38.5, glucose 181, anion gap 7, CO2 26, Ca 8.8 (02/07/2025, 5:23am). Na 141, K 3.7, BUN 46, creatinine 1.40, GFR 38.5, glucose 145, anion gap 5, CO2 26, Ca 8.0 (02/08/2025, 7:27am). Diagnostic Findings CT abd/pelvis with IV contrast (02/05/2025, 3:11pm): 1. Complex small bowel obstruction identified involving the distal jejunum/proximal ileum in the pelvis. There is at least 1 and possibly 2 transition points, with mild wall thickening, surrounding infiltration, and intraluminal fluid. The adjacent mesenteric vessels appear engorged and a closed loop type obstruction is not excluded. Surgical evaluation is advised. 2. No intraperitoneal free air. No pneumatosis intestinalis or portal venous gas is seen. 3. Small volume of pelvic ascites. 4. Bilateral nephrolithiasis. 5. Coronary artery atherosclerosis. 6. Colonic diverticulosis without CT evidence of acute diverticulitis. Portable CXR (02/05/2025, 4:08pm): 1. No infiltrate, effusion, cardiomegaly, pulmonary vascular congestion, or pneumothorax. 2. NGT with tip in stomach (by my review). EKG (02/05/2025, 6:02pm): sinus bradycardia @ 51, QTC 425, no acute ST depressions/elevations, TWI, or q waves (by my review). KUB (02/06/2025, 7:38am): Grossly stable small bowel distention. KUB (02/07/2025, 8:14am): Nonspecific bowel gas pattern with paucity of small bowel gas. Loop of small bowel in the left lower quadrant measuring 2.6 cm in diameter. small volume of formed stool in the colon. No obvious free air or pneumatosis. Right upper quadrant surgical clips. Calcified pelvic phleboliths. Atherosclerotic vascular disease is mild. Degenerative changes are advanced within the lumbar spine. PG Care Time/CCT Total # of Minutes Spent Total Time Spent with Patient: Total time spent is greater than 50% in coordination of care (as documented) at patient's floor/unit and/or counseling patient: Coding Level of Care Code 69251 SUB INP/OBS CARE 3/50MIN Diagnoses SBO (small bowel obstruction) K56.609 Acidosis, lactic E87.20 Hypertension I10 Hyperglycemia R73.9
[2025-02-08] MEDS: SODIUM CHLORIDE 0.9% 1,000 ML IV ONE (22:31)
[2025-02-09 07:19] LABS: Hematocrit (blood only) 29.0 % (37.0-47.0); Hemoglobin 9.5 g/dl (12.0-16.0); Immature Granulocytes # (auto) 0.04 K/uL (0.01-0.20); Immature Granulocytes % (auto) 0.4 %; Mean Corpuscular Hemoglobin 31.5 pg (25.0-34.0); Mean Corpuscular Volume 96.0 fL (80.0-100.0); Platelet Count 220 K/uL (130-400); RDW Standard Deviation 44.9 fL (36.4-46.3); Red Blood Count 3.02 M/uL (4.20-5.40); White Blood Count 9.24 K/ul (4.8-10.8)
[2025-02-09 07:36] LABS: Alanine Aminotransferase 11.0 U/L (7-52); Albumin Globulin Ratio 1.1 (0.9-2); Alkaline Phosphatase 64.0 U/L (34-104); Anion Gap 3.0 (3-11); Bilirubin,Total 0.5 mg/dl (0.2-1.0); Blood Urea Nitrogen 36.0 mg/dl (6-23); Calcium 7.9 mg/dl (8.6-10.3); Carbon Dioxide 28.0 mmol/L (21-32); Chloride 113.0 mmol/L (98-107); Creatinine Clr Calc Pharmacy 41.3 ml/min; Globulin 2.4 gm/dl (2.5-4.0); Glucose 94.0 mg/dl (70-99(Fasting)); Potassium 3.4 mmol/L (3.5-5.1); Sodium 144.0 mmol/L (136-145); Total Protein 5.1 gm/dl (6.0-8.3)
--- NOTE | 2025-02-09 08:48 | XRay Report ---
KUB CLINICAL HISTORY: s/p bowel resection, eval for NGT placement COMPARISON STUDY: CT of the abdomen pelvis February 05, 2025. KUB February 07, 2025. FINDINGS: Tip of nasogastric tube projects over the distal esophagus. The tube could be advanced 10 c m. Skin qian are present. A left lower quadrant surgical drain is in place. Mild small large bowel dilatation is noted. Small bowel loops measure up to 3.6 cm in caliber. IMPRESSION: 1. Tip of nasogastric tube projects over the distal esophagus. The tube could be advanced 10 cm befor e obtaining a repeat KUB. 2. Mild small and large bowel dilatation. This favors a postoperative ileus given recent surgery. ACT 112: Negative or not required by law. Electronically signed by: Garrett Ramos M.D. 02/09/2025 8:46 AM
--- NOTE | 2025-02-09 10:05 | XRay Report ---
KUB CLINICAL HISTORY: NG tube confirmation COMPARISON STUDY: CT of the abdomen and pelvis February 05, 2025. KUB performed earlier today. FINDINGS: Tip of nasogastric tube projects over the proximal body of the stomach. Surgical drain is i n place. There are skin qian. Cholecystectomy clips are noted. Mild gaseous distention of small an d large bowel is again noted. IMPRESSION: 1. Appropriately positioned nasogastric tube. Tip projects over the proximal body of the stomach. 2. Redemonstration of mild small and large bowel dilatation. Given recent surgery, this favors a post operative ileus. Radiographic follow-up is recommended. ACT 112: Negative or not required by law. Electronically signed by: Garrett Ramos M.D. 02/09/2025 10:04 AM
--- NOTE | 2025-02-09 12:21 | Surgery Progress Note ---
Date of Service February 09, 2025 Assessment & Plan (1) S/P small bowel resection: Plan: POD #2 s/p Small bowel resection by Dr Barnett -NGT needed to be re-positioned this morning, good output, no return of bowel function yet. Keep NGT in place to LIWS -Continue pain control -CHITRA drain to remain in place -Encourage OOB and ambulation while awake -Pryor catheter can be removed from a surgical standpoint Admission and Anticipated Discharge Date Admission Date: February 05, 2025 Supervising Physician Co-Signing Physician Notes H/H drifted again this am from 10.3 to 9.5. Will hold off on chemical DVT ppx today. Continues with mechanical DVT ppx in the form of SCDs Patient was up OOB to chair with nursing. Will get up OOB to chair again today Keep pryor for today to monitor fluid status, strict I/O Incentive spirometer while awake Physical therapy and ambulate as tolerated with assistance Subjective -Patient states she is feeling just okay this morning. -NG tube overnight seemed to have gotten pulled back and KUB this morning did confirm NG tube was no longer in the stomach. NG tube was advanced by nursing staff and repeat KUB with good positioning and has had 600 mL gastric output since. -CHITRA drain remains in place, 120cc in the last 24H - Vital signs stable, afebrile, WBC 9.2 Physical Exam Constitutional: cooperative; no acute distress Respiratory: normal respiratory effort; no respiratory distress and no labored breathing Cardiovascular: Rate/Rhythm: regular rate Gastrointestinal (Abdomen): Abdomen soft, nondistended, +appropriate TTP over surgical sites. Incisions with dressings in place and are c/d/i. CHITRA drain in place Skin: no rashes, warm and dry Results & Data Vital Signs (Past 12 Hours) Vital Signs Temp Pulse Pulse Resp BP Pulse Ox O2 Del Method 02/09/25 12:02 36.6 C 81 17 133/76 99 Nasal Cannula 02/09/25 08:49 Nasal Cannula 02/09/25 08:49 71 02/09/25 08:06 37.0 C 73 18 158/77 H 99 Room Air 02/09/25 03:41 36.7 C 70 16 153/68 H 99 Nasal Cannula O2 Flow Rate 02/09/25 12:02 2 02/09/25 08:49 2 02/09/25 08:49 02/09/25 08:06 02/09/25 03:41 3 PG Care Time/CCT Total # of Minutes Spent Total Time Spent with Patient: Total time spent is greater than 50% in coordination of care (as documented) at patient's floor/unit and/or counseling patient: [place] [address] Post Operative Follow-Up Patient Type Established Medical Decision Making Straight Forward Diagnoses S/P small bowel resection Z90.49
[2025-02-09] MEDS: SODIUM CHLORIDE 0.9% 1,000 ML IV ONE (18:12)
--- NOTE | 2025-02-09 22:34 | Hospitalist Progress Note ---
Date of Service February 09, 2025 Assessment & Plan (1) SBO (small bowel obstruction): Plan: To address #1, patient was made NPO except for meds and ice chips, while continuing NGT to decompress the stomach. Patient awaits richard-operative INR (02/05/2025, 3:14pm) and richard-operative EKG (02/05/2025, 6:41pm), repeat KUB (1 view)(to evaluate for any interval change(s) in acute complex SBO with 1-2 transition points, and formal General Surgery Service evaluation with Dr. Tiburcio Dubon in the 02/06/2025 am. In the interim, patient was started on tylenol 650mg PO q6 prn pain 1-3, headache, temp > 100.4 degrees Fahrenheit, dilaudid 1mg IV q6 prn pain 4-10. Of note, etiology of acute complex SBO remains unclear, but is probably due to surgical adhesions that developed after patient underwent (a) laparoscopic cholecystectomy (12/06/2023, 8:49am, [facility] General Surgeon Dr. Cruz Baugh) to treat cholelithiasis, complicated by acute SBO requiring (b) exploratory laparotomy with release of acute SBO (12/08/2023, 1:28pm, [facility] General Surgeon Dr. Cruz Baugh). Patient subsequently underwent surgical resection of ~40cm of necrotic/gangrenous bowel (as per General Surgeon SANDRA Tovar) on 02/07/2025, 1:06pm with [facility] General Surgeon Dr. Milo Eason. (2) Acidosis, lactic: Plan: To address #2, patient received 1 liter of 0.9% NS @ 999 mL/hr (02/05/2025, 3:2 0pm), followed by 1 liter of 0.9% NS @ 74 mL/hr (02/05/2025, 6:46pm), based on a delivery rate of 1 mL of 0.9% NS per kg of body weight per hour, and a body weight of 74.1 kg. Etiology of acute lactic acid elevation remains unclear, but is most probably due to acute dehydration, as reflected by BUN:creatinine ratio > 20:1 (cf., admission BUN 32, creatinine 1.31)(02/05/2025, 3:14pm). Hence, I opted to rehydrate patient with 1 liter of 0.9% NS @ 999 mL/hr (02/07/2025, 3:23pm), followed by 1 liter of 0.9% NS @ 72 mL/hr (02/07/2025, 4:25pm), based on a delivery rate of 1 mL of 0.9% NS per kg of body weight per hour, and a body weight of 72.0 kg. I will check repeat lactic acid level in the 02/10/2025 am. (3) Hypertension: Plan: To address #3, patient was started on tylenol 650mg PO q6 prn pain 1-3 (02/05/2025, 6:57pm), dilaudid 1mg IV x 1 dose (02/05/2025, 6:49pm), followed by dilaudid 1mg IV q6 prn pain 4-10 (02/05/2025, 7:31pm), as I surmise that patient's acute malignant HTN is largely driven by her 1010 generalized abdominal pains, which in turn, are due to acute complete SBO with 1-2 transition points. In addition, as patient remains NPO and may not be capable of taking her home-scheduled ramipril 10mg PO qam or HCTZ 12.5mg PO qam, due to ongoing N/V, I have opted to start patient on anti-HTN agent hydralazine 10mg IV x 1 dose (02/05/2025, 7:25pm), followed by hydralazine 10mg IV q6 prn systolic BP > 185 mm Hg or diastolic BP > 95 mm Hg. Given the combination of analgesia with hydralazine, I hoped to decrease patient's admitting BP 230/93 (02/05/2025, 3:05pm) by ~25% in the first 24 hours of hospitalization. cf., current BP 158/74 (02/08/2025, 7:11pm). I will check repeat BP qshift and in the am. (4) Hyperglycemia: Plan: To address #4, patient was started on lispro insulin sliding scale q6 and POC glucose q6 as patient remains NPO. In the interim, I have opted to hold off patient's home-scheduled metformin 500mg PO bid, given the potential for this medication to exacerbate patient's admitting complaints of N/V. I have also opted to hold off patient's home-scheduled dulaglutide 3mg SQ q7 days, given the potential for this medication to delay gastric emptying, which can increase the risk of aspiration during general anesthesia. In this patient with a past medical history of acute SBO requiring exploratory laparotomy with release of acute SBO (12/08/2023, 1:28pm, [facility] General Surgeon Dr. Cruz Baugh), I surmise that patient is at fairly high risk for having to undergo surgical correction of her acute complex SBO during this hospitalization. Hence, patient should NOT receive her home-scheduled dulaglutide 3mg SQ q7 days while in [facility]. Of final note, serum glucose goal is 180 mg/dL or less, as set forth by the seminal work of the [employer] Study Investigators (cf., "Intensive versus C onventional Glucose Control in Critically Ill Patients." [place] Journal [employer] Medicine. October 30, 2008; [id number]). Admission and Anticipated Discharge Date Admission Date: February 05, 2025 Subjective "I am feeling better than yesterday. But I still have 9 or 10 (out of 10 point intensity scale) pain after the nurses moved me in bed. No nausea or vomit. No bowel movement at all. No farting. Review of Systems Constitutional: Patient reports generalized abdominal pain (rated 9 to 10 out of 10) on 02/09/2025. Negative for antecedent/coincident fevers, chills, diaphoresis, cough, wheeze, sore throat, hemoptysis, chest pains, palpitations, pleurisy, nausea, vomiting, diarrhea, pelvic pain, hematemesis, hematochezia, melena, hematuria, dysuria, frequency, urgency, headaches, dizziness, lightheadedness, visual changes, hearing changes, weakness, falls, syncope, trauma, travel history, sick contacts, or food/drug ingestions novel or new. All other review of systems are reported as negative by the patient on 02/09/2025. Physical Exam Constitutional: General: Uncomfortable with patient moaning and groaning. Awake, alert. Not confused. Not lethargic or obtunded. HEENT: Normocephalic, atraumatic. Pupils equally round and reactive to light. No nystagmus, gaze paresis, anisocoria, miosis, mydriasis, hyphema, scleral injection, conjunctivitis, or pterygium. No otorrhea. No pharyngeal erythema, edema, or discharge. NGT in situ (inserted on 02/05/2025 in [facility] ER bed #[id number]) with 600 mL effluent in past 12 hours. Neck: Supple, no stridor, bruit, goiter, or hepato-jugular reflux. Jugular venous pressure is estimated to be 3 cm above the sternal angle of Percy, which in turn, is 5 cm above the level of the right atrium; with jugular venous pressure estimated to be 8 cm, then, there is no jugular venous distention on 02/09/2025. Lymphatics: No cervical (anterior/posterior), supraclavicular, infraclavicular, axillary, epitrochlear, or inguinal adenopathy. Chest: Symmetric rise and fall with respirations. Non-tender to palpation. Lungs: Clear to auscultation and percussion. No audible expirator y wheeze, egophony, pectoriloquy, increase in tactile fremitus, or flatness/dullness to percussion at the bases. Heart: RRR. S1 and S2 noted. No S3 or S4 summation gallop. No tripartite friction rub. Grade II/ early systolic murmur @ LLSB without radiation to the carotids, axilla, or back, and which remains invariant in regards to the respiratory cycle. Abdomen: Soft, distended with generalized, MILD tenderness. No rebound, guarding, Alberto's sign, or organomegaly. Bowel sounds auscultated in all 4 quadrants. 19 [place] CHITRA Livan drain with 40 cc effluent since insertion on 02/07/2025, 1:06pm. Extremities: No clubbing, cyanosis, or edema in upper extremities or lower extremities bilaterally. 2+ pedal pulses bilaterally. Skin: No decubitus ulcer or enanthem. Genito-urinary: No urethral discharge. + pryor catheter with 0.49 mL/kg/hr (02/08/2025, 10:26pm to 02/09/2025, 10:26pm). Neurology: Alert and oriented in regards to person, place, time, and situation. DTR+. 5/5 motor strength in all 4 extremities, both proximally and distally. No myoclonus, tremors, or tics. Psychiatry: No homicidal ideation. No suicidal ideation. No flat affect; smiles appropriately. Results & Data Results & Data Vital Signs (Past 12 Hours) Vital Signs Temp Pulse Pulse Resp BP Pulse Ox O2 Del Method 02/09/25 19:46 36.6 C 66 24 177/90 H 100 Nasal Cannula 02/09/25 16:00 36.3 C L 62 18 173/85 H 99 Nasal Cannula 02/09/25 14:38 67 02/09/25 12:02 36.6 C 81 17 133/76 99 Nasal Cannula O2 Flow Rate 02/09/25 19:46 2 02/09/25 16:00 2 02/09/25 14:38 02/09/25 12:02 2 [place] [address] Hospitalist Progress Note Signed Patient: PETE PERRIN Admit Date: 02/05/25 MR#: [id number] Att Phy: Sd Herring MD., PhD Acct ID: [id number] Pia Phy: Derek Samaniego MD Date: 1945 Fam Phy: Age: 79 Location: 2S Sex: F Room/Bed: S2302 Legal Sex: F cc: ~ *NOTICE TO RECEIVING GREEN PARTY/AGENCY This information is strictly Confidential and protected under [place] law. [place] law prohibits you from making any further disclosure of this information unless further disclosure is expressly permitted by the written consent of the person to whom it pertains or is authorized by law. A general authorization for the release of medical or other information is not sufficient for this purpose. Hospital accepts no responsibility if the information is made available to any other person, INCLUDING THE PATIENT. Date of Service February 08, 2025 Assessment & Plan (1) SBO (small bowel obstruction): Plan: To address #1, patient was made NPO except for meds and ice chips, while continuing NGT to decompress the stomach. Patient awaits richard-operative INR (02/05/2025, 3:14pm) and richard-operative EKG (02/05/2025, 6:41pm), repeat KUB (1 view)(to evaluate for any interval change(s) in acute complex SBO with 1-2 transition points, and formal General Surgery Service evaluation with Dr. Tiburcio Dubon in the 02/06/2025 am. In the interim, patient was started on tylenol 650mg PO q6 prn pain 1-3, headache, temp > 100.4 degrees Fahrenheit, dilaudid 1mg IV q6 prn pain 4-10. Of note, etiology of acute complex SBO remains unclear, but is probably due to surgical adhesions that developed after patient underwent (a) laparoscopic cholecystectomy (12/06/2023, 8:49am, [facility] General Surgeon Dr. Cruz Baugh) to treat cholelithiasis, complicated by acute SBO requiring (b) exploratory laparotomy with release of acute SBO (12/08/2023, 1:28pm, [facility] General Surgeon Dr. Cruz Baugh). Patient subsequently underwent surgical resection of ~40cm of necrotic/gangrenous bowel (as per General Surgeon SANDRA Tovar) on 02/07/2025, 1:06pm with [facility] General Surgeon Dr. Milo Eason. (2) Acidosis, lactic: Plan: To address #2, patient received 1 liter of 0.9% NS @ 999 mL/hr (02/05/2025, 3:20pm), followed by 1 liter of 0.9% NS @ 74 mL/hr (02/05/2025, 6:46pm), based on a delivery rate of 1 mL of 0.9% NS per kg of body weight per hour, and a body weight of 74.1 kg. Etiology of acute lactic acid elevation remains unclear, but is most probably due to acute dehydration, as reflected by BUN:creatinine ratio > 20:1 (cf., admission BUN 32, creatinine 1.31)(02/05/2025, 3:14pm). Hence, I opted to rehydrate patient with 1 liter of 0.9% NS @ 999 mL/hr (02/07/2025, 3:23pm), followed by 1 liter of 0.9% NS @ 72 mL/hr (02/07/2025, 4:25pm), based on a delivery rate of 1 mL of 0.9% NS per kg of body weight per hour, and a body weight of 72.0 kg. I will check repeat lactic acid level in the 02/09/2025 am. (3) Hypertension: Plan: To address #3, patient was started on tylenol 650mg PO q6 prn pain 1-3 (02/05/2025, 6:57pm), dilaudid 1mg IV x 1 dose (02/05/2025, 6:49pm), followed by dilaudid 1mg IV q6 prn pain 4-10 (02/05/2025, 7:31pm), as I surmise that patient's acute malignant HTN is largely driven by her 10 generalized abdominal pains, which in turn, are due to acute complete SBO with 1-2 transition points. In addition, as patient remains NPO and may not be capable of taking her home-scheduled ramipril 10mg PO qam or HCTZ 12.5mg PO qam, due to ongoing N/V, I have opted to start patient on anti-HTN agent hydralazine 10mg IV x 1 dose (02/05/2025, 7:25pm), followed by hydralazine 10mg IV q6 prn systolic BP > 185 mm Hg or diastolic BP > 95 mm Hg. Given the combination of analgesia with hydralazine, I hoped to decrease patient's admitting BP 230/93 (02/05/2025, 3:05pm) by ~25% in the first 24 hours of hospitalization. cf., current BP 158/74 (02/08/2025, 7:11pm). I will check repeat BP qshift and in the 02/09/2025 am. (4) Hyperglycemia: Plan: To address #4, patient was started on lispro insulin sliding scale q6 and POC glucose q6 as patient remains NPO. In the interim, I have opted to hold off patient's home-scheduled metformin 500mg PO bid, given the potential for this medication to exacerbate patient's admitting complaints of N/V. I have also opted to hold off patient's home-scheduled dulaglutide 3mg SQ q7 days, given the potential for this medication to delay gastric emptying, which can increase the risk of aspiration during general anesthesia. In this patient with a past medical history of acute SBO requiring exploratory laparotomy with release of acute SBO (12/08/2023, 1:28pm, [facility] General Surgeon Dr. Cruz Baugh), I surmise that patient is at fairly high risk for having to undergo surgical correction of her acute complex SBO during this hospitalization. Hence, patient should NOT receive her home-scheduled dulaglutide 3mg SQ q7 days while in [facility]. Of final note, serum glucose goal is 180 mg/dL or less, as set forth by the seminal work of the [employer] Study Investigators (cf., "Intensive versus Conventional Glucose Control in Critically Ill Patients." [place] Journal of Medicine. October 30, 2008; [id number]). Admission and Anticipated Discharge Date Admission Date: February 05, 2025 Subjective "Looks like I made it through surgery." Review of Systems Constitutional: Patient reports generalized abdominal pain (rated 3 out of 10). Negative for antecedent/coincident fevers, chills, diaphoresis, cough, wheeze, sore throat, hemoptysis, chest pains, palpitations, pleurisy, nausea, vomiting, diarrhea, pelvic pain, hematemesis, hematochezia, melena, hematuria, dysuria, frequency, urgency, headaches, dizziness, lightheadedness, visual changes, hearing changes, weakness, falls, syncope, trauma, travel history, sick contacts, or food/drug ingestions novel or new. All other review of systems are reported as negative by the patient on 02/08/2025. Physical Exam Constitutional: General: Uncomfortable with patient moaning and groaning. Awake, alert. Not confused. Not lethargic or obtunded. HEENT: Normocephalic, atraumatic. Pupils equally round and reactive to light. No nystagmus, gaze paresis, anisocoria, miosis, mydriasis, hyphema, scleral injection, conjunctivitis, or pterygium. No otorrhea. No pharyngeal erythema, edema, or discharge. NGT in situ (inserted on 02/05/2025 in [facility] ER bed #A12B) with 600 mL effluent in past 12 hours. Neck: Supple, no stridor, bruit, goiter, or hepato-jugular reflux. Jugular venous pressure is estimated to be 3 cm above the sternal angle of Percy, which in turn, is 5 cm above the level of the right atrium; with jugular venous pressure estimated to be 8 cm, then, there is no jugular venous distention on 02/07/2025. Lymphatics: No cervical (anterior/posterior), supraclavicular, infracla vicular, axillary, epitrochlear, or inguinal adenopathy. Chest: Symmetric rise and fall with respirations. Non-tender to palpation. Lungs: Clear to auscultation and percussion. No audible expiratory wheeze, egophony, pectoriloquy, increase in tactile fremitus, or flatness/dullness to percussion at the bases. Heart: RRR. S1 and S2 noted. No S3 or S4 summation gallop. No tripartite friction rub. Grade II/ early systolic murmur @ LLSB without radiation to the carotids, axilla, or back, and which remains invariant in regards to the respiratory cycle. Abdomen: Soft, distended with generalized, MILD tenderness. No rebound, guarding, Alberto's sign, or organomegaly. Bowel sounds auscultated in all 4 quadrants. 19 [place] CHITRA Livan drain with 40 cc effluent since insertion on 02/07/2025, 1:06pm. Extremities: No clubbing, cyanosis, or edema in upper extremities or lower extremities bilaterally. 2+ pedal pulses bilaterally. Skin: No decubitus ulcer or enanthem. Genito-urinary: No urethral discharge. + pryor catheter with 400 mL urine expressed in past 12 hours. Neurology: Alert and oriented in regards to person, place, time, and situation. DTR+. 5/5 motor strength in all 4 extremities, both proximally and distally. No myoclonus, tremors, or tics. Psychiatry: No homicidal ideation. No suicidal ideation. No flat affect; smiles appropriately. Results & Data Results & Data Vital Signs (Past 12 Hours) Vital Signs Temp Pulse Pulse Resp BP Pulse Ox O2 Del Method 02/08/25 19:11 36.6 C 72 18 158/74 H 99 Nasal Cannula 02/08/25 15:36 36.4 C L 74 18 148/73 H 99 Nasal Cannula 02/08/25 14:22 72 07/05/25 11:43 36.7 C 78 17 151/82 H 99 Nasal Cannula O2 Flow Rate 02/08/25 19:11 3 02/08/25 15:36 3 02/08/25 14:22 02/08/25 11:43 3 Laboratory Results INR 1.0 (02/05/2025, 3:14pm)(richard-operative evaluation). Lactic acid #1 2.1 mmol/L (02/05/2025, 3:14pm). Lactic acid #2 1.0 mmol/L (02/05/2025, 8:13pm). Lactic acid #3 1.1 mmol/L (02/05/2025, 11:10pm). Lactic acid #4 1.3 mmol/L (02/06/2025, 9:36am). Lactic acid #5 1.0 mmol/L (02/07/2025, 5:23am). Lactic acid #5 1.9 mmol/L (02/07/2025, 3:30pm). Procalcitonin #1 0.05 ng/mL (02/05/2025, ? time). Procalcitonin #2 0.61 ng/mL (02/06/2025, 9:36am). Procalcitonin #3 2.01 ng/mL (02/07/2025, 5:23am). Procalcitonin #4 7.42 ng/mL (02/08/2025, 7:27am). Procalcitonin #5 4.15 ng/mL (02/09/2025, 8:43am). WBC 9.64, N77 L16 M6 E1, Hb 13.3, MCV 90.3, MCHC 33.8, platelet 283 (02/05/2025, 3:14pm). WBC 16.47, N88 L 4 M7, Hb 13.0, MCV 92.1, MCHC 33.7, platelet 298 (02/06/2025, 7:38am). WBC 21.47, N87 L 4 M9, Hb 12.2, MCV 93.9, MCHC 33.0, platelet 285 (02/07/2025, 5:23am). WBC 11.08, N84 L 7 M8, Hb 10.3, MCV 94.6, MCHC 32.6, platelet 227 (02/08/2025, 7:27am). WBC 9.24, N80, Hb 9.5, MCV 96.0, MCHC 32.8, platelet 220 (02/09/2025, 6:59am). Na 138, K 4.1, BUN 32, creatinine 1.31, GFR 41.7, glucose 226, anion gap 13, CO2 24, Ca 9.8, AST 14, ALT 9, ALK PHOS 95, TBili 0.7 (02/05/2025, 3:14pm). Na 139, K 3.8, BUN 30, creatinine 0.94, GFR 62.1, glucose 188, anion gap 7, CO2 26, Ca 8.8, AST 15, ALT 8, ALK PHOS 77, TBili 0.6 (02/06/2025, 7:38am). Na 139, K 4.1, BUN 43, creatinine 1.40, GFR 38.5, glucose 181, anion gap 7, CO2 26, Ca 8.8 (02/07/2025, 5:23am). Na 141, K 3.7, BUN 46, creatinine 1.40, GFR 38.5, glucose 145, anion gap 5, CO2 26, Ca 8.0 (02/08/2025, 7:27am). Na 144, K 3.4, BUN 36, creatinine 1.10, GFR 51.4, glucose 94, anion gap 3, CO2 28, Ca 7.9 (02/09/2025, 6:59am). Diagnostic Findings CT abd/pelvis with IV contrast (02/05/2025, 3:11pm): 1. Complex small bowel obstruction identified involving the distal jejunum/proximal ileum in the pelvis. There is at least 1 and possibly 2 transition points, with mild wall thickening, surrounding infiltration, and intr aluminal fluid. The adjacent mesenteric vessels appear engorged and a closed loop type obstruction is not excluded. Surgical evaluation is advised. 2. No intraperitoneal free air. No pneumatosis intestinalis or portal venous gas is seen. 3. Small volume of pelvic ascites. 4. Bilateral nephrolithiasis. 5. Coronary artery atherosclerosis. 6. Colonic diverticulosis without CT evidence of acute diverticulitis. Portable CXR (02/05/2025, 4:08pm): 1. No infiltrate, effusion, cardiomegaly, pulmonary vascular congestion, or pneumothorax. 2. NGT with tip in stomach (by my review). EKG (02/05/2025, 6:02pm): sinus bradycardia @ 51, QTC 425, no acute ST depressions/elevations, TWI, or q waves (by my review). KUB (02/06/2025, 7:38am): Grossly stable small bowel distention. KUB (02/07/2025, 8:14am): 1. Nonspecific bowel gas pattern with paucity of small bowel gas. 2. Loop of small bowel in the left lower quadrant measuring 2.6 cm in diameter. small volume of formed stool in the colon. 3. No obvious free air or pneumatosis. 4. Right upper quadrant surgical clips. 5. Calcified pelvic phleboliths. 6. Atherosclerotic vascular disease is mild. 7. Degenerative changes are advanced within the lumbar spine. KUB (02/09/2025, 7:30am): 1. Tip of nasogastric tube projects over the distal esophagus. The tube could be advanced 10 cm before obtaining a repeat KUB. 2. Mild small and large bowel dilatation. This favors a postoperative ileus given recent surgery. KUB (02/09/2025, 9:15am): 1. Appropriately positioned nasogastric tube. Tip projects over the proximal body of the stomach. 2. Redemonstration of mild small and large bowel dilatation. Given recent surgery, this favors a postoperative ileus. Radiographic follow-up is recommended. PG Care Time/CCT Total # of Minutes Spent Total Time Spent with Patient: Total time spent is greater than 50% in coordination of care (as documented) at patient's floor/unit and/or counseling patient: Coding Level of Care Code 35951 SUB INP/OBS CARE 3/50MIN Diagnoses SBO (small bowel obstruction) K56.609 Acidosis, lactic E87.20 Hypertension I10 Hyperglycemia R73.9
[2025-02-10 07:41] LABS: Hematocrit (blood only) 29.5 % (37.0-47.0); Hemoglobin 9.2 g/dl (12.0-16.0); Immature Granulocytes # (auto) 0.04 K/uL (0.01-0.20); Immature Granulocytes % (auto) 0.5 %; Mean Corpuscular Hemoglobin 30.3 pg (25.0-34.0); Mean Corpuscular Volume 97.0 fL (80.0-100.0); Platelet Count 233 K/uL (130-400); RDW Standard Deviation 46.0 fL (36.4-46.3); Red Blood Count 3.04 M/uL (4.20-5.40); White Blood Count 7.67 K/ul (4.8-10.8)
[2025-02-10 07:57] LABS: Alanine Aminotransferase 11.0 U/L (7-52); Albumin Globulin Ratio 1.1 (0.9-2); Alkaline Phosphatase 79.0 U/L (34-104); Anion Gap 4.0 (3-11); Bilirubin,Total 0.5 mg/dl (0.2-1.0); Blood Urea Nitrogen 29.0 mg/dl (6-23); Calcium 8.2 mg/dl (8.6-10.3); Carbon Dioxide 28.0 mmol/L (21-32); Chloride 113.0 mmol/L (98-107); Creatinine Clr Calc Pharmacy 47.8 ml/min; Globulin 2.5 gm/dl (2.5-4.0); Glucose 77.0 mg/dl (70-99(Fasting)); Potassium 3.4 mmol/L (3.5-5.1); Sodium 145.0 mmol/L (136-145); Total Protein 5.2 gm/dl (6.0-8.3)
[2025-02-10] MEDS: SODIUM CHLORIDE 0.9% 1,000 ML IV ONE (08:44)
[2025-02-10] MEDS: POTASSIUM CHLORIDE / WTR 10 MEQ/100 ML PLCT IV SCH (08:44)
--- NOTE | 2025-02-10 09:08 | Surgery Progress Note ---
Date of Service February 10, 2025 Assessment & Plan (1) S/P small bowel resection: Plan: POD #3 s/p small bowel resection by Dr Eason -NGT remains in place for now, patient is passing small amount of gas however no BM. -Will allow ice chips today -Continue pain control -CHITRA drain to remain in place -Encourage OOB and ambulation while awake -Hopkins catheter can be removed Admission and Anticipated Discharge Date Admission Date: February 05, 2025 Supervising Physician Co-Signing Physician Notes I have seen and examined this patient this am. I agree with this plan. Will initiate chemical DVT ppx as H/H is stable. Subjective -Patient states she is feeling well this morning, states she would like to get OOB this morning -NGT in place, 600mL output recorded. No BM but patient states she is passing small amount of gas -CHITRA drain remains in place, 60cc output - Vital signs stable, afebrile, WBC 7.6 -Hgb 9.2 this morning Physical Exam Constitutional: cooperative; no acute distress Respiratory: normal respiratory effort; no respiratory distress and no labored breathing Cardiovascular: Rate/Rhythm: regular rate Gastrointestinal (Abdomen): Abdomen soft, nondistended, appropriate TTP over surgical sites. Surgical dressing was removed, qian in place, incisions are c/d/i without any overlying sings of infection CHITRA drain in place with serosanguineous output Skin: no rashes, warm and dry Results & Data Vital Signs (Past 12 Hours) Vital Signs Temp Pulse Pulse Resp BP Pulse Ox O2 Del Method 02/10/25 08:03 36.8 C 61 20 168/70 H 98 Nasal Cannula 02/10/25 03:45 36.7 C 63 18 158/74 H 99 Nasal Cannula 02/10/25 00:02 64 02/09/25 23:45 36.4 C L 67 18 158/73 H 98 Nasal Cannula 02/09/25 22:16 Nasal Cannula O2 Flow Rate 02/10/25 08:03 2 02/10/25 03:45 2 02/10/25 00:02 02/09/25 23:45 2 02/09/25 22:16 2 PG Care Time/CCT Total # of Minutes Spent Total Time Spent with Patient: Total time spent is greater than 50% in coordination of care (as documented) at patient's floor/unit and/or counseling patient: [place] [address] Post Operative Follow-Up Patient Type Established Medical Decision Making Straight Forward Diagnoses S/P small bowel resection Z90.49
[2025-02-10] MEDS: ENOXAPARIN INJ 40 MG/0.4 ML SYR SQ SCH (13:25)
[2025-02-10] MEDS: HYDROmorphone INJ 1 MG/ML SYRINGE IV PRN (13:25)
--- NOTE | 2025-02-10 21:43 | Hospitalist Progress Note ---
Date of Service February 10, 2025 Assessment & Plan (1) SBO (small bowel obstruction): Plan: To address #1, patient was made NPO except for meds and ice chips, while continuing NGT to decompress the stomach. Patient awaits richard-operative INR (02/05/2025, 3:14pm) and richard-operative EKG (02/05/2025, 6:41pm), repeat KUB (1 view)(to evaluate for any interval change(s) in acute complex SBO with 1-2 transition points, and formal General Surgery Service evaluation with Dr. Tiburcio Dubon in the 02/06/2025 am. In the interim, patient was started on tylenol 650mg PO q6 prn pain 1-3, headache, temp > 100.4 degrees Fahrenheit, dilaudid 1mg IV q6 prn pain 4-10. Of note, etiology of acute complex SBO remains unclear, but is probably due to surgical adhesions that developed after patient underwent (a) laparoscopic cholecystectomy (12/06/2023, 8:49am, [facility] General Surgeon Dr. Cruz Baugh) to treat cholelithiasis, complicated by acute SBO requiring (b) exploratory laparotomy with release of acute SBO (12/08/2023, 1:28pm, [facility] General Surgeon Dr. Cruz Baugh). Patient subsequently underwent surgical resection of ~40cm of necrotic/gangrenous bowel (as per General Surgeon SANDRA Tovar) on 02/07/2025, 1:06pm with [facility] General Surgeon Dr. Milo Eason. (2) Acidosis, lactic: Plan: To address #2, patient received 1 liter of 0.9% NS @ 999 mL/hr (02/05/2025, 3:2 0pm), followed by 1 liter of 0.9% NS @ 74 mL/hr (02/05/2025, 6:46pm), based on a delivery rate of 1 mL of 0.9% NS per kg of body weight per hour, and a body weight of 74.1 kg. Etiology of acute lactic acid elevation remains unclear, but is most probably due to acute dehydration, as reflected by BUN:creatinine ratio > 20:1 (cf., admission BUN 32, creatinine 1.31)(02/05/2025, 3:14pm). Hence, I opted to rehydrate patient with 1 liter of 0.9% NS @ 999 mL/hr (02/07/2025, 3:23pm), followed by 1 liter of 0.9% NS @ 72 mL/hr (02/07/2025, 4:25pm), based on a delivery rate of 1 mL of 0.9% NS per kg of body weight per hour, and a body weight of 72.0 kg. I will check repeat lactic acid level in the 02/11/2025 am. (3) Hypertension: Plan: To address #3, patient was started on tylenol 650mg PO q6 prn pain 1-3 (02/05/2025, 6:57pm), dilaudid 1mg IV x 1 dose (02/05/2025, 6:49pm), followed by dilaudid 1mg IV q6 prn pain 4-10 (02/05/2025, 7:31pm), as I surmise that patient's acute malignant HTN is largely driven by her 1010 generalized abdominal pains, which in turn, are due to acute complete SBO with 1-2 transition points. In addition, as patient remains NPO and may not be capable of taking her home-scheduled ramipril 10mg PO qam or HCTZ 12.5mg PO qam, due to ongoing N/V, I have opted to start patient on anti-HTN agent hydralazine 10mg IV x 1 dose (02/05/2025, 7:25pm), followed by hydralazine 10mg IV q6 prn systolic BP > 185 mm Hg or diastolic BP > 95 mm Hg. Given the combination of analgesia with hydralazine, I hoped to decrease patient's admitting BP 230/93 (02/05/2025, 3:05pm) by ~25% in the first 24 hours of hospitalization. cf., current BP 158/74 (02/08/2025, 7:11pm). I will check repeat BP qshift and in the am. (4) Hyperglycemia: Plan: To address #4, patient was started on lispro insulin sliding scale q6 and POC glucose q6 as patient remains NPO. In the interim, I have opted to hold off patient's home-scheduled metformin 500mg PO bid, given the potential for this medication to exacerbate patient's admitting complaints of N/V. I have also opted to hold off patient's home-scheduled dulaglutide 3mg SQ q7 days, given the potential for this medication to delay gastric emptying, which can increase the risk of aspiration during general anesthesia. In this patient with a past medical history of acute SBO requiring exploratory laparotomy with release of acute SBO (12/08/2023, 1:28pm, [facility] General Surgeon Dr. Cruz Baugh), I surmise that patient is at fairly high risk for having to undergo surgical correction of her acute complex SBO during this hospitalization. Hence, patient should NOT receive her home-scheduled dulaglutide 3mg SQ q7 days while in [facility]. Of final note, serum glucose goal is 180 mg/dL or less, as set forth by the seminal work of the [employer] Study Investigators (cf., "Intensive versus C onventional Glucose Control in Critically Ill Patients." [employer] Journal of Medicine. October 30, 2008; 360:[id number]). Admission and Anticipated Discharge Date Admission Date: February 05, 2025 Subjective "I feel better today. I had a little stool yesterday, not much. No nausea or vomit. No farting." Review of Systems Constitutional: Patient reports generalized abdominal pain (rated 4 to 5, out of 10) on 02/10/2025. Negative for antecedent/coincident fevers, chills, diaphoresis, cough, wheeze, sore throat, hemoptysis, chest pains, palpitations, pleurisy, nausea, vomiting, diarrhea, pelvic pain, hematemesis, hematochezia, melena, hematuria, dysuria, frequency, urgency, headaches, dizziness, lightheadedness, visual changes, hearing changes, weakness, falls, syncope, trauma, travel history, sick contacts, or food/drug ingestions novel or new. All other review of systems are reported as negative by the patient on 02/10/2025. Physical Exam Constitutional: General: Uncomfortable with patient moaning and groaning. Awake, alert. Not confused. Not lethargic or obtunded. HEENT: Normocephalic, atraumatic. Pupils equally round and reactive to light. No nystagmus, gaze paresis, anisocoria, miosis, mydriasis, hyphema, scleral injection, conjunctivitis, or pterygium. No otorrhea. No pharyngeal erythema, edema, or discharge. NGT in situ (inserted on 02/05/2025 in [facility] ER bed #A12B) with 600 mL effluent in past 12 hours. Neck: Supple, no stridor, bruit, goiter, or hepato-jugular reflux. Jugular venous pressure is estimated to be 3 cm above the sternal angle of Percy, which in turn, is 5 cm above the level of the right atrium; with jugular venous pressure estimated to be 8 cm, then, there is no jugular venous distention on 02/10/2025. Lymphatics: No cervical (anterior/posterior), supraclavicular, infraclavicular, axillary, epitrochlear, or inguinal adenopathy. Chest: Symmetric rise and fall with respirations. Non-tender to palpation. Lungs: Clear to auscultation and percussion. No audible expiratory wheeze, egophony, pectoriloquy, increase in tactile fremitus, or flatness/dullness to percussion at the bases. Heart: RRR. S1 and S2 noted. No S3 or S4 summation gallop. No tripartite friction rub. Grade II/ early systolic murmur @ LLSB without radiation to the carotids, axilla, or back, and which remains invariant in regards to the respiratory cycle. Abdomen: Soft, non-distended with generalized, MILDER tenderness on 02/10/2025 exam, compared to my 02/09/2025 exam. No rebound, guarding, Alberto's sign, or organomegaly. Bowel sounds auscultated in all 4 quadrants. 19 Afghan CHITRA Ilvan drain with 40 cc effluent since insertion on 02/07/2025, 1:06pm. Extremities: No clubbing, cyanosis, or edema in upper extremities or lower extremities bilaterally. 2+ pedal pulses bilaterally. Skin: No decubitus ulcer or enanthem. Genito-urinary: No urethral discharge. + pryor catheter with 0.33 mL/kg/hr (02/09/2025, 9:39 pm to 02/10/2025, 9:39 pm). Neurology: Alert and oriented in regards to person, place, time, and situation. DTR+. 5/5 motor strength in all 4 extremities, both proximally and distally. No myoclonus, tremors, or tics. Psychiatry: No homicidal ideation. No suicidal ideation. No flat affect; smiles appropriately. Results & Data Results & Data Vital Signs (Past 12 Hours) Vital Signs Temp Pulse Pulse Resp BP Pulse Ox O2 Del Method 02/10/25 21:30 Room Air 02/10/25 19:59 36.6 C 65 16 172/65 H 92 Room Air 02/10/25 15:15 36.3 C L 63 17 162/64 H 93 Room Air 02/10/25 11:54 36.3 C L 57 L 19 165/69 H 97 Room Air Laboratory Results Abnormal lab results 02/10/25 02/10/25 Range/Units 07:23 16:27 RBC 3.04 L (4.20-5.40) M/uL Hgb 9.2 L (12.0-16.0) g/dl Hct 29.5 L (37.0-47.0) % MCHC 31.2 L (32.0-36.0) g/dL Lymph # (Auto) 1.12 L (1.20-3.40) K/uL Rabun # (Auto) 0.60 H (0.11-0.59) K/uL Potassium 3.4 L (3.5-5.1) mmol/L Chloride 113 H (98-107) mmol/L BUN 29 H (6-23) mg/dl BUN/Creatinine Ratio 30.5 H (10-20) POC Glucose 64 L* (70-99) mg/dl Calcium 8.2 L (8.6-10.3) mg/dl Total Protein 5.2 L (6.0-8.3) gm/dl Albumin 2.7 L (3.4-5.0) gm/dl Procalcitonin 2.42 H (0-0.5) ng/ml PG Care Time/CCT Total # of Minutes Spent Total Time Spent with Patient: Total time spent is greater than 50% in coordination of care (as documented) at patient's floor/unit and/or counseling patient: Coding Level of Care Code 90859 SUB INP/OBS CARE 2/35MIN Diagnoses SBO (small bowel obstruction) K56.609 Acidosis, lactic E87.20 Hypertension I10 Hyperglycemia R73.9
[2025-02-11] MEDS: LACTATED RINGER'S 1,000 ML IV SCH (00:07)
[2025-02-11] MEDS: SODIUM CHLORIDE 0.9% 1,000 ML IV SCH (00:25)
[2025-02-11 05:47] LABS: Hematocrit (blood only) 27.9 % (37.0-47.0); Hemoglobin 9.0 g/dl (12.0-16.0); Immature Granulocytes # (auto) 0.04 K/uL (0.01-0.20); Immature Granulocytes % (auto) 0.6 %; Mean Corpuscular Hemoglobin 30.6 pg (25.0-34.0); Mean Corpuscular Volume 94.9 fL (80.0-100.0); Platelet Count 234 K/uL (130-400); RDW Standard Deviation 44.2 fL (36.4-46.3); Red Blood Count 2.94 M/uL (4.20-5.40); White Blood Count 6.92 K/ul (4.8-10.8)
[2025-02-11 06:07] LABS: Anion Gap 8.0 (3-11); Calcium 8.0 mg/dl (8.6-10.3); Carbon Dioxide 24.0 mmol/L (21-32); Chloride 113.0 mmol/L (98-107); Potassium 3.5 mmol/L (3.5-5.1); Sodium 145.0 mmol/L (136-145)
[2025-02-11 06:13] LABS: Blood Urea Nitrogen 23.0 mg/dl (6-23); Creatinine Clr Calc Pharmacy 51.0 ml/min; Glucose 68.0 mg/dl (70-99(Fasting))
[2025-02-11] MEDS: DEXTROSE 50% 50 ML SYRINGE IV PRN (06:29)
[2025-02-11] MEDS: D5W AND NSS 1,000 ML IV ONE (09:00)
--- NOTE | 2025-02-11 11:35 | Surgery Progress Note ---
Date of Service February 11, 2025 Assessment & Plan (1) S/P small bowel resection: Plan: POD #4 s/p small bowel resection by Dr Eason +flatus +sm bm remove ngt , start clear liquid diet vss with HTN Continue pain control CHITRA drain to remain in place voiding without difficulty Encourage OOB and ambulation while awake , IS Admission and Anticipated Discharge Date Admission Date: February 05, 2025 Supervising Physician Co-Signing Physician Notes I have seen and examined this patient. I agree with this plan Significant HTN per medical service May heplock IV if she has tolerated liquids today Subjective pt denies abd pain +flatus and +sm bm +anxiety reports its from her HTN Review of Systems Constitutional: no fever and no chills Respiratory: no dyspnea Cardiovascular: no chest pain Gastrointestinal: no abdominal pain, no nausea and no vomiting Physical Exam Constitutional: cooperative and comfortable Respiratory: able to speak in complete sentences; no respiratory distress Cardiovascular: Rate/Rhythm: regular rate Gastrointestinal (Abdomen): Inspection/Auscultation: + abdominal surgical incision (dressing CDI , qian under , no s/s infection noted) and + abdominal surgical drain present; abdomen not distended Psychiatric: Orientation: alert and oriented x 3 Results & Data Vital Signs (Past 12 Hours) Vital Signs Temp Pulse Pulse Resp BP Pulse Ox O2 Del Method 02/11/25 10:45 97.7 F 74 17 203/65 H 96 Room Air 02/11/25 10:37 199/66 H 02/11/25 09:12 196/75 H 02/11/25 08:35 97.3 F L 65 17 208/76 H 97 Room Air 02/11/25 03:40 97.7 F 67 16 180/68 H 96 Room Air Results CBC w Diff Results: RBC 2.94 M/uL (4.20-5.40) L 02/11/25 WBC 6.92 K/ul (4.8-10.8) 02/11/25 Hgb 9.0 g/dl (12.0-16.0) L 02/11/25 Hct 27.9 % (37.0-47.0) L 02/11/25 MCV 94.9 fL (80.0-100.0) 02/11/25 MCH 30.6 pg (25.0-34.0) 02/11/25 MCHC 32.3 g/dL (32.0-36.0) 02/11/25 RDW Standard Deviation 44.2 fL (36.4-46.3) 02/11/25 RDW Coefficient of Variation 12.6 % (11.5-14.5) 02/11/25 Plt Count 234 K/uL (130-400) 02/11/25 MPV 10.5 fL (9.4-12.4) 02/11/25 Neutrophils (%) (Auto) 66.9 % 02/11/25 Lymphocytes (%) (Auto) 16.6 % 02/11/25 Monocytes # (Auto) 0.67 K/uL (0.11-0.59) H 02/11/25 Eosinophils # (Auto) 0.40 K/uL (0.00-0.50) 02/11/25 Immature Granulocyte % (Auto) 0.6 % 02/11/25 Neutrophils # (Auto) 4.63 K/uL (1.40-6.50) 02/11/25 Lymphocytes # (Auto) 1.15 K/uL (1.20-3.40) L 02/11/25 Monocytes # (Auto) 0.67 K/uL (0.11-0.59) H 02/11/25 Eosinophils # (Auto) 0.40 K/uL (0.00-0.50) 02/11/25 Basophils # (Auto) 0.03 K/uL (0.00-0.20) 02/11/25 Immature Granulocyte # (Auto) 0.04 K/uL (0.01-0.20) 5 Polychromasia 1+ 02/08/25 Dohle Bodies 1+ 02/08/25 PG Care Time/CCT Total # of Minutes Spent Total Time Spent with Patient: Total time spent is greater than 50% in coordination of care (as documented) at patient's floor/unit and/or counseling patient: Coding Level of Care Code 66682 Post Operative Follow-Up Diagnoses S/P small bowel resection Z90.49
[2025-02-11] MEDS: Nursing to Pharmacy Communication SCH (12:30)
[2025-02-11] MEDS: OPTIRAY 320 125ml IV ONE (14:18)
--- NOTE | 2025-02-11 14:38 | CT Scan Report ---
CT ANGIOGRAM OF THE CHEST CLINICAL HISTORY: Elevated d-dimer. Recent abdominal surgery. Evaluate for pulmonary embolus. COMPARISON STUDY: Chest CT June 18, 2024. Chest radiograph February 05, 2025. TECHNIQUE: Following the IV administration of 119 cc of Optiray 320, CT angiogram of the chest was pe rformed from the upper abdomen to the thoracic inlet utilizing the pulmonary embolus protocol. Images are reviewed in the axial, sagittal, and coronal planes. 3-D MIPS images are created and assessed. I V contrast was administered without complication. A dose lowering technique was utilized adhering to the principles of ALARA. CT DOSE: 583.09 mGy.cm FINDINGS: No pulmonary emboli are identified. There is no thoracic aortic dissection. The heart is mi ldly enlarged. There is moderate coronary artery calcification. There is no pneumothorax. Trace bilat eral pleural effusions are present. Subpleural opacities favor atelectasis. There is no consolidation to suggest pneumonia. No suspicious pulmonary nodules are present. No thoracic lymphadenopathy. IMPRESSION: 1. No pulmonary emboli identified. 2. Trace bilateral pleural effusions. Subpleural opacities suggestive of atelectasis. No consolidatio n to suggest pneumonia. 3. Mild cardiomegaly and moderate coronary artery calcification. ACT 112: Negative or not required by law. Electronically signed by: Garrett Ramos M.D. 02/11/2025 2:36 PM
[2025-02-11] MEDS: INSULIN ASPART PER UNIT CHARGE SC SCH (17:12)
--- NOTE | 2025-02-11 21:17 | Hospitalist Progress Note ---
Date of Service February 11, 2025 Assessment & Plan (1) SBO (small bowel obstruction): Plan: To address #1, patient was made NPO except for meds and ice chips, while continuing NGT to decompress the stomach. Patient awaits richard-operative INR (02/05/2025, 3:14pm) and richard-operative EKG (02/05/2025, 6:41pm), repeat KUB (1 view)(to evaluate for any interval change(s) in acute complex SBO with 1-2 transition points, and formal General Surgery Service evaluation with Dr. Tiburcio Dubon in the 02/06/2025 am. In the interim, patient was started on tylenol 650mg PO q6 prn pain 1-3, headache, temp > 100.4 degrees Fahrenheit, dilaudid 1mg IV q6 prn pain 4-10. Of note, etiology of acute complex SBO remains unclear, but is probably due to surgical adhesions that developed after patient underwent (a) laparoscopic cholecystectomy (12/06/2023, 8:49am, [facility] General Surgeon Dr. Cruz Baugh) to treat cholelithiasis, complicated by acute SBO requiring (b) exploratory laparotomy with release of acute SBO (12/08/2023, 1:28pm, [facility] General Surgeon Dr. Cruz Baugh). Patient subsequently underwent surgical resection of ~40cm of necrotic/gangrenous bowel (as per General Surgeon SANDRA Tovar) on 02/07/2025, 1:06pm with [facility] General Surgeon Dr. Milo Eason. (2) Acidosis, lactic: Plan: To address #2, patient received 1 liter of 0.9% NS @ 999 mL/hr (02/05/2025, 3:2 0pm), followed by 1 liter of 0.9% NS @ 74 mL/hr (02/05/2025, 6:46pm), based on a delivery rate of 1 mL of 0.9% NS per kg of body weight per hour, and a body weight of 74.1 kg. Etiology of acute lactic acid elevation remains unclear, but is most probably due to acute dehydration, as reflected by BUN:creatinine ratio > 20:1 (cf., admission BUN 32, creatinine 1.31)(02/05/2025, 3:14pm). Hence, I opted to rehydrate patient with 1 liter of 0.9% NS @ 999 mL/hr (02/07/2025, 3:23pm), followed by 1 liter of 0.9% NS @ 72 mL/hr (02/07/2025, 4:25pm), based on a delivery rate of 1 mL of 0.9% NS per kg of body weight per hour, and a body weight of 72.0 kg. I will check repeat lactic acid level in the 02/12/2025 am. (3) Hypertension: Plan: To address #3, patient was started on tylenol 650mg PO q6 prn pain 1-3 (02/05/2025, 6:57pm), dilaudid 1mg IV x 1 dose (02/05/2025, 6:49pm), followed by dilaudid 1mg IV q6 prn pain 4-10 (02/05/2025, 7:31pm), as I surmise that patient's acute malignant HTN is largely driven by her 1010 generalized abdominal pains, which in turn, are due to acute complete SBO with 1-2 transition points. In addition, as patient remains NPO and may not be capable of taking her home-scheduled ramipril 10mg PO qam or HCTZ 12.5mg PO qam, due to ongoing N/V, I have opted to start patient on anti-HTN agent hydralazine 10mg IV x 1 dose (02/05/2025, 7:25pm), followed by hydralazine 10mg IV q6 prn systolic BP > 185 mm Hg or diastolic BP > 95 mm Hg. Given the combination of analgesia with hydralazine, I hoped to decrease patient's admitting BP 230/93 (02/05/2025, 3:05pm) by ~25% in the first 24 hours of hospitalization. However, patient's BP remains persistently elevated. cf., current BP 192/74 (02/11/2025, 7:54pm). Hene, I have increased hydralazine dose from 10mg IV q6 prn systolic BP > 185 mm Hg or diastolic BP > 95 mm Hg to hydralazine 20mg IV q6 prn systolic BP > 185 mm Hg or diastolic BP > 95 mm Hg on 02/11/2025, 9:15pm. I will check repeat BP qshift and in the 02/12/2025 am. (4) Hyperglycemia: Plan: To address #4, patient was started on lispro insulin sliding scale q6 and POC glucose q6 as patient remains NPO. In the interim, I have opted to hold off patient's home-scheduled metformin 500mg PO bid, given the potential for this medication to exacerbate patient's admitting complaints of N/V. I have also opted to hold off patient's home-scheduled dulaglutide 3mg SQ q7 days, given the potential for this medication to delay gastric emptying, which can increase the risk of aspiration during general anesthesia. In this patient with a past medical history of acute SBO requiring exploratory laparotomy with release of acute SBO (12/08/2023, 1:28pm, [facility] General Surgeon Dr. Cruz Baugh), I surmise that patient is at fairly high risk for having to undergo surgical correction of her acute complex SBO during this hospitalization. Hence, patient should NOT receive her home-scheduled dulaglutide 3mg SQ q7 days while in [facility]. Of final note, serum glucose goal is 180 mg/dL or less, as set forth by the seminal work of the [employer] Study Investigators (cf., "Intensive versus Conventional Glucose Control in Critically Ill Patients." [place] Journal of Medicine. October 30, 2008; [id number]). Admission and Anticipated Discharge Date Admission Date: February 05, 2025 Subjective "I feel a lot less pain today, like a 3 (out of 10 point intensity scale) pain today. I still feel nauseated, though, but no vomiting. I passed some small stool earlier today and farting too. I am getting better overall." Review of Systems Constitutional: Patient reports generalized abdominal pain (rated 3 out of 10) and nausea on 02/11/2025. Negative for antecedent/coincident fevers, chills, diaphoresis, cough, wheeze, sore throat, hemoptysis, chest pains, palpitations, pleurisy, vomiting, diarrhea, pelvic pain, hematemesis, hematochezia, melena, hematuria, dysuria, frequency, urgency, headaches, dizziness, lightheadedness, visual changes, hearing changes, weakness, falls, syncope, trauma, travel history, sick contacts, or food/drug ingestions novel or new. All other review of systems are reported as negative by the patient on 02/11/2025. Physical Exam Constitutional: General: Uncomfortable with patient moaning and groaning. Awake, alert. Not confused. Not lethargic or obtunded. HEENT: Normocephalic, atraumatic. Pupils equally round and reactive to light. No nystagmus, gaze paresis, anisocoria, miosis, mydriasis, hyphema, scleral injection, conjunctivitis, or pterygium. No otorrhea. No pharyngeal erythema, edema, or discharge. NGT in situ (inserted on 02/05/2025 in [facility] ER bed #A12B) with 600 mL effluent in past 12 hours. Neck: Supple, no stridor, bruit, goiter, or hepato-jugular reflux. Jugular venous pressure is estimated to be 3 cm above the sternal angle of Percy, which in turn, is 5 cm above the level of the right atrium; with jugular venous pressure estimated to be 8 cm, then, there is no jugular venous distention on 02/11/2025. Lymphatics: No cervical (anterior/posterior), supraclavicular, infraclavicular, axillary, epitrochlear, or inguinal adenopathy. Chest: Symmetric rise and fall with respirations. Non-tender to palpation. Lungs: Clear to auscultation and percussion. No audible expiratory wheeze, egophony, pectoriloquy, increase in tactile fremitus, or flatness/dullness to percussion at the bases. Heart: RRR. S1 and S2 noted. No S3 or S4 summation gallop. No tripartite friction rub. Grade II/ early systolic murmur @ LLSB without radiation to the carotids, axilla, or back, and which remains invariant in regards to the respiratory cycle. Abdomen: Soft, non-distended with generalized, MILDER tenderness on 02/10/2025 exam, compared to my 02/09/2025 exam. No rebound, guarding, Alberto's sign, or organomegaly. Bowel sounds auscultated in all 4 quadrants. 19 Upper Sor[place] CHITRA Livan drain with 40 cc effluent since insertion on 02/07/2025, 1:06pm. Extremities: No clubbing, cyanosis, or edema in upper extremities or lower extremities bilaterally. 2+ pedal pulses bilaterally. Skin: No decubitus ulcer or enanthem. Genito-urinary: No urethral discharge. + pryor catheter with 0.43 mL/kg/hr (02/10/2025, 9:10 pm to 02/11/2025, 9:10 pm). Neurology: Alert and oriented in regards to person, place, time, and situation. DTR+. 5/5 motor strength in all 4 extremities, both proximally and distally. No myoclonus, tremors, or tics. Psychiatry: No homicidal ideation. No suicidal ideation. No flat affect; smiles appropriately. Results & Data Results & Data Vital Signs (Past 12 Hours) Vital Signs Temp Pulse Pulse Resp BP Pulse Ox O2 Del Method 02/11/25 19:54 36.5 C 69 18 192/74 H 96 Room Air 02/11/25 16:26 195/70 H 02/11/25 15:58 191/70 H 02/11/25 15:29 36.5 C 69 19 211/74 H 97 Room Air 02/11/25 10:45 36.5 C 74 17 203/65 H 96 Room Air 02/11/25 10:37 199/66 H 02/11/25 09:12 196/75 H Laboratory Results Abnormal lab results 02/11/25 02/11/25 02/11/25 Range/Units 00:05 05:22 06:18 RBC 2.94 L (4.20-5.40) M/uL Hgb 9.0 L (12.0-16.0) g/dl Hct 27.9 L (37.0-47.0) % Lymph # (Auto) 1.15 L (1.20-3.40) K/uL Gooding # (Auto) 0.67 H (0.11-0.59) K/uL D-Dimer (0-500) ug/L FEU Chloride 113 H (98-107) mmol/L BUN/Creatinine Ratio 25.8 H (10-20) Glucose 68 L (70-99(Fasting)) mg/dl POC Glucose 69 L* 65 L* (70-99) mg/dl Calcium 8.0 L (8.6-10.3) mg/dl Procalcitonin 1.27 H (0-0.5) ng/ml 02/11/25 02/11/25 02/11/25 Range/Units 06:19 06:47 11:04 RBC (4.20-5.40) M/uL Hgb (12.0-16.0) g/dl Hct (37.0-47.0) % Lymph # (Auto) (1.20-3.40) K/uL Gooding # (Auto) (0.11-0.59) K/uL D-Dimer 6200 H* (0-500) ug/L FEU Chloride (98-107) mmol/L BUN/Creatinine Ratio (10-20) Glucose (70-99(Fasting)) mg/dl POC Glucose 67 L* 126 H (70-99) mg/dl Calcium (8.6-10.3) mg/dl Procalcitonin (0-0.5) ng/ml 02/11/25 02/11/25 02/11/25 Range/Units 11:59 16:09 20:05 RBC (4.20-5.40) M/uL Hgb (12.0-16.0) g/dl Hct (37.0-47.0) % Lymph # (Auto) (1.20-3.40) K/uL Gooding # (Auto) (0.11-0.59) K/uL D-Dimer (0-500) ug/L FEU Chloride (98-107) mmol/L BUN/Creatinine Ratio (10-20) Glucose (70-99(Fasting)) mg/dl POC Glucose 110 H 176 H 211 H (70-99) mg/dl Calcium (8.6-10.3) mg/dl Procalcitonin (0-0.5) ng/ml Diagnostic Findings CTA chest (02/11/2025, 1:08pm): 1. No pulmonary emboli identified. 2. Trace bilateral pleural effusions. Subpleural opacities suggestive of atelectasis. No consolidation to suggest pneumonia. 3. Mild cardiomegaly and moderate coronary artery calcification. PG Care Time/CCT Total # of Minutes Spent Total Time Spent with Patient: Total time spent is greater than 50% in coordination of care (as documented) at patient's floor/unit and/or counseling patient: Coding Level of Care Code 02785 SUB INP/OBS CARE 235MIN Diagnoses SBO (small bowel obstruction) K56.609 Acidosis, lactic E87.20 Hypertension I10 Hyperglycemia R73.9
[2025-02-11 22:25] LABS: Magnesium 2.1 mg/dl (1.7-2.4)
[2025-02-12 06:14] LABS: Hematocrit (blood only) 27.6 % (37.0-47.0); Hemoglobin 9.1 g/dl (12.0-16.0); Immature Granulocytes # (auto) 0.05 K/uL (0.01-0.20); Immature Granulocytes % (auto) 0.8 %; Mean Corpuscular Hemoglobin 30.8 pg (25.0-34.0); Mean Corpuscular Volume 93.6 fL (80.0-100.0); Platelet Count 252 K/uL (130-400); RDW Standard Deviation 43.4 fL (36.4-46.3); Red Blood Count 2.95 M/uL (4.20-5.40); White Blood Count 6.12 K/ul (4.8-10.8)
[2025-02-12 06:31] LABS: Anion Gap 6.0 (3-11); Blood Urea Nitrogen 17.0 mg/dl (6-23); Calcium 7.8 mg/dl (8.6-10.3); Carbon Dioxide 26.0 mmol/L (21-32); Chloride 113.0 mmol/L (98-107); Creatinine Clr Calc Pharmacy 57.6 ml/min; Glucose 126.0 mg/dl (70-99(Fasting)); Potassium 3.1 mmol/L (3.5-5.1); Sodium 145.0 mmol/L (136-145)
--- NOTE | 2025-02-12 07:39 | Surgery Progress Note ---
<Statement entered by Milo Eason, - 02/13/25 14:07> I have seen and examined this patient. I agree with the plan Date of Service February 12, 2025 Assessment & Plan (1) S/P small bowel resection: Plan: POD #5 s/p small bowel resection by Dr Eason +flatus, no bm today started clear liquid diet yesterday tolerating, does not like choices will trial fulls, go slow vss with HTN Continue pain control CHITRA drain to remain in place voiding without difficulty Encourage OOB and ambulation while awake , IS Admission and Anticipated Discharge Date Admission Date: February 05, 2025 Subjective pt denies n/v with clear liquids denies cp, sob +flatus mood improved from yesterday Review of Systems Constitutional: no fever and no chills Respiratory: no dyspnea Cardiovascular: no chest pain Gastrointestinal: no abdominal pain, no nausea and no vomiting Psychiatric: no anxiety Physical Exam Constitutional: cooperative and comfortable Respiratory: able to speak in complete sentences; no respiratory distress Cardiovascular: Rate/Rhythm: regular rate Gastrointestinal (Abdomen): Inspection/Auscultation: + abdominal surgical incision ( qian no s/s infection noted) and + abdominal surgical drain present; abdomen not distended Percussion/Palpation: + abdomen tender Psychiatric: Orientation: alert and oriented x 3 Results & Data Vital Signs (Past 12 Hours) Vital Signs Temp Pulse Pulse Pulse Resp BP Pulse Ox 02/12/25 07:17 98.1 F 60 19 179/68 H 96 02/12/25 03:33 97.7 F 82 18 172/80 H 95 02/11/25 22:13 74 18 175/71 H 92 02/11/25 21:45 68 02/11/25 19:54 97.7 F 69 18 192/74 H 96 O2 Del Method 02/12/25 07:17 Room Air 02/12/25 03:33 Room Air 02/11/25 22:13 Room Air 02/11/25 21:45 02/11/25 19:54 Room Air PG Care Time/CCT Total # of Minutes Spent Total Time Spent with Patient: Total time spent is greater than 50% in coordination of care (as documented) at patient's floor/unit and/or counseling patient: Coding Level of Care Code 44346 Post Operative Follow-Up Diagnoses S/P small bowel resection Z90.49
[2025-02-12] MEDS: POTASSIUM CHLORIDE CRTAB 20 MEQ TABCR PO STA (08:43)
[2025-02-12] MEDS: POTASSIUM CHLORIDE CRTAB 20 MEQ TABCR PO SCH (11:53)
--- NOTE | 2025-02-12 20:42 | Hospitalist Progress Note ---
Date of Service February 12, 2025 Assessment & Plan (1) SBO (small bowel obstruction): Plan: To address #1, patient was made NPO except for meds and ice chips, while continuing NGT to decompress the stomach. Patient awaits richard-operative INR (02/05/2025, 3:14pm) and richard-operative EKG (02/05/2025, 6:41pm), repeat KUB (1 view)(to evaluate for any interval change(s) in acute complex SBO with 1-2 transition points, and formal General Surgery Service evaluation with Dr. Tiburcio Dubon in the 02/06/2025 am. In the interim, patient was started on tylenol 650mg PO q6 prn pain 1-3, headache, temp > 100.4 degrees Fahrenheit, dilaudid 1mg IV q6 prn pain 4-10. Of note, etiology of acute complex SBO remains unclear, but is probably due to surgical adhesions that developed after patient underwent (a) laparoscopic cholecystectomy (12/06/2023, 8:49am, [facility] General Surgeon Dr. Cruz Baugh) to treat cholelithiasis, complicated by acute SBO requiring (b) exploratory laparotomy with release of acute SBO (12/08/2023, 1:28pm, [facility] General Surgeon Dr. Cruz Baugh). Patient subsequently underwent surgical resection of ~40cm of necrotic/gangrenous bowel (as per General Surgeon SANDRA Tovar) on 02/07/2025, 1:06pm with [facility] General Surgeon Dr. Milo Eason. (2) Acidosis, lactic: Plan: To address #2, patient received 1 liter of 0.9% NS @ 999 mL/hr (02/05/2025, 3:2 0pm), followed by 1 liter of 0.9% NS @ 74 mL/hr (02/05/2025, 6:46pm), based on a delivery rate of 1 mL of 0.9% NS per kg of body weight per hour, and a body weight of 74.1 kg. Etiology of acute lactic acid elevation remains unclear, but is most probably due to acute dehydration, as reflected by BUN:creatinine ratio > 20:1 (cf., admission BUN 32, creatinine 1.31)(02/05/2025, 3:14pm). Hence, I opted to rehydrate patient with 1 liter of 0.9% NS @ 999 mL/hr (02/07/2025, 3:23pm), followed by 1 liter of 0.9% NS @ 72 mL/hr (02/07/2025, 4:25pm), based on a delivery rate of 1 mL of 0.9% NS per kg of body weight per hour, and a body weight of 72.0 kg. I will check repeat lactic acid level in the 02/13/2025 am. (3) Hypertension: Plan: To address #3, patient was started on tylenol 650mg PO q6 prn pain 1-3 (02/05/2025, 6:57pm), dilaudid 1mg IV x 1 dose (02/05/2025, 6:49pm), followed by dilaudid 1mg IV q6 prn pain 4-10 (02/05/2025, 7:31pm), as I surmise that patient's acute malignant HTN is largely driven by her 1010 generalized abdominal pains, which in turn, are due to acute complete SBO with 1-2 transition points. In addition, as patient remains NPO and may not be capable of taking her home-scheduled ramipril 10mg PO qam or HCTZ 12.5mg PO qam, due to ongoing N/V, I have opted to start patient on anti-HTN agent hydralazine 10mg IV x 1 dose (02/05/2025, 7:25pm), followed by hydralazine 10mg IV q6 prn systolic BP > 185 mm Hg or diastolic BP > 95 mm Hg. Given the combination of analgesia with hydralazine, I hoped to decrease patient's admitting BP 230/93 (02/05/2025, 3:05pm) by ~25% in the first 24 hours of hospitalization. However, patient's BP remained persistently elevated with BP 192/74 (02/11/2025, 7:54pm). Hence, I increased hydralazine dose from 10mg IV q6 prn systolic BP > 185 mm Hg or diastolic BP > 95 mm Hg to hydralazine 20mg IV q6 prn systolic BP > 185 mm Hg or diastolic BP > 95 mm Hg on 02/11/2025, 9:15pm. Patient's BP declined to 175/71 (02/11/2025, 10:13pm) and remains elevated at 179/68 (02/12/2025, 7:17am). Hence, I have opted to start patient on hydralazine 20mg IV q6 [id number] on 02/12/2025, 8:48am, 3:05pm, and 8:40pm), and I will check repeat BP qshift and in the 02/13/2025 am. (4) Hyperglycemia: Plan: To address #4, patient was started on lispro insulin sliding scale q6 and POC glucose q6 as patient remains NPO. In the interim, I have opted to hold off patient's home-scheduled metformin 500mg PO bid, given the potential for this medication to exacerbate patient's admitting complaints of N/V. I have also opted to hold off patient's home-scheduled dulaglutide 3mg SQ q7 days, given the potential for this medication to delay gastric emptying, which can increase the risk of aspiration during general anesthesia. In this patient with a past medical history of acute SBO requiring exploratory laparotomy with release of acute SBO (12/08/2023, 1:28pm, [facility] General Surgeon Dr. Cruz Baugh), I surmise that patient is at fairly high risk for having to undergo surgical correction of her acute complex SBO during this hospitalization. Hence, patient should NOT receive her home-scheduled dulaglutide 3mg SQ q7 days while in [facility]. Of final note, serum glucose goal is 180 mg/dL or less, as set forth by the seminal work of the [employer] Study Investigators (cf., "Intensive versus Conventional Glucose Control in Critically Ill Patients." [place] Journal of Medicine. October 30, 2008; 360:[phone]). Admission and Anticipated Discharge Date Admission Date: February 05, 2025 Subjective "I feel 100% better today. No pain in my belly today. I am farting, but no bowel yet. No nausea or vomiting today." Review of Systems Constitutional: Negative for antecedent/coincident fevers, chills, diaphoresis, cough, wheeze, sore throat, hemoptysis, chest pains, palpitations, pleurisy, nausea, vomiting, diarrhea, abdominal pain, pelvic pain, hematemesis, hematochezia, melena, hematuria, dysuria, frequency, urgency, headaches, dizziness, lightheadedness, visual changes, hearing changes, weakness, falls, syncope, trauma, travel history, sick contacts, or food/drug ingestions novel or new. All other review of systems are reported as negative by the patient on 02/12/2025. Physical Exam Constitutional: General: Comfortable, cooperative, coherent. Awake, alert. Not confused. Not lethargic or obtunded. Patient speaks in complete, fluent, and articulate sentences without pause, interrruption, cough, or wheeze. HEENT: Normocephalic, atraumatic. Pupils equally round and reactive to light. No nystagmus, gaze paresis, anisocoria, miosis, mydriasis, hyphema, scleral injection, conjunctivitis, or pterygium. No otorrhea. No pharyngeal erythema, edema, or discharge. NGT in situ (inserted on 02/05/[address] [facility] ER bed #[id number]; removed on 02/11/2025 pm). Neck: Supple, no stridor, bruit, goiter, or hepato-jugular reflux. Jugular venous pressure is estimated to be 3 cm above the sternal angle of Percy, which in turn, is 5 cm above the level of the right atrium; with jugular venous pressure estimated to be 8 cm, then, there is no jugular venous distention on 02/11/2025. Lymphatics: No cervical (anterior/posterior), supraclavicular, infracla vicular, axillary, epitrochlear, or inguinal adenopathy. Chest: Symmetric rise and fall with respirations. Non-tender to palpation. Lungs: Clear to auscultation and percussion. No audible expiratory wheeze, egophony, pectoriloquy, increase in tactile fremitus, or flatness/dullness to percussion at the bases. Heart: RRR. S1 and S2 noted. No S3 or S4 summation gallop. No tripartite friction rub. Grade II/ early systolic murmur @ LLSB without radiation to the carotids, axilla, or back, and which remains invariant in regards to the respiratory cycle. Abdomen: Soft, non-tender, non-distended. No rebound, guarding, Alberto's sign, or organomegaly. Bowel sounds auscultated in all 4 quadrants. 19 [place] CHITRA Livan drain with 40 cc effluent since insertion on 02/07/2025, 1:06pm. Extremities: No clubbing, cyanosis, or edema in upper extremities or lower extremities bilaterally. 2+ pedal pulses bilaterally. Skin: No decubitus ulcer or enanthem. Genito-urinary: No urethral discharge. + pryor catheter with 0.43 mL/kg/hr (02/10/2025, 9:10 pm to 02/11/2025, 9:10 pm). Neurology: Alert and oriented in regards to person, place, time, and situation. DTR+. 5/5 motor strength in all 4 extremities, both proximally and distally. No myoclonus, tremors, or tics. Psychiatry: No homicidal ideation. No suicidal ideation. No flat affect; smiles appropriately. Results & Data Results & Data Vital Signs (Past 12 Hours) Vital Signs Temp Pulse Pulse Resp BP Pulse Ox O2 Del Method 02/12/25 19:04 36.5 C 67 14 170/75 H 98 Room Air 02/12/25 15:52 36.6 C 67 18 145/70 H 96 Room Air 02/12/25 11:26 36.6 C 68 18 180/70 H 98 Room Air Laboratory Results Abnormal lab results 02/11/25 02/12/25 02/12/25 Range/Units 11:04 05:55 07:19 RBC 2.95 L (4.20-5.40) M/uL Hgb 9.1 L (12.0-16.0) g/dl Hct 27.6 L (37.0-47.0) % Lymph # (Auto) 1.15 L (1.20-3.40) K/uL Boyle # (Auto) 0.83 H (0.11-0.59) K/uL D-Dimer 6200 H* (0-500) ug/L FEU Potassium 3.1 L (3.5-5.1) mmol/L Chloride 113 H (98-107) mmol/L BUN/Creatinine Ratio 21.0 H (10-20) Glucose 126 H (70-99(Fasting)) mg/dl POC Glucose 120 H (70-99) mg/dl Calcium 7.8 L (8.6-10.3) mg/dl Procalcitonin 0.72 H (0-0.5) ng/ml 02/12/25 02/12/25 02/12/25 Range/Units 11:23 16:16 20:08 RBC (4.20-5.40) M/uL Hgb (12.0-16.0) g/dl Hct (37.0-47.0) % Lymph # (Auto) (1.20-3.40) K/uL Boyle # (Auto) (0.11-0.59) K/uL D-Dimer (0-500) ug/L FEU Potassium (3.5-5.1) mmol/L Chloride (98-107) mmol/L BUN/Creatinine Ratio (10-20) Glucose (70-99(Fasting)) mg/dl POC Glucose 143 H 152 H 168 H (70-99) mg/dl Calcium (8.6-10.3) mg/dl Procalcitonin (0-0.5) ng/ml PG Care Time/CCT Total # of Minutes Spent Total Time Spent with Patient: Total time spent is greater than 50% in coordination of care (as documented) at patient's floor/unit and/or counseling patient: Coding Level of Care Code 95396 SUB INP/OBS CARE 2/35MIN Diagnoses SBO (small bowel obstruction) K56.609 Acidosis, lactic E87.20 Hypertension I10 Hyperglycemia R73.9
--- NOTE | 2025-02-13 07:34 | Surgery Progress Note ---
<Statement entered by Milo Eason, DO - 02/13/25 14:09> I have seen and examined this patient. She states she just had a BM mixed with solid and liquid. Keep a guaze in the abdominal fold at the area of the infra- umbilical incision to protect this during the healing process. I agree with the plan as written and this was discussed with the surgical PA. Date of Service February 13, 2025 Assessment & Plan (1) S/P small bowel resection: Plan: POD #6 s/p small bowel resection by Dr Eason +flatus, no bm yet tolerating a full liquid diet thus far. denies n/v. pain tolerable CHITRA drain to remain in place while advancing diet. remains serosang. Encourage OOB and ambulation while awake , IS Will trial low fiber today and see how she fairs PT/OT ordered Admission and Anticipated Discharge Date Admission Date: February 05, 2025 Subjective Patient feeling well. Pain tolerable. Passing gas, no BM yet. Tolerating fulls. No N/V. Sitting up in chair this AM. Physical Exam Physical Exam: awake/alert, no distress. Sitting up in chair Gastrointestinal (Abdomen): Inspection/Auscultation: + abdominal surgical incision (c/d/i with midline qian, no signs of infection) and + abdominal surgical drain present (serosang); abdomen not distended Results & Data Vital Signs (Past 12 Hours) Vital Signs Temp Pulse Pulse Pulse Resp BP Pulse Ox 02/13/25 07:17 98.1 F 75 18 155/74 H 98 02/13/25 02:22 98.2 F 63 18 151/73 H 96 02/13/25 00:00 67 02/12/25 22:13 97.5 F L 68 14 145/75 H 96 O2 Del Method 02/13/25 07:17 Room Air 02/13/25 02:22 Room Air 02/13/25 00:00 02/12/25 22:13 Room Air PG Care Time/CCT Total # of Minutes Spent Total Time Spent with Patient: Total time spent is greater than 50% in coordination of care (as documented) at patient's floor/unit and/or counseling patient: Coding Level of Care Code 16716 Post Operative Follow-Up Diagnoses S/P small bowel resection Z90.49
[2025-02-13 07:48] LABS: Hematocrit (blood only) 30.9 % (37.0-47.0); Hemoglobin 10.1 g/dl (12.0-16.0); Immature Granulocytes # (auto) 0.06 K/uL (0.01-0.20); Immature Granulocytes % (auto) 0.9 %; Mean Corpuscular Hemoglobin 30.8 pg (25.0-34.0); Mean Corpuscular Volume 94.2 fL (80.0-100.0); Platelet Count 341 K/uL (130-400); RDW Standard Deviation 44.8 fL (36.4-46.3); Red Blood Count 3.28 M/uL (4.20-5.40); White Blood Count 6.50 K/ul (4.8-10.8)
[2025-02-13 08:07] LABS: Anion Gap 6.0 (3-11); Blood Urea Nitrogen 18.0 mg/dl (6-23); Calcium 8.2 mg/dl (8.6-10.3); Carbon Dioxide 27.0 mmol/L (21-32); Chloride 110.0 mmol/L (98-107); Creatinine Clr Calc Pharmacy 53.0 ml/min; Glucose 123.0 mg/dl (70-99(Fasting)); Potassium 3.2 mmol/L (3.5-5.1); Sodium 143.0 mmol/L (136-145)
[2025-02-13] MEDS: PROMETHAZINE 12.5 MG/50.5 ML BAG IV PRN (08:46)
[2025-02-13] MEDS: POTASSIUM CHLORIDE CRTAB 20 MEQ TABCR PO STA (11:22)
--- NOTE | 2025-02-13 22:28 | Hospitalist Progress Note ---
Date of Service February 13, 2025 Assessment & Plan (1) SBO (small bowel obstruction): Plan: To address #1, patient was made NPO except for meds and ice chips, while continuing NGT to decompress the stomach. Patient awaits richard-operative INR (02/05/2025, 3:14pm) and richard-operative EKG (02/05/2025, 6:41pm), repeat KUB (1 view)(to evaluate for any interval change(s) in acute complex SBO with 1-2 transition points, and formal General Surgery Service evaluation with Dr. Tiburcio Dubon in the 02/06/2025 am. In the interim, patient was started on tylenol 650mg PO q6 prn pain 1-3, headache, temp > 100.4 degrees Fahrenheit, dilaudid 1mg IV q6 prn pain 4-10. Of note, etiology of acute complex SBO remains unclear, but is probably due to surgical adhesions that developed after patient underwent (a) laparoscopic cholecystectomy (12/06/2023, 8:49am, [facility] General Surgeon Dr. Cruz Baugh) to treat cholelithiasis, complicated by acute SBO requiring (b) exploratory laparotomy with release of acute SBO (12/08/2023, 1:28pm, [facility] General Surgeon Dr. Cruz Baugh). Patient subsequently underwent surgical resection of ~40cm of necrotic/gangrenous bowel (as per General Surgeon SANDRA Tovar) on 02/07/2025, 1:06pm with [facility] General Surgeon Dr. Milo Eason. (2) Acidosis, lactic: Plan: To address #2, patient received 1 liter of 0.9% NS @ 999 mL/hr (02/05/2025, 3: 20pm), followed by 1 liter of 0.9% NS @ 74 mL/hr (02/05/2025, 6:46pm), based on a delivery rate of 1 mL of 0.9% NS per kg of body weight per hour, and a body weight of 74.1 kg. Etiology of acute lactic acid elevation remains unclear, but is most probably due to acute dehydration, as reflected by BUN:creatinine ratio > 20:1 (cf., admission BUN 32, creatinine 1.31)(02/05/2025, 3:14pm). Hence, I opted to rehydrate patient with 1 liter of 0.9% NS @ 999 mL/hr (02/07/2025, 3:23pm), followed by 1 liter of 0.9% NS @ 72 mL/hr (02/07/2025, 4:25pm), based on a delivery rate of 1 mL of 0.9% NS per kg of body weight per hour, and a body weight of 72.0 kg. I will check repeat lactic acid level in the 02/14/2025 am. (3) Hypertension: Plan: To address #3, patient was started on tylenol 650mg PO q6 prn pain 1-3 (02/05/2025, 6:57pm), dilaudid 1mg IV x 1 dose (02/05/2025, 6:49pm), followed by dilaudid 1mg IV q6 prn pain 4-10 (02/05/2025, 7:31pm), as I surmise that patient's acute malignant HTN is largely driven by her 1010 generalized abdominal pains, which in turn, are due to acute complete SBO with 1-2 transition points. In addition, as patient remains NPO and may not be capable of taking her home-scheduled ramipril 10mg PO qam or HCTZ 12.5mg PO qam, due to ongoing N/V, I have opted to start patient on anti-HTN agent hydralazine 10mg IV x 1 dose (02/05/2025, 7:25pm), followed by hydralazine 10mg IV q6 prn systolic BP > 185 mm Hg or diastolic BP > 95 mm Hg. Given the combination of analgesia with hydralazine, I hoped to decrease patient's admitting BP 230/93 (02/05/2025, 3:05pm) by ~25% in the first 24 hours of hospitalization. However, patient's BP remained persistently elevated with BP 192/74 (02/11/2025, 7:54pm). Hence, I increased hydralazine dose from 10mg IV q6 prn systolic BP > 185 mm Hg or diastolic BP > 95 mm Hg to hydralazine 20mg IV q6 prn systolic BP > 185 mm Hg or diastolic BP > 95 mm Hg on 02/11/2025, 9:15pm. Patient's BP declined to 175/71 (02/11/2025, 10:13pm) and remains elevated at 179/68 (02/12/2025, 7:17am). Hence, I have opted to start patient on hydralazine 20mg IV q6 [id number] on 02/12/2025, 8:48am, 3:05pm, and 8:40pm), and I will check repeat BP qshift and in the 02/14/2025 am. (4) Hyperglycemia: Plan: To address #4, patient was started on lispro insulin sliding scale q6 and POC glucose q6 as patient remains NPO. In the interim, I have opted to hold off patient's home-scheduled metformin 500mg PO bid, given the potential for this medication to exacerbate patient's admitting complaints of N/V. I have also opted to hold off patient's home-scheduled dulaglutide 3mg SQ q7 days, given the potential for this medication to delay gastric emptying, which can increase the risk of aspiration during general anesthesia. In this patient with a past medical history of acute SBO requiring exploratory laparotomy with release of acute SBO (12/08/2023, 1:28pm, [facility] General Surgeon Dr. Cruz Baugh), I surmise that patient is at fairly high risk for having to undergo surgical correction of her acute complex SBO during this hospitalization. Hence, patient should NOT receive her home-scheduled dulaglutide 3mg SQ q7 days while in [facility]. Of final note, serum glucose goal is 180 mg/dL or less, as set forth by the seminal work of the [employer] Study Investigators (cf., "Intensive versus Conventional Glucose Control in Critically Ill Patients." [place] Journal of Medicine. October 30, 2008; [phone]). Admission and Anticipated Discharge Date Admission Date: February 05, 2025 Subjective "I feel fine. Passing gas, no bowel yet. No belly pain. No nausea or vomit." Review of Systems Constitutional: Negative for antecedent/coincident fevers, chills, diaphoresis, cough, wheeze, sore throat, hemoptysis, chest pains, palpitations, pleurisy, nausea, vomiting, diarrhea, abdominal pain, pelvic pain, hematemesis, hematochezia, melena, hematuria, dysuria, frequency, urgency, headaches, dizziness, lightheadedness, visual changes, hearing changes, weakness, falls, syncope, trauma, travel history, sick contacts, or food/drug ingestions novel or new. All other review of systems are reported as negative by the patient on 02/13/2025. Physical Exam Constitutional: General: Comfortable, cooperative, coherent. Awake, alert. Not confused. Not lethargic or obtunded. Patient speaks in complete, fluent, and articulate sentences without pause, interrruption, cough, or wheeze. HEENT: Normocephalic, atraumatic. Pupils equally round and reactive to light. No nystagmus, gaze paresis, anisocoria, miosis, mydriasis, hyphema, scleral injection, conjunctivitis, or pterygium. No otorrhea. No pharyngeal erythema, edema, or discharge. NGT in situ (inserted on 02/05/2025 in [facility] ER bed #[id number]; removed on 02/11/2025 pm). Neck: Supple, no stridor, bruit, goiter, or hepato-jugular reflux. Jugular venous pressure is estimated to be 3 cm above the sternal angle of Percy, which in turn, is 5 cm above the level of the right atrium; with jugular venous pressure estimated to be 8 cm, then, there is no jugular venous distention on 02/13/2025. Lymphatics: No cervical (anterior/posterior), supraclavicular, infraclavicular, axillary, epitrochlear, or inguinal adenopathy. Chest: Symmetric rise and fall with respirations. Non-tender to palpation. Lungs: Clear to auscultation and percussion. No audible expiratory wheeze, egophony, pectoriloquy, increase in tactile fremitus, or flatness/dullness to percussion at the bases. Heart: RRR. S1 and S2 noted. No S3 or S4 summation gallop. No tripartite friction rub. Grade II/ early systolic murmur @ LLSB without radiation to the carotids, axilla, or back, and which remains invariant in regards to the respiratory cycle. Abdomen: Soft, non-tender, non-distended. No rebound, guarding, Alberto's sign, or organomegaly. Bowel sounds auscultated in all 4 quadrants. 19 Hebrew CHITRA Livan drain with 40 cc effluent since insertion on 02/07/2025, 1:06pm. Extremities: No clubbing, cyanosis, or edema in upper extremities or lower extremities bilaterally. 2+ pedal pulses bilaterally. Skin: No decubitus ulcer or enanthem. Genito-urinary: No urethral discharge. No pryor catheter. Neurology: Alert and oriented in regards to person, place, time, and situation. DTR+. 5/5 motor strength in all 4 extremities, both proximally and distally. No myoclonus, tremors, or tics. Psychiatry: No homicidal ideation. No suicidal ideation. No flat affect; smiles appropriately. Results & Data Results & Data Vital Signs (Past 12 Hours) Vital Signs Temp Pulse Pulse Pulse Resp BP Pulse Ox 02/13/25 18:59 36.7 C 76 18 156/71 H 97 02/13/25 15:30 71 02/13/25 15:06 36.5 C 64 19 122/65 97 02/13/25 11:15 36.4 C L 69 19 182/84 H 98 O2 Del Method 02/13/25 18:59 Room Air 02/13/25 15:30 02/13/25 15:06 Room Air 02/13/25 11:15 Room Air Laboratory Results Abnormal lab results 02/13/25 02/13/25 02/13/25 Range/Units 07:12 07:28 11:09 RBC 3.28 L (4.20-5.40) M/uL Hgb 10.1 L (12.0-16.0) g/dl Hct 30.9 L (37.0-47.0) % [place] # (Auto) 0.60 H (0.11-0.59) K/uL Potassium 3.2 L (3.5-5.1) mmol/L Chloride 110 H (98-107) mmol/L BUN/Creatinine Ratio 20.5 H (10-20) Glucose 123 H (70-99(Fasting)) mg/dl POC Glucose 115 H 169 H (70-99) mg/dl Calcium 8.2 L (8.6-10.3) mg/dl Procalcitonin 0.51 H (0-0.5) ng/ml 02/13/25 02/13/25 Range/Units 16:07 20:28 RBC (4.20-5.40) M/uL Hgb (12.0-16.0) g/dl Hct (37.0-47.0) % [place] # (Auto) (0.11-0.59) K/uL Potassium (3.5-5.1) mmol/L Chloride (98-107) mmol/L BUN/Creatinine Ratio (10-20) Glucose (70-99(Fasting)) mg/dl POC Glucose 133 H 138 H (70-99) mg/dl Calcium (8.6-10.3) mg/dl Procalcitonin (0-0.5) ng/ml PG Care Time/CCT Total # of Minutes Spent Total Time Spent with Patient: Total time spent is greater than 50% in coordination of care (as documented) at patient's floor/unit and/or counseling patient: Coding Level of Care Code 31420 SUB INP/OBS CARE 2/35MIN Diagnoses SBO (small bowel obstruction) K56.609 Acidosis, lactic E87.20 Hypertension I10 Hyperglycemia R73.9
[2025-02-14 06:39] LABS: Anion Gap 5.0 (3-11); Calcium 7.8 mg/dl (8.6-10.3); Carbon Dioxide 25.0 mmol/L (21-32); Chloride 112.0 mmol/L (98-107); Potassium 3.7 mmol/L (3.5-5.1); Sodium 142.0 mmol/L (136-145)
[2025-02-14 06:44] LABS: Blood Urea Nitrogen 19.0 mg/dl (6-23); Creatinine Clr Calc Pharmacy 50.7 ml/min; Glucose 117.0 mg/dl (70-99(Fasting))
--- NOTE | 2025-02-14 07:12 | Surgery Progress Note ---
Date of Service February 14, 2025 Assessment & Plan (1) SBO (small bowel obstruction): (2) S/P small bowel resection: Plan: s/p laparoscopic hand assisted ELKE and small bowel resection for closed loop bowel obstruction and gangrenous/necrotic bowel on 02/07/25. Has had issues with HTN, blood pressures better controlled On low fiber diet Has regained bowel function Continue low fiber diet for 3 weeks Continue PT while here Pt says she is going to [facility] but feels she is not ready to go just yet. Discharge per medical service Remove drain when less than 30cc's for 24 hours See me in the office the week of 02/[address] Lentz will cover the general surgery service for the weekend Admission and Anticipated Discharge Date Admission Date: February 05, 2025 Subjective I have seen and examined this patient this am. She was sleep in bed, awoke to alert and oriented. She has no complaints this am. States she is passing gas and had bowel movement. She is still apprehensive about being discharged. Physical Exam Constitutional: average body habitus; not ill appearing, not in distress and not diaphoretic Respiratory: normal respiratory effort; no respiratory distress, no labored breathing and does not use accessory muscles Gastrointestinal (Abdomen): Abdomen is soft CHITRA drain with sero-sanguinous fluid Right and left upper quadrant laparoscopic and infraumbilical midline hand assisted incisions with qian Results & Data Vital Signs (Past 12 Hours) Vital Signs Temp Pulse Pulse Pulse Resp BP Pulse Ox 02/14/25 02:39 36.4 C L 72 16 148/66 H 95 02/14/25 00:00 73 02/13/25 22:29 36.4 C L 77 12 152/81 H 97 O2 Del Method 02/14/25 02:39 Room Air 02/14/25 00:00 02/13/25 22:29 Room Air PG Care Time/CCT Total # of Minutes Spent Total Time Spent with Patient: Total time spent is greater than 50% in coordination of care (as documented) at patient's floor/unit and/or counseling patient: Coding Level of Care Code 01993 Post Operative Follow-Up Diagnoses SBO (small bowel obstruction) K56.609 S/P small bowel resection Z90.49
[2025-02-14 10:57] VITALS: RESP 18; TEMP 98.1; O2SAT 98
[2025-02-14 14:12] VITALS: BP 144/71; PULSE 79
--- NOTE | 2025-02-14 16:55 | Discharge Summary ---
Discharge Summary Date of Service February 14, 2025 Principal Dx & Hospital Course #1 = Principal Diagnosis (1) SBO (small bowel obstruction): To address #1, patient was made NPO except for meds and ice chips, while continuing NGT to decompress the stomach. Patient underwent richard-operative INR (02/05/2025, 3:14pm) and richard-operative EKG (02/05/2025, 6:41pm), repeat KUB (1 view)(to evaluate for any interval change(s) in acute complex SBO with 1-2 transition points, and formal General Surgery Service evaluation with Dr. Tiburcio Dubon in the 02/06/2025 am. In the interim, patient was started on tylenol 650mg PO q6 prn pain 1-3, headache, temp > 100.4 degrees Fahrenheit, dilaudid 1mg IV q6 prn pain 4-10. Of note, etiology of acute complex SBO remains unclear, but was probably due to surgical adhesions that developed after patient underwent (a) laparoscopic cholecystectomy (12/06/2023, 8:49am, [facility] General Surgeon Dr. Cruz Baugh) to treat cholelithiasis, complicated by acute SBO requiring (b) exploratory laparotomy with release of acute SBO (12/08/2023, 1:28pm, [facility] General Surgeon Dr. Cruz Baugh). Patient subsequently underwent surgical resection of ~40cm of necrotic/gangrenous bowel (as per General Surgeon SANDRA Tovar) on 02/07/2025, 1:06pm with [facility] General Surgeon Dr. Milo Eason. Patient convalesced while in [facility] and tolerates a low fiber diet very well since lunch meal. Patient continues to pass flatus and started to pass bowel on 02/14/2025, prior to hospital discharge to [facility] on 02/14/2025. (2) Acidosis, lactic: To address #2, patient received 1 liter of 0.9% NS @ 999 mL/hr (02/05/2025, 3:20pm), followed by 1 liter of 0.9% NS @ 74 mL/hr (02/05/2025, 6:46pm), based on a delivery rate of 1 mL of 0.9% NS per kg of body weight per hour, and a body weight of 74.1 kg. Etiology of acute lactic acid elevation remains unclear, but is most probably due to acute dehydration, as reflected by BUN:creatinine ratio > 20:1 (cf., admission BUN 32, creatinine 1.31)(02/05/2025, 3:14pm). Hence, I opted to rehydrate patient with 1 liter of 0.9% NS @ 999 mL/hr (02/07/2025, 3:23pm), followed by 1 liter of 0.9% NS @ 72 mL/hr (02/07/2025, 4:25pm), based on a delivery rate of 1 mL of 0.9% NS per kg of body weight per hour, and a body weight of 72.0 kg. Subsequently, patient's acute lactic acid elevation RESOLVED, as shown below: cf., lactic acid # 1 2.1 mmol/L (02/05/2025, 3:14pm). cf., lactic acid # 2 1.0 mmol/L (02/05/2025, 8:13pm). cf., lactic acid # 3 1.1 mmol/L (02/05/2025, 11:10pm). cf., lactic acid # 4 1.3 mmol/L (02/06/2025, 9:36am). cf., lactic acid # 5 1.0 mmol/L (02/07/2025, 5:23am). cf., lactic acid # 6 1.9 mmol/L (02/07/2025, 3:30pm). cf., lactic acid # 7 0.8 mmol/L (02/08/2025, 7:27am). cf., lactic acid # 8 0.5 mmol/L (02/09/2025, 6:59am). cf., lactic acid # 9 0.5 mmol/L (02/10/2025, 7:23am). cf., lactic acid #10 0.6 mmol/L (02/11/2025, 5:22am). (3) Hypertension: To address #3, patient was started on tylenol 650mg PO q6 prn pain 1-3 (02/05/2025, 6:57pm), dilaudid 1mg IV x 1 dose (02/05/2025, 6:49pm), followed by dilaudid 1mg IV q6 prn pain 4-10 (02/05/2025, 7:31pm), as I surmise that patient's acute malignant HTN is largely driven by her 1010 generalized abdominal pains, which in turn, are due to acute complete SBO with 1-2 transition points. In addition, as patient remained NPO and may not be capable of taking her home-scheduled ramipril 10mg PO qam or HCTZ 12.5mg PO qam, due to ongoing N/V, I opted to start patient on anti-HTN agent hydralazine 10mg IV x 1 dose (02/05/2025, 7:25pm), followed by hydralazine 10mg IV q6 prn systolic BP > 185 mm Hg or diastolic BP > 95 mm Hg. Given the combination of analgesia with hydralazine, I hoped to decrease patient's admitting BP 230/93 (02/05/2025, 3:05pm) by ~25% in the first 24 hours of hospitalization. However, patient's BP remained persistently elevated with BP 192/74 (02/11/2025, 7:54pm). Hence, I increased hydralazine dose from 10mg IV q6 prn systolic BP > 185 mm Hg or diastolic BP > 95 mm Hg to hydralazine 20mg IV q6 prn systolic BP > 185 mm Hg or diastolic BP > 95 mm Hg on 02/11/2025, 9:15pm. Patient's BP declined to 175/71 (02/11/2025, 10:13pm) and remains elevated at 179/68 (02/12/2025, 7:17am). Hence, I opted to start patient on hydralazine 20mg IV q6 [id number] on 02/12/2025, 8:48am, 3:05pm, and 8:40pm), and patient's BP improved with discharge BP 144/71 (02/14/2025, 2:43pm). Subsequently, patient's [id number], [facility] [address], [place] [address], received an electronic prescription on 02/14/2025, prior to D/C to [facility] ([place], [place]) for: a. hydralazine 25mg PO qid, #120 tablets, no refills. Subsequently, patient will start hydralazine 25mg PO qid on arrival to [facility] ([place], [place]) on 02/14/2025 pm. (4) Hyperglycemia: To address #4, patient was started on lispro insulin sliding scale q6 and POC glucose q6 as patient remains NPO. In the interim, I have opted to hold off patient's home-scheduled metformin 500mg PO bid, given the potential for this medication to exacerbate patient's admitting complaints of N/V. I have also opted to hold off patient's home-scheduled dulaglutide 3mg SQ q7 days, given the potential for this medication to delay gastric emptying, which can increase the risk of aspiration during general anesthesia. In this patient with a past me dical history of acute SBO requiring exploratory laparotomy with release of acute SBO (12/08/2023, 1:28pm, [facility] General Surgeon Dr. Cruz Baugh), I surmise that patient is at fairly high risk for having to undergo surgical correction of her acute complex SBO during this hospitalization. Hence, patient should NOT receive her home-scheduled dulaglutide 3mg SQ q7 days while in [facility]. Of final note, serum glucose goal is 180 mg/dL or less, as set forth by the seminal work of the [employer] Study Investigators (cf., "Intensive versus Conventional Glucose Control in Critically Ill Patients." [place] Journal of Medicine. October 30, 2008; 360:1194-2489). cf., admission glucose 226 mg/dL (02/05/2025, 3:14pm). cf., discharge glucose 117 mg/dL (02/14/2025, 5:54am). Admission HPI Per Admitting Provider 79 years Old female with PMH of FULL CODE @ home, obesity with BMI 30.9 (height 154.9 cm; weight 74.1 kg), hyperlipidemia on atorvastatin 40mg PO qhs, HTN on ramipril 10mg PO qam, HCTZ 12.5mg PO qam, hypothyroidism with TSH 0.453 uIU/mL (06/17/2024, 12:11pm) on synthroid 88ug PO qam, non-insulin dependent DM2 with HbA1c 6.9% (06/17/2024, 12:11pm) on metformin 500mg PO bid and dulaglutide 3mg SQ q7 days, major depression on bupropion 300mg PO qam and fluoxetine 10mg PO qpm, former tobacco abuse with no subsequent diagnosis of COPD, not on home O2 or home steroids, but subsequent development of severe presbycusis mitigated by binaural hearing aids in situ, mild intermittent asthma on singulair 10mg PO qhs, allergic rhinitis on fluticasone 50ug/spray, 2 sprays to each nostril qam, and cholelithiasis s/p laparoscopic cholecystectomy (12/06/2023, 8:49am, [facility] General Surgeon Dr. Cruz Baugh), complicated by acute SBO requiring exploratory laparotomy with release of acute SBO (12/08/2023, 1:28pm, [facility] General Surgeon Dr. Cruz Baugh), who presents with: "My belly hurts all over; it started in the right lower part of my belly and then it moved up; now it's all over. The pain is constant; it's a 10 (out of 10 point intensity scale). The pain started last night (02/04/2025, 9:30pm) at home at rest. First, I felt nauseated, then I started vomiting up green stuff, no blood. No bowel movement in 2 days, but then again, I don't have a bowel movement every day. I am not farting for the past 2 days; normally, I don't fart everyday either. Just so you know, I had this exact same problem last year after my gallbladder was taken out here in [facility] with General Surgeon Dr. Cruz Baugh, and had to take me to the OR to get the problem fixed (cf., exploratory laparotomy with release of acute SBO on 12/08/2023, 1:28pm). Patient denies antecedent/coincident fevers, chills, diaphoresis, cough, wheeze, sore throat, hemoptysis, chest pains, palpitations, pleurisy, diarrhea, pelvic pain, hematemesis, hematochezia, melena, hematuria, dysuria, frequency, urgency, headaches, dizziness, lightheadedness, visual changes, hearing changes, weakness, falls, syncope, trauma, travel history, sick contacts, or food/drug ingestions novel or new. All other review of systems are reported as negative by the patient on admission date 02/05/2025. In [facility] ER bed #A12B, patient was afebrile @ 35.9 degrees Celsius, HR 51, RR 20, O2 sat 100% on room air, and BP 230/93 (02/05/2025, 3:05pm). Exam was noted for a soft, distended, and MILDLY tender (in all 4 quadrants) abdomen without rebound, guarding, Alberto's sign, or organomegaly. Bowel sounds were auscultated in all 4 quadrants. NGT had already been placed prior to my exam of patient to decompress the stomach with expression of 200 mL of light army green effluent collected. Labs in [facility] ER bed #A12B included: INR (02/05/2025, 3:14pm)(richard-operative evaluation). Lactic acid #1 2.1 mmol/L (02/05/2025, 3:14pm). Lactic acid #2 (02/05/2025, 7:14pm). WBC 9.64, N77 L16 M6 E1, Hb 13.3, MCV 90.3, MCHC 33.8, platelet (02/05/2025, 3:14pm). Na 138, K 4.1, BUN 32, creatinine 1.31, GFR 41.7, glucose 226, anion gap 13, CO2 24, Ca 9.8, AST 14, ALT 9, ALK PHOS 95, TBili 0.7 (02/05/2025, 3:14pm). Additional testing in [facility] ER bed #A12B included: CT abd/pelvis with IV contrast (02/05/2025, 3:11pm): 1. Complex small bowel obstruction identified involving the distal jejunum/proximal ileum in the pelvis. There is at least 1 and possibly 2 transition points, with mild wall thickening, surrounding infiltration, and int raluminal fluid. The adjacent mesenteric vessels appear engorged and a closed loop type obstruction is not excluded. Surgical evaluation is advised. 2. No intraperitoneal free air. No pneumatosis intestinalis or portal venous gas is seen. 3. Small volume of pelvic ascites. 4. Bilateral nephrolithiasis. 5. Coronary artery atherosclerosis. 6. Colonic diverticulosis without CT evidence of acute diverticulitis. Portable CXR (02/05/2025, 4:08pm): 1. No infiltrate, effusion, cardiomegaly, pulmonary vascular congestion, or pneumothorax. 2. NGT with tip in stomach (by my review). EKG (02/05/2025, 6:41pm): (richard-operative evaluation). Patient was subsequently admitted to the inpatient hospitalist service @ [facility] on 02/05/2025 with the following diagnoses: 1. Acute complex SBO with 1-2 transition points. 2. Acute lactic acid elevation with lactic acid #1 2.1 mmol/L (02/05/2025, 3:14pm). 3. Acute malignant HTN with admission BP 230/93 (02/05/2025, 3:05pm) with concomitant acute kidney injury with admission creatinine 1.31 mg/dL, GFR 41.7 mL/min (02/05/2025, 3:14pm). 4. Acute hyperglycemia with admission glucose 226, anion gap 13, CO2 24 (0 02/05/2025, 3:14pm), R/O incipient DKA. To address #1, patient was made NPO except for meds and ice chips, while continuing NGT to decompress the stomach. Patient awaits richard-operative INR (02/05/2025, 3:14pm) and richard-operative EKG (02/05/2025, 6:41pm), repeat KUB (1 view)(to evaluate for any interval change(s) in acute complex SBO with 1-2 transition points, and formal General Surgery Service evaluation with Dr. Tiburcio Dubon in the 02/06/2025 am. In the interim, patient was started on tylenol 650mg PO q6 prn pain 1-3, headache, temp > 100.4 degrees Fahrenheit, dilaudid 1mg IV q6 prn pain 4-10. Of note, etiology of acute complex SBO remains unclear, but is probably due to surgical adhesions that developed after patient underwent (a) laparoscopic cholecystectomy (12/06/2023, 8:49am, [facility] General Surgeon Dr. Cruz Baugh) to treat cholelithiasis, complicated by acute SBO requiring (b) exploratory laparotomy with release of acute SBO (12/08/2023, 1:28pm, [facility] General Surgeon Dr. Cruz Baugh), To address #2, patient received 1 liter of 0.9% NS @ 999 mL/hr (02/05/2025, 3:20pm), followed by 1 liter of 0.9% NS @ 74 mL/hr (02/05/2025, 6:46pm), based on a delivery rate of 1 mL of 0.9% NS per kg of body weight per hour, and a body weight of 74.1 kg. I will check repeat lactic acid #2 (02/05/2025, 7:14pm), lactic acid #3 (02/05/2025, 11:14pm), and lactic acid #4 (02/06/2025, 6:00am). Etiology of acute lactic acid elevation remains unclear, but is most probably due to acute dehydration, as reflected by BUN:creatinine ratio > 20:1 (cf., admission BUN 32, creatinine 1.31)(02/05/2025, 3:14pm). To address #3, patient was started on tylenol 650mg PO q6 prn pain 1-3 (02/05/2025, 6:57pm), dilaudid 1mg IV x 1 dose (02/05/2025, 6:49pm), followed by dilaudid 1mg IV q6 prn pain 4-10 (02/05/2025, 7:31pm), as I surmise that patient's acute malignant HTN is largely driven by her 05/16 generalized abdominal pains, which in turn, are due to acute complete SBO with 1-2 transition points. In addition, as patient remains NPO and may not be capable of taking her home-scheduled ramipril 10mg PO qam or HCTZ 12.5mg PO qam, due to ongoing N/V, I have opted to start patient on anti-HTN agent hydralazine 10mg IV x 1 dose (02/05/2025, 7:25pm), followed by hydralazine 10mg IV q6 prn systolic BP > 185 mm Hg or diastolic BP > 95 mm Hg. Given the combination of analgesia with hydralazine, I hope to decrease patient's admitting BP 230/93 (02/05/2025, 3:05pm) by ~25% in the next 24 hours. I will check repeat BP qshift and I will also check repeat creatinine level in the 02/06/2025 am. cf., baseline creatinine range, 0.87 - 1.05 (12/13/2023 - 06/18/2024). To address #4, patient was started on lispro insulin sliding scale q6 and POC glucose q6 as patient remains NPO. In the interim, I have opted to hold off patient's home-scheduled metformin 500mg PO bid, given the potential for this medication to exacerbate patient's admitting complaints of N/V. I have also opted to hold off patient's home-scheduled dulaglutide 3mg SQ q7 days, given the potential for this medication to delay gastric emptying, which can increase the risk of aspiration during general anesthesia. In this patient with a past medical history of acute SBO requiring exploratory laparotomy with release of acute SBO (12/08/2023, 1:28pm, [facility] General Surgeon Dr. Cruz Baugh), I surmise that patient is at fairly high risk for having to undergo surgical correction of her acute complex SBO during this hospitalization. Hence, patient should NOT receive her home-scheduled dulaglutide 3mg SQ q7 days while in [facility]. Of final note, serum glucose goal is 180 mg/dL or less, as set forth by the seminal work of the [employer] Study Investigators (cf., "Intensive versus Con ventional Glucose Control in Critically Ill Patients." [place] Journal of Medicine. October 30, 2008; 360:6080-1030). Discharge Exam Eyes General: Comfortable, cooperative, coherent. Awake, alert. Not confused. Not lethargic or obtunded. Patient speaks in complete, fluent, and articulate sentences without pause, interrruption, cough, or wheeze. HEENT: Normocephalic, atraumatic. Pupils equally round and reactive to light. No nystagmus, gaze paresis, anisocoria, miosis, mydriasis, hyphema, scleral injection, conjunctivitis, or pterygium. No otorrhea. No pharyngeal erythema, edema, or discharge. NGT in situ (inserted on 02/05/2025 in [facility] ER bed #A12B; removed on 02/12/2025, 4:30am in [facility] Med-Surg bed #S230-2). Neck: Supple, no stridor, bruit, goiter, or hepato-jugular reflux. Jugular venous pressure is estimated to be 3 cm above the sternal angle of Percy, which in turn, is 5 cm above the level of the right atrium; with jugular venous pressure estimated to be 8 cm, then, there is no jugular venous distention on 02/13/2025. Lymphatics: No cervical (anterior/posterior), supraclavicular, infraclavicular, axillary, epitrochlear, or inguinal adenopathy. Chest: Symmetric rise and fall with respirations. Non-tender to palpation. Lungs: Clear to auscultation and percussion. No audible expiratory wheeze, egophony, pectoriloquy, increase in tactile fremitus, or flatness/dullness to percussion at the bases. Heart: RRR. S1 and S2 noted. No S3 or S4 summation gallop. No tripartite friction rub. Grade II/ early systolic murmur @ LLSB without radiation to the carotids, axilla, or back, and which remains invariant in regards to the respiratory cycle. Abdomen: Soft, non-tender, non-distended. No rebound, guarding, Alberto's sign, or organomegaly. Bowel sounds auscultated in all 4 quadrants. 19 [place] CHITRA Livan drain with 40 cc effluent since insertion on 02/07/2025, 1:06pm. Extremities: No clubbing, cyanosis, or edema in upper extremities or lower extremities bilaterally. 2+ pedal pulses bilaterally. Skin: No decubitus ulcer or enanthem. Genito-urinary: No urethral discharge. No pryor catheter. Neurology: Alert and oriented in regards to person, place, time, and situation. DTR+. 5/5 motor strength in all 4 extremities, both proximally and distally. No myoclonus, tremors, or tics. Psychiatry: No homicidal ideation. No suicidal ideation. No flat affect; smiles appropriately. Discharge Plan Discharge Items Patient Disposition: Transfer [facility] Reason For Visit: ACUTE SBO Discharge Diagnosis: 1. Acute SBO RESOLVED s/p small bowel resection (02/07/2025, 1:06pm, [facility] General Surgeon Dr. Milo Eason). Condition on Discharge: Fair Activity: As commented below Lifting: No more than 10 pounds Bathing: No limitations Bathing Comment: you can shower. No soaking in pool/bath for 2 weeks Exercise/Sports: Wait until after follow-up appointment Weightbearing: Full weightbearing Non-emergency contact: Primary Care Provider and Surgeon Call non-emergency contact if: you have any medication questions, your temperature is above 101.5, your wound has increased redness, your wound has increased drainage and your wound pain has increased Follow-up/Referrals: Derek Samaniego MD [Primary Care Provider] - Milo Eason DO [Physician] - (call office for follow up the week of February 24) Diet: Low Fiber Addtl Attending Provider Instructions: SPECIAL CARE INSTRUCTIONS: * Dressing: You have qian that will need to come out at your follow up appointment. Please keep surgical area clean and dry. You can apply gauze and tape for comfort, Change your dressing daily. * You may shower . NO soaking in pools or baths for 2 weeks Please care for your CHITRA drain as you have been instructed prior to discharge from the hospital. Empty drain 2-3x/daily and record output, bring a log with you to the office. Otherwise keep drain to bulb suction. * No lifting greater than 10lbs. No exercise until cleared by surgeon. Light walking is accepted. * No driving while taking narcotic pain medication * No drinking alcohol while taking narcotic pain medication * May use Ibuprofen/Tylenol over the counter for pain as tolerated. Do not exceed 3grams of Tylenol per 24 hours * Expect some swelling and bruising. * Diet Regular Call your doctor if: * Temperature above 101 degrees, nausea/vomiting, fever/chills * Pain not relieved by pain medicine ordered * There is increased drainage or redness from any incision * You have any unanswered questions or concerns [phone]. FOLLOW UP VISIT: If not already scheduled, please call the office for a follow-up visit. Office Pending Studies at Discharge: No Studies:: Final surgical pathology report (02/10/2025, 12:26pm): Gangrenous small bowel seen. No tumor seen. Stand-Alone Forms: My [facility] Skilled Items Patient informed of condition?: Yes DNR: No Discharge Level of Care: Skilled Communicable Disease: No Discharge Prognosis: Stable Lines: None Urinary Catheter: No Medications and DC Order Prescriptions: New hydralazine 25 mg tablet 25 mg PO QID Qty: 120 0RF oxycodone-acetaminophen [Percocet] 5-325 mg Tablet 1 tab PO Q6H PRN (Reason: pain 4 to 10) Qty: 20 0RF Continued (DME) Accu-Chek SmartView Test Strip Strip See Rx Instructions .Route Qty: 100 5RF Rx Instructions: Once daily (DME) lancets [Accu-Chek Softclix Lancets] Misc See Rx Instructions .Route Qty: 100 5RF Rx Instructions: test BID levothyroxine 88 mcg tablet 88 mcg PO QAM Qty: 100 3RF montelukast [Singulair] 10 mg tablet 10 mg PO HS Qty: 100 3RF bupropion HCl 300 mg tablet extended release 24 hr 300 mg PO QAM Qty: 100 3RF atorvastatin 40 mg tablet 40 mg PO HS Qty: 100 3RF fluoxetine 10 mg capsule 10 mg PO QPM Qty: 100 3RF fluticasone propionate 50 mcg/actuation spray,suspension 2 spray INTNAS QAM Qty: 16 3RF Rx Instructions: administer into each nostril 02/05-last filled 10/14/24 90 day supply fluticasone furoate-vilanterol [Breo Ellipta] 100-25 mcg/dose blister with device 1 inh INH QAM Qty: 180 3RF Rx Instructions: 1 inh inhalation daily. After inhalation rinse mouth with water and spit. Use same time each day, no more than 1 time in 24 hours; ramipril 10 mg capsule 10 mg PO QAM Qty: 90 3RF albuterol sulfate 90 mcg/actuation HFA aerosol inhaler 2 puff INH Q4H PRN (Reason: shortness of breath or wheezing) Qty: 25.5 3RF dulaglutide 3 mg/0.5 mL pen injector 3 mg subcut Q7D Hold Instructions: please hold unless Dr Baugh feels it is safe to resume in light of recent bowel obstruction Patient Comments: mondays Rx Instructions: 3 mg subcutaneously once weekly; last filled 10/28/24 84 day supply Discontinued mecobalamin (vitamin B12) 1,000 mcg tablet,chewable 1,000 mcg PO DAILY Rx Instructions: 02/05- otc unable to verify hydrochlorothiazide 12.5 mg tablet 12.5 mg PO QAM Qty: 100 3RF metformin 500 mg tablet extended release 24 hr 500 mg PO BID Qty: 180 3RF ondansetron 4 mg tablet,disintegrating 4 mg PO Q6H PRN (Reason: nausea and vomiting) Qty: 20 0RF Rx Instructions: 02/05- no fill history unable to verify sucralfate [Carafate] 1 gram tablet 1 g PO UD Rx Instructions: original:1 g po bid 02/05- no fill history unable to verify aspirin [Adult Low Dose Aspirin] 81 mg tablet,delayed release (DR/EC) 81 mg PO QAM Rx Instructions: 02/05- otc unable to verify Discharge Orders: Discharge Order (Routine); Ordered 02/14/25 Ordered By: Sd Case/Other Patient Handouts: Hydralazine Oral Tablet, Hydralazine/Isosorbide Dinitrate Oral Tablet, Small Bowel Obstruction, Low-Fiber Diet, Managing Type 2 Diabetes, Anatomy of the Digestive System, How the Colon Works Admission Data Admit Date/Time: 02/05/25 17:58 Attending Provider: Sd Herring Admit Provider: Sd Herring Primary Care Provider: Derek Samaniego Other Providers: Sd Herring; Tiburcio Dubon; [facility] Other Interventions: Discharge Summary Assessment (RN) Last Done: 02/14/25 14:43 Hospital Stay Data Consultations 02/05/25 17:55 ED Decision to Admit Stat 02/05/25 19:27 Consult General Surgery Routine Procedures Performed Operation Date: 02/07/25 09:40 Actual Procedures p Laparoscopic Bowel Resection(Not Applicable) - Milo Eason, Diagnostic Imagining Performed 02/05/25 15:11 CT abd pelvis IV con only Stat 02/11/25 13:08 CT angio chest PE protocol Stat Pending Results Patient Have Any Pending Studies at Discharge: No Discharge Instructions Given to Patient (Per Discharging Provider) SPECIAL CARE INSTRUCTIONS: * Dressing: You have qian that will need to come out at your follow up appointment. Please keep surgical area clean and dry. You can apply gauze and tape for comfort, Change your dressing daily. * You may shower . NO soaking in pools or baths for 2 weeks Please care for your CHITRA drain as you have been instructed prior to discharge from the hospital. Empty drain 2-3x/daily and record output, bring a log with you to the office. Otherwise keep drain to bulb suction. * No lifting greater than 10lbs. No exercise until cleared by surgeon. Light walking is accepted. * No driving while taking narcotic pain medication * No drinking alcohol while taking narcotic pain medication * May use Ibuprofen/Tylenol over the counter for pain as tolerated. Do not exceed 3grams of Tylenol per 24 hours * Expect some swelling and bruising. * Diet Regular Call your doctor if: * Temperature above 101 degrees, nausea/vomiting, fever/chills * Pain not relieved by pain medicine ordered * There is increased drainage or redness from any incision * You have any unanswered questions or concerns [phone]. FOLLOW UP VISIT: If not already scheduled, please call the office for a follow-up visit. Office Total Time Total Time Spent Total Time Spent (In Minutes): 35 minutes. Of this time period, 19 minutes were spent in coordinating patient's discharge. Coding Level of Care Code 18665 INP/OBS DISCH >30 MIN Diagnoses SBO (small bowel obstruction) K56.609 Acidosis, lactic E87.20 Hypertension I10 Hyperglycemia R73.9
== END 2025-02-14 18:04 | DRG 330 ==
LOC: ED 14:56 → 2S 17:58